=== PATIENT | female | born 1955 ===

== ENCOUNTER 2022-02-24 11:29 | Outpatient (REF) | payer OTHER, SELFPAY | END 2022-02-24 11:30 | disposition home or self-care (01) | LOC: HO.LNP 11:29 | PROVIDERS: Visit Provider Nurse Practitioner Family | DX: J30.9 Allergic rhinitis, unspecified (principal); Z20.822 Contact with and (suspected) exposure to COVID-19 | CPT/HCPCS: U0003; U0005 ==

== ENCOUNTER 2022-04-19 07:54 | Outpatient (REF) | payer OTHER, SELFPAY ==
--- NOTE | ~2022-04-19 | XR_ITS ---
EXAMINATION: XR FOOT, LEFT CLINICAL INFORMATION: Cellulitis COMPARISON: None TECHNIQUE: AP, lateral, and oblique views of the left foot. FINDINGS: Bone alignment is normal. No fracture or dislocation. Normal joint spaces. Large calcaneal spurs. Soft tissue arterial calcification. Question soft tissue swelling over the plantar heel/calcaneus. No soft tissue foreign body or abnormal air collection. XR/XR foot LT 2V IMPRESSION: Calcaneal spurs. Severe atherosclerotic disease. Question soft tissue thickening over the heel/calcaneus.
[2022-04-19 08:05] LABS: MANUAL DIFF FLAG NO
[2022-04-19 08:41] LABS: Basophils Absolute Auto 0.1 X10*3/uL (0.0-0.2); Basophils Percent Auto 0.5 % (0-2); Eosinophils Absolute Auto 0.3 X10*3/uL (0.0-0.4); Eosinophils Percent Auto 2.6 % (0-4); Hematocrit 41.6 % (37.0-47.0); Hemoglobin 13.2 g/dl (12.0-16.0); Imm Gran Abs Auto 0.05 X10*3/uL (0.00-0.03); Imm Gran Pct Auto 0.5 % (0.0-0.4); Lymphocytes Absolute Auto 2.2 X10*3/uL (1.2-4.9); Lymphocytes Percent Auto 19.4 % (20-40); Mean Corpuscular HGB Conc 31.7 g/dl (31.0-35.0); Mean Corpuscular Hemoglobin 27.7 pg (27.0-33.0); Mean Corpuscular Volume 87.4 fL (80.0-98.0); Mean Platelet Volume 10.1 fL (9.4-12.3); Monocytes Absolute Auto 0.9 X10*3/uL (0.1-1.2); Monocytes Percent Auto 8.5 % (2-11); Neutrophils Absolute Auto 7.6 x10*3/uL (2.0-8.3); Neutrophils Percent Auto 68.5 % (45-73); Platelet Count 271 X10*3/uL (160-400); Red Blood Count 4.76 X10*6/uL (4.20-5.50); Red Cell Distribution Width 13.5 % (11.0-16.0); White Blood Count 11.1 X10*3/uL (4.8-10.8)
[2022-04-19 08:48] LABS: Estimated Average Glucose 249 mg/dL; Hemoglobin A1c % 10.3 %
[2022-04-19 09:14] LABS: Appearance Urine Clear; Color Urine Yellow; Glucose Urine UA >=1000 mg/dL (Negative); Leukocyte Esterase Urine Negative (Negative); Nitrite Urine Negative (Negative); UMIC TRIGGER UA YES; Urine Blood Negative (Negative); Urine Ketones Negative (Negative); Urine Protein Negative (Neg-Trace)
[2022-04-19 09:21] LABS: Bacteria Urine None Seen (None Seen); Hyaline Casts Urine 0-2 /LPF (0-2); RBC Urine 0-2 /HPF (0-2); WBC Urine 0-5 /HPF (0-5)
[2022-04-19 09:25] LABS: Alanine Aminotransferase 25 U/L (0-31); Albumin Level 4.2 g/dL (3.5-5.0); Alkaline Phosphatase 143 U/L (39-117); Anion Gap 15 (12-20); Aspartate Amino Transferase 15 U/L (5-31); Bilirubin Total 0.2 mg/dL (0.0-1.0); Blood Urea Nitrogen 50 mg/dL (9-16); Calcium 9.6 mg/dL (8.4-10.2); Carbon Dioxide 23 mmol/L (22-29); Chloride 105 mmol/L (96-108); Cholesterol 139 mg/dL; Estimated Glomerular Filt Rate 38; Glucose Fasting 226 mg/dL (60-99); HDL Cholesterol 34 mg/dL; LDL Cholesterol Calculated 81 mg/dl; Sodium 138 mmol/L (135-145); TSH reflex Free T4 1.38 uIU/mL (0.32-4.0); Total Protein 6.9 g/dL (6.5-8.0); Triglycerides 123 mg/dL
[2022-04-19 09:51] LABS: Creatinine Urine 51.67 mg/dL; Microalbum/Creatinine Ratio Ur 21.2 ug/mg cr
== END 2022-04-19 07:55 | disposition home or self-care (01) ==
LOC: HO.LAB 07:54
PROVIDERS: PCP Family Medicine; Visit Provider Family Medicine
DX: Z00.00 Encounter for general adult medical examination without abnormal findings (principal); I10 Essential (primary) hypertension; R73.01 Impaired fasting glucose; L03.116 Cellulitis of left lower limb
CPT/HCPCS: 36415; 73620; 80053; 80061; 81001; 82043; 83036; 84443; 85025

== ENCOUNTER → 2022-05-05 09:20 | Outpatient (REF) | payer OTHER, SELFPAY ==
--- NOTE | 2022-05-05 09:23 | CA_ITS ---
Transthoracic Echocardiogram Patient (Last, First, Middle): Jimena Watkins E Gender: Female Date of : 1955 Age: 66 Procedure Date: 05/05/2022 Procedure Type: Transthoracic Echocardiogram Location: OP Height: 149.86 cm Weight: 87.09 kg BSA: 1.81 m2 Heart Rate: 68 bpm BP: 142 / 62 mmHg Sample Weaver: SB Referring MD: Ross Gold MD Knife Sharpener: Juan Can MD Symptoms: R01.1 - Cardiac murmur, unspecified Study Quality: Adequate w contrast ECG Rhythm: Sinus Conclusions: - 1. Hyperdynamic LV systolic function with LVEF of greater than 70% with mild asymmetric septal hypertrophy without any clear evidence of dynamic obstruction 2. Limited with elevation of cardiac valve with normal cardiac valvular Doppler 3. No gross pericardial effusion Findings Procedure Information Contrast agent, definity, is being given per protocol without apparent complications. Left Ventricle Normal left ventricular size, thickness, and systolic function. The visually estimated ejection fraction is >70%. Spectral Doppler is indicative of an impaired relaxation filling pattern. There is mild septal asymmetric hypertrophy. Right Ventricle Normal right ventricular cavity size. Atria The left atrium is normal in size. Interatrial shunt cannot be excluded. The right atrium was not well visualized. Aortic Valve The aortic valve was not well visualized. There is no aortic valve stenosis. There is no aortic valve regurgitation. Mitral Valve There is mild anterior mitral leaflet thickening. There is moderate mitral annular calcification. There is no mitral valve regurgitation. There is trace mitral valve stenosis. Pulmonic Valve The pulmonic valve was not well visualized. Tricuspid Valve The tricuspid valve was not well visualized. Tricuspid regurgitation envelope is inadequate for calculation of right ventricular systolic pressure. Great Vessels All visible segments of the aorta are normal in size. The pulmonary artery was not well visualized. Venous The inferior vena cava was not well visualized. Pericardium/Pleural There is no evidence of pericardial effusion. Prior Study Comparison No prior study available for comparison. Measurements 2D Linear Measurements IVSd: 1.37 0.6-0.9/0.6-1.0 cm LVIDd: 4.31 3.9-5.3/4.2-5.9 cm LVIDd Index: 2.38 2.4-3.2/2.2-3.1 cm/m2 LVIDs: 2.74 2.0-3.6 cm LVPWd: 1.05 0.7-1.1 cm LA Diam: 3.80 2.7-3.8/3.0-4.0 cm LAIDs Index: 2.10 1.5-2.3 cm/m2 LV Mass: 233.75 67-162/88-224 g LV Mass Index: 129.14 43-95/49-115 g/m2 LVOT Diam: 2.00 3.0+(-)1.3 cm 2D Systolic Function EF 4C: 74.00 >55% EF 2C: 78.50 >55% EF BiP: 75.50 >55% Mitral Valve MV Pk E: 0.90 MV PK A: 0.93 MV Decel Time: 257.00 E/A: 1.00 E'Lateral: 6.42 E'Medial: 7.18 E/E' Med: 12.60 E/E' Lat: 14.10 PHT: 75.00 MVA PHT: 2.93 Decel Stutsman: 3.52 Aortic Valve AoV Pk Eddie: 1.31 AoV Pk Grad: 7.00 AMRIT: 2.80 LVOT LVOT Pk Eddie: 1.17 LVOT Mn Eddie: 0.82 LVOT VTI: 0.25 LVOT Pk Grad: 5.00 LVOT Mn Grad: 3.00 LVOT Diam: 2.00 LVOT Area: 3.14 Diastolic Function MV Pk E: 0.90 MV Pk A: 0.93 E/A: 1.00 E'Medial: 7.18 E/E' Med: 12.60 E' Laterial: 6.42 E/E' Lat: 14.10 Right Ventricle TAPSE (mm): 21.40 TVS' Eddie: 16.90 Tricuspid Valve RA Press: 3.00 Great Vessels Aorta Sinus of Valsalva: 2.90 2.0-3.5 cm Ao Asc: 3.50 2.1-3.4 cm Pulmonary Veins Pulm Vein S/D 1.20 Pulmonary Valve PV Pk Eddie: 1.38 Peak PV Grad: 8.00 Updated in Other Vendor System with Status of Final Juan Can MD electronically signed on 05/05/2022 4:27:52 PM with status of Final
== END ==
LOC: HO.CARD 09:20
PROVIDERS: PCP Family Medicine; Visit Provider Family Medicine
DX: R01.1 Cardiac murmur, unspecified (principal)
CPT/HCPCS: 93306; Q9957

== ENCOUNTER 2022-08-09 11:01 | Outpatient (REF) | payer OTHER, SELFPAY ==
--- NOTE | ~2022-08-09 | US_ITS ---
EXAMINATION: US ABDOMEN LIMITED CLINICAL INFORMATION: Unspecified abdominal pain. Left-sided abdominal wall pain, worse with cough or sneeze. Rule out hernia. COMPARISON: None available. TECHNIQUE: Real-time imaging of the left flank in the region of concern. FINDINGS: No sonographic correlate to the reported area of pain. No hernia. No lymphadenopathy. US/US abdomen limited IMPRESSION: No sonographic correlate to the reported area of pain. No hernia. If persistent clinical concern a CT abdomen pelvis could be obtained.
== END 2022-08-09 11:02 | disposition home or self-care (01) ==
LOC: HO.US 11:01
PROVIDERS: Visit Provider Family Medicine
DX: R10.9 Unspecified abdominal pain (principal)
CPT/HCPCS: 76705

== ENCOUNTER 2022-08-16 11:03 | Outpatient (REF) | payer OTHER, SELFPAY ==
--- NOTE | ~2022-08-16 | MM_ITS ---
EXAMINATION: MM SCREENING DIGITAL BREAST TOMOSYNTHESIS, BILATERAL CLINICAL INFORMATION: Screening. Asymptomatic. The lifetime risk of breast cancer based on the Tyrer-Cuzick Model is 3.9%. COMPARISON: Mammography: 06/18/2012 and studies dating back to 10/14/2009. TECHNIQUE: Digital breast tomosynthesis is performed in both the craniocaudal and mediolateral oblique views along with computer-aided detection (CAD). Synthesized 2D images are generated from the tomosynthesis. FINDINGS: There are scattered areas of fibroglandular density (ACR BI-RADS breast composition Category b). On deep medial aspect of right craniocaudal view there is a density present which may represent sternalis muscle or mass of other etiology. Repeat attempt at imaging this region is recommended. If there is persistence of density then ultrasound could be performed at that time. Within the central aspect of the left breast, approximately 8 cm from nipple, there is a nodular, circumscribed density present measuring approximately 7 x 5 mm in size and may represent intramammary lymph node. Spot compression view and possible ultrasound recommended. MM/MM tomosynthesis screening BI IMPRESSION: Bilateral breast findings for further evaluation. ASSESSMENT: BI-RADS 0: Incomplete - Need Additional Imaging Evaluation. RECOMMENDATION: 1. Additional views of the bilateral breasts. 2. Targeted ultrasound if warranted after review of the additional views. 3. Radiology department staff will contact the patient for additional imaging. This patient's information was entered into a reminder system with a target due date for their next mammogram.
== END 2022-08-16 11:04 | disposition home or self-care (01) ==
LOC: HO.MAMMO 11:03
PROVIDERS: PCP Family Medicine; Visit Provider Family Medicine
DX: Z12.31 Encounter for screening mammogram for malignant neoplasm of breast (principal)
CPT/HCPCS: 77063; 77067

== ENCOUNTER 2022-08-23 08:22 | Outpatient (REF) | payer OTHER, SELFPAY ==
--- NOTE | ~2022-08-23 | MM_ITS ---
EXAMINATION: MM DIAGNOSTIC DIGITAL BREAST TOMOSYNTHESIS, BILATERAL CLINICAL INFORMATION: Recall from screening for asymmetric density posterior medial right breast on CC view and nodular asymmetry central outer left breast on CC view. COMPARISON: Mammography: 08/16/2022, 06/18/2012 TECHNIQUE: Digital breast tomosynthesis is performed. 2D images are generated from the tomosynthesis. The following views are obtained: Spot right CC, standard right CC, spot left CC. FINDINGS: There are scattered areas of fibroglandular density (ACR BI-RADS breast composition Category b). Breast tissue composition borders on predominantly fatty. Background stromal markings are similar to prior exams. Additional views right breast show no parenchymal asymmetry or developing density or mass or architectural abnormality from remote prior exam 2013. Finding for recall is no longer demonstrated. Additional views left breast demonstrates nodularity central breast similar to the prior exam 2013. No architectural abnormality. Results are discussed with the patient at time of visit. Patient believes she may have had prior outside mammography locally since 2013. Radiology department staff will attempt to retrieve prior outside mammography to allow for comparison in an addendum report. Otherwise, routine bilateral mammography in one year. MM/MM tomosynthesis added view BI IMPRESSION: -No mammographic evidence of malignancy. -No significant changes from prior exam 2013. ASSESSMENT: BI-RADS 2: Benign RECOMMENDATION: Routine annual mammography screening. This patient's information was entered into a reminder system with a target due date for their next mammogram.
== END 2022-08-23 08:23 | disposition home or self-care (01) ==
LOC: HO.MAMMO 08:22
PROVIDERS: PCP Family Medicine; Visit Provider Family Medicine
DX: R92.2 Inconclusive mammogram (principal)
CPT/HCPCS: 77062; 77066

== ENCOUNTER → 2022-10-27 10:14 | Outpatient (BNVA) | payer OTHER, SELFPAY | PROVIDERS: PCP Family Medicine; Visit Provider Internal Medicine Endocrinology, Diabetes & Metabolism | DX: E11.65 Type 2 diabetes mellitus with hyperglycemia (principal); Z79.4 Long term (current) use of insulin | CPT/HCPCS: 82947; 83036; 99202 ==

== ENCOUNTER 2022-11-10 13:04 | Outpatient (AMB) | payer OTHER, SELFPAY ==
--- NOTE | 2022-11-10 13:11 | A.OFFPC_ITS ---
Vital Signs 11/10/22 13:14 Height 4 ft 11 in Weight 196 lb 4 oz BMI 39.6 BP 132/80 Blood Pressure Location Lt brachial Pulse 66 Pulse Oximetry (%) 97 Oxygen Delivery Method Room Air Intake Visit Reasons: f/u diabetes Intake Note: Patient is here to follow up on diabetes today. She states her sugar was 264 this morning. Allergies aspirin [Aspirin] Allergy (Mild, Verified 10/27/22 10:20) RASH morphine [MORPHINE] Allergy (Unknown, Verified 10/27/22 10:20) ABD PAIN, RASH omeprazole [OMEPRAZOLE] Allergy (Unknown, Verified 10/27/22 10:20) SHORTNESS OF BREATH pregabalin [From LYRICA] Allergy (Unknown, Verified 10/27/22 10:20) SHORTNESS OF BREATH celecoxib Adverse Reaction (Mild, Verified 11/10/22 13:18) chest pain, jumping feeling in her heart. Tobacco use date assessed: 11/10/22 Fall risk assessment: 1 Fall in past year Last assessed Fall Risk: 11/10/22 Dental Screening Did you have a dental visit in the last 12 months?: No Did you have a dental problem in the last 6 months where you did not have access to dental care?: No Was dental information given to patient?: No HPI f/u diabetes HPI Details 67 y/o female presents to f/u diabetes. Had increased Tresiba to total daily dose of 95U. Had seen Dr. Maxwell Endocrinology 10/27/22. They had planned to decrease Tresiba to 75 units once a day. She has an appt. with Endocrinology in November. Last A1c 10/27/22 10.2%, which had improved from prior. She reports morning blood sugars in the 200s. [facility] Medical History Arthritis Asthma Diabetes 1.5, managed as type 2 Ganglion cyst Glaucoma Hypertension Intracranial mass Neuropathy Uncontrolled type 2 diabetes mellitus with hyperglycemia, with long-term current use of insulin Surgical History H/O right breast biopsy H/O tubal ligation Hx of tonsillectomy Social History Housing: Apartment Patient Tobacco Use Status: Former Tobacco user Quit Date: More than 30 years e-Cigarette/Vaping Use: Never Used service: No Current occupational status: disabled Current occupational exposures/hazards: No Cognitive needs: No Hearing needs: Yes Vision needs: Yes Review of Systems Const Denies chills, Denies fatigue, Denies fever(s), Denies headache(s) and Denies weakness ENT Denies dizziness and Denies headache(s) Card Denies chest pain, Denies lightheadedness, Denies dyspnea and Denies other (Palpitations) Resp Denies cough, Denies dyspnea, Denies wheezing and Denies other ( shortness of breath) Musc Denies numbness and Denies tingling Neuro Denies dizziness, Denies headache(s), Denies numbness, Denies tingling, Denies paresthesias and Denies weakness Psych Denies anxiety and Denies depression Endo Denies fatigue Aller/Immun Denies wheezing Physical exam (Primary Care) Vital Signs: Last Vital Signs Pulse 66 11/10/22 13:14 BP 132/80 11/10/22 13:14 Pulse Ox 97 11/10/22 13:14 Oxygen Delivery Method Room Air 11/10/22 13:14 BMI result Body Mass Index 39.6 Tobacco/Smoking Status: Tobacco use Status Tobacco use date assessed 11/10/22 11/10/22 13:20 Patient Tobacco Use Status Former Tobacco user 11/10/22 13:13 e-Cigarette/Vaping Use Never Used 11/10/22 13:13 Const General: no acute distress and well developed Nutritional Appearance: well nourished Orientation/consciousness: patient oriented x3 HENMT Head: Yes normocephalic and Yes atraumatic Eyes General: appearance normal, both eyes and all related structures Pupils: Equal, round and reactive pupils present EOM: EOMs intact bilaterally Resp Effort & Inspection: normal respiratory effort Auscultation: clear to auscultation bilaterally Cardio Rate: regular rate Rhythm: regular rhythm Heart sounds: S1 normal heart sound present, S2 normal heart sound present, no gallops, no murmurs and no rubs Neuro General: patient oriented x3 and gait normal Cranial nerves: Yes Equal, round and reactive pupils present Psych Affect: normal affect Assessment and Plan Assessment & Plan (1) Uncontrolled type 2 diabetes mellitus with hyperglycemia, with long-term current use of insulin: Code(s): E11.65 - Type 2 diabetes mellitus with hyperglycemia; Z79.4 - tank terminal gauger (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) use of insulin Plan: Now on decreased dose of Tresiba and now on Semaglutide it and Januvia She is tolerating this regimen but she notes that blood sugars are still quite high and over 200 in the mornings Will increase the Semaglutide She has a referral to ophthalmology and podiatry She has an appointment for diabetic teaching in November She has an appointment with endocrinology in November and January (2) Constipation: Code(s): K59.00 - Constipation, unspecified Plan: Likely secondary to dehydration from uncontrolled diabetes We will continue to work at controlling her diabetes Hydrate well and increase water intake Will give her a short course of MiraLax (3) Polyarthralgia: Code(s): M25.50 - Pain in unspecified joint Orders: Orders Basic Metabolic Panel Today M25.50 - Pain in unspecified joint, Z00.00 - Encounter for general adult medical examination without abnormal findings CRP High Sensitivity Today M25.50 - Pain in unspecified joint Rheumatoid Factor Today M25.50 - Pain in unspecified joint Complete Blood Count Auto Diff Today M25.50 - Pain in unspecified joint, Z00.00 - Encounter for general adult medical examination without abnormal findings Erythrocyte Sedimentation Rate Today M25.50 - Pain in unspecified joint CEDRICK Reflex Titer and Pattern Today M25.50 - Pain in unspecified joint Medications: New polyethylene glycol 3350 (Miralax) 17 grams PO DAILY 14 days 14 ea 0RF gabapentin 300 mg PO BID PRN 60 caps 0RF pain 30 days Changed From semaglutide (Ozempic) 0.5 mg (0.4 mL) subcut QWEEK 28 days 1.6 mL 4RF To semaglutide 1 mg (0.75 mL) subcut QWEEK 28 days 3 mL 4RF Coding Level of Care Code Est Pt Level 3 (63112) Diagnoses Uncontrolled type 2 diabetes mellitus with hyperglycemia, with long-term current use of insulin E11.65; Z79.4 Constipation K59.00 Polyarthralgia M25.50
[2022-11-10 13:14] VITALS: BP 132/80; PULSE 66; O2SAT 97; BMI 39.6
== END 2022-11-10 13:51 | disposition home or self-care (01) ==
PROVIDERS: Visit Provider Family Medicine
DX: E11.65 Type 2 diabetes mellitus with hyperglycemia (principal); Z79.4 Long term (current) use of insulin; K59.00 Constipation, unspecified; M25.50 Pain in unspecified joint
CPT/HCPCS: 99213

== ENCOUNTER 2023-01-26 10:55 | Outpatient (AMB) | payer OTHER, SELFPAY ==
[2023-01-26 10:57] VITALS: BP 142/82; PULSE 78; BMI 39.8
--- NOTE | 2023-01-26 10:57 | MHC.OFFVIS ---
Intake Vital Signs 01/26/23 10:57 Height 4 ft 11 in Weight 197 lb 1.492 oz BMI 39.8 BP 142/82 H Blood Pressure Location Lt brachial Position Sitting Pulse 78 Pulse Source Pulse Oximeter Intake Visit Reasons: 3M follow up DM2-CONFIRMED Intake Note: Patient present today to follow up on Type 2 Diabetes Mellitus. Last Diabetic Eye exam: 3 years Last Podiatry Visit: None Random Glucose: 230 mg/dl HgA1C: 9.3% Termite Renewal Inspector Required: Yes Termite Renewal Inspector Language: Blast Furnace Blower Name: Monie medical staff Information Interpreted: non-clinical & clinical Accompanied by: Self / Same As Patient Allergies aspirin [Aspirin] Allergy (Mild, Verified 01/26/23 11:05) RASH morphine [MORPHINE] Allergy (Unknown, Verified 01/26/23 11:05) ABD PAIN, RASH omeprazole [OMEPRAZOLE] Allergy (Unknown, Verified 01/26/23 11:05) SHORTNESS OF BREATH pregabalin [From LYRICA] Allergy (Unknown, Verified 01/26/23 11:05) SHORTNESS OF BREATH celecoxib Adverse Reaction (Mild, Verified 01/26/23 11:05) chest pain, jumping feeling in her heart. HPI HPI Comments History of Present Illness Details 67 YO F who is seen in consultation for T2DM at the request of PCP. Initially diagnosed with T2DM in 25 yrs ago . Never saw endo before Was initially started on treatment with []. Current regimen Ozempic 0.5 mg Qwkly Tresiba 80 units Jardiance 25 mg QD Checks sugars 1 times per day in AM . Unfortunately, patient did not bring log book or glucometer to visit No Reports low sugars . Most recent A1C 11.3 on 08/03/2022, Family history of T2DM in mother, grandmother . Has eyes checked yearly, last eye exam 3 yrs ago . needs to make appt , denies retinopathy. Denies neuropathy, Not sees podiatry. Denies nephropathy, on ARTHUR/ARB. Has HLD, on statin. Denies CAD. Hx of CVA X2 4 yrs ago Had diabetes education many yrs ago . Had an [facility] according to pt [facility] Medical History (Reviewed 11/10/22 @ 13:19 by Kristine Lugo [facility]) Arthritis Asthma Diabetes 1.5, managed as type 2 Ganglion cyst Glaucoma Hypertension Intracranial mass Neuropathy Uncontrolled type 2 diabetes mellitus with hyperglycemia, with long-term current use of insulin Surgical History H/O right breast biopsy H/O tubal ligation Hx of tonsillectomy Social History Housing: Apartment Patient Tobacco Use Status: Former Tobacco user Quit Date: More than 30 years e-Cigarette/Vaping Use: Never Used service: No Current occupational status: disabled Current occupational exposures/hazards: No Cognitive needs: No Hearing needs: Yes Vision needs: Yes Physical Exam Vital Signs: Last Vital Signs Pulse 78 01/26/23 10:57 BP 142/82 H 01/26/23 10:57 BMI result Body Mass Index 39.8 Absence of Cushingoid features. Absence of acromegalic features. Neck exam reveals nl size thyroid about 15 gms. No thyroid nodules palpable. No carotid bruits present. Lungs CTA. Heart S1 S2, Reg R/R. No M/R/ G. Skin exam reveals absence of vitiligo or acanthosis nigricans. Abdominal exam reveals Soft NT/ND with NA BS. No organomegaly present. Neck Other: . Extrem Other: Visual exam of foot performed. No ulcerations or open lesions. No onchomycosis, no callouses.Pulses 2 + distally Sensation intact to monofilament exam. Vibratory sensation sensed is intact with 128 Hz tuning fork Results AMB Hemoglobin A1c AMB Hemoglobin A1c 9.3 % Last Edit by Jen Rivera on 01/26/23 11:19 Results Reviewed Results Reviewed: 01/26/23 11:07 Glucose, Whole Blood Routine Laboratory Last Values Glucose (Clinic) 230 mg/dL (60-115) H 01/26/23 11:07 Assessment & Plan Assessment & Plan (1) Uncontrolled type 2 diabetes mellitus with hyperglycemia, with long-term current use of insulin: Code(s): E11.65 - Type 2 diabetes mellitus with hyperglycemia; Z79.4 - correction (current) use of insulin Plan: This is a 67-year-old female with a history of type 2 diabetes being treated with Ozempic and basal insulin namely Tresiba with poor glycemic control and known microvascular and macrovascular complications namely neuropathy and CVA. Plan is I will also have the patient check her point cares pre and post meals and to bring the glucometer to follow-up visit. Patient would be a good candidate for a sensor and I prescribed Alirio 2 . Will have patient see personal development educator and box stacker. With the help with meat pickler, explained the relationship of poor glycemic control to development and progression of complications. I also stressed the importance of seeing the coding director and financial representative Orders: Orders AMB Hemoglobin A1c Today E11.65 - Type 2 diabetes mellitus with hyperglycemia, Z79.4 - correction (current) use of insulin Medications: New flash glucose scanning reader (FreeStyle Alirio 2 [place]) As directed 1 ea 0RF flash glucose sensor (FreeStyle Alirio 2 Sensor kit) As directed change every 14 days 2 ea 5RF Coding Level of Care Code Est Pt Level 4 (49794) Diagnoses Uncontrolled type 2 diabetes mellitus with hyperglycemia, with long-term current use of insulin E11.65; Z79.4
== END 2023-01-26 11:28 | disposition home or self-care (01) ==
PROVIDERS: PCP Family Medicine; Visit Provider Internal Medicine Endocrinology, Diabetes & Metabolism
DX: E11.65 Type 2 diabetes mellitus with hyperglycemia (principal); Z79.4 Long term (current) use of insulin
CPT/HCPCS: 99214

== ENCOUNTER → 2023-01-26 10:55 | Outpatient (BNVA) | payer OTHER, SELFPAY | PROVIDERS: PCP Family Medicine; Visit Provider Internal Medicine Endocrinology, Diabetes & Metabolism | DX: E11.65 Type 2 diabetes mellitus with hyperglycemia (principal); Z79.4 Long term (current) use of insulin | CPT/HCPCS: 82947; 83036; 99212 ==

== ENCOUNTER 2023-02-02 14:56 | Outpatient (AMB) | payer OTHER, SELFPAY ==
[2023-02-02 15:01] VITALS: BP 122/64; PULSE 89; RESP 13; TEMP 36.5; O2SAT 99; BMI 39.2
--- NOTE | 2023-02-02 15:01 | MHC.PC.OV ---
Vital Signs 02/02/23 15:01 Height 4 ft 11 in Weight 194 lb 2 oz BMI 39.2 BP 122/64 Blood Pressure Location Lt brachial Position Sitting Respiration 13 Pulse 89 Pulse Source Pulse Oximeter Temp 97.7 F Temp Source Temporal Artery Scan Pulse Oximetry (%) 99 Oxygen Delivery Method Room Air Intake Visit Reasons: [facility]-01/05-01/19-myocardial infarction Intake Note: Patient states that shes been bruising alot more. Patient also states that all her meds were changed and she now has a new pharmacy. Patient would like all medications sent to this new pharmacy if possible from now on.Patient has also been experiencing headaches more frequently as well as nausea and constipation. Senior Payroll Administrator Required: Yes Senior Payroll Administrator Name: Kay (FOOD ORDER EXPEDITER) Accompanied by: FOOD ORDER EXPEDITER Allergies aspirin [Aspirin] Allergy (Mild, Verified 02/02/23 15:30) RASH morphine [MORPHINE] Allergy (Unknown, Verified 02/02/23 15:30) ABD PAIN, RASH omeprazole [OMEPRAZOLE] Allergy (Unknown, Verified 02/02/23 15:30) SHORTNESS OF BREATH pregabalin [From LYRICA] Allergy (Unknown, Verified 02/02/23 15:30) SHORTNESS OF BREATH celecoxib Adverse Reaction (Mild, Verified 02/02/23 15:30) chest pain, jumping feeling in her heart. Tobacco use date assessed: 11/10/22 Fall risk assessment: 1 Fall in past year Last assessed Fall Risk: 02/02/23 Dental Screening Dental Screen Date: 02/02/23 Did you have a dental visit in the last 12 months?: Yes Did you have a dental problem in the last 6 months where you did not have access to dental care?: No Was dental information given to patient?: Patient has dentist HPI HPI Comments History of Present Illness Details 67-year-old female, accompanied by her FOOD ORDER EXPEDITER, presents for a follow-up visit. She presented at [facility] ED on 01/02/2023 with complaint of chest pain. She was admitted and treated for unstable angina on 01/02/2023 and discharged on 01/05/2023 to [facility] where she she spent 2 weeks. She reports constipation and nausea for the past 4 days. She states that she gets the urge to defecate but would not dedicate. She states that she was having regular BM ever 2 days. Miralax has not been effective. She denies vomiting or abdominal pain. She denies CP, arm and back pain. [facility] Medical History Uncontrolled type 2 diabetes mellitus with hyperglycemia, with long-term current use of insulin Ganglion cyst Glaucoma Neuropathy Arthritis Intracranial mass Diabetes 1.5, managed as type 2 Hypertension Asthma Surgical History H/O tubal ligation Hx of tonsillectomy H/O right breast biopsy Social History Housing: Apartment Patient Tobacco Use Status: Former Tobacco user Quit Date: More than 30 years e-Cigarette/Vaping Use: Never Used service: No Current occupational status: disabled Current occupational exposures/hazards: No Cognitive needs: No Hearing needs: Yes Vision needs: Yes Review of Systems Const Details: Const Denies chills, Denies fatigue, Denies fever(s), Denies headache(s) and Denies weakness ENT Denies dizziness and Denies headache(s) Card Denies chest pain, Denies lightheadedness, Denies dyspnea and Denies other (Palpitations) Resp Denies cough, Denies dyspnea, Denies wheezing and Denies other ( shortness of breath) GI Reports as per HPI Denies hematuria and Denies dysuria Musc Denies abnormal gait, Denies myalgias, Denies arthralgias, Denies numbness and Denies tingling Skin/Breast Denies rash, Denies unusual bruising and Denies wounds Neuro Denies abnormal gait, Denies dizziness, Denies headache(s), Denies memory loss, Denies numbness, Denies Sensory deficit (Neuro), Denies tingling and Denies weakness Psych Denies anxiety, Denies depression, Denies memory loss Endo Denies cold intolerance, Denies fatigue, Denies heat intolerance, Denies polydipsia and Denies polyuria Aller/Immun Denies wheezing Physical exam (Primary Care) Vital Signs: Last Vital Signs Temp 97.7 F 02/02/23 15:01 Pulse 89 02/02/23 15:01 Resp 13 02/02/23 15:01 BP 122/64 02/02/23 15:01 Pulse Ox 99 02/02/23 15:01 Oxygen Delivery Method Room Air 02/02/23 15:01 BMI result Body Mass Index 39.2 Tobacco/Smoking Status: Tobacco use Status Tobacco use date assessed 11/10/22 02/02/23 15:18 Patient Tobacco Use Status Former Tobacco user 02/02/23 15:18 e-Cigarette/Vaping Use Never Used 02/02/23 15:18 Const Other: General: no acute distress and well developed Nutritional Appearance: well nourished Orientation/consciousness: patient oriented x3 [facility] Head: Yes normocephalic and Yes atraumatic Eyes General: appearance normal, both eyes and all related structures Pupils: Equal, round and reactive pupils present EOM: EOMs intact bilaterally Resp Effort & Inspection: normal respiratory effort Auscultation: clear to auscultation bilaterally Cardio Rate: regular rate Rhythm: regular rhythm Heart sounds: S1 normal heart sound present, S2 normal heart sound present, no gallops, no murmurs and no rubs GI Palpation (GI): No Abdominal aortic bruit present, Soft to palpation, nontender, No hepatosplenomegaly present and No Rebound tenderness present Auscultation: normal bowel sounds General: Yes no CVA tenderness Back/Spine/Pelvis Back: no CVA tenderness Cervical Spine: cervical ROM normal and No Cervical spine tenderness Thoracic/Lumbar Spine: thoraco-lumbar ROM normal, No pain with thoraco-lumbar ROM, No thoracic spinal tenderness and No lumbar spinal tenderness Extrem General: Yes normal to inspection, No edema and No calf tenderness Skin General: warm and dry. Normal skin color. Normal skin turgor Lesions: no lesions Rashes: no rashes Trauma: no lacerations or abrasions Wounds: no wounds Nails: normal Neuro General: patient oriented x3, gait normal and no focal neuro deficit Cranial nerves: Yes Equal, round and reactive pupils present Cognition (Neuro): normal cognition Gait exam (Neuro): Normal gait present Sensory Exam: No Sensory deficit (Neuro) Psych Appearance: grossly normal Affect: normal affect Attitude: cooperative Thought process: Normal thought process present Assessment and Plan Assessment & Plan (1) Hospital discharge follow-up: Code(s): Z09 - Encounter for follow-up examination after completed treatment for conditions other than malignant neoplasm Plan: Patient was admitted and at [facility] and transferred to rehab for chest pain. She denies chest pain or discomfort at this time. Advised to follow-up with her PCP next week as scheduled. Return with new or worsening symptoms. Verbalized understanding and agreed with treatment plan. (2) Constipation: Code(s): K59.00 - Constipation, unspecified Plan: She reports constipation and nausea for the past 4 days. She states that she gets the urge to defecate but would not dedicate. She states that she was having regular BM ever 2 days. Miralax has not been effective. She denies vomiting or abdominal pain. Healthy diet including fiber, fruits, and vegetative will encouraged Metamucil ordered. Take as prescribed Adequate hydration encouraged Follow-up with worsening or new symptoms Verbalized understanding and agreed with treatment plan. Medications: New psyllium husk (Metamucil) mix into at least 8 oz of water or juice before administering. May increase to 1 tbsp twice daily if current ordered is ineffective 1 tbsp PO DAILY 660 grams 0RF Coding Level of Care Code TCM Mod MDM <= 14 Days Diagnoses Hospital discharge follow-up Z09 Constipation K59.00
== END 2023-02-02 15:54 | disposition home or self-care (01) ==
PROVIDERS: PCP Family Medicine; Visit Provider Nurse Practitioner Family
DX: K59.00 Constipation, unspecified (principal); Z09 Encounter for follow-up examination after completed treatment for conditions other than malignant neoplasm
CPT/HCPCS: 99214

== ENCOUNTER 2023-02-21 14:46 | Outpatient (AMB) | payer OTHER, SELFPAY ==
--- NOTE | 2023-02-21 15:06 | MHC.AMDMED ---
Intake Intake Visit Reasons: DM Textile Colorist Dyer Required: Yes Textile Colorist Dyer Language: Director Of Global Sales Name: Pt's Daughter Hosiery Bagger: Hosiery Bagger offered & declined Accompanied by: Daughter Allergies aspirin [Aspirin] Allergy (Mild, Verified 02/02/23 15:30) RASH morphine [MORPHINE] Allergy (Unknown, Verified 02/02/23 15:30) ABD PAIN, RASH omeprazole [OMEPRAZOLE] Allergy (Unknown, Verified 02/02/23 15:30) SHORTNESS OF BREATH pregabalin [From LYRICA] Allergy (Unknown, Verified 02/02/23 15:30) SHORTNESS OF BREATH celecoxib Adverse Reaction (Mild, Verified 02/02/23 15:30) chest pain, jumping feeling in her heart. HPI Comprehensive Diabetes Asmnt Most Recent Diabetes Results: Microalb/Creat Ratio 21.2 ug/mg cr 04/19/22 Cholesterol 139 mg/dL 04/19/22 HDL Cholesterol 34 mg/dL 04/19/22 Triglycerides 123 mg/dL 04/19/22 Creatinine 1.38 mg/dL (0.5-1.4) 04/19/22 Blood Urea Nitrogen 50 mg/dL (9-16) H 04/19/22 Sodium 138 mmol/L (135-145) 04/19/22 Potassium 5.0 mmol/L (3.3-5.1) 04/19/22 Chloride 105 mmol/L (96-108) 04/19/22 Carbon Dioxide 23 mmol/L (22-29) 04/19/22 Calcium 9.6 mg/dL (8.4-10.2) 04/19/22 AST 15 U/L (5-31) 04/19/22 ALT 25 U/L (0-31) 04/19/22 Total Protein 6.9 g/dL (6.5-8.0) 04/19/22 Albumin 4.2 g/dL (3.5-5.0) 04/19/22 [facility] Medical History Uncontrolled type 2 diabetes mellitus with hyperglycemia, with long-term current use of insulin Ganglion cyst Glaucoma Neuropathy Arthritis Intracranial mass Diabetes 1.5, managed as type 2 Hypertension Asthma Surgical History H/O tubal ligation Hx of tonsillectomy H/O right breast biopsy Social History Housing: Apartment Patient Tobacco Use Status: Former Tobacco user Quit Date: More than 30 years e-Cigarette/Vaping Use: Never Used service: No Current occupational status: disabled Current occupational exposures/hazards: No Cognitive needs: No Hearing needs: Yes Vision needs: Yes Assessment & Plan Assessment & Plan (1) Uncontrolled type 2 diabetes mellitus with hyperglycemia, with long-term current use of insulin: Code(s): E11.65 - Type 2 diabetes mellitus with hyperglycemia; Z79.4 - nursing home (current) use of insulin Plan: Learning objectives: The patient was provided with verbal and written education on the following topics as outlined below. The patient met all learning objectives and was able to verbalize understanding and provide teach back of education topics discussed . The patient was provided with the opportunity to ask questions and all questions were answered. Patient Assessment Assess patient education level/literacy/barriers Patient questions/concerns, patient's last A1c on 01/26/2023 9.3%. Patient is using [employer] Alirio 2 to check glucose levels. Patient did not bring reader to today's visit. Patient reports she was diagnosed with diabetes at age 22. Has not had Diabetes Education a long time. What is Diabetes? Pathophysiology How the body produces and uses insulin Identify type of DM Risk factors Signs of Diabetes Brief overview of Diabetes Management Monitoring blood sugar Following a meal plan Regular exercise Maintaining a healthy weight Taking medication as needed Members of the care team (PCP, RN, MA, RD, CDE, staffing consultant) Blood glucose monitoring When/how often to test Target blood sugar ranges Did not bring meter to today's visit Introduction to Nutrition Importance of healthy diet in managing DM Diet is personalized to individual preference Review patient?s regular diet/food preferences Who prepares meals/does food shopping/ Dining out?/ Barriers? How diet effects glucose Eating 3 balanced meals a day with small, healthy snacks between meals Review food groups Carbohydrates: What is a carbohydrate/Which food/food groups are considered carbohydrates Effect of carbohydrates on blood glucose Portion sizes Reading food labels Basic carb counting (if applicable per nursing assessment) Plate method Meal planning Recommendations: Follow plate method, consistent carbs and read nutritional labels. Smart Goal: Patient will scan sensor at least 4 times daily Educational Materials: The patient was provided with the following written educational materials: Planning Healthy Meals, rule of 15s, target goal handouts given in [place] Patient Response to instructions: Comprehension of Instructions: Fair Readiness to make changes: Contemplation How confident they feel about making changes: Fair Patient Instructions: Incluir actividad diaria regular. ADA recomienda 30 minutos de ejercicio 5 d?as a la semana. P?rdida de peso, hable con el PCP o el cardi?logo antes de comenzar un nuevo plan. Mida el nivel de az?car en la khloe seg?n las indicaciones; Ayuno y comida m?s juany de 2hpp. Observe las tendencias en los resultados. Utilice los resultados y eval?e c?mo los alimentos, la actividad f?hiwot y los medicamentos afectan los resultados de az?car en la khloe. Lleve el gluc?metro o CGM a la pr?xima visita. Conocer los medicamentos para la diabetes, monterroso acci?n, los efectos secundarios, la eficacia, la toxicidad, la dosis prescrita, el momento y la frecuencia de administraci?n apropiados, el efecto de las dosis olvidadas y retrasadas y las instrucciones de almacenamiento, viaje y seguridad. T?cnicas de resoluci?n de problemas para el seguimiento de episodios de hipo/hiperglucemia y tratamientos. Reducir los comportamientos de reducci?n de riesgos, dejar de fumar, ex?menes regulares de ojos, pies y dentales. Coding Level of Care Code Est Pt Level 1 (08278) Diagnoses Uncontrolled type 2 diabetes mellitus with hyperglycemia, with long-term current use of insulin E11.65; Z79.4
== END 2023-02-21 15:40 | disposition home or self-care (01) ==
PROVIDERS: PCP Family Medicine; Visit Provider Registered Nurse Diabetes Educator
DX: E11.65 Type 2 diabetes mellitus with hyperglycemia (principal); Z79.4 Long term (current) use of insulin

== ENCOUNTER → 2023-02-21 14:46 | Outpatient (BNVA) | payer OTHER, SELFPAY | PROVIDERS: PCP Family Medicine; Visit Provider Registered Nurse Diabetes Educator | DX: E11.65 Type 2 diabetes mellitus with hyperglycemia (principal); Z79.4 Long term (current) use of insulin | CPT/HCPCS: 99211 ==

== ENCOUNTER 2023-03-30 14:17 | Outpatient (AMB) | payer OTHER, SELFPAY ==
--- NOTE | 2023-03-30 14:22 | A.OFFPC_ITS ---
Vital Signs 03/30/23 14:31 Height 4 ft 11 in Weight 187 lb 8 oz BMI 37.9 BP 128/68 Blood Pressure Location Rt brachial Position Sitting Respiration 14 Pulse 77 Pulse Source Pulse Oximeter Temp 97.6 F Temp Source Temporal Artery Scan Pulse Oximetry (%) 99 Oxygen Delivery Method Room Air Intake Visit Reasons: f/u diabetes, see comments Intake Note: Patient had a ED visit on 03/27/23 and was told she in her feet and has a cyst under her right breast. Patient needs a paper filled out in order for her to see dentist. Funds Transfer Clerk Required: No Accompanied by: Self / Same As Patient Allergies aspirin [Aspirin] Allergy (Mild, Verified 03/30/23 14:38) RASH morphine [MORPHINE] Allergy (Unknown, Verified 03/30/23 14:38) ABD PAIN, RASH omeprazole [OMEPRAZOLE] Allergy (Unknown, Verified 03/30/23 14:38) SHORTNESS OF BREATH pregabalin [From LYRICA] Allergy (Unknown, Verified 03/30/23 14:38) SHORTNESS OF BREATH celecoxib Adverse Reaction (Mild, Verified 03/30/23 14:38) chest pain, jumping feeling in her heart. Tobacco use date assessed: 11/10/22 Fall risk assessment: 1 Fall in past year Last assessed Fall Risk: 03/30/23 Dental Screening Dental Screen Date: 03/30/23 Did you have a dental visit in the last 12 months?: Yes Did you have a dental problem in the last 6 months where you did not have access to dental care?: No Was dental information given to patient?: Patient has dentist HPI f/u diabetes, see comments HPI Details 67 y/o female presents to f/u diabetes. Recent [facility] visit 03/27/23 for a boil and a cyst. Was diagnosed with a superficial folliculitis R lower chest wall. Last A1c 01/26/23 9.3%. She reports her blood sugars have been in the 60s to 130s. She has an appt. with Dr. Maxwell Endocrinology. She reports she had went to the emergency department 01/02/23 for chest pain. No discharge summary in the system. [facility] Medical History Uncontrolled type 2 diabetes mellitus with hyperglycemia, with long-term current use of insulin Ganglion cyst Glaucoma Neuropathy Arthritis Intracranial mass Diabetes 1.5, managed as type 2 Hypertension Asthma Surgical History Stented coronary artery H/O tubal ligation Hx of tonsillectomy H/O right breast biopsy Social History Housing: Apartment Patient Tobacco Use Status: Former Tobacco user Quit Date: More than 30 years e-Cigarette/Vaping Use: Never Used service: No Current occupational status: disabled Current occupational exposures/hazards: No Cognitive needs: No Hearing needs: No Vision needs: No Questionnaire PHQ-9 Over the last 2 weeks, how often have you been bothered by any of the following problems? 1. Little interest or pleasure in doing things: not at all 2. Feeling down, depressed, or hopeless: not at all 3. Trouble falling or staying asleep, or sleeping too much: not at all 4. Feeling tired or having little energy: several days 5. Poor appetite or overeating: nearly every day 6. Feeling bad about yourself - or that you are a failure or have let yourself or your family down: not at all 7. Trouble concentrating on things, such as reading the newspaper or watching television: several days 8. Moving or speaking so slowly that other people could have noticed. Or the opposite - being so fidgety or restless that you have been moving around a lot more than usual: not at all 9. Thoughts that you would be better off or of hurting yourself in some way: not at all Total score: 5 Depression Screening Interpretation: Positive Depression Screening Done: Yes 75026 - PHQ-9 Billing: Yes Source: Developed by Drs. Jason Glover, Deanna Truong, Sylvester Braga and colleagues, with an educational lisa from [employer]. Thrive Questionnaire Date Thrive assessed: 03/30/23 I am a: Patient What is your living situation today?: I have a steady place to live Within the past 12 months, did the food you bought not last and you didn't have the money to get more?: Never true Within the past 12 months, did you worry whether your food would run out before you got money to buy more?: Never true Do you have trouble paying for medicines?: No Do you have trouble getting transportation to medical appointments?: No Do you have trouble paying your heating and electricity bill?: No Do you have trouble taking care of your child, family member or friend?: No Do you have trouble with day-to-day activities such as bathing, preparing meals, shopping, managing finances, etc.?: No Are you currently unemployed and looking for a job?: No Are you interested in more education?: No Please select the resources that you would like help with: None Currently or been in a relationship where the following occur: no concerns reported AUDIT C Alcohol Use Questionnaire (AUDIT-C) 1. How often do you have a drink containing alcohol?: Never 3. How often do you have six or more drinks on one occasion?: Never Total Score: 0 URIEL-7 AMB Questionnaire URIEL-7 Date URIEL - 7 assessed: 03/30/23 Feeling nervous, anxious, or on edge: 0 = Not at all Not being able to stop or control worryin = Not at all Worrying too much about different things: 0 = Not at all Trouble relaxin = Not at all Being so restless that it is hard to sit still: 0 = Not at all Becoming easily annoyed or irritable: 0 = Not at all Feeling afraid as if something awful might happen: 0 = Not at all Total URIEL-7 score (0-4 normal; 5-9 mild; 10-14 moderate; 15-21 severe): 0 Source: Developed by Drs. Jason Glover, Deanna Truong, Sylvester Braga and colleagues, with an educational lisa from [employer]. URIEL-7 Assessment Billing URIEL-7 Assessment Tool: URIEL-7 Assessment 73199 ACT Questionnaire In the past 4 weeks, how much of the time did your asthma keep you from getting as much done at work, school or at home?: A little of the time During the past 4 weeks, how often have you had shortness of breath?: Not at all During the past 4 weeks, how often did your asthma symptoms wake you up at night or earlier than usual in the morning?: Not at all During the past 4 weeks, how often have you had to use your rescue inhaler or nebulizer medication?: More than 3 times per day How would you rate your asthma control during the past 4 weeks?: Well controlled ACT Interpretation: Positive Score: 19 Physical exam (Primary Care) Vital Signs: Last Vital Signs Temp 97.6 F 03/30/23 14:31 Pulse 77 03/30/23 14:31 Resp 14 03/30/23 14:31 BP 128/68 03/30/23 14:31 Pulse Ox 99 03/30/23 14:31 Oxygen Delivery Method Room Air 03/30/23 14:31 BMI result Body Mass Index 37.9 Tobacco/Smoking Status: Tobacco use Status Tobacco use date assessed 11/10/22 03/30/23 14:25 Patient Tobacco Use Status Former Tobacco user 03/30/23 14:25 e-Cigarette/Vaping Use Never Used 03/30/23 14:25 PHQ-9: PHQ-9 Score PHQ-9: Total score 5 03/30/23 15:07 Depression Screening Interpretation: Positive Thrive Assessment: Date of Thrive Assessment Date Thrive assessed 03/30/23 03/30/23 14:51 Currently or been in a relationship where the following occur: no concerns reported Assessment and Plan Assessment & Plan (1) Diabetes 1.5, managed as type 2: Code(s): E13.9 - Other specified diabetes mellitus without complications Plan: Alirio?shows?a?couple?of?low?blood?sugars?but?otherwise?improving?blood?sugar. No?changes?to?her?medication?regimen?today?but?I?did?advise?that?she?have?snacks ?and?regular?meals. 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 She?notes?minimal?improvement She?will?continue?this?and?I?am?adding?Bactrim?for?MRSA?coverage. (3) Cyst of skin: Code(s): L72.9 - Follicular cyst of the skin and subcutaneous tissue, unspecified Plan: Large?infected?cyst?of?skin?under?her?right?breast/abscess As?above,?she?will?continue?cephalosporin?and?I?am?adding?Bactrim.??She?can?cont inue?warm?compresses I?am?referring?her?to?general?surgery?for?incision ?and?drainage?if?it?is?not?significantly?improved?with (4) NSTEMI (non-ST elevated myocardial infarction): Code(s): I21.4 - Non-ST elevation (NSTEMI) myocardial infarction Plan: Recent?unstable?angina?and?NSTEMI with?stent. She?is?now?on?Brilinta?and?aspirin Stable?? (5) Status post arterial stent: Code(s): Z95.9 - Presence of cardiac and vascular implant and graft, unspecified Plan: Stable Continue?Brilinta?and?aspirin Plan Patient?had?paperwork?from?dentist?to?inquire?as?to?cessation?of?her?anticoagula tion. Recent?stent?and?she?is?now?on?Brilinta?and?aspirin. She?would?need?to?have?this?reviewed?by?a?rn social services. Orders: Referrals General Surgery Referral L72.9 - Follicular cyst of the skin and subcutaneous tissue, unspecified Medications: New sulfamethoxazole-trimethoprim 800-160 mg (Bactrim DS) 1 tab PO Q12H 10 days 20 tabs 0RF Coding Level of Care Code Est Pt Level 5 (90325) Diagnoses Diabetes 1.5, managed as type 2 E13.9 Right foot infection L08.9 Cyst of skin L72.9 NSTEMI (non-ST elevated myocardial infarction) I21.4 Status post arterial stent Z95.9 Additional Codes URIEL-7 Assessment Billing - URIEL-7 Assessment Tool: URIEL-7 Assessment [id number] ([id number])
[2023-03-30 14:31] VITALS: BP 128/68; PULSE 77; RESP 14; TEMP 36.4; O2SAT 99; BMI 37.9
== END 2023-03-30 15:42 | disposition home or self-care (01) ==
PROVIDERS: PCP Family Medicine; Visit Provider Family Medicine
DX: E13.9 Other specified diabetes mellitus without complications (principal); I21.4 Non-ST elevation (NSTEMI) myocardial infarction; L08.9 Local infection of the skin and subcutaneous tissue, unspecified; L72.9 Follicular cyst of the skin and subcutaneous tissue, unspecified; Z95.9 Presence of cardiac and vascular implant and graft, unspecified
CPT/HCPCS: 99215

== ENCOUNTER 2023-04-03 14:06 | Outpatient (AMB) | payer OTHER, SELFPAY ==
--- NOTE | 2023-04-03 14:56 | A.OFFVIS_ITS ---
Intake Vital Signs 04/03/23 15:29 Height 4 ft 11 in Weight 185 lb BMI 37.4 BP 153/65 H Blood Pressure Location Lt brachial Position Sitting Pulse 76 Intake Visit Reasons: infected cyst right breast Intake Note: Patient is seen in office for evaluation and treatment of a cyst under the right breast. Patient c/o: onset one week, admits to redness, minimal bloody' discharge, on antibiotics, itchy, painful, burning, denies any other concerns Branch Administrator Required: No Accompanied by: Other Relationship Allergies aspirin [Aspirin] Allergy (Mild, Verified 04/03/23 15:29) RASH morphine [MORPHINE] Allergy (Unknown, Verified 04/03/23 15:29) ABD PAIN, RASH omeprazole [OMEPRAZOLE] Allergy (Unknown, Verified 04/03/23 15:29) SHORTNESS OF BREATH pregabalin [From LYRICA] Allergy (Unknown, Verified 04/03/23 15:29) SHORTNESS OF BREATH celecoxib Adverse Reaction (Mild, Verified 04/03/23 15:29) chest pain, jumping feeling in her heart. Medication List - Last Reconciled 04/03/23 by Zaid Obrien MD acetaminophen 1,000 mg PO Q6H PRN alcohol swabs (Alcohol Prep Pads) 1 pad topical 3XD 90 days amitriptyline 10 mg PO BEDTIME 90 days atorvastatin 80 mg PO DAILY bisacodyl (Dulcolax (bisacodyl)) 10 mg OK DAILY PRN budesonide-formoterol 160-4.5 mcg/actuation 2 inhalations inhalation BID cefadroxil 500 mg PO BID cetirizine 10 mg PO DAILY PRN diclofenac sodium 1% 2 grams topical QID empagliflozin (Jardiance) 25 mg PO DAILY flash glucose scanning reader (FreeStyle Alirio 2 [place]) As directed flash glucose sensor (FreeStyle Alirio 2 Sensor kit) As directed change every 14 days fluticasone propionate 50 mcg/actuation (Flonase Allergy Relief) 1 spray intranasal Q12H 30 days gabapentin 300 mg PO Q12H PRN hydralazine 25 mg PO TID insulin degludec (Tresiba FlexTouch U-100 insulin) 75U a.m. and 20U p.m. subcutaneously 2 times a day; 30 days pen needle, diabetic (BD Ultra-Fine Mini Pen Needle) 4 TIMES DAILY, As directed, 90 DAYS polyethylene glycol 3350 (Miralax) 17 grams PO DAILY 14 days psyllium husk (Metamucil) 1 tbsp PO DAILY semaglutide 1 mg (0.75 mL) subcut QWEEK 28 days sodium phosphates 19-7 gram/118 mL (Fleet Enema) 118 mL OK DAILY PRN sulfamethoxazole-trimethoprim 800-160 mg (Bactrim DS) 1 tab PO Q12H 10 days tramadol 50 mg PO TID PRN valsartan-hydrochlorothiazide 320-12.5 mg 1 tab PO DAILY HPI infected cyst right breast HPI Details [age] year old female referred for an infected cyst on the right breast. She has had this area of pain and swelling for over a week now on the chest wall under the right breast. She says that this is very tender. She denies any drainage. She denies any trauma or insect bite to the area. [facility] Medical History (Updated 04/03/23 @ 15:51 by Zaid Obrien MD) Abscess of chest wall Uncontrolled type 2 diabetes mellitus with hyperglycemia, with long-term current use of insulin Ganglion cyst Glaucoma Neuropathy Arthritis Intracranial mass Diabetes 1.5, managed as type 2 Hypertension Asthma Surgical History Stented coronary artery H/O tubal ligation Hx of tonsillectomy H/O right breast biopsy Social History Housing: Apartment Patient Tobacco Use Status: Former Tobacco user Quit Date: More than 30 years e-Cigarette/Vaping Use: Never Used service: No Current occupational status: disabled Current occupational exposures/hazards: No Cognitive needs: No Hearing needs: No Vision needs: No Review of Systems Const Denies chills and Denies fever(s) Card Denies chest pain, Denies dyspnea and Reports dyspnea on exertion Resp Denies cough, Denies dyspnea and Reports dyspnea on exertion GI Denies hematochezia and Denies change in bowel habits Denies hematuria Musc Reports abnormal gait, Reports back pain, Reports arthralgias and Reports limited range of motion Neuro Reports abnormal gait, Denies focal weakness and Denies convulsions Psych Denies depression and Denies mood swings Physical Exam Const Other: Morbidly obese, using walker General: comfortable and no acute distress Orientation/consciousness: patient oriented x3 Neck Neck: Yes no lymphadenopathy Chest Other: On the lower chest wall on the right side under the tender loose right breast is note of a fluctuant mass, measuring about 3.5 cm in diameter, with erythematous skin, tenderness Resp Auscultation: clear to auscultation bilaterally Cardio Rhythm: regular rhythm GI Palpation (GI): Soft to palpation, nontender and no guarding Neuro General: patient oriented x3 Office Procedures I&D Drain Details: The area of the abscess underneath the right breast on the chest wall was prepped and draped. Lidocaine 1% was used for local anesthesia. This was a fluctuant mass measuring about 3.5 cm in diameter. I made a cruciate incision using blade 11. This was then carried down through the full-thickness of the skin to enter the abscess cavity. Large amounts of pus was drained. I probed the large cavity with a Q-tip to break down any loculations. I applied a light packing and then dressings. She tolerated procedure well 37924-Pwirvbtf of Skin Abscess, complex All charges added?: Procedure code (CPT) selection complete Assessment & Plan Assessment & Plan (1) Abscess of chest wall: Code(s): L02.213 - Cutaneous abscess of chest wall Plan: I explained to her that we needed to proceed with I&D of this large abscess. I discussed the technique of this procedure and reviewed the risks, benefits, and alternatives. She had given consent She was placed supine. The right breast was lifted off of the chest wall. Of the abscess was prepped and draped. Lidocaine 1% was used for local anesthesia. I made a cruciate incision on the skin overlying the abscess using blade 11 and this was carried down through the full-thickness of the skin until the abscess cavity was entered. There was note of a large abscess cavity and copious amounts of pus was drained. I only debrided the cavity with a Q-tip to make sure that there were no loculations. I applied a light packing and cover the area with dressings. She tolerated procedure well. She was given wound care instructions. I told her to complete her course of oral antibiotics. I can see her in the office if there is worsening or nonhealing. Coding Level of Care Code New Pt Level 3 (90466) Diagnoses Abscess of chest wall L02.213 CPT Codes I&D Drain - Drain 2: [id number]-Ymlhezgm of Skin Abscess, complex ([id number])
[2023-04-03 15:29] VITALS: BP 153/65; PULSE 76; BMI 37.4
== END 2023-04-03 16:02 | disposition home or self-care (01) ==
PROVIDERS: PCP Family Medicine; Visit Provider Surgery
DX: L02.213 Cutaneous abscess of chest wall (principal)
CPT/HCPCS: 10061; 99203

== ENCOUNTER → 2023-04-03 14:06 | Outpatient (BNVA) | payer OTHER, SELFPAY | PROVIDERS: PCP Family Medicine; Visit Provider Surgery | DX: L02.213 Cutaneous abscess of chest wall (principal) | CPT/HCPCS: 10061; 99202 ==

== ENCOUNTER 2023-04-07 13:28 | Outpatient (AMB) | payer OTHER, SELFPAY ==
[2023-04-07 13:38] VITALS: BP 138/82; PULSE 70; O2SAT 98; BMI 37.6
--- NOTE | 2023-04-07 13:38 | MHC.PC.OV ---
Vital Signs 04/07/23 13:38 Height 4 ft 11 in Weight 186 lb BMI 37.6 BP 138/82 Blood Pressure Location Rt brachial Position Sitting Pulse 70 Pulse Source Pulse Oximeter Pulse Oximetry (%) 98 Oxygen Delivery Method Room Air Intake Visit Reasons: f/u R foot infection and cyst Intake Note: Patient is here for right foot infection, and cyst under right breast. Patient needs a refill on Tresiba. Allergies aspirin [Aspirin] Allergy (Mild, Verified 04/07/23 13:40) RASH morphine [MORPHINE] Allergy (Unknown, Verified 04/07/23 13:40) ABD PAIN, RASH omeprazole [OMEPRAZOLE] Allergy (Unknown, Verified 04/07/23 13:40) SHORTNESS OF BREATH pregabalin [From LYRICA] Allergy (Unknown, Verified 04/07/23 13:40) SHORTNESS OF BREATH celecoxib Adverse Reaction (Mild, Verified 04/07/23 13:40) chest pain, jumping feeling in her heart. Tobacco use date assessed: 11/10/22 HPI f/u R foot infection and cyst HPI Details 67 y/o female presents to f/u R foot infection and R breast abscess. Had added Bactrim for MRSA coverage and continued her cephalosporin. Had seen general surgery 04/03/23 for R breast abscess. They had proceeded with I&D of large abscess and tolerated procedure well. Pt reports L foot infection has worsened and is very painful. HPI Comments History of Present Illness Details Documentation assistance for Ross Gold MD, was provided by Job Pierson,? [employer] Operator on 04/07/2023 2:09 PM EST. I, Dr. Gold, have read, observed, and verified documentation.? [facility] Medical History (Updated 04/03/23 @ 15:51 by Zaid Obrien MD) Abscess of chest wall Uncontrolled type 2 diabetes mellitus with hyperglycemia, with long-term current use of insulin Ganglion cyst Glaucoma Neuropathy Arthritis Intracranial mass Diabetes 1.5, managed as type 2 Hypertension Asthma Surgical History Stented coronary artery H/O tubal ligation Hx of tonsillectomy H/O right breast biopsy Social History Housing: Apartment Patient Tobacco Use Status: Former Tobacco user Quit Date: More than 30 years e-Cigarette/Vaping Use: Never Used service: No Current occupational status: disabled Current occupational exposures/hazards: No Cognitive needs: No Hearing needs: No Vision needs: No Questionnaire Thrive Questionnaire Date Thrive assessed: 03/30/23 URIEL-7 AMB Questionnaire URIEL-7 Date URIEL - 7 assessed: 03/30/23 Source: Developed by Drs. Jason Glover, Deanna Truong, Sylvester Braga and colleagues, with an educational lisa from [employer]. Review of Systems Const Denies chills, Denies fatigue, Denies fever(s), Denies headache(s) and Denies weakness ENT Denies dizziness and Denies headache(s) Card Denies dyspnea Resp Denies cough, Denies dyspnea, Denies wheezing and Denies other (shortness of breath) Musc Denies numbness and Denies tingling Neuro Denies dizziness, Denies headache(s), Denies numbness, Denies tingling and Denies weakness Psych Denies anxiety and Denies depression Endo Denies fatigue Aller/Immun Denies wheezing Physical exam (Primary Care) Vital Signs: Last Vital Signs Pulse 70 04/07/23 13:38 BP 138/82 04/07/23 13:38 Pulse Ox 98 04/07/23 13:38 Oxygen Delivery Method Room Air 04/07/23 13:38 BMI result Body Mass Index 37.6 Tobacco/Smoking Status: Tobacco use Status Tobacco use date assessed 11/10/22 04/07/23 13:43 Patient Tobacco Use Status Former Tobacco user 04/07/23 13:43 e-Cigarette/Vaping Use Never Used 04/07/23 13:43 Thrive Assessment: Date of Thrive Assessment Date Thrive assessed 03/30/23 04/07/23 13:43 Const General: well developed; No acute distress Nutritional Appearance: well nourished Orientation/consciousness: patient oriented x3 HENMT Head: Yes normocephalic and Yes atraumatic Eyes General: appearance normal, both eyes and all related structures Pupils: Equal, round and reactive pupils present EOM: EOMs intact bilaterally Resp Effort & Inspection: normal respiratory effort Neuro General: patient oriented x3 and gait normal Cranial nerves: Yes Equal, round and reactive pupils present Psych Affect: normal affect Assessment and Plan Assessment & Plan (1) Abscess of chest wall: Code(s): L02.213 - Cutaneous abscess of chest wall Plan: Resolved?infection?and?healing?well?after?I&?D?by?General?surgery (2) Left foot infection: Code(s): L08.9 - Local infection of the skin and subcutaneous tissue, unspecified Plan: 64-year-old?diabetic?with?left?foot?cellulitis?that?did?not?respond?to?antibiotics. Worsening?cellulitis?and?concern?for?osteomyelitis. Send?patient?to?the?emergency?department.??She?will?likely?need?IV?antibiotics?and?rule?out?osteomyelitis. Patient?agrees[facility]to[facility]ED Medications: Refilled insulin degludec (Tresiba FlexTouch U-100 insulin) 75U a.m. and 20U p.m. subcutaneously 2 times a day; 30 days 33 mL 4RF Coding Level of Care Code Est Pt Level 3 (19232) Diagnoses Abscess of chest wall L02.213 Left foot infection L08.9
== END 2023-04-07 15:13 | disposition home or self-care (01) ==
PROVIDERS: PCP Family Medicine; Visit Provider Family Medicine
DX: L02.213 Cutaneous abscess of chest wall (principal); L08.9 Local infection of the skin and subcutaneous tissue, unspecified
CPT/HCPCS: 99213

== ENCOUNTER 2023-04-19 10:59 | Outpatient (AMB) | payer OTHER, SELFPAY ==
[2023-04-19 11:05] VITALS: BP 126/74; PULSE 88; RESP 14; TEMP 36.4; O2SAT 99; BMI 36.9
--- NOTE | 2023-04-19 11:05 | MHC.PC.OV ---
Vital Signs 04/19/23 11:05 Height 4 ft 11 in Weight 182 lb 8 oz BMI 36.9 BP 126/74 Blood Pressure Location Rt brachial Position Sitting Respiration 14 Pulse 88 Pulse Source Pulse Oximeter Temp 97.5 F Temp Source Temporal Artery Scan Pulse Oximetry (%) 99 Oxygen Delivery Method Room Air Intake Visit Reasons: [facility] 04/11/23 - LLE Cellulitis Intake Note: Patient states that shes been coughing alot and its been effecting her being able to eat. Patient states that shes also been urinating alot including when she coughs. Patient states that she would like wound care supplies sent over for visiting nurse to clean wound. Plastics Repairer Required: No Accompanied by: Self / Same As Patient Allergies aspirin [Aspirin] Allergy (Mild, Verified 04/19/23 11:34) RASH morphine [MORPHINE] Allergy (Unknown, Verified 04/19/23 11:34) ABD PAIN, RASH omeprazole [OMEPRAZOLE] Allergy (Unknown, Verified 04/19/23 11:34) SHORTNESS OF BREATH pregabalin [From LYRICA] Allergy (Unknown, Verified 04/19/23 11:34) SHORTNESS OF BREATH celecoxib Adverse Reaction (Mild, Verified 04/19/23 11:34) chest pain, jumping feeling in her heart. Tobacco use date assessed: 11/10/22 Fall risk assessment: No Falls in past year Last assessed Fall Risk: 04/19/23 Dental Screening Dental Screen Date: 04/19/23 Did you have a dental visit in the last 12 months?: Yes Did you have a dental problem in the last 6 months where you did not have access to dental care?: No Was dental information given to patient?: Patient has dentist HPI [facility] 04/11/23 - LLE Cellulitis HPI Details 67 y/o female presents to f/u [facility] emergency dept. visit with chief complaint of LLE pain. Lower extremity venous duplex showed hemodynamically significant stenosis in proximal portion of superficial femoral artery. Pt had significant bilateral peripheral vascular disease. Pt reports ongoing cough ever since her visit to the hospital. [facility] Medical History Abscess of chest wall Uncontrolled type 2 diabetes mellitus with hyperglycemia, with long-term current use of insulin Ganglion cyst Glaucoma Neuropathy Arthritis Intracranial mass Diabetes 1.5, managed as type 2 Hypertension Asthma Surgical History History of removal of cyst Stented coronary artery H/O tubal ligation Hx of tonsillectomy H/O right breast biopsy Social History Housing: Apartment Patient Tobacco Use Status: Former Tobacco user Quit Date: More than 30 years e-Cigarette/Vaping Use: Never Used service: No Current occupational status: disabled Current occupational exposures/hazards: No Cognitive needs: No Hearing needs: No Vision needs: No Questionnaire Thrive Questionnaire Date Thrive assessed: 03/30/23 URIEL-7 AMB Questionnaire URIEL-7 Date URIEL - 7 assessed: 03/30/23 Source: Developed by Drs. Jason Glover, Deanna Truong, Sylvester Braga and colleagues, with an educational lisa from [employer]. Review of Systems Const Denies chills, Denies fatigue, Denies fever(s), Denies headache(s) and Denies weakness ENT Denies dizziness and Denies headache(s) Card Denies dyspnea Resp Reports cough, Denies dyspnea, Denies wheezing and Denies other (shortness of breath) Musc Denies numbness and Denies tingling Neuro Denies dizziness, Denies headache(s), Denies numbness, Denies tingling and Denies weakness Psych Denies anxiety and Denies depression Endo Denies fatigue Aller/Immun Denies wheezing Physical exam (Primary Care) Vital Signs: Last Vital Signs Temp 97.5 F 04/19/23 11:05 Pulse 88 04/19/23 11:05 Resp 14 04/19/23 11:05 BP 126/74 04/19/23 11:05 Pulse Ox 99 04/19/23 11:05 Oxygen Delivery Method Room Air 04/19/23 11:05 BMI result Body Mass Index 36.9 Tobacco/Smoking Status: Tobacco use Status Tobacco use date assessed 11/10/22 04/19/23 11:10 Patient Tobacco Use Status Former Tobacco user 04/19/23 11:10 e-Cigarette/Vaping Use Never Used 04/19/23 11:10 Thrive Assessment: Date of Thrive Assessment Date Thrive assessed 03/30/23 04/19/23 11:10 Const General: well developed; No acute distress Nutritional Appearance: well nourished Orientation/consciousness: patient oriented x3 HENMT Head: Yes normocephalic and Yes atraumatic Eyes General: appearance normal, both eyes and all related structures Pupils: Equal, round and reactive pupils present EOM: EOMs intact bilaterally Resp Effort & Inspection: normal respiratory effort Auscultation: clear to auscultation bilaterally Cardio Rate: regular rate Rhythm: regular rhythm Heart sounds: S1 normal heart sound present, S2 normal heart sound present, no gallops, no murmurs and no rubs Neuro General: patient oriented x3 and gait normal Cranial nerves: Yes Equal, round and reactive pupils present Psych Affect: normal affect Assessment and Plan Assessment & Plan (1) Pain of left lower extremity: Code(s): M79.605 - Pain in left leg Plan: Left?femoral?artery?stenosis?now?s/p?bypass - awaiting?surgical?note Good?pulses?and?pain?has?resolved Follow-up?with?vascular?as?recommended (2) Peripheral vascular disease: Code(s): I73.9 - Peripheral vascular disease, unspecified Plan: As?above (3) Cough: Code(s): R05.9 - Cough, unspecified Plan: Lungs?clear Nasal?passages?clear Call?or?return?to?office?if?worsening?or?not?improving (4) Obesity (BMI 30-39.9): Code(s): E66.9 - Obesity, unspecified Plan: Increase?exercise Continue?weight?loss Coding Level of Care Code Est Pt Level 4 (56073) Diagnoses Pain of left lower extremity M79.605 Peripheral vascular disease I73.9 Cough R05.9 Obesity (BMI 30-39.9) E66.9
== END 2023-04-19 12:25 | disposition home or self-care (01) ==
PROVIDERS: PCP Family Medicine; Visit Provider Family Medicine
DX: M79.605 Pain in left leg (principal); I73.9 Peripheral vascular disease, unspecified; E66.9 Obesity, unspecified; Z68.36 Body mass index [BMI] 36.0-36.9, adult; R05.9 Cough, unspecified
CPT/HCPCS: 99214

== ENCOUNTER 2023-05-08 13:11 | Outpatient (AMB) | payer OTHER, SELFPAY ==
--- NOTE | 2023-05-08 13:15 | MHC.OFFVIS ---
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[employer] Annual/PCP Ref Therapeutic Activities Services Worker Required: Yes Therapeutic Activities Services Worker Language: Maintenance Shop Laborer Name: Mitzy [id number] Information Interpreted: non-clinical & clinical Toddler Lead Teacher: Toddler Lead Teacher Present (Leidy) Allergies aspirin [Aspirin] Allergy (Mild, Verified 05/08/23 13:20) RASH morphine [MORPHINE] Allergy (Unknown, Verified 05/08/23 13:20) ABD PAIN, RASH omeprazole [OMEPRAZOLE] Allergy (Unknown, Verified 05/08/23 13:20) SHORTNESS OF BREATH pregabalin [From LYRICA] Allergy (Unknown, Verified 05/08/23 13:20) SHORTNESS OF BREATH celecoxib Adverse Reaction (Mild, Verified 05/08/23 13:20) chest pain, jumping feeling in her heart. HPI HPI Comments History of Present Illness Details Presenting for annual exam. No complaints. Last Pap was in 05/06 Last Mammogram was BI-RADS 2 in 09/13 Last Colonoscopy was many years ago No previous DEXA scan [facility] Medical History Abscess of chest wall Uncontrolled type 2 diabetes mellitus with hyperglycemia, with long-term current use of insulin Ganglion cyst Glaucoma Neuropathy Arthritis Intracranial mass Diabetes 1.5, managed as type 2 Hypertension Asthma Surgical History History of removal of cyst Stented coronary artery H/O tubal ligation Hx of tonsillectomy H/O right breast biopsy Social History Housing: Apartment Patient Tobacco Use Status: Former Tobacco user Quit Date: More than 30 years e-Cigarette/Vaping Use: Never Used service: No Current occupational status: disabled Current occupational exposures/hazards: No Cognitive needs: No Hearing needs: No Vision needs: No Female Reproductive History Menstrual Menopause type: natural Total pregnancies: 2 Full term: 2 Number of Living Children: 2 Review of Systems Const All systems reviewed & are unremarkable except as noted in HPI and below Card Reports as per HPI Resp Reports as per HPI GI Reports as per HPI and Reports no additional complaints Reports as per HPI Physical Exam Vital Signs: Last Vital Signs BP 124/82 05/08/23 13:16 BMI result Body Mass Index 36.8 Const General: cooperative, healthy appearing and comfortable Chest Chest palpation & inspection: normal inspection of the chest and normal palpation of entire chest wall Breast/axilla inspection: normal inspection of the breasts and normal inspection of the axillae Breast/axilla palpation: normal palpation of the breasts, normal palpation of the axillae and no axillary lymphadenopathy Resp Effort & Inspection: normal respiratory effort Auscultation: clear to auscultation bilaterally Percussion: percussion normal Cardio Palpation: normal PMI Rate: regular rate Rhythm: regular rhythm Heart sounds: no murmurs and no rubs Peripheral pulses: Peripheral pulses 2+ throughout GI Inspection: Yes normal to inspection Palpation (GI): Soft to palpation, nontender, no guarding, not rigid and No hepatosplenomegaly present Percussion: Yes normal to percussion Auscultation: normal bowel sounds Rectal Exam - Female: deferred General: Yes bladder normal to palpation External Female Exam: No lesion Speculum Exam - Vagina: normal appearance of the vagina, normal palpation, normal vaginal discharge and not erythematous Speculum Exam - Cervix: normal appearance of the cervix and normal palpation Bimanual exam- vagina & uterus: normal bimanual exam, normal palpation, uterine size normal, bladder normal to palpation, consistency normal and normal palpation Bimanual Exam- Adnexa, other: normal adnexae, no masses and no tenderness Assessment & Plan Assessment & Plan (1) Well woman exam: Code(s): Z01.419 - Encounter for gynecological examination (general) (routine) without abnormal findings Plan: Co testing done although the patient is above the age of 65 but no history of adequate screening last 10 years Counseled the patient about the recommended dietary allowance of 1200 mg of Calcium & 800 IU of vitamin D. Instructions given the patient to schedule next screening Mammogram in 09/14. Offered the patient referral to GI for screening colonoscopy, the patient would like to think about and get back to us. Will order DEXA scan . The patient was instructed to perform monthly self-breast exams and to schedule a 2 week DEXA scan follow-up appointment and an annual exam in a year; All questions answered and the patient verbalized understanding. Orders: Orders XR DEXA axial skeleton Today Z78.0 - Asymptomatic menopausal state Referrals Gastroenterology Referral Z12.11 - Encounter for screening for malignant neoplasm of colon Coding Level of Care Code New Pt Prev Care >65yr (00436) Diagnoses Well woman exam Z01.419
[2023-05-08 13:16] VITALS: BP 124/82; BMI 36.8
== END 2023-05-08 13:46 | disposition home or self-care (01) ==
LOC: HO.HWS 13:11
PROVIDERS: PCP Family Medicine; Visit Provider Obstetrics & Gynecology
DX: Z01.419 Encounter for gynecological examination (general) (routine) without abnormal findings (principal)
CPT/HCPCS: 99387

== ENCOUNTER 2023-05-08 13:11 | Outpatient (REF) | payer OTHER, SELFPAY ==
[2023-05-12 04:59] LABS: HPV mRNA E6/E7 rflx Not Detected (Not Detected)
== END 2023-05-08 13:12 | disposition home or self-care (01) ==
LOC: HO.LNP 13:11
PROVIDERS: PCP Family Medicine; Visit Provider Obstetrics & Gynecology
DX: Z01.419 Encounter for gynecological examination (general) (routine) without abnormal findings (principal)
CPT/HCPCS: 87624; 88142

== ENCOUNTER 2023-06-01 12:54 | Outpatient (REF) | payer OTHER, SELFPAY ==
[2023-06-01 14:18] LABS: Creatinine Urine 73.62 mg/dL
[2023-06-01 14:21] LABS: Anion Gap 13 (12-20); Blood Urea Nitrogen 29 mg/dL (9-16); Calcium 9.6 mg/dL (8.4-10.2); Carbon Dioxide 25 mmol/L (22-29); Chloride 108 mmol/L (96-108); Cholesterol 107 mg/dL (<200); Estimated Glomerular Filt Rate 57; Glucose Random 97 mg/dL (60-115); HDL Cholesterol 31 mg/dL (>40); LDL Cholesterol Calculated 53 mg/dL (<100); Sodium 142 mmol/L (135-145); Triglycerides 119 mg/dL (<150)
== END 2023-06-01 12:55 | disposition home or self-care (01) ==
LOC: HO.LAB 12:54
PROVIDERS: PCP Family Medicine; Visit Provider Internal Medicine Endocrinology, Diabetes & Metabolism
DX: E11.65 Type 2 diabetes mellitus with hyperglycemia (principal); Z79.4 Long term (current) use of insulin
CPT/HCPCS: 36415; 80048; 80061; 82043; 82570

== ENCOUNTER 2023-06-28 08:10 | Outpatient (AMB) | payer OTHER, SELFPAY ==
[2023-06-28 08:32] VITALS: BP 122/60; PULSE 79; TEMP 36.3; O2SAT 98; BMI 36.4
--- NOTE | 2023-06-28 08:32 | MHC.OFFWIV ---
Intake Vital Signs 06/28/23 08:32 Height 4 ft 11 in Weight 180 lb 2 oz BMI 36.4 BP 122/60 Blood Pressure Location Rt brachial Position Sitting Pulse 79 Pulse Source Pulse Oximeter Temp 97.4 F Temp Source Temporal Artery Scan Pulse Oximetry (%) 98 Oxygen Delivery Method Room Air Intake Visit Reasons: breast issue Intake Note: Patient states that her left breast is red and has blood coming out of it. Patient states that it did hurt but stopped.Patient states that it also itches. Patient Tobacco Use Status: Former Tobacco user Quit Date: More than 30 years Accompanied by: Family/Other Allergies aspirin [Aspirin] Allergy (Mild, Verified 06/28/23 08:39) RASH morphine [MORPHINE] Allergy (Unknown, Verified 06/28/23 08:39) ABD PAIN, RASH omeprazole [OMEPRAZOLE] Allergy (Unknown, Verified 06/28/23 08:39) SHORTNESS OF BREATH pregabalin [From LYRICA] Allergy (Unknown, Verified 06/28/23 08:39) SHORTNESS OF BREATH celecoxib Adverse Reaction (Mild, Verified 06/28/23 08:39) chest pain, jumping feeling in her heart. Do you need a note to return to daycare/school/sports/work: No HPI breast issue HPI Details 67 y/o female presents with complaints of L breast issues - L breast red and states blood is coming out of it. Pt reports pain but pain had stopped. Hx of abnormal mammogram with nodules in L breast. Also has hx of infection at R breast. Pt also has complaints of knee pain. [facility] Medical History Abscess of chest wall Uncontrolled type 2 diabetes mellitus with hyperglycemia, with long-term current use of insulin Ganglion cyst Glaucoma Neuropathy Arthritis Intracranial mass Diabetes 1.5, managed as type 2 Hypertension Asthma Surgical History History of removal of cyst Stented coronary artery H/O tubal ligation Hx of tonsillectomy H/O right breast biopsy Social History Housing: Apartment Patient Tobacco Use Status: Former Tobacco user Quit Date: More than 30 years e-Cigarette/Vaping Use: Never Used service: No Current occupational status: disabled Current occupational exposures/hazards: No Cognitive needs: No Hearing needs: No Vision needs: No Review of Systems Const Denies chills, Denies fatigue, Denies fever(s), Denies headache(s) and Denies weakness ENT Denies dizziness and Denies headache(s) Card Denies dyspnea Resp Denies cough, Denies dyspnea, Denies wheezing and Denies other (shortness of breath) Musc Denies numbness and Denies tingling Neuro Denies dizziness, Denies headache(s), Denies numbness, Denies tingling and Denies weakness Psych Denies anxiety and Denies depression Endo Denies fatigue Aller/Immun Denies wheezing Physical Exam Vital Signs: Last Vital Signs Temp 97.4 F 06/28/23 08:32 Pulse 79 06/28/23 08:32 BP 122/60 06/28/23 08:32 Pulse Ox 98 06/28/23 08:32 Oxygen Delivery Method Room Air 06/28/23 08:32 BMI result Body Mass Index 36.4 Const General: well developed; No acute distress Nutritional Appearance: well nourished Orientation/consciousness: patient oriented x3 HEENT Head: Yes normocephalic and Yes atraumatic Eyes General: appearance normal, both eyes and all related structures Pupils: Equal, round and reactive pupils present EOM: EOMs intact bilaterally Chest Other: Significant L breast pain at 9 oclock and about 3 cm from nipple areola complex. Mild erythema and itchiness of skin. Resp Effort & Inspection: normal respiratory effort Neuro General: patient oriented x3 and gait normal Cranial nerves: Yes Equal, round and reactive pupils present Psych Affect: normal affect Assessment & Plan Assessment & Plan (1) Breast pain, left: Code(s): N64.4 - Mastodynia Plan: Significant?left?breast?pain?at?09:00?o'clock?and?about?3?cm?from?nipple?areola?complex. I?am?not?feeling?any?discrete?mass?though?she?does?have?mild?erythema?and?itchiness?of?skin. History?of?abnormal?mammogram?with?nodules?in?left?breast. There?is?concern?for?neoplasm. History?of?breast?infection?at?right?breast?and?patient?is?a?diabetic?so?concern?for?infection?as?well. Will?check?diagnostic?mammogram?of?bilateral?breasts?and?left?breast?ultrasound?as?well. Will?start?her?on?Bactrim?and?refer?her?to??Micah?who?has?seen?her?before?regarding?her?right?breast?abscess. Will?also?give?her?meloxicam for?pain?and?she?can?use?Tylenol?intermittently?as?well. Warm?compresses Will?follow-up?in?2?weeks?but?I?advised?her?that?if?this?is?worsening?and?she?has?not?been?able?to?see?the?surgeon,?she?should?come?back?sooner.??Patient?understands. (2) Abnormal mammogram: Code(s): R92.8 - Other abnormal and inconclusive findings on diagnostic imaging of breast Plan: As?above (3) Knee pain: Code(s): M25.569 - Pain in unspecified knee Plan: Right?sciatica?and?right?knee?pain.??Possibly?referred?pain?from?low?back. As?above,?giving?her?meloxicam?and?she?can?use?Tylenol?as?well We?can?follow-up?in?2?weeks Orders: Orders MM diagnostic mammo BI Today N64.4 - Mastodynia, R92.8 - Other abnormal and inconclusive findings on diagnostic imaging of breast US breast LT complete Today N64.4 - Mastodynia, R92.8 - Other abnormal and inconclusive findings on diagnostic imaging of breast Referrals General Surgery Referral N64.4 - Mastodynia, R92.8 - Other abnormal and inconclusive findings on diagnostic imaging of breast Medications: New sulfamethoxazole-trimethoprim 800-160 mg (Bactrim DS) 1 tab PO Q12H 10 days 20 tabs 0RF meloxicam 15 mg PO DAILY 30 days 30 tabs 2RF Coding Level of Care Code Est Pt Level 3 (82542) Diagnoses Breast pain, left N64.4 Abnormal mammogram R92.8 Knee pain M25.569
== END 2023-06-28 09:07 | disposition home or self-care (01) ==
PROVIDERS: PCP Family Medicine; Visit Provider Family Medicine
DX: N64.4 Mastodynia (principal); R92.8 Other abnormal and inconclusive findings on diagnostic imaging of breast; M25.569 Pain in unspecified knee
CPT/HCPCS: 99213

== ENCOUNTER 2023-07-14 10:08 | Outpatient (AMB) | payer OTHER, SELFPAY ==
[2023-07-14 10:31] VITALS: BP 130/80; PULSE 72; O2SAT 99; BMI 36.2
--- NOTE | 2023-07-14 10:31 | A.OFFPC_ITS ---
Vital Signs 07/14/23 10:31 Height 4 ft 11 in Weight 179 lb 2 oz BMI 36.2 BP 130/80 Blood Pressure Location Rt brachial Position Sitting Pulse 72 Pulse Source Pulse Oximeter Pulse Oximetry (%) 99 Oxygen Delivery Method Room Air Intake Visit Reasons: f/u L breast pain Intake Note: Patient is here to follow up on left breast pain, and pain in right knee, and excema on her hands. Allergies aspirin [Aspirin] Allergy (Mild, Verified 07/14/23 10:38) RASH morphine [MORPHINE] Allergy (Unknown, Verified 07/14/23 10:38) ABD PAIN, RASH omeprazole [OMEPRAZOLE] Allergy (Unknown, Verified 07/14/23 10:38) SHORTNESS OF BREATH pregabalin [From LYRICA] Allergy (Unknown, Verified 07/14/23 10:38) SHORTNESS OF BREATH celecoxib Adverse Reaction (Mild, Verified 07/14/23 10:38) chest pain, jumping feeling in her heart. Tobacco use date assessed: 07/14/23 Fall risk assessment: 1 Fall in past year Last assessed Fall Risk: 07/14/23 Dental Screening Dental Screen Date: 07/14/23 Did you have a dental visit in the last 12 months?: Yes Did you have a dental problem in the last 6 months where you did not have access to dental care?: No Was dental information given to patient?: Patient has dentist HPI f/u L breast pain HPI Details 67 y/o female presents today to f/u L br east pain. Had given her meloxicam for pain. Checking diagnostic mammogram of b/L breasts and L breast ultrasound. Had also started her on Bactrim and referred her to Dr. Obrien who had seen her before regarding R breast abscess. Pt notes L breast pain improved. She does report ongoing knee pain. HPI Comments History of Present Illness Details Documentation assistance for Ross Gold MD, was provided by Job Pierson, Final Block Press Operator on 07/14/2023 11:39 AM MIKE. Mikhail, Dr. Gold, have read, observed, and verified documentation. [facility] Medical History Abscess of chest wall Uncontrolled type 2 diabetes mellitus with hyperglycemia, with long-term current use of insulin Ganglion cyst Glaucoma Neuropathy Arthritis Intracranial mass Diabetes 1.5, managed as type 2 Hypertension Asthma Surgical History History of removal of cyst Stented coronary artery H/O tubal ligation Hx of tonsillectomy H/O right breast biopsy Social History Housing: Apartment Patient Tobacco Use Status: Former Tobacco user Quit Date: More than 30 years e-Cigarette/Vaping Use: Never Used service: No Current occupational status: disabled Current occupational exposures/hazards: No Cognitive needs: No Hearing needs: No Vision needs: No Questionnaire Thrive Questionnaire Date Thrive assessed: 03/30/23 URIEL-7 AMB Questionnaire URIEL-7 Date URIEL - 7 assessed: 03/30/23 Source: Developed by Drs. Jason Glover, Deanna Truong, Sylvester Braga and colleagues, with an educational lisa from [employer]. Review of Systems Const Denies chills, Denies fatigue, Denies fever(s), Denies headache(s) and Denies weakness ENT Denies dizziness and Denies headache(s) Card Denies dyspnea Resp Denies cough, Denies dyspnea, Denies wheezing and Denies other (shortness of breath) Musc Details: Knee pain Denies numbness and Denies tingling Neuro Denies dizziness, Denies headache(s), Denies numbness, Denies tingling and Denies weakness Psych Denies anxiety and Denies depression Endo Denies fatigue Aller/Immun Denies wheezing Physical exam (Primary Care) Vital Signs: Last Vital Signs Pulse 72 07/14/23 10:31 BP 130/80 07/14/23 10:31 Pulse Ox 99 07/14/23 10:31 Oxygen Delivery Method Room Air 07/14/23 10:31 BMI result Body Mass Index 36.2 Tobacco/Smoking Status: Tobacco use Status Tobacco use date assessed 07/14/23 07/14/23 10:46 Patient Tobacco Use Status Former Tobacco user 07/14/23 10:35 e-Cigarette/Vaping Use Never Used 07/14/23 10:35 Thrive Assessment: Date of Thrive Assessment Date Thrive assessed 03/30/23 07/14/23 10:35 Const General: well developed; No acute distress Nutritional Appearance: well nourished Orientation/consciousness: patient oriented x3 [facility] Head: Yes normocephalic and Yes atraumatic Eyes General: appearance normal, both eyes and all related structures Pupils: Equal, round and reactive pupils present EOM: EOMs intact bilaterally Resp Effort & Inspection: normal respiratory effort Neuro General: patient oriented x3 and gait normal Cranial nerves: Yes Equal, round and reactive pupils present Psych Affect: normal affect Assessment and Plan Assessment & Plan (1) Breast pain, left: Code(s): N64.4 - Mastodynia Plan: Pain?and?itching?has?resolved?with?treatment?with?Bactrim However,?patient?still?notes?skin?changes She?has?a?diagnostic?mammogram?scheduled?and?she?will?still?attend?this Has?an?appointment?with?surgery?as?well (2) Knee pain: Code(s): M25.569 - Pain in unspecified knee Plan: Ongoing?knee?pain Has?had?tramadol?in?the?past?and?can?not?take?NSAIDs?due?to?anti- platelet?and?anticoagulant?medications Will?g sagrario?her?tramadol?and?she?can?use?Tylenol?as?well.??Also?encouraged?her?to?use?to pical Referred?to?Ortho (3) Eczema: Code(s): L30.9 - Dermatitis, unspecified Plan: Will?give?her?a?script?for?triamcinolone?which?he?can?try?b.i.d. Use?moisturizing?cream?throughout?her?day Avoid?chemicals?or?exposure?to?triggers (4) Diabetes 1.5, managed as type 2: Code(s): E13.9 - Other specified diabetes mellitus without complications Plan: Patient?has?been?getting?low?blood?sugars?in?the?50s?frequently?at?night Will?have?her?decrease?her?Tresiba?from?80?units?to?74?units.??She?will?call?me ?if?blood?sugars?are?going?lower?than?70 She?has?an?appointment?with?endocrinology. Orders: Referrals Orthopedics Referral M25.569 - Pain in unspecified knee Medications: New triamcinolone acetonide 0.5% 1 appl topical BID 15 grams 2RF 14 days Changed From insulin degludec (Tresiba FlexTouch U-100 insulin) 80 units (0.8 mL) subcut DAILY 24 mL 4RF 30 days To insulin degludec (Tresiba FlexTouch U-100 insulin) 74 units (0.74 mL) subcut DAILY 30 days 24 mL 4RF From tramadol 50 mg PO TID PRN To tramadol MassPat Verified 50 mg PO BID 10 days PRN 20 tabs 0RF pain Coding Level of Care Code Est Pt Level 4 (89860) Diagnoses Breast pain, left N64.4 Knee pain M25.569 Eczema L30.9 Diabetes 1.5, managed as type 2 E13.9
== END 2023-07-14 11:43 | disposition home or self-care (01) ==
PROVIDERS: PCP Family Medicine; Visit Provider Family Medicine
DX: N64.4 Mastodynia (principal); M25.569 Pain in unspecified knee; L30.9 Dermatitis, unspecified; E13.9 Other specified diabetes mellitus without complications
CPT/HCPCS: 99214

== ENCOUNTER 2023-07-20 13:59 | Outpatient (REF) | payer OTHER, SELFPAY ==
--- NOTE | ~2023-07-20 | MM_ITS ---
EXAMINATION: MM DIAGNOSTIC DIGITAL BREAST TOMOSYNTHESIS, BILATERAL US BREAST LIMITED, LEFT CLINICAL INFORMATION: Left sided pain at 9:00 axis, with associated bloody nipple discharge 2-3 weeks prior. Symptoms now resolved after 10 days of antibiotics. Residual nipple itching remains. COMPARISON: Mammography: 08/23/2022, 08/16/2022, 08/08/2015, 06/25/2015 08/06/2014. History of left breast ultrasound biopsy (intraductal papilloma with focal atypia, status post lumpectomy). TECHNIQUE: Digital breast tomosynthesis is performed in both the craniocaudal and mediolateral oblique views along with computer-aided detection (CAD). Synthesized 2D images are generated from the tomosynthesis. Added full-field right cc view was provided, as well as a full-field left 3-D mediolateral view. FINDINGS: There are scattered areas of fibroglandular density (ACR BI-RADS breast composition Category b). There are bilateral vascular and benign type calcifications. There are prominent venous structures in the right greater than left breasts, unknown etiology. Stable nodular focus in the central left breast best appreciated on the CC projection. This is most likely an intramammary lymph node. No suspicious masses, suspicious grouped calcifications, or regions of architectural distortion identified. No skin thickening or nipple abnormality identified in either breast. ULTRASOUND: CLINICAL INFORMATION: As above. COMPARISON: Left breast ultrasound 08/09/2014. TECHNIQUE: Targeted sonographic evaluation was performed using a high frequency linear transducer. Attention was given to the retroareolar region left breast. Selected archived documentation. FINDINGS: LEFT BREAST: -There is no thickening of the areola. There is no edema within the skin. There is mild retroareolar duct ectasia without filling defect, mass, or debris. There are no cystic findings or masses. There are no abnormal regions of shadowing. There are no suspicious sonographic findings. MM/MM tomosynthesis diagnostic BI IMPRESSION: -There are no mammographic or ultrasonographic findings suspicious for malignancy. -There is no retroareolar or periareolar abnormality on either mammography or ultrasound. Recommend clinical follow-up of the patient's left nipple symptomatology. If left nipple itching or discoloration symptoms do not resolve, a punch biopsy could be considered. -There are benign findings as discussed above in both breasts which are unchanged from prior studies. -Otherwise, recommend returning to routine screening mammography. OVERALL ASSESSMENT: Mammography: BI-RADS 2 - Benign Findings Ultrasound: BI-RADS 2 - Benign Findings RECOMMENDATION: 1. Patient should be managed based on the clinical impression. 2. Otherwise, routine annual screening mammography. This patient's information was entered into a reminder system with a target due date for their next mammogram.
== END 2023-07-20 14:00 | disposition home or self-care (01) ==
LOC: HO.MAMMO 13:59
PROVIDERS: Absent Provider Surgery; PCP Family Medicine; Visit Provider Family Medicine
DX: N64.4 Mastodynia (principal); R92.8 Other abnormal and inconclusive findings on diagnostic imaging of breast
CPT/HCPCS: 76642; 77062; 77066

== ENCOUNTER → 2023-07-20 14:02 | Outpatient (BNV) | payer OTHER, SELFPAY | PROVIDERS: Absent Provider Surgery; PCP Family Medicine; Visit Provider Radiology Diagnostic Radiology | DX: R92.1 Mammographic calcification found on diagnostic imaging of breast (principal); N64.59 Other signs and symptoms in breast | CPT/HCPCS: 76642; 77066; G0279 ==

== ENCOUNTER 2023-08-23 10:09 | Outpatient (REF) | payer OTHER, SELFPAY ==
--- NOTE | ~2023-08-23 | MM_ITS ---
EXAMINATION: BONE DENSITOMETRY CLINICAL INDICATION: Asymptomatic menopausal state. COMPARISON: Baseline BD dated 06/17/2010. TECHNIQUE: Using a [employer] DXA System (software version: 13.1) manufactured by [employer], dual-energy x-ray absorptiometry was performed of the lumbar spine and left hip. The images are of good technical quality. Summary results are attached. FINDINGS: LEFT FEMUR, NECK: Current: BMD 0.744 g/cm2, Z-score -0.9, T-score -2.1, osteopenia. Baseline: BMD 0.898 g/cm2. LEFT FEMUR, TOTAL: Current: BMD 0.916 g/cm2, Z-score 0.2, T-score -0.7, normal, 17.8% decrease from baseline (<5% change is not significant). Baseline: BMD 1.115 g/cm2. AP SPINE L1-L4: Current: BMD 1.462 g/cm2, Z-score 3.3, T-score 2.3, normal, 18.0% increase from baseline (<5% change is not significant). Baseline: BMD 1.239 g/cm2. IDENTIFIED RISK FACTORS: Menopause, glucocorticoids, anticonvulsant, history of fracture (adult), secondary osteoporosis (partial gastrectomy). HISTORY OF FRACTURE: Shoulder. MEDICATIONS: None listed. MM/XR DEXA axial skeleton IMPRESSION: 1. DIAGNOSIS: Osteopenia based on the lowest T-score value of -2.1 in the femoral neck applying World Health Organization criteria. 2. 10-YEAR FRACTURE RISK PREDICTION, FRAX: Major osteoporotic fracture (clinical spine, forearm, hip or shoulder) 16.1%. Hip fracture 3.3%. 3. Treatment Recommendations: NOF guidelines recommend consideration for treatment in postmenopausal women and men age 50 and older presenting with the following: -A hip or vertebral (clinical or morphometric) fracture. -T-score less than or equal to -2.5 at the femoral neck or spine after appropriate evaluation to exclude secondary causes. -Low bone mass at the hip or spine and a 10-year fracture probability by FRAX of greater than or equal to 3% for hip fracture or greater than or equal to 20% for major osteoporotic fracture based on the [place] adapted WHO algorithm. 4. Other Recommendations: All treatment decisions require clinical judgment and consideration of individual patient factors, including patient preferences, comorbidities, previous drug use, risk factors not captured in the FRAX model (e.g. frailty, falls, vitamin D deficiency, increased bone turnover, interval significant decline in bone density) and possible under or overestimation of fracture risk by FRAX. Additional medical evaluation for secondary cause of low bone mineral density may be appropriate. FUTURE SCAN RECOMMENDATION: People with diagnosed cases of osteoporosis or at high risk for fracture should have regular bone mineral density tests. For patients eligible for Medicare, routine testing is allowed once every 2 years. The testing frequency can be increased to one year for patients who have rapidly progressing disease, those who are receiving or discontinuing medical therapy to restore bone mass, or have additional risk factors.
== END 2023-08-23 10:10 | disposition home or self-care (01) ==
LOC: HO.MAMMO 10:09
PROVIDERS: PCP Family Medicine; Visit Provider Obstetrics & Gynecology
DX: Z13.820 Encounter for screening for osteoporosis (principal); Z78.0 Asymptomatic menopausal state
CPT/HCPCS: 77080

== ENCOUNTER 2023-08-29 14:42 | Outpatient (AMB) | payer OTHER, SELFPAY ==
--- NOTE | 2023-08-29 14:49 | A.OFFPC_ITS ---
Vital Signs 08/29/23 14:50 Height 4 ft 11 in Weight 180 lb 2 oz BMI 36.4 BP 128/68 Blood Pressure Location Lt brachial Position Sitting Pulse 74 Pulse Source Pulse Oximeter Pulse Oximetry (%) 98 Oxygen Delivery Method Room Air Intake Visit Reasons: f/u diabetes and chronic conditions Intake Note: Patient is here to follow up on her diabetes today and chronic conditions. Bran carmen complains of bump in back of left leg today, she sted the nurse made appointment for ultrasound. Patient states she had her bone density test done, would like to over results. Allergies aspirin [Aspirin] Allergy (Mild, Verified 08/29/23 14:51) RASH morphine [MORPHINE] Allergy (Unknown, Verified 08/29/23 14:51) ABD PAIN, RASH omeprazole [OMEPRAZOLE] Allergy (Unknown, Verified 08/29/23 14:51) SHORTNESS OF BREATH pregabalin [From LYRICA] Allergy (Unknown, Verified 08/29/23 14:51) SHORTNESS OF BREATH celecoxib Adverse Reaction (Mild, Verified 08/29/23 14:51) chest pain, jumping feeling in her heart. Tobacco use date assessed: 08/29/23 Fall risk assessment: 1 Fall in past year Last assessed Fall Risk: 08/29/23 Dental Screening Dental Screen Date: 07/14/23 HPI f/u diabetes and chronic conditions HPI Details 67 y/o female presents to f/u diabetes, chronic conditions. A1c?today?is?8.7%.? ?At?last?visit,?she?said?that?her?blood?sugars?were?going?down?below?70?and?her? Tresiba?was?decreased?from?80?down?to?74?units?daily Pt notes her blood sugars had been going down below 70s in the morning. She is on Tresiba, Ozempic. She is unsure if she is taking Jardiance. She notes blood sugars have been high after breakfast/lunch. Bone density test?shows?osteopenia Pt has complaints of a bump behind her knee. She denies any pain associated with that bump. She also reports bumps in bilateral lower extremities. Bilateral knee pain and tramadol Pt notes pain is unchanged - they report orthopedics have not contacted her yet. Pt reports ongoing breast pain. [facility] Medical History Abscess of chest wall Uncontrolled type 2 diabetes mellitus with hyperglycemia, with long-term current use of insulin Ganglion cyst Glaucoma Neuropathy Arthritis Intracranial mass Diabetes 1.5, managed as type 2 Hypertension Asthma Surgical History History of removal of cyst Stented coronary artery H/O tubal ligation Hx of tonsillectomy H/O right breast biopsy Social History Housing: Apartment Patient Tobacco Use Status: Former Tobacco user Quit Date: More than 30 years e-Cigarette/Vaping Use: Never Used service: No Current occupational status: disabled Current occupational exposures/hazards: No Cognitive needs: No Hearing needs: No Vision needs: No Questionnaire Thrive Questionnaire Date Thrive assessed: 03/30/23 URIEL-7 AMB Questionnaire URIEL-7 Date URIEL - 7 assessed: 03/30/23 Source: Developed by Drs. Jason Glover, Deanna Truong, Sylvester Braga and colleagues, with an educational lisa from [employer]. Review of Systems Const Denies chills, Denies fatigue, Denies fever(s), Denies headache(s) and Denies weakness ENT Denies dizziness and Denies headache(s) Card Denies dyspnea Resp Denies cough, Denies dyspnea, Denies wheezing and Denies other (shortness of breath) Musc Denies numbness and Denies tingling Neuro Denies dizziness, Denies headache(s), Denies numbness, Denies tingling and Denies weakness Psych Denies anxiety and Denies depression Endo Denies fatigue Aller/Immun Denies wheezing Physical exam (Primary Care) Vital Signs: Last Vital Signs Pulse 74 08/29/23 14:50 BP 128/68 08/29/23 14:50 Pulse Ox 98 08/29/23 14:50 Oxygen Delivery Method Room Air 08/29/23 14:50 BMI result Body Mass Index 36.4 Tobacco/Smoking Status: Tobacco use Status Tobacco use date assessed 08/29/23 08/29/23 14:57 Patient Tobacco Use Status Former Tobacco user 08/29/23 14:57 e-Cigarette/Vaping Use Never Used 08/29/23 14:57 Thrive Assessment: Date of Thrive Assessment Date Thrive assessed 03/30/23 08/29/23 14:57 Const General: well developed; No acute distress Nutritional Appearance: obese Orientation/consciousness: patient oriented x3 [facility] Head: Yes normocephalic and Yes atraumatic Eyes General: appearance normal, both eyes and all related structures Pupils: Equal, round and reactive pupils present EOM: EOMs intact bilaterally Resp Effort & Inspection: normal respiratory effort Auscultation: clear to auscultation bilaterally Cardio Rate: regular rate Rhythm: regular rhythm Heart sounds: S1 normal heart sound present, S2 normal heart sound present, no gallops, no murmurs and no rubs Neuro General: patient oriented x3 and gait normal Cranial nerves: Yes Equal, round and reactive pupils present Psych Affect: normal affect Results AMB Hemoglobin A1c AMB Hemoglobin A1c 8.7 % Last Edit by Kristine Lugo CMA on 08/29/23 15:48 Assessment and Plan Assessment & Plan (1) Uncontrolled type 2 diabetes mellitus with hyperglycemia, with long-term current use of insulin: Code(s): E11.65 - Type 2 diabetes mellitus with hyperglycemia; Z79.4 - terminal carman (current) use of insulin Plan: A1c?increased?to?8.7%.??Goal?is?less?than?7.0% Will?add?glipizide?ER?5?mg?daily Continue?other?medications. (2) Knee pain: Code(s): M25.569 - Pain in unspecified knee Plan: Bilateral?knee?pain.??Had?given?her?tramadol?for?this?because?she?can?not?to lerate?NSAIDs. Knee?pain?seems?okay?at?present Has?posterior?calf?pain?however-see?below (3) Osteopenia: Code(s): M85.80 - Other specified disorders of bone density and structure, unspecified site Plan: Should?have?good?sources?of?calcium?and?vitamin-D Will?send?scripts (4) Breast pain: Code(s): N64.4 - Mastodynia Plan: Left?breast?pain.??Tenderness?and?itchiness?at?superior?a spect?of?left?areola?with?discoloration Recent?mammogram?negative Probable?yeast?infection?and?will?give?her?a?script?for?clotrimazole?cream Patient?has?had?numerous?bouts?of?breast?pain?and?tendernes s?however.??Referred?back?to?surgery (5) Sleep apnea: Code(s): G47.30 - Sleep apnea, unspecified Plan: Refer?to?Sleep?Medicine (6) Swelling of calf: Code(s): M79.89 - Other specified soft tissue disorders Plan: Swelling?of?left?calf?after?contusion.??Hematoma?versus?cord?at?posterior?left?c mcc?and?popliteal?space. Also?has?varicosities?of?right?leg?and?some?swelling?there?as?well. Check?venous?duplex?ultrasound Orders: Orders Vitamin D 25-OH Total Today E55.9 - Vitamin D deficiency, unspecified AMB Hemoglobin A1c Today Z13.9 - Encounter for screening, unspecified US venous duplex LE BI Today M79.89 - Other specified soft tissue disorders Comprehensive Met. Panel Today E11.65 - Type 2 diabetes mellitus with hyperglycemia, Z79.4 - terminal carman (current) use of insulin Referrals General Surgery Referral N64.4 - Mastodynia Sleep Medicine Referral G47.30 - Sleep apnea, unspecified Medications: New clotrimazole 1% 1 appl topical BID 2 weeks 30 grams 0RF glipizide ER Take 10 min before breakfast 5 mg PO QAM 30 days 30 tabs 3RF calcium carbonate-vitamin D3 600 mg-10 mcg (400 unit) (Calcium 600 with Vitamin D3) 1 tab PO BID 90 days 180 tabs 2RF Coding Level of Care Code Est Pt Level 5 (32931) Diagnoses Uncontrolled type 2 diabetes mellitus with hyperglycemia, with long-term current use of insulin E11.65; Z79.4 Knee pain M25.569 Osteopenia M85.80 Breast pain N64.4 Sleep apnea G47.30 Swelling of calf M79.89
[2023-08-29 14:50] VITALS: BP 128/68; PULSE 74; O2SAT 98; BMI 36.4
== END 2023-08-29 15:59 | disposition home or self-care (01) ==
PROVIDERS: PCP Family Medicine; Visit Provider Family Medicine
DX: E11.65 Type 2 diabetes mellitus with hyperglycemia (principal); Z79.4 Long term (current) use of insulin; M25.561 Pain in right knee; M85.80 Other specified disorders of bone density and structure, unspecified site; N64.4 Mastodynia; G47.30 Sleep apnea, unspecified; M79.89 Other specified soft tissue disorders; M25.562 Pain in left knee
CPT/HCPCS: 83036; 99214

== ENCOUNTER 2023-09-05 14:15 | Outpatient (AMB) | payer OTHER, SELFPAY ==
--- NOTE | 2023-09-05 14:15 | MHC.OFFVIS ---
Intake Visit Reasons: DEXA follow up Contractor General Building Required: Yes Contractor General Building Language: Atmospheric Chemist Name: Melisa Meneses [facility] Information Interpreted: non-clinical & clinical Allergies aspirin [Aspirin] Allergy (Mild, Verified 09/05/23 14:16) RASH morphine [MORPHINE] Allergy (Unknown, Verified 09/05/23 14:16) ABD PAIN, RASH omeprazole [OMEPRAZOLE] Allergy (Unknown, Verified 09/05/23 14:16) SHORTNESS OF BREATH pregabalin [From LYRICA] Allergy (Unknown, Verified 09/05/23 14:16) SHORTNESS OF BREATH celecoxib Adverse Reaction (Mild, Verified 09/05/23 14:16) chest pain, jumping feeling in her heart. Post menopausal: Yes HPI Comments Details: The patient schedule telehealth visits for follow up regarding DEXA scan results. T score @ spine and femoral Neck respectively were=2.3 /-2.1 and 10 year FRAX risk = 16.1/3.3% for severe osteoporosis and fracture. [facility] Medical History Abscess of chest wall Uncontrolled type 2 diabetes mellitus with hyperglycemia, with long-term current use of insulin Ganglion cyst Glaucoma Neuropathy Arthritis Intracranial mass Diabetes 1.5, managed as type 2 Hypertension Asthma Surgical History History of removal of cyst Stented coronary artery H/O tubal ligation Hx of tonsillectomy H/O right breast biopsy Social History Housing: Apartment Patient Tobacco Use Status: Former Tobacco user Quit Date: More than 30 years e-Cigarette/Vaping Use: Never Used service: No Current occupational status: disabled Current occupational exposures/hazards: No Cognitive needs: No Hearing needs: No Vision needs: No Review of Systems Const All systems reviewed & are unremarkable except as noted in HPI and below Reports as per HPI and Reports no additional complaints GI Reports no additional complaints Reports no additional complaints Telehealth Telehealth Telehealth Platform: Telephone Location of provider rendering services: practice address Location of patient: address on file Patient Identification confirmed using: Name, : Yes Telehealth method: voice only Patient verbally consented to treatment: Yes Patient verbally consented to billing insurance company: Yes Patient informed of any privacy concerns related to visit: Yes Assessment & Plan Assessment & Plan (1) Fracture Risk Assessment Score (FRAX) indicating greater than 3% risk for hip fracture: Code(s): Z91.89 - Other specified personal risk factors, not elsewhere classified Category: Medical Plan: Discussed with the patient the DEXA results and FRAX risk. Discussed with the patient all the options for therapeutic treatment including mechanism of actions, risks and benefits of Bisphosphonates (benefits=osteoporosis prevention; Risks=GERD, osteonecrosis of jaw), Raloxifene, (benefits=osteoporosis prevention and breast ca risk reduction; Risks=DVT), Forteo. The patient decided to go ahead with Fosamax so instructions given to the pt on how to take the med: NPO x 30 minutes, large amount of water , stay upright x 30 minutes, inform her dentist of alendronate intake in case invasive dental work. Also Caltrate+D 600 mg x2/day was recommended to the patient. I spent a total of 20 minutes reviewing the chart, talking to the patient via the phone and documenting in the medical record. Medications: New alendronate 70 mg PO QWEEK 14 tabs 3RF Coding Level of Care Code Tele Est Pt Level 1 (55354) Diagnoses Fracture Risk Assessment Score (FRAX) indicating greater than 3% risk for hip fracture Z91.89
== END 2023-09-05 15:01 | disposition home or self-care (01) ==
LOC: HO.HWS 14:15
PROVIDERS: PCP Family Medicine; Visit Provider Obstetrics & Gynecology
DX: Z91.89 Other specified personal risk factors, not elsewhere classified (principal)
CPT/HCPCS: 99211

== ENCOUNTER → 2023-09-05 14:15 | Outpatient (BNVA) | payer OTHER, SELFPAY | PROVIDERS: PCP Family Medicine; Visit Provider Obstetrics & Gynecology ==

== ENCOUNTER 2023-10-05 11:10 | Outpatient (AMB) | payer OTHER, SELFPAY ==
[2023-10-05 11:30] VITALS: BP 120/72; PULSE 66; BMI 36.4
--- NOTE | 2023-10-05 11:30 | MHC.OFFVIS ---
Vital Signs 10/05/23 11:30 Height 4 ft 11 in Weight 180 lb 5.41 oz BMI 36.4 BP 120/72 Blood Pressure Location Lt brachial Position Sitting Pulse 66 Pulse Source Pulse Oximeter Intake Visit Reasons: T2dm/CONFIRMED Intake Note: Patient presents today to follow up on D2MT. Last Diabetic Eye exam: 06/2023 Last Podiatry Visit:06/2023 Random Glucose: 154 mg/dl HgA1c: 8.7% 08/29/23 Sap Business Intelligence Consultant Required: Yes [employer]ap Business Intelligence Consultant Language: Psychological Operations Name: Ashley Information Interpreted: non-clinical & clinical Accompanied by: Self / Same As Patient Allergies aspirin [Aspirin] Allergy (Mild, Verified 10/05/23 11:35) RASH morphine [MORPHINE] Allergy (Unknown, Verified 10/05/23 11:35) ABD PAIN, RASH omeprazole [OMEPRAZOLE] Allergy (Unknown, Verified 10/05/23 11:35) SHORTNESS OF BREATH pregabalin [From LYRICA] Allergy (Unknown, Verified 10/05/23 11:35) SHORTNESS OF BREATH celecoxib Adverse Reaction (Mild, Verified 10/05/23 11:35) chest pain, jumping feeling in her heart. Medication List - Last Reconciled 10/05/23 by Jason Maxwell MD acetaminophen 1,000 mg PO Q6H PRN alcohol swabs (Alcohol Prep Pads) 1 pad topical 3XD 90 days alendronate 70 mg PO QWEEK amitriptyline 10 mg PO BEDTIME 90 days atorvastatin 80 mg PO DAILY bisacodyl (Dulcolax (bisacodyl)) 10 mg IA DAILY PRN budesonide-formoterol 160-4.5 mcg/actuation 2 inhalations inhalation BID calcium carbonate-vitamin D3 600 mg-10 mcg (400 unit) (Calcium 600 with Vitamin D3) 1 tab PO BID 90 days cefadroxil 500 mg PO BID cetirizine 10 mg PO DAILY PRN clopidogrel 75 mg PO DAILY 90 days clotrimazole 1% 1 appl topical BID 2 weeks diclofenac sodium 1% 2 grams topical QID empagliflozin (Jardiance) 25 mg PO DAILY flash glucose scanning reader ([employer] Alirio 2 [place]) As directed flash glucose sensor ([employer]Style Alirio 2 Sensor kit) As directed change every 14 days fluticasone propionate 50 mcg/actuation (Flonase Allergy Relief) 1 spray intranasal Q12H 30 days gabapentin 300 mg PO Q12H PRN glipizide ER 5 mg PO QAM 30 days hydralazine 25 mg PO TID insulin degludec (Tresiba FlexTouch U-100 insulin) 74 units (0.74 mL) subcut DAILY 30 days meloxicam 15 mg PO DAILY 30 days pen needle, diabetic (BD Ultra-Fine Mini Pen Needle) 4 TIMES DAILY, As directed, 90 DAYS polyethylene glycol 3350 (Miralax) 17 grams PO DAILY 14 days psyllium husk (Metamucil) 1 tbsp PO DAILY rivaroxaban (Xarelto) mg PO semaglutide 1 mg (0.75 mL) subcut QWEEK 28 days sodium phosphates 19-7 gram/118 mL (Fleet Enema) 118 mL IA DAILY PRN sulfamethoxazole-trimethoprim 800-160 mg (Bactrim DS) 1 tab PO Q12H 10 days tramadol 50 mg PO BID PRN 10 days Tresiba FlexTouch U-100 (insulin degludec) 75 U a.m. and 20 U p.m. subcutaneously 2 times a day; 30 days NS triamcinolone acetonide 0.5% 1 appl topical BID 14 days valsartan-hydrochlorothiazide 320-12.5 mg 1 tab PO DAILY HPI Comments Details: 67 YO F who is seen in consultation for T2DM at the request of PCP. Initially diagnosed with T2DM in 25 yrs ago . Was initially started on treatment with []. Current regimen Ozempic 1.0 mg Qwkly Tresiba 74 units Jardiance 25 mg QD Glipizide 5 mg QD Nurse administers meds - not sure of meds Checks sugars 1 times per day in AM . Unfortunately, not able to download the patient's glucometer No Reports low sugars . Most recent A1C Family history of T2DM in mother, grandmother . Has eyes checked yearly, last eye exam few mos ago , denies retinopathy. Denies neuropathy, Not sees podiatry. Denies nephropathy, on ARTHUR/ARB. Has HLD, on statin. Denies CAD. Hx of CVA X2 4 yrs ago Had diabetes education many yrs ago . Had an NM according to pt [facility] Medical History Abscess of chest wall Uncontrolled type 2 diabetes mellitus with hyperglycemia, with long-term current use of insulin Ganglion cyst Glaucoma Neuropathy Arthritis Intracranial mass Diabetes 1.5, managed as type 2 Hypertension Asthma Surgical History History of removal of cyst Stented coronary artery H/O tubal ligation Hx of tonsillectomy H/O right breast biopsy Social History Housing: Apartment Patient Tobacco Use Status: Former Tobacco user e-Cigarette/Vaping Use: Never Used service: No Current occupational status: disabled Current occupational exposures/hazards: No Cognitive needs: No Hearing needs: No Vision needs: No Physical Exam Vital Signs: Last Vital Signs Pulse 66 10/05/23 11:30 BP 120/72 10/05/23 11:30 BMI result Body Mass Index 36.4 Absence of Cushingoid features. Absence of acromegalic features. Neck exam reveals nl size thyroid about 15 gms. No thyroid nodules palpable. No carotid bruits present. Lungs CTA. Heart S1 S2, Reg R/R. No M/R/ G. Skin exam reveals absence of vitiligo or acanthosis nigricans. Abdominal exam reveals Soft NT/ND with NA BS. No organomegaly present. Neck Other: . Extrem Other: Visual exam of foot performed. L foot bandaged. Followed by wound clinic No onchomycosis, no callouses.Pulses 2 + distally Sensation intact to monofilament exam. 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 Plan is I will also have the patient reinitiate the Alirio 2 .Because there was no data, could not make any adjustments to her regimen today Will have patient see special educator . With the help with administrator social welfare, explained the relationship of poor glycemic control to development and progression of complications. I also told patient to follow-up with the [facility] regarding her left lower extremity wound Coding Level of Care Code Est Pt Level 4 (35636) Diagnoses Uncontrolled type 2 diabetes mellitus with hyperglycemia, with long-term current use of insulin E11.65; Z79.4
[2023-10-05 11:42] LABS: Glucose, Whole Blood 154 mg/dL (60-115)
== END 2023-10-05 12:06 | disposition home or self-care (01) ==
PROVIDERS: PCP Family Medicine; Visit Provider Internal Medicine Endocrinology, Diabetes & Metabolism
DX: E11.65 Type 2 diabetes mellitus with hyperglycemia (principal); Z79.4 Long term (current) use of insulin
CPT/HCPCS: 99214

== ENCOUNTER → 2023-10-05 11:10 | Outpatient (BNVA) | payer OTHER, SELFPAY | PROVIDERS: PCP Family Medicine; Visit Provider Internal Medicine Endocrinology, Diabetes & Metabolism | DX: E11.65 Type 2 diabetes mellitus with hyperglycemia (principal); Z79.4 Long term (current) use of insulin | CPT/HCPCS: 82947; 99212 ==

== ENCOUNTER 2023-10-12 10:36 | Outpatient (AMB) | payer OTHER, SELFPAY ==
--- NOTE | 2023-10-12 10:40 | A.OFFPC_ITS ---
Vital Signs 10/12/23 10:41 Height 4 ft 11 in Weight 180 lb BMI 36.4 BP 122/64 Blood Pressure Location Rt brachial Position Sitting Respiration 14 Pulse 73 Pulse Source Pulse Oximeter Temp 97.7 F Temp Source Temporal Artery Scan Pulse Oximetry (%) 99 Oxygen Delivery Method Room Air Intake Visit Reasons: f/u diabetes Intake Note: Patient states that shes been experiencing pain all over and would like you to check her toe. Pain has bee efecting sleep she states. 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 R knee pain She?has?currently?using?an?Ronan?bandage Had?gabapentin?in?the?past L 3rd toe wound & Cellulitis Patient?had?dried?skin?there?and?she?pulled?it?off.??Now?has?denuded?wound Surrounding?cellulitis Has?appointment?with?wound?care. [facility] Medical History (Updated 10/12/23 @ 11:35 by Ross Gold MD) Heart attack Abscess of chest wall Uncontrolled type 2 diabetes mellitus with hyperglycemia, with long-term current use of insulin Ganglion cyst Glaucoma Neuropathy Arthritis Intracranial mass Diabetes 1.5, managed as type 2 Hypertension Asthma Surgical History History of removal of cyst Stented coronary artery H/O tubal ligation Hx of tonsillectomy H/O right breast biopsy Social History (Reviewed 10/12/23 @ 10:51 by Pattie Yin [facility] Housing: Apartment Patient Tobacco Use Status: Former Tobacco user e-Cigarette/Vaping Use: Never Used service: No Current occupational status: disabled Current occupational exposures/hazards: No Cognitive needs: No Hearing needs: No Vision needs: No Questionnaire Thrive Questionnaire Date Thrive assessed: 03/30/23 URIEL-7 AMB Questionnaire URIEL-7 Date URIEL - 7 assessed: 03/30/23 Source: Developed by Drs. Jason Glover, Deanna Truong, Sylvester Braga and colleagues, with an educational lisa from [employer]. Review of Systems Const Details: CONSTITUTIONAL no fever. no fatigue. no chills. CARDIOVASCULAR no chest pain. no palpitations. RESPIRATORY no cough. no shortness of breath. no trouble breathing. no wheezing. MusculoSkel: R knee pain PSYCHIATRIC no anxiety. no depression. NEUROLOGIC no incoordination. no headache. no weakness. no dizziness. no gait abnormality. Physical exam (Primary Care) Vital Signs: Last Vital Signs Temp 97.7 F 10/12/23 10:41 Pulse 73 10/12/23 10:41 Resp 14 10/12/23 10:41 BP 122/64 10/12/23 10:41 Pulse Ox 99 10/12/23 10:41 Oxygen Delivery Method Room Air 10/12/23 10:41 BMI result Body Mass Index 36.4 Tobacco/Smoking Status: Tobacco use Status Tobacco use date assessed 08/29/23 10/12/23 10:44 Patient Tobacco Use Status Former Tobacco user 10/12/23 10:44 e-Cigarette/Vaping Use Never Used 10/12/23 10:44 Thrive Assessment: Date of Thrive Assessment Date Thrive assessed 03/30/23 10/12/23 10:44 Const Other: General Appearance: no apparent distress, pleasant. Heart: RRR, no murmurs, clicks or rubs, no gallops. Lungs: clear to auscultation. Extremities: no edema. Neurologic Exam: alert and oriented x3, gait normal, Psych: Normal affect Extrem: R knee swelling & crepitus. Wound?at?plantar?surface?of?left?3rd?toe?with?surrounding?cellulitis?and?tendern ess Assessment and Plan Assessment & Plan (1) Wound of foot: Code(s): S91.309A - Unspecified open wound, unspecified foot, initial encounter Plan: Wound?on?plantar?surface?of?right?3rd?toe?with?surrounding?cellulitis Sent?a?script?for?doxycycline?and?referred?to?wound?care (2) Right knee pain: Code(s): M25.561 - Pain in right knee Plan: Pain,?swelling?and?crepitus?at?right?knee Referred?to?Ortho (3) Uncontrolled type 2 diabetes mellitus with hyperglycemia, with long-term current use of insulin: Code(s): E11.65 - Type 2 diabetes mellitus with hyperglycemia; Z79.4 - half-way (current) use of insulin Plan: Improving?control.??Follow-up?with?Endocrine?as?recommended Orders: Referrals Orthopedics Referral M25.561 - Pain in right knee Wound Care Referral S91.309A - Unspecified open wound, unspecified foot, initial encounter Medications: New diclofenac sodium 1% (Voltaren Arthritis Pain) apply to single knee, ankle, foot; for foot includes sole/toes/top of foot 4 grams topical QID 30 days 200 grams 2RF doxycycline hyclate 100 mg PO BID 30 days 60 tabs 2RF Changed From gabapentin 300 mg PO Q12H PRN pain To gabapentin 300 mg PO Q12H 30 days PRN 30 caps 1RF pain Coding Level of Care Code Est Pt Level 4 (57193) Diagnoses Wound of foot S91.309A Right knee pain M25.561 Uncontrolled type 2 diabetes mellitus with hyperglycemia, with long-term current use of insulin E11.65; Z79.4
[2023-10-12 10:41] VITALS: BP 122/64; PULSE 73; RESP 14; TEMP 36.5; O2SAT 99; BMI 36.4
== END 2023-10-12 11:45 | disposition home or self-care (01) ==
PROVIDERS: PCP Family Medicine; Visit Provider Family Medicine
DX: S91.301A Unspecified open wound, right foot, initial encounter (principal); M25.561 Pain in right knee; E11.65 Type 2 diabetes mellitus with hyperglycemia; Z79.4 Long term (current) use of insulin
CPT/HCPCS: 99214

== ENCOUNTER 2023-11-10 13:20 | Outpatient (AMB) | payer OTHER, SELFPAY ==
--- NOTE | 2023-11-10 13:30 | A.OFFVIS_ITS ---
Vital Signs 11/10/23 13:32 Height 4 ft 11 in Weight 182 lb 15.739 oz BMI 37.0 BP 134/86 Blood Pressure Location Rt brachial Pulse 76 Pulse Source Pulse Oximeter Intake Visit Reasons: Type 2 DM/CONFIRMED Intake Note: New Patient presents today to establish treatment for Type 2 Diabetes Mellitus: Last diabetic eye exam was on: DUE Last Podiatry Exam was on: DUE Most recent HbA1c: 8.7%, 08/29/2023 Random Glucose- 102mg/dL, Today Television Presenter Required: Yes Television Presenter Language: Persian Accompanied by: Self / Same As Patient Allergies aspirin [Aspirin] Allergy (Mild, Verified 11/10/23 13:30) RASH morphine [MORPHINE] Allergy (Unknown, Verified 11/10/23 13:30) ABD PAIN, RASH omeprazole [OMEPRAZOLE] Allergy (Unknown, Verified 11/10/23 13:30) SHORTNESS OF BREATH pregabalin [From LYRICA] Allergy (Unknown, Verified 11/10/23 13:30) SHORTNESS OF BREATH celecoxib Adverse Reaction (Mild, Verified 11/10/23 13:30) chest pain, jumping feeling in her heart. Medication List - Last Reconciled 11/10/23 by Ana Laura Carlson PA-C acetaminophen 1,000 mg PO Q6H PRN alcohol swabs (Alcohol Prep Pads) 1 pad topical 3XD 90 days alendronate 70 mg PO QWEEK amitriptyline 10 mg PO BEDTIME 90 days atorvastatin 80 mg PO DAILY bisacodyl (Dulcolax (bisacodyl)) 10 mg MO DAILY PRN budesonide-formoterol 160-4.5 mcg/actuation 2 inhalations inhalation BID calcium carbonate-vitamin D3 600 mg-10 mcg (400 unit) (Calcium 600 with Vitamin D3) 1 tab PO BID 90 days cetirizine 10 mg PO DAILY PRN clopidogrel 75 mg PO DAILY 90 days clotrimazole 1% 1 appl topical BID 2 weeks diclofenac sodium 1% 2 grams topical QID diclofenac sodium 1% (Voltaren Arthritis Pain) 4 grams topical QID 30 days doxycycline hyclate 100 mg PO BID 30 days empagliflozin (Jardiance) 25 mg PO DAILY flash glucose scanning reader (FreeStyle Alirio 2 De Leon) As directed flash glucose sensor (FreeStyle Alirio 2 Sensor kit) As directed change every 14 days fluticasone propionate 50 mcg/actuation (Flonase Allergy Relief) 1 spray intranasal Q12H 30 days gabapentin 300 mg PO Q12H PRN 30 days glipizide ER 5 mg PO QAM 30 days hydralazine 25 mg PO TID insulin degludec (Tresiba FlexTouch U-100 insulin) 74 units (0.74 mL) subcut AME LY 30 days meloxicam 15 mg PO DAILY 30 days pen needle, diabetic (BD Ultra-Fine Mini Pen Needle) 4 TIMES DAILY, As directed, 90 DAYS polyethylene glycol 3350 (Miralax) 17 grams PO DAILY 14 days psyllium husk (Metamucil) 1 tbsp PO DAILY rivaroxaban (Xarelto) mg PO semaglutide 1 mg (0.75 mL) subcut QWEEK 28 days sodium phosphates 19-7 gram/118 mL (Fleet Enema) 118 mL MO DAILY PRN tramadol 50 mg PO BID PRN 10 days triamcinolone acetonide 0.5% 1 appl topical BID 14 days valsartan-hydrochlorothiazide 320-12.5 mg 1 tab PO DAILY HPI HPI Type 2 DM/CONFIRMED: Details: Patient is a 68-year-old female with a significant past medical history of obesity, peripheral vascular disease, NSTEMI, uncontrolled type 2 diabetes, insulin dependent, history of a CVA, chronic foot ulcer, hypertension and hyperlipidemia presenting today for a follow-up regarding her diabetes. She last saw Dr. Maxwell in September. Endo: DM-her last A1c was 8.7. She is currently on Ozempic 1 mg weekly, Tresiba 74 units daily, glipizide 5 mg daily, Jardiance 25 mg daily. She is not on any mealtime insulin. She has her freestyle 2 but it was not able to be downloaded today. 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 She does not check her glucose that frequently. She treats her hypoglycemic events with orange juice and candy. She states that they made this appointment because she was developing some hypoglycemia. -currently dealing with a left foot ulcer and following with Wound Clinic. CV: Blood pressure today in the office as 134/86. [facility] Medical History Heart attack Abscess of chest wall Uncontrolled type 2 diabetes mellitus with hyperglycemia, with long-term current use of insulin Ganglion cyst Glaucoma Neuropathy Arthritis Intracranial mass Diabetes 1.5, managed as type 2 Hypertension Asthma Surgical History History of removal of cyst Stented coronary artery H/O tubal ligation Hx of tonsillectomy H/O right breast biopsy Social History Housing: Apartment Patient Tobacco Use Status: Former Tobacco user e-Cigarette/Vaping Use: Never Used service: No Current occupational status: disabled Current occupational exposures/hazards: No Cognitive needs: No Hearing needs: No Vision needs: No Physical Exam Vital Signs: Last Vital Signs Pulse 76 11/10/23 13:32 BP 134/86 11/10/23 13:32 Const Orientation/consciousness: patient oriented x3 Neck Neck: Yes no lymphadenopathy Thyroid: Thyroid normal Carotids: no bruits Resp Auscultation: clear to auscultation bilaterally Cardio Other: Murmur noted Rate: regular rate Rhythm: regular rhythm Heart sounds: S1 normal heart sound present and S2 normal heart sound present Neuro General: patient oriented x3, gait normal and no focal motor deficits Extrem Other: Compression stockings on Results Reviewed Results Reviewed: Laboratory Tests 06/01/23 06/01/23 08/29/23 13:01 13:05 15:47 Sodium 142 Potassium 4.0 Chloride 108 Carbon Dioxide 25 Anion Gap 13 BUN 29 H Creatinine 0.97 Estimated GFR 57 Glucose (Clinic) Random Glucose 97 Hgb A1c (Clinic) 8.7 H Triglycerides 119 Cholesterol 107 LDL Cholesterol, Calc 53 HDL Cholesterol 31 L Urine Creatinine 73.62 Urine Microalbumin 70.0 Microalb/Creat Ratio 95.0 H 10/05/23 11:37 Sodium Potassium Chloride Carbon Dioxide Anion Gap BUN Creatinine Estimated GFR Glucose (Clinic) 154 H Random Glucose Hgb A1c (Clinic) Triglycerides Cholesterol LDL Cholesterol, Calc HDL Cholesterol Urine Creatinine Urine Microalbumin Microalb/Creat Ratio Assessment & Plan Assessment & Plan (1) Uncontrolled type 2 diabetes mellitus with hyperglycemia, with long-term current use of insulin: Code(s): E11.65 - Type 2 diabetes mellitus with hyperglycemia; Z79.4 - terminal block assembler (current) use of insulin Category: Medical Plan: We will discontinue the glipizide. Discussed starting mealtime insulin but she refuses. I will change her reader and sensor to the freestyle 3. She will bring this in to her next appointment and she will call us when she gets this to make sure that this is set up correctly. I will reduce her Tresiba to 72 units. I have increased Ozempic. Glucose tabs order to use if needed. Signs symptoms of hyper and hypoglycemia that would require emergent medical treatment were discussed. (2) Foot ulcer, left: Code(s): L97.529 - Non-pressure chronic ulcer of other part of left foot with unspecified severity Category: Medical Plan: Following with wound care. Medications: New glucose (Dex4 Glucose) until symptoms of low blood sugar are controlled 16 grams (4 x 4 gram) PO Q15M PRN 100 tabs 0RF hypoglycemia semaglutide (Ozempic) 2 mg (0.75 mL) subcut QWEEK 3 mL 6RF blood-glucose sensor (FreeStyle Alirio 3 Sensor device) Apply every 14 days As directed 2 ea 11RF E11.9 - Type 2 diabetes mellitus without complications, Z79.4 - [facility] (current) use of insulin blood-glucose meter,continuous (FreeStyle Alirio 3 De [place]) use daily As directed to check blood glucose 1 ea 0RF Changed From insulin degludec (Tresiba FlexTouch U-100 insulin) 74 units (0.74 mL) subcut DAILY 30 days 24 mL 4RF To insulin degludec (Tresiba FlexTouch U-100 insulin) 72 units (0.72 mL) subcut DAILY 30 days 21.6 mL 4RF Discontinued glipizide ER Take 10 min before breakfast Discontinued Reason: Doctor's Order 5 mg PO QAM 30 days 30 tabs 3RF semaglutide Discontinued Reason: Doctor's Order 1 mg (0.75 mL) subcut QWEEK 28 days 3 mL 4RF Coding Level of Care Code Est Pt Level 4 (07872) Diagnoses Uncontrolled type 2 diabetes mellitus with hyperglycemia, with long-term current use of insulin E11.65; Z79.4 Foot ulcer, left L97.387
[2023-11-10 13:32] VITALS: BP 134/86; PULSE 76; BMI 37.0
[2023-11-10 13:48] LABS: Glucose, Whole Blood 102 mg/dL (60-115)
== END 2023-11-10 14:13 | disposition home or self-care (01) ==
PROVIDERS: PCP Family Medicine; Visit Provider Physician Assistant
DX: E11.65 Type 2 diabetes mellitus with hyperglycemia (principal); Z79.4 Long term (current) use of insulin; L97.529 Non-pressure chronic ulcer of other part of left foot with unspecified severity
CPT/HCPCS: 99214

== ENCOUNTER → 2023-11-10 13:20 | Outpatient (BNVA) | payer OTHER, SELFPAY | PROVIDERS: PCP Family Medicine; Visit Provider Physician Assistant | DX: E11.65 Type 2 diabetes mellitus with hyperglycemia (principal); L97.529 Non-pressure chronic ulcer of other part of left foot with unspecified severity; Z79.4 Long term (current) use of insulin | CPT/HCPCS: 82947; 99212 ==

== ENCOUNTER 2023-11-16 08:30 | Outpatient (REF) | payer OTHER, SELFPAY ==
--- NOTE | ~2023-11-16 | XR_ITS ---
EXAMINATION: XR KNEE, RIGHT CLINICAL INFORMATION: Unilateral primary osteoarthritis of the right knee. COMPARISON: None available. TECHNIQUE: Four views of the right knee. FINDINGS: There is moderate joint space narrowing in the lateral compartment of the right knee with mild subchondral sclerosis as well as valgus angulation at the right knee. Medial and patellofemoral compartments appear normal. Small joint effusion. No fractures. Atherosclerotic calcifications are present throughout the popliteal and runoff arteries. Mild soft tissue swelling. Minimal osteoarthritis noted medial compartment of the left knee. Atherosclerotic calcifications and soft tissue swelling are also noted on the left lower extremity XR/XR knee RT 3V IMPRESSION: 1. Moderate osteoarthritis in the lateral compartment of the right knee with associated valgus angulation. 2. Small right knee joint effusion.
== END 2023-11-16 08:31 | disposition home or self-care (01) ==
LOC: HO.HOSX 08:30
PROVIDERS: Visit Provider Physician Assistant
DX: M17.11 Unilateral primary osteoarthritis, right knee (principal)
CPT/HCPCS: 73562; 99202

== ENCOUNTER 2023-11-16 11:09 | Outpatient (AMB) | payer OTHER, SELFPAY ==
--- NOTE | 2023-11-16 11:19 | A.OFFVIS_ITS ---
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 Patient reports knee pain has been present for months. States constant pain making it difficult to sleep at night. Pain is located at the anterior aspect of knee that radiates up to her hip and down to her toes. Finds very little relief with topical cream or salonpas patch. She was given a knee brace from her PCP however this causes her discomfort, stating hard to apply brace and is big and bulky. No previous tx. Patient uses a walker to ambulate. Behavioral Medical Director Services: Behavioral Medical Director Offered & Declined Allergies aspirin [Aspirin] Allergy (Mild, Verified 11/16/23 11:31) RASH morphine [MORPHINE] Allergy (Unknown, Verified 11/16/23 11:31) ABD PAIN, RASH omeprazole [OMEPRAZOLE] Allergy (Unknown, Verified 11/16/23 11:31) SHORTNESS OF BREATH pregabalin [From LYRICA] Allergy (Unknown, Verified 11/16/23 11:31) SHORTNESS OF BREATH celecoxib Adverse Reaction (Mild, Verified 11/16/23 11:31) chest pain, jumping feeling in her heart. 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 She reports that she has been experiencing knee pain for months. She claims that her ongoing pain keeps her from falling asleep at night. She has pain at the anterior aspect of her knee that radiates up to her hip and down to her toes. She mentioned mild relief with topical ointment and salonpas patch. Her PCP gave her a knee brace, but she finds it uncomfortable as the brace is large and hard to apply. She denies any previous treatment. She ambulates with the walker. She reports that she had a fall in last March. She claims that she has been in excruciating pain when walking. She reports that she has difficulty sleeping on her right side. She states that Tylenol gave her mild relief. She has a history of diabetes. [facility] Medical History Heart attack Abscess of chest wall Uncontrolled type 2 diabetes mellitus with hyperglycemia, with long-term current use of insulin Ganglion cyst Glaucoma Neuropathy Arthritis Intracranial mass Diabetes 1.5, managed as type 2 Hypertension Asthma Surgical History History of removal of cyst Stented coronary artery H/O tubal ligation Hx of tonsillectomy H/O right breast biopsy Social History Housing: Apartment Patient Tobacco Use Status: Former Tobacco user e-Cigarette/Vaping Use: Never Used service: No Current occupational status: disabled Current occupational exposures/hazards: No Cognitive needs: No Hearing needs: No Vision needs: No Review of Systems Const All systems reviewed & are unremarkable except as noted in HPI and below Physical Exam Vital Signs: BMI result Body Mass Index 38.2 Const General: cooperative, healthy appearing, comfortable and no acute distress Orientation/consciousness: patient oriented x3 Neck Neck: Yes normal visual inspection and Yes no JVD Chest Chest palpation & inspection: normal inspection of the chest Resp Effort & Inspection: normal respiratory effort Auscultation: clear to auscultation bilaterally, crackles (no), rales (no), rhonchi (no) and wheezes (no) Cardio Jugular venous distension: no JVD Rate: regular rate Rhythm: regular rhythm Heart sounds: S1 normal heart sound present, S2 normal heart sound present, Murmur heart sound present (no) and Rub heart sound present (no) Neuro General: patient oriented x3 Extrem Other: Right knee: Skin intact, no erythema or joint effusion. Tenderness along the medial or lateral or medial and lateral joint line. Full ROM with crepitus. Negative Abe?s. No ligamentous laxity. NVI. General: Yes normal to inspection, Yes no pedal edema and Yes no calf tenderness Psych Appearance: grossly normal Mental Status: mental status grossly normal Speech and movement: Normal speech and movement present Results Reviewed Results Reviewed: Xrays were obtained in the office today and personally reviewed by me of the the right knee show severe oa of the lateral compartment with valgus deformity Assessment & Plan Assessment & Plan (1) Osteoarthritis of right knee: Code(s): M17.11 - Unilateral primary osteoarthritis, right knee Category: Medical Plan We discussed options which include PT, NSAIDs and injections. The patient will defer on the injection today and proceed with PT and NSAIDs. If symptoms persist, she will contact me for an injection, otherwise, PRN. Orders: Orders XR knee RT 3V Today M17.11 - Unilateral primary osteoarthritis, right knee PT Evaluation and Treatment Today M17.11 - Unilateral primary osteoarthritis, right knee Patient Instructions: Scribed for Jan Acevedo PA-C, by Migue Cross medical scientific officer, on 11/16/2023 at 11:15 AM EST. I, Jan Acevedo PA-C, have personally reviewed and agree with the information entered by the scribe. Coding Level of Care Code New Pt Level 3 (56928) Diagnoses Osteoarthritis of right knee M17.11
[2023-11-16 11:20] VITALS: BMI 38.2
== END 2023-11-16 13:45 | disposition home or self-care (01) ==
PROVIDERS: PCP Family Medicine; Visit Provider Physician Assistant
DX: M17.11 Unilateral primary osteoarthritis, right knee (principal)
CPT/HCPCS: 99203

== ENCOUNTER 2023-12-18 10:26 | Outpatient (AMB) | payer OTHER, SELFPAY ==
--- NOTE | 2023-12-18 09:16 | MHC.OFFVIS ---
Vital Signs 12/18/23 10:47 Height 4 ft 11 in Weight 180 lb BMI 36.4 BP 138/88 Blood Pressure Location Rt brachial Position Sitting Pulse 75 Pulse Source Pulse Oximeter Intake Visit Reasons: T2DM/CONFIRMED Intake Note: Patient presents today for D2MT follow up visit. Last Diabetic Eye exam: 06/2023 Last Podiatry Visit:06/2023 Random Glucose: 256mg/dl HgA1c: 8.4% Economic Historian Required: No Economic Historian Services: Economic Historian Offered & Declined Accompanied by: Self / Same As Patient Allergies aspirin [Aspirin] Allergy (Mild, Verified 11/16/23 11:31) RASH morphine [MORPHINE] Allergy (Unknown, Verified 11/16/23 11:31) ABD PAIN, RASH omeprazole [OMEPRAZOLE] Allergy (Unknown, Verified 11/16/23 11:31) SHORTNESS OF BREATH pregabalin [From LYRICA] Allergy (Unknown, Verified 11/16/23 11:31) SHORTNESS OF BREATH celecoxib Adverse Reaction (Mild, Verified 11/16/23 11:31) chest pain, jumping feeling in her heart. Medication List - Last Reconciled 12/18/23 by Ana Laura Carlson PA-C acetaminophen 1,000 mg PO Q6H PRN alcohol swabs (Alcohol Prep Pads) 1 pad topical 3XD 90 days alendronate 70 mg PO QWEEK amitriptyline 10 mg PO BEDTIME 90 days atorvastatin 80 mg PO DAILY bisacodyl (Dulcolax (bisacodyl)) 10 mg [place] DAILY PRN blood-glucose meter,continuous (FreeStyle Alirio 3 [place]) use daily As directed to check blood glucose blood-glucose sensor (FreeStyle Alirio 3 Sensor device) Apply every 14 days As directed budesonide-formoterol 160-4.5 mcg/actuation 2 inhalations inhalation BID calcium carbonate-vitamin D3 600 mg-10 mcg (400 unit) (Calcium 600 with Vitamin D3) 1 tab PO BID 90 days cetirizine 10 mg PO DAILY PRN clopidogrel 75 mg PO DAILY 90 days clotrimazole 1% 1 appl topical BID 2 weeks diclofenac sodium 1% 2 grams topical QID diclofenac sodium 1% (Voltaren Arthritis Pain) 4 grams topical QID 30 days doxycycline hyclate 100 mg PO BID 30 days empagliflozin (Jardiance) 25 mg PO DAILY fluticasone propionate 50 mcg/actuation (Flonase Allergy Relief) 1 spray intranasal Q12H 30 days gabapentin 300 mg PO Q12H PRN 30 days glucose (Dex4 Glucose) 16 grams (4 x 4 gram) PO Q15M PRN hydralazine 25 mg PO TID insulin degludec (Tresiba FlexTouch U-100 insulin) 72 units (0.72 mL) subcut DAILY 30 days lidocaine 4% 1 appl topical TID PRN 28 days meloxicam 15 mg PO DAILY 30 days pen needle, diabetic (BD Ultra-Fine Mini Pen Needle) 4 TIMES DAILY, As directed, 90 DAYS polyethylene glycol 3350 (Miralax) 17 grams PO DAILY 14 days psyllium husk (Metamucil) 1 tbsp PO DAILY rivaroxaban (Xarelto) mg PO semaglutide (Ozempic) 2 mg (0.75 mL) subcut QWEEK sodium phosphates 19-7 gram/118 mL (Fleet Enema) 118 mL [place] DAILY PRN tramadol 50 mg PO BID PRN 10 days triamcinolone acetonide 0.5% 1 appl topical BID 14 days valsartan-hydrochlorothiazide 320-12.5 mg 1 tab PO DAILY HPI HPI T2DM/CONFIRMED: Details: Patient is a 68-year-old female with a significant past medical history of obesity, peripheral vascular disease, NSTEMI, uncontrolled type 2 diabetes, insulin dependent, history of a CVA, chronic foot ulcer, hypertension and hyperlipidemia presenting today for a follow-up regarding her diabetes. Endo: DM-her last A1c was 8.7. Today her A1c was 8.4 She is currently on Ozempic 2 mg weekly, Tresiba 74 units daily, Jardiance 25 mg daily. She is not on any mealtime insulin. -she has lost 10 lb with the increased dosage of Ozempic. -She wants a new horse racing manager. Her left foot has been bothering her. She states that she has burning neuropathy pain in her feet but left is worse than right. She is on gabapentin 300 mg twice a day. Her previous wound has resolved. She does have P 80 and states that she has followed with a vascular surgeon at [place]. cgm-she forgot never picked up the Alirio 3.. She states that she has been better about using this and her blood sugars are still elevated but mostly with breakfast and supper time. She does not really eat lunch. Denies any hypoglycemic events. She treats her hypoglycemic events with orange juice and candy. CV: Blood pressure today in the office as 1389/86. She is on hydralazine 25 mg 3 times a day, valsartan/hydrochlorothiazide 320/12.5 mg daily. She is atorvastatin 80 mg. [facility] Medical History Heart attack Abscess of chest wall Uncontrolled type 2 diabetes mellitus with hyperglycemia, with long-term current use of insulin Ganglion cyst Glaucoma Neuropathy Arthritis Intracranial mass Diabetes 1.5, managed as type 2 Hypertension Asthma Surgical History History of removal of cyst Stented coronary artery H/O tubal ligation Hx of tonsillectomy H/O right breast biopsy Social History Housing: Apartment Patient Tobacco Use Status: Former Tobacco user e-Cigarette/Vaping Use: Never Used service: No Current occupational status: disabled Current occupational exposures/hazards: No Cognitive needs: No Hearing needs: No Vision needs: No Physical Exam Vital Signs: Last Vital Signs Pulse 75 12/18/23 10:47 BP 138/88 12/18/23 10:47 BMI result Body Mass Index 36.4 Const Orientation/consciousness: patient oriented x3 Neck Neck: Yes no lymphadenopathy Thyroid: Thyroid normal Carotids: no bruits Resp Auscultation: clear to auscultation bilaterally Cardio Other: Murmur noted Rate: regular rate Rhythm: regular rhythm Heart sounds: S1 normal heart sound present and S2 normal heart sound present Neuro General: patient oriented x3, gait normal and no focal motor deficits Extrem Other: Diminished pulses bilaterally. Capillary refill present bilaterally but slow. Skin is intact. Full range of motion. No vibratory sensation. Diminished monofilament sensation. 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 Will start Humalog 4 units with breakfast and supper. Reviewed signs and symptoms of hypoglycemia that would require emergent medical treatment. Has glucose tabs at home but has not needed them. Increase gabapentin for neuropathy symptoms. Referral to Podiatry. Advised to follow-up in 1 month. Sooner if needed. Patient understands and agrees with the plan. (2) Hypertension: Code(s): I10 - Essential (primary) hypertension Category: Medical Plan: Continue current regimen (3) Neuropathy: Code(s): G62.9 - Polyneuropathy, unspecified Category: Medical Plan: As above. 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 Changed From gabapentin 300 mg PO Q12H 30 days PRN 30 caps 1RF pain To gabapentin 300 mg PO Q8H 30 days PRN 90 caps 1RF pain Refilled blood-glucose meter,continuous (FreeStyle Alirio 3 [place]) use daily As directed to check blood glucose 1 ea 0RF blood-glucose sensor (FreeStyle Alirio 3 Sensor device) Apply every 14 days As directed 2 ea 11RF E11.9 - Type 2 diabetes mellitus without complications, 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
[2023-12-18 10:47] VITALS: BP 138/88; PULSE 75; BMI 36.4
[2023-12-18 10:53] LABS: Glucose, Whole Blood 256 mg/dL (60-115)
== END 2023-12-18 11:53 | disposition home or self-care (01) ==
PROVIDERS: PCP Family Medicine; Visit Provider Physician Assistant
DX: E11.65 Type 2 diabetes mellitus with hyperglycemia (principal); Z79.4 Long term (current) use of insulin; I10 Essential (primary) hypertension; G62.9 Polyneuropathy, unspecified
CPT/HCPCS: 99214

== ENCOUNTER → 2023-12-18 10:26 | Outpatient (BNVA) | payer OTHER, SELFPAY | PROVIDERS: PCP Family Medicine; Visit Provider Physician Assistant | DX: E11.65 Type 2 diabetes mellitus with hyperglycemia (principal); Z79.4 Long term (current) use of insulin; I10 Essential (primary) hypertension; G62.9 Polyneuropathy, unspecified | CPT/HCPCS: 82947; 83036; 99212 ==

== ENCOUNTER 2023-12-28 10:11 | Outpatient (AMB) | payer OTHER, SELFPAY ==
--- NOTE | 2023-12-28 10:47 | MHC.PC.OV ---
Vital Signs 12/28/23 10:50 Height 4 ft 11 in Weight 183 lb 8 oz BMI 37.1 BP 169/70 H Blood Pressure Location Rt brachial Position Sitting Respiration 16 Pulse 88 Pulse Source Pulse Oximeter Temp 98.1 F Temp Source Temporal Artery Scan Pulse Oximetry (%) 98 Oxygen Delivery Method Room Air Intake Visit Reasons: 2 MONTH FU Diabetes Intake Note: follow up DM Allergies aspirin [Aspirin] Allergy (Mild, Verified 12/28/23 10:48) RASH morphine [MORPHINE] Allergy (Unknown, Verified 12/28/23 10:48) ABD PAIN, RASH omeprazole [OMEPRAZOLE] Allergy (Unknown, Verified 12/28/23 10:48) SHORTNESS OF BREATH pregabalin [From LYRICA] Allergy (Unknown, Verified 12/28/23 10:48) SHORTNESS OF BREATH celecoxib Adverse Reaction (Mild, Verified 12/28/23 10:48) chest pain, jumping feeling in her heart. Tobacco use date assessed: 08/29/23 Dental Screening Dental Screen Date: 07/14/23 HPI 2 MONTH FU Diabetes HPI Details 68 y/o female presents to f/u diabetes. Had last seen Endocrinology 12/18/23. A1c that day was 8.4%. Had started her on Humalog 4 units with breakfast/supper and increased gabapentin for neuropathy symptoms. She notes she has not received those changes yet due to difficulties with pharmacies. She follows up with them again in 2 weeks. Pt notes L foot continues to bother her. She has an appt. with podatriy. HPI Comments History of Present Illness Details Documentation assistance for Ross Gold MD, was provided by Job Pierson, Wood Finisher Apprentice on 12/28/2023 at 11:17 AM MIKE. I, Dr. Gold, have read, observed, and verified documentation. [facility] Medical History Heart attack Abscess of chest wall Uncontrolled type 2 diabetes mellitus with hyperglycemia, with long-term current use of insulin Ganglion cyst Glaucoma Neuropathy Arthritis Intracranial mass Diabetes 1.5, managed as type 2 Hypertension Asthma Surgical History History of removal of cyst Stented coronary artery H/O tubal ligation Hx of tonsillectomy H/O right breast biopsy Social History Housing: Apartment Patient Tobacco Use Status: Former Tobacco user e-Cigarette/Vaping Use: Never Used service: No Current occupational status: disabled Current occupational exposures/hazards: No Cognitive needs: No Hearing needs: No Vision needs: No Questionnaire Thrive Questionnaire Date Thrive assessed: 03/30/23 URIEL-7 AMB Questionnaire URIEL-7 Date URIEL - 7 assessed: 03/30/23 Source: Developed by Drs. Jason Glover, Deanna Truong, Sylvester Braga and colleagues, with an educational lisa from [employer]. Review of Systems Const Denies chills, Denies fatigue, Denies fever(s), Denies headache(s) and Denies weakness ENT Denies dizziness and Denies headache(s) Card Denies dyspnea Resp Denies cough, Denies dyspnea, Denies wheezing and Denies other (shortness of breath) Musc Denies numbness and Denies tingling Neuro Denies dizziness, Denies headache(s), Denies numbness, Denies tingling and Denies weakness Psych Denies anxiety and Denies depression Endo Denies fatigue Aller/Immun Denies wheezing Physical exam (Primary Care) Vital Signs: Last Vital Signs Temp 98.1 F 12/28/23 10:50 Pulse 88 12/28/23 10:50 Resp 16 12/28/23 10:50 BP 169/70 H 12/28/23 10:50 Pulse Ox 98 12/28/23 10:50 Oxygen Delivery Method Room Air 12/28/23 10:50 BMI result Body Mass Index 37.1 Tobacco/Smoking Status: Tobacco use Status Tobacco use date assessed 08/29/23 12/28/23 10:47 Patient Tobacco Use Status Former Tobacco user 12/28/23 10:47 e-Cigarette/Vaping Use Never Used 12/28/23 10:47 Thrive Assessment: Date of Thrive Assessment Date Thrive assessed 03/30/23 12/28/23 10:47 Const General: well developed; No acute distress Nutritional Appearance: well nourished Orientation/consciousness: patient oriented x3 HENMT Head: Yes normocephalic and Yes atraumatic Eyes General: appearance normal, both eyes and all related structures Pupils: Equal, round and reactive pupils present EOM: EOMs intact bilaterally Resp Effort & Inspection: normal respiratory effort Neuro General: patient oriented x3 and gait normal Cranial nerves: Yes Equal, round and reactive pupils present Extrem Other: Bilateral feet are warmth, not discolored. Normal movement. 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 Patient?says?she?did?not?receive?these?as?they?went?to?the?wrong?pharmacy. Recent?medications?to?the?pharmacy?she?prefers although?it?appears?they?were?sent?there?already. Start?medications?as?adjusted?by?Endocrine She?has?a?follow-up?appointment?with?endocrine?in?a?couple?of?weeks Increase?hydration (2) Decreased pulses in feet: Code(s): R09.89 - Other specified symptoms and signs involving the circulatory and respiratory systems Plan: Mildly?decreased?DP?pulse?in?right?foot?and?moderately?decreased?pulse?in?left?foot. Still?has?perfusion?in?bilateral?feet?and?toes Check?ultrasound?ABIs. Orders: Orders US MARK complete Today R09.89 - Other specified symptoms and signs involving the circulatory and respiratory systems Medications: Refilled gabapentin 300 mg PO Q8H 30 days PRN 90 caps 1RF pain insulin lispro (Humalog KwikPen (U-100) Insulin) 4 units (0.04 mL) subcut BID 15 mL 3RF E11.65 - Type 2 diabetes mellitus with hyperglycemia, Z79.4 - [facility] (current) use of insulin semaglutide (Ozempic) 2 mg (0.75 mL) subcut QWEEK 3 mL 6RF Coding Level of Care Code Est Pt Level 3 (36402) Diagnoses Uncontrolled type 2 diabetes mellitus with hyperglycemia, with long-term current use of insulin E11.65; Z79.4 Decreased pulses in feet R09.89
[2023-12-28 10:50] VITALS: BP 169/70; PULSE 88; RESP 16; TEMP 36.7; O2SAT 98; BMI 37.1
== END 2023-12-28 11:25 | disposition home or self-care (01) ==
PROVIDERS: PCP Family Medicine; Visit Provider Family Medicine
DX: E11.65 Type 2 diabetes mellitus with hyperglycemia (principal); Z79.4 Long term (current) use of insulin; R09.89 Other specified symptoms and signs involving the circulatory and respiratory systems
CPT/HCPCS: 99213

== ENCOUNTER 2024-01-15 13:22 | Outpatient (AMB) | payer OTHER, SELFPAY ==
[2024-01-15 13:24] VITALS: BP 122/82; PULSE 80; BMI 37.2
--- NOTE | 2024-01-15 13:24 | MHC.OFFVIS ---
Vital Signs 01/15/24 13:24 Height 4 ft 11 in Weight 184 lb 4.903 oz BMI 37.2 BP 122/82 Blood Pressure Location Lt brachial Position Sitting Pulse 80 Pulse Source Pulse Oximeter Intake Visit Reasons: T2DM/CONFIRMED Intake Note: Patient presents today for D2MT follow up visit. Last Diabetic Eye exam: 2022 Last Podiatry Visit: Doesn't have one Random Glucose: 162 mg/dl HgA1c: 8.4% 12/18/23 Building Pressure Washer Required: Yes Building Pressure Washer Language: Auto Design Detailer Services: Building Pressure Washer Present Building Pressure Washer Name: Yoselyn Information Interpreted: non-clinical & clinical Accompanied by: CORRUGATED SHEET MATERIAL SHEETER Allergies aspirin [Aspirin] Allergy (Mild, Verified 01/15/24 13:31) RASH morphine [MORPHINE] Allergy (Unknown, Verified 01/15/24 13:31) ABD PAIN, RASH omeprazole [OMEPRAZOLE] Allergy (Unknown, Verified 01/15/24 13:31) SHORTNESS OF BREATH pregabalin [From LYRICA] Allergy (Unknown, Verified 01/15/24 13:31) SHORTNESS OF BREATH celecoxib Adverse Reaction (Mild, Verified 01/15/24 13:31) chest pain, jumping feeling in her heart. Medication List - Last Reconciled 01/15/24 by Ana Laura Carlson PA-C acetaminophen 1,000 mg PO Q6H PRN alcohol swabs (Alcohol Prep Pads) 1 pad topical 3XD 90 days alendronate 70 mg PO QWEEK amitriptyline 10 mg PO BEDTIME 90 days atorvastatin 80 mg PO DAILY bisacodyl (Dulcolax (bisacodyl)) 10 mg [place] DAILY PRN blood-glucose meter,continuous (FreeStyle Alirio 3 [place]) use daily As directed to check blood glucose blood-glucose sensor (FreeStyle Alirio 3 Sensor device) Apply every 14 days As directed budesonide-formoterol 160-4.5 mcg/actuation 2 inhalations inhalation BID calcium carbonate-vitamin D3 600 mg-10 mcg (400 unit) (Calcium 600 with Vitamin D3) 1 tab PO BID 90 days cetirizine 10 mg PO DAILY PRN clopidogrel 75 mg PO DAILY 90 days clotrimazole 1% 1 appl topical BID 2 weeks diclofenac sodium 1% 2 grams topical QID diclofenac sodium 1% (Voltaren Arthritis Pain) 4 grams topical QID 30 days doxycycline hyclate 100 mg PO BID 30 days empagliflozin (Jardiance) 25 mg PO DAILY fluticasone propionate 50 mcg/actuation (Flonase Allergy Relief) 1 spray intranasal Q12H 30 days gabapentin 300 mg PO Q8H PRN 30 days glucose (Dex4 Glucose) 16 grams (4 x 4 gram) PO Q15M PRN Humalog KwikPen Insulin (insulin lispro) 4 units (0.04 mL) subcut BID NS hydralazine 25 mg PO TID lidocaine 4% 1 appl topical TID PRN 28 days meloxicam 15 mg PO DAILY 30 days pen needle, diabetic (BD Ultra-Fine Mini Pen Needle) 4 TIMES DAILY, As directed, 90 DAYS polyethylene glycol 3350 (Miralax) 17 grams PO DAILY 14 days psyllium husk (Metamucil) 1 tbsp PO DAILY rivaroxaban (Xarelto) mg PO semaglutide (Ozempic) 2 mg (0.75 mL) subcut QWEEK sodium phosphates 19-7 gram/118 mL (Fleet Enema) 118 mL [place] DAILY PRN tramadol 50 mg PO BID PRN 10 days Tresiba FlexTouch U-100 (insulin degludec) 74 units (0.74 mL) subcut DAILY 30 days NS triamcinolone acetonide 0.5% 1 appl topical BID 14 days valsartan-hydrochlorothiazide 320-12.5 mg 1 tab PO DAILY HPI HPI T2DM/CONFIRMED: Details: Patient is a 68-year-old female with a significant past medical history of obesity, peripheral vascular disease, NSTEMI, uncontrolled type 2 diabetes, insulin dependent, history of a CVA, chronic foot ulcer, hypertension and hyperlipidemia presenting today for a follow-up regarding her diabetes. Building Pressure Washer: Pamela Although pt speaks and understands Georgian. She does the visit with little assistance from Pamela. Her CORRUGATED SHEET MATERIAL SHEETER who speaks and understands Georgian is also present. Endo: DM-her last A1c was 8.4 She is currently on Ozempic 2 mg weekly, Tresiba 74 units daily, Jardiance 25 mg daily. She was started on humalog 4 units TID at our last visit. -she has lost 10 lb with the increased dosage of Ozempic. States her blood sugars are significantly better with libre3. She forgot her reader at home. She states that her blood sugars have been as low as 75 but not higher than 180. She states that her visiting nurse told her her numbers are fantastic. Denies any hypoglycemic events. States that if she did have them she knows how to treat them with juice and sugar. -She has ongoing bilateral foot pain with the left worse than the right. She is on gabapentin twice a day. At our last visit I did increase the dosage to 3 times a day but she has only been taking it twice a day. She has ultrasound scheduled for . She does have diminished pulses in the office today but the pain is stable and she states that she does not want to go to the ER or visit with a vascular surgeon and she is going to wait until after her ultrasound. She states that she is tired and does not care if that means her feet have to be amputated at some point. She says that she is just frustrated with her pain. She treats her hypoglycemic events with orange juice and candy. CV: Blood pressure today in the office as 122/82. She is on hydralazine 25 mg 3 times a day, valsartan/hydrochlorothiazide 320/12.5 mg daily. She is atorvastatin 80 mg. [facility] Medical History Heart attack Abscess of chest wall Uncontrolled type 2 diabetes mellitus with hyperglycemia, with long-term current use of insulin Ganglion cyst Glaucoma Neuropathy Arthritis Intracranial mass Diabetes 1.5, managed as type 2 Hypertension Asthma Surgical History History of removal of cyst Stented coronary artery H/O tubal ligation Hx of tonsillectomy H/O right breast biopsy Social History Housing: Apartment Patient Tobacco Use Status: Former Tobacco user e-Cigarette/Vaping Use: Never Used service: No Current occupational status: disabled Current occupational exposures/hazards: No Cognitive needs: No Hearing needs: No Vision needs: No Physical Exam Const Orientation/consciousness: patient oriented x3 Neck Neck: Yes no lymphadenopathy Thyroid: Thyroid normal Resp Auscultation: clear to auscultation bilaterally Cardio Other: Slow capillary refill. Rate: regular rate Rhythm: regular rhythm Heart sounds: S1 normal heart sound present and S2 normal heart sound present Peripheral pulses: dorsalis pedis present (Weak) Neuro General: patient oriented x3, gait normal and no focal motor deficits Extrem Other: Monofilament sensation intact on the right but absent on the left. Vibratory sensation absent bilaterally. Skin intact. General: Yes normal to inspection Results Reviewed Results Reviewed: Laboratory Tests 06/01/23 08/29/23 12/18/23 13:05 15:47 10:53 Sodium 142 Potassium 4.0 Chloride 108 Creatinine 0.97 Estimated GFR 57 Hgb A1c (Clinic) 8.7 H 8.4 H Triglycerides 119 Cholesterol 107 LDL Cholesterol, Calc 53 HDL Cholesterol 31 L Assessment & Plan Assessment & Plan (1) Uncontrolled type 2 diabetes mellitus with hyperglycemia, with long-term current use of insulin: Code(s): E11.65 - Type 2 diabetes mellitus with hyperglycemia; Z79.4 - intermediate frame tender (current) use of insulin Category: Medical Plan: Reports better control of blood sugars. Continue current regimen. Labs ordered for a three-month follow up. Reviewed signs and symptoms of hyper and hypoglycemia that would require emergent medical treatment. (2) Neuropathy: Code(s): G62.9 - Polyneuropathy, unspecified Category: Medical Plan: Increase gabapentin to 2 capsules b.i.d.. She does not think she could remember taking a 3rd 1 during the day. Advised to go to the ER if the pain worsens or if she has any discoloration from her baseline. She is scheduled for ultrasounds this week. Advised to follow up with PCP for pain. (3) Hypertension: Code(s): I10 - Essential (primary) hypertension Category: Medical Plan: WNL. Continue current regimen. Orders: Orders Comprehensive [place]. Panel Fast Today E13.9 - Other specified diabetes mellitus without complications Hemoglobin A1c 3 Months E11.65 - Type 2 diabetes mellitus with hyperglycemia, Z79.4 - intermediate (current) use of insulin Microalbumin, Random (w Creat) 3 Months E11.65 - Type 2 diabetes mellitus with hyperglycemia, Z79.4 - intermediate frame tender (current) use of insulin Hemoglobin A1c Today E13.9 - Other specified diabetes mellitus without complications Microalbumin, Random (w Creat) Today E13.9 - Other specified diabetes mellitus without complications Comprehensive [place]. Panel Fast 3 Months E11.65 - Type 2 diabetes mellitus with hyperglycemia, Z79.4 - intermediate frame tender (current) use of insulin Medications: Changed From gabapentin 300 mg PO Q8H 30 days PRN 90 caps 1RF pain To gabapentin 600 mg (2 x 300 mg) PO Q12H 30 days 120 caps 5RF Refilled Tresiba FlexTouch U-100 (insulin degludec) 74 units (0.74 mL) subcut DAILY 30 days 24 mL 4RF NS Coding Level of Care Code Est Pt Level 4 (12170) Complex EM visit Add On G2211 Diagnoses Uncontrolled type 2 diabetes mellitus with hyperglycemia, with long-term current use of insulin E11.65; Z79.4 Neuropathy G62.9 Hypertension I10
[2024-01-15 13:37] LABS: Glucose, Whole Blood 162 mg/dL (60-115)
== END 2024-01-15 14:05 | disposition home or self-care (01) ==
PROVIDERS: PCP Family Medicine; Visit Provider Physician Assistant
DX: E11.65 Type 2 diabetes mellitus with hyperglycemia (principal); Z79.4 Long term (current) use of insulin; G62.9 Polyneuropathy, unspecified; I10 Essential (primary) hypertension

== ENCOUNTER → 2024-01-15 13:22 | Outpatient (BNVA) | payer OTHER, SELFPAY | PROVIDERS: PCP Family Medicine; Visit Provider Physician Assistant | DX: E11.65 Type 2 diabetes mellitus with hyperglycemia (principal); I10 Essential (primary) hypertension; G62.9 Polyneuropathy, unspecified; Z79.4 Long term (current) use of insulin | CPT/HCPCS: 82947; 99212 ==

== ENCOUNTER 2024-01-18 12:35 | Outpatient (REF) | payer OTHER, SELFPAY ==
--- NOTE | ~2024-01-18 | US_ITS ---
EXAMINATION: Noninvasive assessment of the arteries of both lower extremities to include a single level PVR exam and ANKLE BRACHIAL INDICES (ABIs). CLINICAL INFORMATION: Signs and symptoms involving the circulatory system COMPARISON: None available. TECHNIQUE: The ankle/brachial indices of the distal posterior tibial and the dorsalis pedis arteries were attempted of the lower extremity arterial system bilaterally; along with pressures and pulse volume recordings at the ankle level. The study was performed at rest. FINDINGS: 1. ANKLE-BRACHIAL INDICES: RIGHT: Noncompressible LEFT: Noncompressible 2. ANKLE PVR WAVEFORMS: RIGHT: Abnormal LEFT: Abnormal US/US MARK complete IMPRESSION: Nondiagnostic MARK secondary to noncompressibility. Electronically signed by: Natan Nieves DO 01/24/2024 09:23 AM EDT
== END 2024-01-18 12:36 | disposition home or self-care (01) ==
LOC: HO.US 12:35
PROVIDERS: PCP Family Medicine; Visit Provider Family Medicine
DX: R09.89 Other specified symptoms and signs involving the circulatory and respiratory systems (principal)
CPT/HCPCS: 93923

== ENCOUNTER 2024-01-29 11:02 | Outpatient (AMB) | payer OTHER, SELFPAY ==
--- NOTE | 2024-01-29 11:09 | MHC.OFFVIS ---
Vital Signs 01/29/24 11:10 Height 4 ft 11 in Weight 187 lb BMI 37.8 Intake Visit Reasons: INP- ORALIA Intake Note: Patient presents for ORALIA. Asp Web Developer Required: Yes Asp Web Developer Name: fredi burger Information Interpreted: non-clinical & clinical Allergies aspirin [Aspirin] Allergy (Mild, Verified 01/29/24 11:15) RASH morphine [MORPHINE] Allergy (Unknown, Verified 01/29/24 11:15) ABD PAIN, RASH omeprazole [OMEPRAZOLE] Allergy (Unknown, Verified 01/29/24 11:15) SHORTNESS OF BREATH pregabalin [From LYRICA] Allergy (Unknown, Verified 01/29/24 11:15) SHORTNESS OF BREATH celecoxib Adverse Reaction (Mild, Verified 01/29/24 11:15) chest pain, jumping feeling in her heart. Medication List - Last Reconciled 01/29/24 by JUANITO Velez acetaminophen 1,000 mg PO Q6H PRN alcohol swabs (Alcohol Prep Pads) 1 pad topical 3XD 90 days alendronate 70 mg PO QWEEK amitriptyline 10 mg PO BEDTIME 90 days atorvastatin 80 mg PO DAILY bisacodyl (Dulcolax (bisacodyl)) 10 mg HI DAILY PRN blood-glucose meter,continuous (FreeStyle Alirio 3 [place]) use daily As directed to check blood glucose blood-glucose sensor (FreeStyle Alirio 3 Sensor device) Apply every 14 days As directed budesonide-formoterol 160-4.5 mcg/actuation 2 inhalations inhalation BID calcium carbonate-vitamin D3 600 mg-10 mcg (400 unit) (Calcium 600 with Vitamin D3) 1 tab PO BID 90 days cetirizine 10 mg PO DAILY PRN clopidogrel 75 mg PO DAILY 90 days clotrimazole 1% 1 appl topical BID 2 weeks diclofenac sodium 1% 2 grams topical QID diclofenac sodium 1% (Voltaren Arthritis Pain) 4 grams topical QID 30 days doxycycline hyclate 100 mg PO BID 30 days empagliflozin (Jardiance) 25 mg PO DAILY fluticasone propionate 50 mcg/actuation (Flonase Allergy Relief) 1 spray intranasal Q12H 30 days gabapentin 600 mg (2 x 300 mg) PO Q12H 30 days glucose (Dex4 Glucose) 16 grams (4 x 4 gram) PO Q15M PRN Humalog KwikPen Insulin (insulin lispro) 4 units (0.04 mL) subcut BID NS hydralazine 25 mg PO TID lidocaine 4% 1 appl topical TID PRN 28 days meloxicam 15 mg PO DAILY 30 days pen needle, diabetic (BD Ultra-Fine Mini Pen Needle) 4 TIMES DAILY, As directed, 90 DAYS polyethylene glycol 3350 (Miralax) 17 grams PO DAILY 14 days psyllium husk (Metamucil) 1 tbsp PO DAILY rivaroxaban (Xarelto) mg PO semaglutide (Ozempic) 2 mg (0.75 mL) subcut QWEEK sodium phosphates 19-7 gram/118 mL (Fleet Enema) 118 mL HI DAILY PRN tramadol 50 mg PO BID PRN 10 days Tresiba FlexTouch U-100 (insulin degludec) 74 units (0.74 mL) subcut DAILY 30 days NS triamcinolone acetonide 0.5% 1 appl topical BID 14 days valsartan-hydrochlorothiazide 320-12.5 mg 1 tab PO DAILY HPI Comments Details: 68-yr-old female presents for new in-person patient visit for sleep consultation. Patient reports she was diagnosed w/ sleep apnea many years ago. She did use a CPAP many years, but she no longer has her CPAP machine as she has moved several times in the last few years after her . She is not sure how severe her sleep apnea was. Now, she is able to fall asleep, but has difficulty maintaining sleep. Sleep questionnaire: Have you ever been diagnosed with a sleep disorder? yes Have you ever had a sleep study in the past? yes- yrs ago at [facility] Have you ever been treated for a sleep disorder? yes- CPAP Do you take medications for a sleep disorder? no, she does not want to take medication for sleep. Do you have difficulty initiating sleep? yes Do you have difficulty maintaining sleep? yes Wakes up 3 per night. Do you wake up tired? yes Do you have daytime tiredness or fatigue? yes Do you easily fall asleep when inactive? yes Do you snore? yes Do you wake up gasping at night? yes Do you have episodes of apneas? unsure Do you have episodes of nocturnal chest pain or dyspnea? sometimes right chest discomfort in the day or night, SOB, wheezing- uses her asthma pump which helps Do you have bruxism? denies Do you have headaches upon awakening? most every day- pt reports h/o brain MRI w/ a little mass . headache is a pressure in bifrontal, eyes and top of head, intensity is not too strong , denies migraine s/s- denies associated photo/phonophobia, N/V. Do you wake up with dry mouth or throat? Denies Do you have GERD? Yes Do you have nocturia? Yes Do you have nocturnal leg cramps? At times Do you have symptoms of restless legs? Yes, and has BLE leg pain, from hips down through her toes. Has L > R swelling, heaviness, and toe redness. Do you act out your dreams? Denies Do you have sleep paralysis? Denies Do you have drop attacks? Unsure Do you ever have hypnogenic hallucinations? Denies Hypersomnolence questionnaire: Have you ever had episodes of sudden weakness? denies Have you ever had episodes of sudden weakness associated with strong emotions? denies Sleep hygiene questionnaire: What is your usual sleep routine? Usual bedtime is at 11pm; Usual wake-up time is at 2-3-4-5am. Do you take naps? denies Is your sleep environment cool, dark, and quiet? on the weekends, people outside of her apartment smoke marijuana which interferes w/ her sleep. Do you exercise? none now. Do you take caffeine or other stimulants? takes de-caf chocolate or hot chocolate. or javed-donna. Do you use electronics in bed? may watch TV, What is your work schedule? retired [employer] Medical History Heart attack Abscess of chest wall Uncontrolled type 2 diabetes mellitus with hyperglycemia, with long-term current use of insulin Ganglion cyst Glaucoma Neuropathy Arthritis Intracranial mass Diabetes 1.5, managed as type 2 Hypertension Asthma Surgical History History of removal of cyst Stented coronary artery H/O tubal ligation Hx of tonsillectomy H/O right breast biopsy Social History Housing: Apartment Patient Tobacco Use Status: Former Tobacco user e-Cigarette/Vaping Use: Never Used service: No Current occupational status: disabled Current occupational exposures/hazards: No Cognitive needs: No Hearing needs: No Vision needs: No Physical Exam Vital Signs: BMI result Body Mass Index 37.8 Const General: no acute distress Orientation/consciousness: patient oriented x3 HEENT Other: Mallampati stage 4 Resp Effort & Inspection: normal respiratory effort and able to speak in complete sentences Auscultation: clear to auscultation bilaterally Cardio Rate: regular rate Rhythm: regular rhythm Neuro General: patient oriented x3 Psych Mental Status: mental status grossly normal Speech and movement: Clear speech present Attitude: cooperative Results Reviewed Results Reviewed: [facility] Result Report Patient: Jimena Watkins Date of Service: 09/13/17 ? ? Patient Gender: Female Ordering Provider: Sasha Guillen : 1955 ? ? ? Final MRI OF BRAIN AND FURTHER SEQUENCES W/WO CON Exam Date: 09/13/2017 12:06 PM Ordering Diagnosis: Abnormal CT scan, head ? MRI BRAIN WITH AND WITHOUT IV CONTRAST ? INDICATION: Sinus disease versus sella turcica abnormality on recent head CT scan. ? COMPARISON: Nonenhanced head CT scan dated 09/01/2017. MRI brain from 08/19/2016. ? TECHNIQUE: Multiplanar, multisequence MRI of the brain was performed before and after administration of 10 mL gadavist IV without immediate complication. Dedicated pre and post thin slice sequences through the sella turcica were also submitted for review. Several sequences are significantly limited by patient motion. ? FINDINGS: ? There is stable diffuse parenchymal volume loss with proportional prominence of the ventricular system and sulci. A few scattered periventricular and subcortical white matter foci are visible throughout both cerebral hemispheres. Best visualized on the axial T2-weighted sequence, an area of T2 hyperintense signal is visible along the medial aspect of the left middle cerebellar peduncle measuring approximately 0.6 x 1.1 cm (axial series 401, image 7/24 and coronal series 901, image 21/34) with associated patchy enhancement (axial series 1001, image 7/24 and sagittal series 1301, image 5/15). Evaluation of the coronal postcontrast sequence in this region is limited by significant pulsation artifact. Pratt-white differentiation is preserved with no focal restricted diffusion to suggest acute ischemia. There is no measurable midline shift, large parenchymal hemorrhage, or extra-axial fluid collection. Mild cerebellar tonsillar ectopia. The basal cisterns are otherwise patent. ? There is an abnormal appearance of the sella turcica with lobularity of the posterior sphenoid sinus. Heterogeneous T2 hyperintense, T1 hypointense, enhancing lesion in the region of the expected pituitary gland measures 1.3 x 1.6 x 1.5 cm (AP x TR x CC), abutting the medial margins of the cavernous segments of the internal carotid arteries bilaterally without definite cavernous sinus extension. There is slight left deviation of the infundibular stalk with no visible mass effect upon the optic chiasm. The wall of the posterior sphenoid sinus appears intact. ? Incidental note is made of hyperostosis frontalis interna. Asymmetric T2 hyperintense signal in the region of the left middle turbinate (axial series 401, image 9/24), possibly related to mucosal thickening. No air fluid levels throughout the paranasal sinuses. The mastoid air cells are clear. ? IMPRESSION IMPRESSION: 1. Limited study due to patient motion. 2. Abnormal appearance of the sella turcica with T2 hyperintense, T1 hypointense, enhancing lesion abutting the cavernous segments of the internal carotid arteries and posterior wall of the sphenoid sinus most compatible with a pituitary macroadenoma. No cavernous sinus extension or mass effect upon the optic chiasm. Neurosurgical consultation and follow-up imaging recommended. 3. Diffuse parenchymal volume loss with scattered foci of FLAIR/T2 hyperintense signal throughout the white matter of both cerebral hemispheres, likely gliosis due to nonacute ischemic small vessel disease. Focal FLAIR/T2 hyperintense signal along the medial aspect of the left middle cerebellar peduncle is new compared to the prior exam, with corresponding faint, patchy enhancement. Differential considerations include neoplastic, demyelinating, or potential vascular etiologies. Short term follow-up postcontrast brain MRI in 1-3 months is advised to assess for stability. 4. Additional findings, as detailed above. ? Reading Radiologist: October 2018, follow-up brain MRI w/wo- grossly similar results. follow-up recommended. Assessment & Plan Assessment & Plan (1) Sleep difficulties: Code(s): G47.9 - Sleep disorder, unspecified Category: Medical (2) History of sleep apnea: Code(s): Z86.69 - Personal history of other diseases of the nervous system and sense organs Category: Medical (3) Snoring: Code(s): R06.83 - Snoring Category: Medical (4) Hypersomnia: Code(s): G47.10 - Hypersomnia, unspecified Category: Medical Plan Pt is advised to undergo in-lab sleep study to assess status for sleep apnea and to assess for PLMS. Will f/u with pt after study to discuss results and appropriate treatment options. Received and reviewed previous brain MRI reports from 2018, 2019, results c/w pituitary macroadenoma, diffuse volume loss, and FLAIR/T2 hyperintense signal within bilateral cerebral hemispheres. Pt advised to repeat Brain MRI w/wo to assess status of above- will ask endocrinology's input when results available- pt f/b [facility] endo. Will follow-up upon review of above and patient to follow-up in clinic in 4-6 months or sooner prn. Coding Level of Care Code New Pt Level 4 (62790) Diagnoses Sleep difficulties G47.9 History of sleep apnea Z86.69 Snoring R06.83 Hypersomnia G47.10 [place] Sleepiness Scale Questions Sitting and reading: high chance of dozing Watching TV: moderate chance of dozing Sitting inactive in a theater, movie etc.: would never doze As a passenger in a car for an hour without break: slight chance of dozing Lying down in the afternoon when circumstances permit: moderate chance of dozing Sitting and talking to someone: would never doze Sitting quietly after lunch without alcohol: moderate chance of dozing In a car, while stopped for a few minutes in the traffic: would never doze ESS < 10: normal, ESS > 12: pathologic: 10
[2024-01-29 11:10] VITALS: BMI 37.8
== END 2024-01-29 11:55 | disposition home or self-care (01) ==
PROVIDERS: PCP Family Medicine; Visit Provider Nurse Practitioner Family
DX: G47.9 Sleep disorder, unspecified (principal); Z86.69 Personal history of other diseases of the nervous system and sense organs; R06.83 Snoring; G47.10 Hypersomnia, unspecified
CPT/HCPCS: 99204

== ENCOUNTER → 2024-01-29 11:02 | Outpatient (BNVA) | payer OTHER, SELFPAY | PROVIDERS: PCP Family Medicine; Visit Provider Nurse Practitioner Family | DX: G47.9 Sleep disorder, unspecified (principal); G47.10 Hypersomnia, unspecified; R06.83 Snoring; M85.2 Hyperostosis of skull; Z86.69 Personal history of other diseases of the nervous system and sense organs | CPT/HCPCS: 99202 ==

== ENCOUNTER 2024-02-20 11:13 | Outpatient (AMB) | payer OTHER, SELFPAY ==
--- NOTE | 2024-02-20 11:19 | A.OFFVIS_ITS ---
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 Intermittent swelling. Business Reporter Required: Yes Business Reporter Name: Satnam [id number] Accompanied by: Other Relationship Allergies aspirin [Aspirin] Allergy (Mild, Verified 01/29/24 11:15) RASH morphine [MORPHINE] Allergy (Unknown, Verified 01/29/24 11:15) ABD PAIN, RASH omeprazole [OMEPRAZOLE] Allergy (Unknown, Verified 01/29/24 11:15) SHORTNESS OF BREATH pregabalin [From LYRICA] Allergy (Unknown, Verified 01/29/24 11:15) SHORTNESS OF BREATH celecoxib Adverse Reaction (Mild, Verified 01/29/24 11:15) chest pain, jumping feeling in her heart. 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 Rodolfo is a pleasant 68 year old Norwegian-speaking only female presenting today with years left more than right swelling and pain of her lower extremities. She is a former smoker and does have diabetes, not well controlled. Complaints include pain over varicosities, swelling of lower extremities, cramping, fatigue, discoloration, and heaviness of the lower extremities. It has been affecting their daily activities including walking and standing. It is noted more so in left more than right leg. Patient denies any previous venous surgery or injections. Patient denies any history of DVT/ PE. Patient denies any history of phlebitis. Trial of compression includes - elevation at night; she does not tolerate compression stockings at all. They now present for vascular evaluation regarding their varicose veins. [facility] Medical History Heart attack Abscess of chest wall Uncontrolled type 2 diabetes mellitus with hyperglycemia, with long-term current use of insulin Ganglion cyst Glaucoma Neuropathy Arthritis Intracranial mass Diabetes 1.5, managed as type 2 Hypertension Asthma Surgical History History of removal of cyst Stented coronary artery H/O tubal ligation Hx of tonsillectomy H/O right breast biopsy Social History Housing: Apartment Patient Tobacco Use Status: Former Tobacco user e-Cigarette/Vaping Use: Never Used service: No Current occupational status: disabled Current occupational exposures/hazards: No Cognitive needs: No Hearing needs: No Vision needs: No Review of Systems Const Reports as per HPI and Denies weakness ENT Reports Normal hearing present and Denies dizziness Card Reports as per HPI, Denies chest pain, Denies chest pain at rest, Denies chest pain with activity, Denies dyspnea and Denies dyspnea on exertion Resp Reports as per HPI, Denies cough, Denies dyspnea and Denies dyspnea on exertion GI Reports as per HPI, Denies abdominal pain, Denies nausea and Denies vomiting Musc Denies numbness Skin/Breast Reports as per HPI, Denies erythema and Denies wounds Neuro Reports Normal hearing present, Denies dizziness, Denies numbness, Denies Se nsory deficit (Neuro) and Denies weakness Psych Reports no additional complaints Endo Reports no additional complaints Physical Exam Const General: healthy appearing and no acute distress Orientation/consciousness: patient oriented x3 HEENT Head: Yes normal to inspection Ears: hearing grossly normal bilaterally Mouth: Normal oral and palatal mucosa present Resp Effort & Inspection: normal respiratory effort and able to speak in complete sentences Auscultation: clear to auscultation bilaterally Cardio Jugular venous distension: no JVD Rate: regular rate Rhythm: regular rhythm Heart sounds: S1 normal heart sound present and S2 normal heart sound present Bruits: no abdominal aortic bruits, no carotid bruits, no femoral bruits and no renal bruits Peripheral pulses: Peripheral pulses 2+ throughout GI Inspection: Yes normal to inspection Palpation (GI): No Abdominal aortic bruit present Skin General skin exam: no rashes or lesions noted Wounds: no wounds Hair: normal Neuro General: patient oriented x3 Cranial nerves: Yes Normal hearing present Cognition (Neuro): normal cognition Gait exam (Neuro): Normal gait present Motor exam (neuro): 5/5 motor strength present throughout Sensory Exam: No Sensory deficit (Neuro) Extrem Other: Bilateral lower extremities: Discoloration and swelling noted. Scattered spider veins noted throughout palpable DP pulses. CEAP: C- 4 E - primary A - superficial P - reflux General: Yes normal to inspection, Yes full ROM, Yes capillary refill normal and Yes normal gait Assessment & Plan Assessment & Plan (1) Varicose veins of both lower extremities with inflammation: Code(s): I83.11 - Varicose veins of right lower extremity with inflammation; I83.12 - Varicose veins of left lower extremity with inflammation Category: Medical Plan: Cely is presenting today for ongoing varicose vein concerns including pain, discoloration, and swelling over bilateral lower extremities. In short, the patient has evidence of venous insufficiency. I have discussed the pathophysiology with the patient. In addition I have provided informational material regarding venous disease to the patient. We have discussed conservative measures including compression, elevation, and exercise. I have also provided a handout regarding appropriate use of compression stockings and where to purchase good compression stockings as well (unfortunately we do not have the info in Norwegian; the freelance interpreter/translator was able to explain it). I have taken the liberty of ordering venous insufficiency testing with the patient. They will follow up with me after testing. The patient had an opportunity to ask questions regarding the treatment plan. All questions were answered. No major barriers to understanding were identified. The patient expressed understanding and agreement with the above treatment plan. The patient is aware they should contact our office by phone for worsening of the current condition or the appearance of new symptoms. Thank you for allowing me to participate in the vascular care of this patient. If you have any questions or concerns regarding the treatment for the above condition please do not hesitate to contact me. The office telephone contact is [phone]. This note is constructed using voice recognition software. While every effort has been made to ensure accuracy, data processing systems project planner errors may have been included. Thank you for allowing me to participate in the care of your patient. Yours sincerely, DALTON Maldonado Orders: Orders US venous duplex LE BI 1 Week I83.11 - Varicose veins of right lower extremity with inflammation, I83.12 - Varicose veins of left lower extremity with inflammation Coding Level of Care Code New Pt New Pt Level 4 (36700) Patient Type New Diagnoses Varicose veins of both lower extremities with inflammation I83.11; I83.12
== END 2024-02-20 11:45 | disposition home or self-care (01) ==
LOC: HO.HVS 11:13
PROVIDERS: PCP Family Medicine; Visit Provider Physician Assistant Surgical
DX: I83.11 Varicose veins of right lower extremity with inflammation (principal); I83.12 Varicose veins of left lower extremity with inflammation
CPT/HCPCS: 99204

== ENCOUNTER → 2024-02-20 11:13 | Outpatient (BNVA) | payer OTHER, SELFPAY | PROVIDERS: PCP Family Medicine; Visit Provider Physician Assistant Surgical | DX: I83.11 Varicose veins of right lower extremity with inflammation (principal); I83.12 Varicose veins of left lower extremity with inflammation; I83.813 Varicose veins of bilateral lower extremities with pain; I73.9 Peripheral vascular disease, unspecified; Z87.891 Personal history of nicotine dependence | CPT/HCPCS: 99202 ==

== ENCOUNTER 2024-02-29 10:16 | Outpatient (AMB) | payer OTHER, SELFPAY ==
--- NOTE | 2024-02-29 11:32 | A.OFFPC_ITS ---
Vital Signs 02/29/24 11:33 Height 4 ft 11 in Weight 185 lb 8 oz BMI 37.5 BP 150/60 H Blood Pressure Location Lt brachial Position Sitting Respiration 14 Pulse 84 Pulse Source Pulse Oximeter Temp 98.2 F Temp Source Oral Pulse Oximetry (%) 95 Oxygen Delivery Method Room Air Intake Visit Reasons: f/u diabetes, chronic conditions Intake Note: follow up DM Allergies aspirin [Aspirin] Allergy (Mild, Verified 02/29/24 11:32) RASH morphine [MORPHINE] Allergy (Unknown, Verified 02/29/24 11:32) ABD PAIN, RASH omeprazole [OMEPRAZOLE] Allergy (Unknown, Verified 02/29/24 11:32) SHORTNESS OF BREATH pregabalin [From LYRICA] Allergy (Unknown, Verified 02/29/24 11:32) SHORTNESS OF BREATH celecoxib Adverse Reaction (Mild, Verified 02/29/24 11:32) chest pain, jumping feeling in her heart. Tobacco use date assessed: 08/29/23 Dental Screening Dental Screen Date: 07/14/23 HPI f/u diabetes, chronic conditions HPI Details 68 y/o female presents to f/u diabetes, chronic conditions. Recent ED visit with concerns of syncopal events/hypertensive urgency 02/13- 02/16. Imaging negative for stroke. They had restarted his carvedilol. Blood pressure today 150/60, 84p. She is unsure what exactly she is taking for her BP meds. Reports an ongoing headache. [facility] Medical History Heart attack Abscess of chest wall Uncontrolled type 2 diabetes mellitus with hyperglycemia, with long-term current use of insulin Ganglion cyst Glaucoma Neuropathy Arthritis Intracranial mass Diabetes 1.5, managed as type 2 Hypertension Asthma Surgical History History of removal of cyst Stented coronary artery H/O tubal ligation Hx of tonsillectomy H/O right breast biopsy Social History Housing: Apartment Patient Tobacco Use Status: Former Tobacco user e-Cigarette/Vaping Use: Never Used service: No Current occupational status: disabled Current occupational exposures/hazards: No Cognitive needs: No Hearing needs: No Vision needs: No Questionnaire PHQ-9 Over the last 2 weeks, how often have you been bothered by any of the following problems? 1. Little interest or pleasure in doing things: not at all 2. Feeling down, depressed, or hopeless: not at all 3. Trouble falling or staying asleep, or sleeping too much: more than half the days 4. Feeling tired or having little energy: several days 5. Poor appetite or overeating: not at all 6. Feeling bad about yourself - or that you are a failure or have let yourself or your family down: not at all 7. Trouble concentrating on things, such as reading the newspaper or watching television: not at all 8. Moving or speaking so slowly that other people could have noticed. Or the opposite - being so fidgety or restless that you have been moving around a lot more than usual: not at all 9. Thoughts that you would be better off or of hurting yourself in some way: not at all Total score: 3 Source: Developed by Drs. Jason Glover, Deanna Truong, Sylvester Braga and colleagues, with an educational lisa from [employer]. Thrive Questionnaire Date Thrive assessed: 02/29/24 I am a: Patient What is your living situation today?: I have a steady place to live Within the past 12 months, did the food you bought not last and you didn't have the money to get more?: I choose not to answer this question Within the past 12 months, did you worry whether your food would run out before you got money to buy more?: I choose not to answer this question Do you have trouble paying for medicines?: No Do you have trouble getting transportation to medical appointments?: No Do you have trouble paying your heating and electricity bill?: No Do you have trouble taking care of your child, family member or friend?: I choose not to answer this question Do you have trouble with day-to-day activities such as bathing, preparing meals, shopping, managing finances, etc.?: No Are you currently unemployed and looking for a job?: I choose not to answer this question Are you interested in more education?: I choose not to answer this question Please select the resources that you would like help with: None THRIVE Score: 0 URIEL-7 AMB Questionnaire URIEL-7 Date URIEL - 7 assessed: 03/30/23 Source: Developed by Drs. Jason Glover, Deanna Truong, Sylvester Braga and colleagues, with an educational lisa from [employer]. Review of Systems Const Denies fatigue and Reports headache(s) ENT Reports headache(s) Card Denies dyspnea Resp Denies cough, Denies dyspnea, Denies wheezing and Denies other (shortness of breath) Musc Denies numbness and Denies tingling Neuro Reports headache(s), Denies numbness and Denies tingling Psych Denies anxiety and Denies depression Endo Denies fatigue Aller/Immun Denies wheezing Physical exam (Primary Care) Vital Signs: Last Vital Signs Temp 98.2 F 02/29/24 11:33 Pulse 84 02/29/24 11:33 Resp 14 02/29/24 11:33 BP 150/60 H 02/29/24 11:33 Pulse Ox 95 02/29/24 11:33 Oxygen Delivery Method Room Air 02/29/24 11:33 BMI result Body Mass Index 37.5 Tobacco/Smoking Status: Tobacco use Status Tobacco use date assessed 08/29/23 02/29/24 11:35 Patient Tobacco Use Status Former Tobacco user 02/29/24 11:35 e-Cigarette/Vaping Use Never Used 02/29/24 11:35 PHQ-9: PHQ-9 Score PHQ-9: Total score 3 02/29/24 12:15 Thrive Assessment: Date of Thrive Assessment Date Thrive assessed 02/29/24 02/29/24 11:35 Const General: well developed; No acute distress Nutritional Appearance: well nourished Orientation/consciousness: patient oriented x3 HENMT Head: Yes normocephalic and Yes atraumatic Eyes General: appearance normal, both eyes and all related structures Pupils: Equal, round and reactive pupils present EOM: EOMs intact bilaterally Resp Effort & Inspection: normal respiratory effort Neuro General: patient oriented x3 and gait normal Cranial nerves: Yes Equal, round and reactive pupils present Psych Affect: normal affect Coding Level of Care Code Est Pt Level 4 (60641) Diagnoses Hypertension I10 Diabetes E11.9 History of CVA (cerebrovascular accident) Z86.73 Headache R51.9 Eczema L30.9 Assessment & Plan Assessment & Plan (1) Hypertension: Code(s): I10 - Essential (primary) hypertension Category: Medical Plan: Blood?pressure?was?very?high?in?the?emergency?department?and?Hospital. For?blood?pressure,?she?was?discharged?on: carvedilol?3.125?mg?tablets;?1?tablet?by?mouth?twice?a?day Valsartan?80?mg?tablet;?1?tablet?by?mouth?daily Patient?is?uncertain?what?medications?she?currently?has?at?home?or?is?taking. She?did?not?bring?her?medications?or?medication?list?today. Blood?pressure?is?still?elevated?today Also?discussed?salt/sodium?as?she?does?not?add?salt?but?has?not?been?reading?lab els?to?avoid?salt?in?her?foods.??Daughter?says?she?eats?a?lot?of?cheese?and?perh aps?other?salty?foods. Advised?her?to?avoid?these Will?follow-up?by?telemedicine?in?a?couple?of?days?to?discuss?her?medications Will?also?check?labs?too (2) Diabetes: Code(s): E11.9 - Type 2 diabetes mellitus without complications Category: Medical Plan: Blood?sugars?in?the?hospital?were?around?180?on?presentation Will?continue?to?monitor Continue?current?medication?regimen (3) History of CVA (cerebrovascular accident): Code(s): Z86.73 - Personal history of transient ischemic attack (TIA), and cerebral in farction without residual deficits Category: Medical Plan: CT?head was?negative?for?new/acute?issues Stable Controlled?blood?pressure (4) Headache: Code(s): R51.9 - Headache, unspecified Category: Medical Plan: Right- sided?headache?which?appears?to?be?related?to?tension?in?trapezius?and?paraspino us?cervical?musculature Recent?CT?of?head?was?negative Start?physical?therapy (5) Eczema: Code(s): L30.9 - Dermatitis, unspecified Category: Medical Plan: Use?moisturizers Will?send?a?script?for?steroid?cream?for?eczema Orders: Orders PT Evaluation and Treatment Today M25.519 - Pain in unspecified shoulder, M54.2 - Cervicalgia, R51.9 - Headache, unspecified Comprehensive Met. Panel Today I10 - Essential (primary) hypertension Medications: New triamcinolone acetonide 0.1% 1 appl topical BID 14 days 30 grams 2RF
[2024-02-29 11:33] VITALS: BP 150/60; PULSE 84; RESP 14; TEMP 36.8; O2SAT 95; BMI 37.5
== END 2024-02-29 12:26 | disposition home or self-care (01) ==
LOC: HO.HMCFM 10:17
PROVIDERS: PCP Family Medicine; Visit Provider Family Medicine
DX: I10 Essential (primary) hypertension (principal); E11.620 Type 2 diabetes mellitus with diabetic dermatitis; Z86.73 Personal history of transient ischemic attack (TIA), and cerebral infarction without residual deficits; R51.9 Headache, unspecified; L30.9 Dermatitis, unspecified

== ENCOUNTER → 2024-02-29 10:16 | Outpatient (BNVA) | payer OTHER, SELFPAY | PROVIDERS: PCP Family Medicine; Visit Provider Family Medicine | DX: I10 Essential (primary) hypertension (principal); E11.9 Type 2 diabetes mellitus without complications; R51.9 Headache, unspecified; L30.9 Dermatitis, unspecified; Z86.73 Personal history of transient ischemic attack (TIA), and cerebral infarction without residual deficits | CPT/HCPCS: 99212 ==

== ENCOUNTER 2024-03-07 09:54 | Outpatient (REF) | payer OTHER, SELFPAY | END 2024-03-07 09:55 | disposition home or self-care (01) | LOC: HO.US 09:54 | PROVIDERS: PCP Family Medicine; Visit Provider Physician Assistant Surgical | DX: I83.11 Varicose veins of right lower extremity with inflammation (principal); I83.12 Varicose veins of left lower extremity with inflammation | CPT/HCPCS: 93970 ==

== ENCOUNTER → 2024-03-08 10:12 | Outpatient (BNVA) | payer OTHER, SELFPAY | PROVIDERS: PCP Family Medicine; Visit Provider Family Medicine ==

== ENCOUNTER → 2024-03-08 10:12 | Outpatient (AMB) | payer OTHER, SELFPAY ==
--- NOTE | 2024-03-08 10:01 | MHC.PC.OV ---
Intake Visit Reasons: f/u hypertension via telemedicine Allergies aspirin [Aspirin] Allergy (Mild, Verified 02/29/24 11:32) RASH morphine [MORPHINE] Allergy (Unknown, Verified 02/29/24 11:32) ABD PAIN, RASH omeprazole [OMEPRAZOLE] Allergy (Unknown, Verified 02/29/24 11:32) SHORTNESS OF BREATH pregabalin [From LYRICA] Allergy (Unknown, Verified 02/29/24 11:32) SHORTNESS OF BREATH celecoxib Adverse Reaction (Mild, Verified 02/29/24 11:32) chest pain, jumping feeling in her heart. Tobacco use date assessed: 08/29/23 Dental Screening Dental Screen Date: 07/14/23 HPI f/u hypertension via telemedicine HPI Details Telemedicine?encounter?to?discuss?hypertension?and?antihypertensive?medications. Recent?hospital?visit?for?syncope?and?hypertensive?crisis. She?was?discharged?on: carvedilol?3.125?mg?tablets;?1?tablet?by?mouth?twice?a?day Valsartan?80?mg?tablet;?1?tablet?by?mouth?daily However,?patient?did?not?know?what?medications?she?was?taking and did not bring her medications w/ her. BP was improved but still elevated - No med changes were made as it was unclear what she was actually taking at he f/u visit w/ me. HPI Comments History of Present Illness Details Documentation assistance for Ross Gold MD, was provided by Job Pierson, Trial Court Judge on 03/08/2024 at 10:23 AM MIKE. I, Dr. Gold, have read, observed, and verified documentation. [facility] Medical History Heart attack Abscess of chest wall Uncontrolled type 2 diabetes mellitus with hyperglycemia, with long-term current use of insulin Ganglion cyst Glaucoma Neuropathy Arthritis Intracranial mass Diabetes 1.5, managed as type 2 Hypertension Asthma Surgical History History of removal of cyst Stented coronary artery H/O tubal ligation Hx of tonsillectomy H/O right breast biopsy Social History Housing: Apartment Patient Tobacco Use Status: Former Tobacco user e-Cigarette/Vaping Use: Never Used service: No Current occupational status: disabled Current occupational exposures/hazards: No Cognitive needs: No Hearing needs: No Vision needs: No Questionnaire Thrive Questionnaire Date Thrive assessed: 02/29/24 URIEL-7 AMB Questionnaire URIEL-7 Date URIEL - 7 assessed: 03/30/23 Source: Developed by Drs. Jason Glover, Deanna Truong, Sylvester Braga and colleagues, with an educational lisa from [employer]. Review of Systems Const Denies chills, Denies fatigue, Denies fever(s), Denies headache(s) and Denies weakness ENT Denies dizziness and Denies headache(s) Card Denies dyspnea Resp Denies cough, Denies dyspnea, Denies wheezing and Denies other (shortness of breath) Musc Denies numbness and Denies tingling Neuro Denies dizziness, Denies headache(s), Denies numbness, Denies tingling and Denies weakness Psych Denies anxiety and Denies depression Endo Denies fatigue Aller/Immun Denies wheezing Physical exam (Primary Care) Tobacco/Smoking Status: Tobacco use Status Tobacco use date assessed 08/29/23 03/08/24 10:10 Patient Tobacco Use Status Former Tobacco user 03/08/24 10:10 e-Cigarette/Vaping Use Never Used 03/08/24 10:10 Thrive Assessment: Date of Thrive Assessment Date Thrive assessed 02/29/24 03/08/24 10:10 Telehealth Telehealth Telehealth Platform: Telephone Location of provider rendering services: practice address Location of patient: address on file Patient Identification confirmed using: Name, : Yes Telehealth method: voice only Patient verbally consented to treatment: Yes Patient verbally consented to billing insurance company: Yes Patient informed of any privacy concerns related to visit: Yes Minutes spent on Phone/Video with Pt.: 8 Coding Level of Care Code Tele Est Pt Level 2 (47270) Diagnoses Hypertension I10 Assessment & Plan Assessment & Plan (1) Hypertension: Code(s): I10 - Essential (primary) hypertension Category: Medical Plan: Patient?notes?blood?pressures?at?home?are?running?around?136/70 Controlled. She?is?currently?taking?carvedilol?3.125?mg?twice?a?day?and?valsartan?80?mg?daily,?for?her?blood?pressure. She?will?continue?current?medication Medications: New valsartan 80 mg PO DAILY 90 days 90 tabs 2RF carvedilol must administer with a meal/food 3.125 mg PO BID 90 days 180 tabs 2RF Discontinued valsartan-hydrochlorothiazide 320-12.5 mg Discontinued Reason: Patient no longer taking 1 tab PO DAILY 30 tabs 0RF
== END ==
LOC: HO.HMCFM 10:12
PROVIDERS: PCP Family Medicine; Visit Provider Family Medicine
DX: I10 Essential (primary) hypertension (principal)

== ENCOUNTER 2024-03-18 11:23 | Outpatient (REF) | payer OTHER, SELFPAY ==
[2024-03-18] MEDS: gadobutroL 7.5 ML VIAL IVPUSH (13:22)
== END 2024-03-18 11:24 | disposition home or self-care (01) ==
LOC: HO.MRI 11:23
PROVIDERS: PCP Family Medicine; Visit Provider Nurse Practitioner Family
DX: R90.82 White matter disease, unspecified (principal); D35.2 Benign neoplasm of pituitary gland
CPT/HCPCS: 70553; A9585

== ENCOUNTER → 2024-04-10 19:30 | Outpatient (REF) | payer OTHER, SELFPAY ==
--- OUTSIDE RECORDS SUMMARY | 2024-04-10 20:41 | XMS_ITS ---
Author Name [facility] Organization Unknown Assessment and Plan ID Update Date Source Alert Text MEDICAID-[id number] 03/15/2022 MEDICAID Based o n Medicaid claims, member is likely in cancer treatment [place] [employer] - [id number] 04/29/2021 [employer] - [id number] COVID Vaccination: This patient has received the MOD, COVID-19, mRNA, LNP-S, PF, 0.5mL vaccination on 04/29/2021 with lot number [id number] at Edi Jaime [facility].
== END ==
LOC: HO.SL 19:30
PROVIDERS: PCP Family Medicine; Visit Provider Nurse Practitioner Family
DX: G47.10 Hypersomnia, unspecified (principal); R06.83 Snoring; Z86.69 Personal history of other diseases of the nervous system and sense organs; G47.9 Sleep disorder, unspecified
CPT/HCPCS: 95810

== ENCOUNTER → 2024-04-10 20:35 | Outpatient (BNV) | payer OTHER, SELFPAY | PROVIDERS: PCP Family Medicine; Visit Provider Psychiatry & Neurology Neurology | DX: G47.10 Hypersomnia, unspecified (principal); R06.83 Snoring | CPT/HCPCS: 95810 ==

== ENCOUNTER 2024-05-06 11:09 | Outpatient (AMB) | payer OTHER, SELFPAY ==
[2024-05-06 11:15] VITALS: BMI 37.4
--- NOTE | 2024-05-06 11:15 | A.OFFVIS_ITS ---
Vital Signs 05/06/24 11:15 Height 4 ft 11 in Weight 185 lb BMI 37.4 Intake Visit Reasons: OV- Osteoarthritis of RT knee f/u Intake Note: Bella 68 year old female who presents today for a follow up of right knee pain. Patient reports she has not started P.T due to no one reaching out to her. States her pain is still there and is now having pain in her left knee. 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 Medication List - Last Reconciled 05/06/24 by Jan Acevedo PA-C acetaminophen 1,000 mg PO Q6H PRN alcohol swabs (Alcohol Prep Pads) 1 pad topical 3XD 90 days alendronate 70 mg PO QWEEK amitriptyline 10 mg PO BEDTIME 90 days atorvastatin 80 mg PO DAILY bisacodyl (Dulcolax (bisacodyl)) 10 mg AK DAILY PRN blood-glucose meter,continuous (FreeStyle Alirio 3 Dunbar) use daily As directed to check blood glucose blood-glucose sensor (FreeStyle Alirio 3 Sensor device) Apply every 14 days As directed budesonide-formoterol 160-4.5 mcg/actuation 2 inhalations inhalation BID calcium carbonate-vitamin D3 600 mg-10 mcg (400 unit) (Calcium 600 with Vitamin D3) 1 tab PO BID 90 days carvedilol 3.125 mg PO BID 90 days cetirizine 10 mg PO DAILY PRN chair, wheel (Wheel chair) w/c with elevated leg rests as directed clopidogrel 75 mg PO DAILY 90 days clotrimazole 1% 1 appl topical BID 2 weeks compression socks, large for edema of lower extremity as directed diclofenac sodium 1% 2 grams topical QID diclofenac sodium 1% (Voltaren Arthritis Pain) 4 grams topical QID 30 days empagliflozin (Jardiance) 25 mg PO DAILY flash glucose sensor (FreeStyle Alirio 2 Sensor kit) use daily As directed to monitor glucose gabapentin 600 mg (2 x 300 mg) PO Q12H 30 days Humalog KwikPen Insulin (insulin lispro) 4 units (0.04 mL) subcut BID NS miscellaneous medical supply reclining lift chair as directed pen needle, diabetic (BD Ultra-Fine Mini Pen Needle) 4 TIMES DAILY, As directed, 90 DAYS polyethylene glycol 3350 (Miralax) 17 grams PO DAILY 14 days rivaroxaban (Xarelto) mg PO semaglutide (Ozempic) 2 mg (0.75 mL) subcut QWEEK sodium phosphates 19-7 gram/118 mL (Fleet Enema) 118 mL AK DAILY PRN Tresiba FlexTouch U-100 (insulin degludec) 74 units (0.74 mL) subcut DAILY 30 days NS triamcinolone acetonide 0.5% 1 appl topical BID 14 days triamcinolone acetonide 0.1% 1 appl topical BID 14 days valsartan 80 mg PO DAILY 90 days HPI HPI OV- Osteoarthritis of RT knee f/u: Details: [age] year old female returns to the office today for right knee pain. She states physical therapy did not reach out to her to book an appointment. She states that she continues to have some discomfort in the knee which radiates up into her thigh. [facility] Medical History Heart attack Abscess of chest wall Uncontrolled type 2 diabetes mellitus with hyperglycemia, with long-term current use of insulin Ganglion cyst Glaucoma Neuropathy Arthritis Intracranial mass Diabetes 1.5, managed as type 2 Hypertension Asthma Surgical History History of removal of cyst Stented coronary artery H/O tubal ligation Hx of tonsillectomy H/O right breast biopsy Social History Housing: Apartment Patient Tobacco Use Status: Former Tobacco user e-Cigarette/Vaping Use: Never Used service: No Current occupational status: disabled Current occupational exposures/hazards: No Cognitive needs: No Hearing needs: No Vision needs: No Review of Systems Const All systems reviewed & are unremarkable except as noted in HPI and below Physical Exam Vital Signs: BMI result Body Mass Index 37.4 Const General: cooperative, healthy appearing, comfortable and no acute distress Orientation/consciousness: patient oriented x3 Neck Neck: Yes normal visual inspection and Yes no JVD Chest Chest palpation & inspection: normal inspection of the chest Resp Effort & Inspection: normal respiratory effort Auscultation: clear to auscultation bilaterally, crackles (no), rales (no), rhonchi (no) and wheezes (no) Cardio Jugular venous distension: no JVD Rate: regular rate Rhythm: regular rhythm Heart sounds: S1 normal heart sound present, S2 normal heart sound present, Murmur heart sound present (no) and Rub heart sound present (no) Neuro General: patient oriented x3 Extrem Other: Right knee: Skin intact, no erythema or joint effusion. Tenderness along the medial or lateral or medial and lateral joint line. Full ROM with crepitus. Negative Abe?s. No ligamentous laxity. NVI. General: Yes normal to inspection, Yes no pedal edema and Yes no calf tenderness Psych Appearance: grossly normal Mental Status: mental status grossly normal Speech and movement: Normal speech and movement present Assessment & Plan Assessment & Plan (1) Osteoarthritis of right knee: Code(s): M17.11 - Unilateral primary osteoarthritis, right knee Category: Medical Plan We discussed options today which include continuing to proceed with physical therapy which she is interested in. She is not interested in cortisone injections at this time. I gave her the phone number for physical therapy. She is also complaining of sciatica and I put in a referral for Dr. Acevedo. She will see us back if symptoms persist or worsen in the right knee otherwise follow-up as needed. Coding Level of Care Code Est Pt Level 3 (03643) Complex EM visit Add On G2211 Diagnoses Osteoarthritis of right knee M17.11
== END 2024-05-06 11:46 | disposition home or self-care (01) ==
PROVIDERS: PCP Family Medicine; Visit Provider Physician Assistant
DX: M17.11 Unilateral primary osteoarthritis, right knee (principal)
CPT/HCPCS: 99213; G2211

== ENCOUNTER → 2024-05-06 11:09 | Outpatient (BNVA) | payer OTHER, SELFPAY | PROVIDERS: PCP Family Medicine; Visit Provider Physician Assistant | DX: M17.11 Unilateral primary osteoarthritis, right knee (principal) | CPT/HCPCS: 99212 ==

== ENCOUNTER → 2024-05-23 11:24 | Outpatient (BNVA) | payer OTHER, SELFPAY | PROVIDERS: PCP Family Medicine; Visit Provider Family Medicine | DX: E11.65 Type 2 diabetes mellitus with hyperglycemia (principal); I10 Essential (primary) hypertension; R29.898 Other symptoms and signs involving the musculoskeletal system; R53.1 Weakness; G62.9 Polyneuropathy, unspecified; Z86.73 Personal history of transient ischemic attack (TIA), and cerebral infarction without residual deficits; Z91.81 History of falling | CPT/HCPCS: 83036; 99212 ==

== ENCOUNTER 2024-05-24 12:46 | Outpatient (RCR) | payer OTHER, SELFPAY ==
[2024-05-24 13:01] VITALS: BP 140/70; PULSE 55; O2SAT 100
== END 2024-06-25 09:50 | disposition home or self-care (01) ==
LOC: HO.PTWFD 12:46
PROVIDERS: PCP Family Medicine; Visit Provider Physician Assistant
DX: M17.11 Unilateral primary osteoarthritis, right knee (principal); R51.9 Headache, unspecified; M54.2 Cervicalgia; M25.519 Pain in unspecified shoulder
CPT/HCPCS: 97163

== ENCOUNTER 2024-06-14 13:11 | Outpatient (REF) | payer OTHER, SELFPAY ==
--- NOTE | ~2024-06-14 | CT_ITS ---
CLINICAL HISTORY: R90.89 - Other abnormal findings on diagnostic imaging of central nervou... CT head without contrast Comparison: MR/SR - MR HEAD/BRAIN WO/W CON - 03/18/24 11:34 EST Findings: No acute territorial infarct, midline shift, hydrocephalus, or acute hemorrhage. No significant atrophy-like change or white matter disease. Reference sagittal images 165 through 180, there is soft tissue eroding through the posterior inferior aspect of the sella, seen best on the sagittal MR comparison image /16. The orbits are unremarkable. No skull fracture. IMPRESSION: Nonspecific soft tissue eroding along the posterior inferior aspect of the sella and into the sphenoid sinus. This may reflect a chronic infectious process or neoplasm. This document has been electronically signed by: Rudy Pabon MD on 06/17/2024 11:44:53
--- OUTSIDE RECORDS SUMMARY | 2024-06-14 13:38 | XMS_ITS | Continuity of Care Document ---
Author Organization [facility], [place] [facility] Address [address] [place] [phone] Care Team Providers Care Safety Companion Name Role Phone HIM CCA OTHER ELIZABETH CONTRERAS Primary Care Provider Assessment Encounter Date Assessment Date Assessment LastModified by Organization Details LastModified Time 06/03/2024 06/03/2024 As noted, we maria de jesus e called to see this patient regarding concerns of URI symptoms. Evaluation in the field was performed by my seamless tube mill operator colleague, as noted above, I provided real-time direction and supervision for this visit. The evaluation revealed patient is positive for COVID. Symptoms have been going on for 3 days. She has no shortness of breath. Lungs are clear and is saturating at 100% on room air. Patient is on multiple prescription medications that are contraindicated for paxlovid. Patient was advised to use tylenol/ibuprofen and to stay hydrated. Patient ran out of her albuterol inhaler. Will prescribe albuterol and flonase for runny nose. Will plan to check on patient in 48 hours to make sure she is doing well. Impression: COVID Plan: re-eval in 48 hours Primary care, consider CXR, labs Disposition: We discussed the diagnostic uncertainty of home visits and the risk associated with this. In this case, the patient and I felt this to be an acceptable and reasonable amount of risk given the benefit of avoiding an ED visit. We discussed the need to seek care urgently/emergentl y in the setting of any new or worsening serious symptoms, particularly fever, shortness of breath, chest pain. [email or web address] Not available 06/03/2024 17:45:41 Plan of Treatment Reminders Order Date Submit Date Provider Last Modified By Organization Details Last Modified Time Details Appointments None recorded. Lab rapid flu (A+B) 2024 025 [email or web address] [facility], [address] [place] [address], [phone], 5 17:39:13 rapid SARS CoV 2 Ag, QL IA, respiratory specimen 2024 025 [email or web address] [facility], [address] [place], [phone], 5 17:39:13 Referral None recorded. Procedures None recorded. Surgeries None recorded. Imaging None recorded. Medication Orders albuterol sulfate HFA 90 mcg/actuati on aerosol inhaler 2024 [facility] [place], [place], [address] [place], [id number], 5 09:43:56 Flonase Allergy Relief 50 mcg/actuati on nasal spray,suspe nsion 2024 025 [facility] - [place], [place], [address] [place], [address], 5 09:43:53 Patient TargetsNo targets recorded. Patient InstructionsNo instructions recorded. Reason for Referral None Reported. Results Created Date Observation Date Name Description Value Unit Range Abnormal Flag Note LastModifiedBy Organization Detail LastModifiedTime Result Notes None recorded. Medical Equipment None Reported. Allergies No known drug allergies Medications Name Sig Start Date Stop Date Status Note LastModified by Organization Details LastModified Time sm fiber pow active Not Available Not Available Not Available sm fiber orn 48 doses 19oz TAKE 1 tbsp orally daily; mix into at least 8 oz of water or juice before administeri ng. May increase to 1 tbsp twice daily if current ordered is ineffective active Not Available Not Available Not Available celecoxib 200 mg capsule TAKE 1 CAPSULE BY MOUTH ONCE DAILY WITH FOOD active Not Available Not Available No t Available atorvastatin 80 mg tablet TAKE 1 TABLET BY MOUTH DAILY active Not Available Not Available Not Available doxycycline hyclate 100 mg capsule TAKE 1 CAPSULE BY MOUTH TWICE DAILY FOR 10 DAYS active Not Available Not Available No t Available polyethylene glycol 3350 17 gram oral powder packet POUR 17 GRAMS INTO 8OZ OF WATER OR BEVERAGE AND TAKE BY MOUTH DAILY active Not Available Not Available Not Available diltiazem ER (XR/XT) 240 mg capsule,exte nded release 24 hr, controlled TAKE 1 CAPSULE BY MOUTH DAILY active Not Available Not Available Not Available cetirizine 10 mg tablet TAKE 1 TABLET BY MOUTH EVERY DAY NEEDED FOR ALLERGY active Not Available Not Available No t Available benzonatate 200 mg capsule TAKE 1 CAPSULE BY MOUTH TWICE DAILY NEEDED FOR COUGH active Not Available Not Available No t Available diltiazem CD 240 mg capsule,exte nded release 24 hr TAKE 1 CAPSULE BY MOUTH DAILY active Not Available Not Available Not Available prednisone 20 mg tablet TAKE 2 TABLETS BY MOUTH ONCE DAILY FOR 5 DAYS WITH food active Not Available Not Available No t Available valsartan 80 mg tablet TAKE 1 TABLET BY MOUTH DAILY active Not Available Not Available Not Available hydralazine 25 mg tablet TAKE 1 TABLET BY MOUTH THREE TIMES DAILY active Not Available Not Available Not Available triamcinolon e acetonide 0.5 % topical ointment apply 1 application topically TWICE DAILY FOR 14 DAYS active Not Available Not Available Not Available clopidogrel 75 mg tablet TAKE 1 TABLET BY MOUTH ONCE DAILY active Not Available Not Available No t Available sulfamethoxa zole 800 mg-trimethop rim 160 mg tablet TAKE 1 TABLET BY MOUTH every 12 hours FOR 10 DAYS WITH plenty OF WATER active Not Available Not Available No t Available tramadol 50 mg tablet TAKE 1 TABLET BY MOUTH TWICE DAILY NEEDED FOR PAIN FOR 10 DAYS active Not Available Not Available No t Available acetaminophe n 500 mg tablet TAKE 2 TABLETS BY MOUTH EVERY 8 HOURS FOR 10 DAYS active Not Available Not Available No t Available carvedilol 3.125 mg tablet TAKE 1 TABLET BY MOUTH TWICE DAILY active Not Available Not Available No t Available cefadroxil 500 mg capsule TAKE 1 CAPSULE BY MOUTH every 12 hours FOR 10 DAYS active Not Available Not Available Not Available amoxicillin 875 mg tablet TAKE 1 TABLET BY MOUTH TWICE DAILY FOR 10 DAYS active Not Available Not Available No t Available amitriptylin e 10 mg tablet TAKE 1 TABLET BY MOUTH ONCE DAILY AT BEDTIME active Not Available Not Available No t Available cephalexin 500 mg capsule TAKE 1 CAPSULE BY MOUTH EVERY 8 HOURS active Not Available Not Available No t Available oseltamivir 75 mg capsule TAKE 1 CAPSULE BY MOUTH TWICE DAILY FOR 5 DAYS active Not Available Not Available No t Available gabapentin 300 mg capsule TAKE 1 CAPSULE BY MOUTH THREE TIMES A DAY active Not Available Not Available Not Available ammonium lactate 12 % topical cream Apply to intact skin on left foot (avoid toes and wounds) three times per week. Rub in well. active Not Available Not Available No t Available levofloxacin 750 mg tablet TAKE 1 TABLET BY MOUTH every 24 hours FOR 10 DAYS active Not Available Not Available Not Available albuterol sulfate HFA 90 mcg/actuatio n aerosol inhaler Inhale 2 puffs every 4 hours by inhalation route. 2024 active Not Available Not Available Not Avai lable amoxicillin 875 mg-potassium clavulanate 125 mg tablet TAKE 1 TABLET BY MOUTH every 12 hours FOR 10 DAYS active Not Available Not Available Not Available valsartan 40 mg tablet active Not Available Not Available No t Available BD Ultra-Fine Mini Pen Needle 31 gauge x 07/07 USE DIRECTED 4 TIMES DAILY active Not Available Not Available Not Available valsartan 320 mg-hydrochlo rothiazide 12.5 mg tablet TAKE 1 TABLET BY MOUTH EVERY DAY active Not Available Not Available No t Available Athlete's Foot (clotrimazol e) 1 % topical cream Apply to intact skin on left foot (avoid toes and wounds) three times per week. Rub in well active Not Available Not Available Not Available budesonide-f ormoterol HFA 160 mcg-4.5 mcg/actuatio n aerosol inhaler INHALE 2 PUFFS BY MOUTH TWICE DAILY. RINSE MOUTH AFTER USE active Not Available Not Available No t Available Brilinta 90 mg tablet TAKE 1 TABLET BY MOUTH TWICE DAILY active Not Available Not Available No t Available Easy Touch Alcohol Prep Pads USE 1 pad topically 3 times daily for 90 days active Not Available Not Available Not Available Jardiance 25 mg tablet TAKE 1 TABLET BY MOUTH ONCE DAILY active Not Available Not Available No t Available Flonase Allergy Relief 50 mcg/actuatio n nasal spray,suspen camelia [place] 1 spray every day by intranasal route. 2024 active Not Available Not Available Not Avai lable Tresiba FlexTouch U-100 insulin 100 unit/mL (3 mL) subcutaneous pen inject UNDER THE SKIN 75 UNITS IN THE MORNING AND 20 UNITS IN THE pm active Not Available Not Available No t Available Robitussin Cough-Chest Congestion DM 5 mg-100 mg/5 mL oral liquid Take 5 mL every 4-6 hours by oral route for 10 days, for Cough. 2023 active Not Available Not Available Not Avai lable Ozempic 0.25 mg or 0.5 mg (2 mg/1.5 mL) subcutaneous pen injector INJECT 0.5 MG SUBCUTANEOU SLY ONCE A WEEK active Not Available Not Available No t Available Steglatro 15 mg tablet TAKE 1 TABLET BY MOUTH EVERY DAY active Not Available Not Available No t Available Xarelto 2.5 mg tablet TAKE 1 TABLET BY MOUTH TWICE DAILY active Not Available Not Available No t Available FreeStyle Alirio 2 Sensor kit As directed apply 1 sensor and change every 14 days active Not Available Not Available No t Available FreeStyle Alirio 2 Melrose USE DIRECTED active Not Available Not Available No t Available Ozempic 1 mg/dose (4 mg/3 mL) subcutaneous pen injector inject 1 mg (0.75 mL) subcutaneou sly every week for 28 days active Not Available Not Available No t Available Ozempic 0.25 mg or 0.5 mg (2 mg/3 mL) subcutaneous pen injector INJECT 0.5 MG (0.4 ML) SUBCUTANEOU SLY EVERY WEEK active Not Available Not Available No t Available Vitals Date Recorded Body temperature Oxygen saturation Oxygen saturation in Arterial blood by Pulse oximetry Body height Heart rate Body weight Respiratory rate Systolic blood pressure Diastolic blood pressure Provider Name and Address Organization Details Last Updated DateTime 5 99.2 [degF] 100 % 100 % 149.86 cm 84 /min 18899.7 04 g 16 /min 142 mm[Hg] 80 mm[Hg] Not Available [facility] - production 5 17:33:21 Social History None recorded. Functional Status None recorded. Mental Status None recorded. Family History Nothing Reported. Medical History No medical history recorded. Gynecological HistoryNo gynecological history recorded. Obstetrics History GPAL:G 0 P 0 0 0 0 Past Encounters Encounter ID Performer Location Encounter Start Date Encounter Closed Date Diagnosis/Indication Diagnosis SNOMED-CT Code Diagnosis ICD10 Code Diagnosis Note [id number] Francisco David MD [facility] [address] [place] [phone] 06/03/2024 17:33:17 06/03/2024 21:44:20 COVID-19 365201806 U07.1 Health Concerns Section Related Observation LastModified by Organization Detai ls LastModified Time None Recorded Concern Status LastModified by Organization Details LastModified Time None Recorded Payers Encounter Date Sequence Insurance Name Policy Number Policy Rowe Covered Member ID Rowe Member ID Guarantor Name 06/03/2024 1 [facility] - DOS ON OR AFTER 2022 - DUAL ELIGIBLE - RESIDENTIAL OPTIONS AND ONE CARE (MEDICARE REPLACEMENT/ADV ANTAGE - HMO) Jimena Watkins [id number] Jimena Watkins Notes Date Note Type Note Provider Name and Address Organization Details Recorded Time 06/03/2024 text/html HPI: Pt states she has been up all night coughing, increased mucous and congestion, unsure if she has fever, increased fatigue, generalized malaise .................... .................... .................... .................... .................... .................... .................... . [facility] Nurse Triage Notes (Liudmila Mancilla - RN): Chief Complaints: Common cold symptoms, Cough, Fatigue PMH: COPD/Asthma, Hypertension, Coronary Artery Disease PMH Reviewed at 06/03/2024 - 11:16 Allergies Reviewed at 06/03/2024 - 11:16 Comments: HPI reviewed [facility] [employer] [facility] Organization Information for Nadeem Mancia Chidi Legal Name: [facility] Address: [address] [place] [address], [place] [address], Diamond Selector: Ashwin Gastelum MD CLIA No.: [id number] [facility] [employer] [facility] POC Test Results from Nadeem Mancia Rapid COVID antigen (17:31:17) COVID: + Rapid influenza antigen (17:31:18) Flu: - .................... .................... .................... .................... .................... .................... .................... . [facility] [employer] [facility] Note From Nadeem Mancia: This 68-year-old female with a history including but not limited to HTN, HLD, asthma, DM type II requested a visit today to address three days of dry cough, rhinorrhea and chills. Patient denies any chest pain, shortness of breath, dyspnea on exertion, headaches, nausea, vomiting, diarrhea. Patient is using cetirizine, that albuterol MDI and OTC Tussin with moderate relief. Patient states she's eating and drinking well. Patient is unable to recall what she is allergic to, possibly Lyrica? Patient did not have any previous medical documents stating allergies. Patient presents awake and alert, in no acute distress and speaking full sentences. Her vital signs are reasonably stable and she is afebrile. Nonfocal neurological exam. Normal oropharynx exam. Lungs are clear throughout auscultation. Abdomen is soft, nontender, nondistended. No lower extremity edema. Rapid COVID positive and flu negative. I was able to find a primary care note that stated the medalist several months ago, patient could not confirm her medication list as everything is locked up and is administered by [facility] daily. Based on her medication list and the severity of her symptoms, the patient and I decided that she would not be a great candidate for Paxlovid. I provided education on her MDI use, fluticasone and appropriate Tylenol dosing. I recommend she stay well hydrated, follow-up with her PCP this week and monitor symptoms closely. I instructed her to present to the emergency department for any new or worsening severe symptoms such as chest pain, severe shortness of breath or dyspnea on exertion, uncontrollable nausea/vomiting, high fever unrelieved by Tylenol, altered mental status. The patient was given the opportunity to ask questions and is agreeable to this plan. .................... .................... .................... .................... .................... .................... .................... . [facility] Consulted: Francisco David .................... .................... .................... .................... .................... .................... .................... . Disposition: Fulfilled Francisco David MD [address] [facility],[address] [facility], [place], [phone], [facility] 06/03/2024 18:08:20 OBGyn Episode No OBEpisode recorded.
--- OUTSIDE RECORDS SUMMARY | 2024-06-14 13:38 | XMS_ITS ---
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 Generated for Keke phillips/Addie/eTransmitting on:?06/14/2024 01:38 PM EST
--- OUTSIDE RECORDS SUMMARY | 2024-06-14 13:38 | XMS_ITS | Data Portability ---
Author Organization [place] [place] - [employer] Address [address] [place] [address] Care Team Providers Care Vacuum Spindle Sander Name Role Phone HIM CCA OTHER BEN ELIZABETH Primary Care Provider [phone] Assessment Encounter Date Assessment Date Assessment LastModified by Organization Details LastModified Time 04/04/2023 04/04/2023 I provided real -time medical direction via phone for this encounter, and was available for additional phone based assistance as needed. I have reviewed and agree with the Assessment and Plan as documented by the Credit Operations Processor. Patient given the opportunity to ask questions. as per above, patient was seen by us and started on Keflex for possible cellulitis and then 1 of going to [facility] last week and was put on Bactrim for expansion of cellulitis. Now calls after being on Bactrim 8 days with increasing pain and swelling. Per waist cutter on the scene continues to have swelling and pain. Uses a wheelchair and is nonambulatory at baseline. Differential diagnosis is broad but after 8 days of Bactrim which should cover MRSA would anticipate she would be improving. Question whether not she has an underlying fracture versus thromboses. Or whether she would need IV antibiotics. Referred back to the emergency department for further diagnostic testing. Not available 04/04/2023 16:43:54 08/08/2023 08/08/2023 I provided real -time medical direction via phone for this encounter and was available for additional phone-based assistance as needed. I have reviewed and agree with the Assessment and Plan as documented by the Credit Operations Processor. Patient given the opportunity to ask questions. Our service contacted for an assessment of: upper respiratory tract symptoms including cough As per above, patient recently discharged from the hospital with flu and an asthma exacerbation. She is taking medications as prescribed however she was not sent home on any medications for cough which is what she calls a service for today. She otherwise feels like she is on the right track and recovering. Per waist cutter on the scene, Nonproductive cough is present and vital signs are stable. Good O2 sats on room air. Impression: Cough related to influenza Plan: [place] called in to pharmacy of her choice. This has worked well for her in the past. We discussed the diagnostic uncertainty of home visits and the risk associated with this. In this case, the patient and I felt this to be an acceptable and reasonable amount of risk given the benefit of avoiding an ED visit. We discussed the need to seek care urgently/emergentl y in the setting of any new or worsening serious symptoms Not available 08/08/2023 17:57:36 06/03/2024 06/03/2024 As noted, we maria de jesus hodge called to see this patient regarding concerns of URI symptoms. Evaluation in the field was performed by my waist cutter colleague, as noted above, I provided real-time [...] chest pain. [email or web address] Not available 06/03/2024 17:45:41 06/05/2024 06/05/2024 I provided real -time medical direction via phone for this encounter and was available for additional phone-based assistance as needed. I have reviewed and agree with the Assessment and Plan as documented by the Credit Operations Processor. Patient given the opportunity to ask questions. Our service contacted for an assessment of: Follow-up As per above, patient recently diagnosed with COVID unable to take Paxlovid. We were asked to re-evaluate patient's symptoms. Upon today's visit patient is improving and is using pjkm-tid-txoptlr medications. Vital signs are stable and patient is afebrile Impression: COVID-19 Plan: On a positive trajectory. Continue with [id number]-lhp-ijytidu medicines and supportive care. Allergies: Reviewed PCP f/u: We discussed the diagnostic uncertainty of home visits and the risk associated with this. In this case, the patient and I felt this to be an acceptable and reasonable amount of risk given the benefit of avoiding an ED visit. We discussed the need to seek care urgently/emergentl y in the setting of any new or worsening serious symptoms, particularly fever chills lightheadedness altered mental status Not available 06/05/2024 11:31:59 Plan of Treatment Reminders Order Date Submit Date Provider Last Modified By Organization Details Last Modified Time Details Appointments None recorded. Lab rapid flu (A+B) 2024 025 [facility], [address] [place] [address], [id number], 17:39:13 rapid SARS CoV 2 Ag, QL IA, respiratory specimen 2024 025 [facility], [address] [place] [address], [phone], 17:39:13 Referral None recorded. Procedures None recorded. Surgeries None recorded. Imaging None recorded. Medication Orders albuterol sulfate HFA 90 mcg/actuati on aerosol inhaler 2024 025 [facility] [place], [address] [place], [address], 5 09:43:56 Flonase Allergy Relief 50 mcg/actuati on nasal spray,suspe nsion 2024 025 [facility] - [place], [place], [address] [place], [address], 5 09:43:53 Robitussin Cough-Chest Congestion DM 5 mg-100 mg/5 mL oral liquid 2023 024 [facility] [place], [place], [address] [facility], [place], [address], 4 11:01:21 Patient TargetsNo targets recorded. Patient InstructionsNo instructions [...] Ultra-Fine Mini Pen Needle 31 gauge x 3/16 USE DIRECTED 4 TIMES DAILY active Not [...] Relief 50 mcg/actuatio n nasal spray,suspen camelia [place] 1 spray every day by intranasal route. [...] Available No t Available FreeStyle Alirio 2 Dewey USE DIRECTED active Not Available Not Available [...] Available No t Available Vitals Date Recorded Respiratory rate Oxygen saturation Oxygen saturation in Arterial blood by Pulse oximetry Heart rate Body height Body weight Body temperature Systolic blood pressure Diastolic blood pressure Provider Name and Address Organization Details Last Updated DateTime 3 14 /min 98 % 98 % 80 /min 152.4 cm 37866.4 g 98.4 [degF] 136 mm[Hg] 84 mm[Hg] Not Available [employer] 3 16:41:08 Date Recorded Oxygen saturation Oxygen saturation in Arterial blood by Pulse oximetry Respiratory rate Body temperature Heart rate Body weight Systolic blood pressure Diastolic blood pressure Provider Name and Address Organization Details Last Updated DateTime 4 98 % 98 % 18 /min 98.5 [degF] 80 /min 41567.7 84 g 144 mm[Hg] 72 mm[Hg] Not Available [employer] [employer] 4 17:55:01 Date Recorded Body temperature Body weight Heart rate Oxygen saturation Oxygen saturation in Arterial blood by Pulse oximetry Respiratory rate Systolic blood pressure Diastolic blood pressure Provider Name and Address Organization Details Last Updated DateTime 4 98.2 [degF] 37723.5 6 g 86 /min 98 % 98 % 16 /min 166 mm[Hg] 72 mm[Hg] Not Available [employer] 4 16:51:52 Date Recorded Body temperature Oxygen saturation Oxygen saturation in Arterial blood by Pulse oximetry Body height Heart rate Body weight Respiratory rate Systolic blood pressure Diastolic blood pressure Provider Name and Address Organization Details Last Updated DateTime 5 99.2 [degF] 100 % 100 % 149.86 cm 84 /min 38330.7 04 g 16 /min 142 mm[Hg] 80 mm[Hg] Not Available [employer] 5 17:33:21 Date Recorded Body temperature Respiratory rate Body weight Body height Heart rate Oxygen saturation Oxygen saturation in Arterial blood by Pulse oximetry Systolic blood pressure Diastolic blood pressure Provider Name and Address Organization Details Last Updated DateTime 5 97.4 [degF] 14 /min 37213.8 g 152.4 cm 78 /min 97 % 97 % 110 mm[Hg] 88 mm[Hg] Not Available [facility] [employer] 09:51:04 Social History None recorded. Functional Status None recorded. Mental Status None recorded. Family History Nothing Reported. Medical History No medical history recorded. Gynecological HistoryNo gynecological history recorded. Obstetrics History GPAL:G 0 P 0 0 0 0 Past Encounters Encounter ID Performer Location Encounter Start Date Encounter Closed Date Diagnosis/Indication Diagnosis SNOMED-CT Code Diagnosis ICD10 Code Diagnosis Note [id number] Elaine Draper MD Main - [address] [phone] 09/23/2022 16:16:58 09/27/2022 14:43:34 Cellulitis of left foot [id number] L03.116 [id number] Akila Samuel MD [address] [id number] 04/04/2023 16:41:06 04/05/2023 13:23:43 Cellulitis of lower leg [id number] L03.119 [id number] Akila Samuel MD [facility] - [address] [address] 08/08/2023 17:54:55 08/08/2023 22:15:05 Cough [id number] R05.9 [id number] Tobin Floyd MD [address] [address] 12/20/2023 16:51:49 12/20/2023 22:32:10 Cramp in lower limb [id number] R25.2 As noted, we were called to see this patient regarding concerns of pain. Evaluation in the field was performed by my waist cutter colleague, as noted above, I provided real-time direction and supervisio n for this visit. The evaluation revealed a history of cramping to the legs, with none at present and a normal sensorineu ral examinatio n. Impression :Lower extremity cramping Plan:PCP follow-up Dispositio n: We discussed the diagnostic uncertaint y of home visits and the risk associated with this. In this case, the patient and I felt this to be an acceptable and reasonable amount of risk given the benefit of avoiding an ED visit. We discussed the need to seek care urgently/e mergently in the setting of any new or worsening serious symptoms, particular ly numbness, weakness, or severe pain. [id number] Francisco David MD Main - [facility] [address] [place] [id number] 06/03/2024 17:33:17 06/03/2024 21:44:20 COVID-19 [id number] U07.1 [id number] Akila Samuel MD Main - [facility] [address] [place] [id number] 06/05/2024 09:35:28 06/05/2024 11:52:44 COVID-19 [id number] U07.1 Health Concerns Section Related Observation LastModified by Organization Detai ls LastModified Time None Recorded Concern Status LastModified by Organization Details LastModified Time None Recorded Advance Directives Directive None Recorded Payers Encounter Date Sequence Insurance Name Policy Number Policy Rowe Covered Member ID Rowe Member ID Guarantor Name 04/04/2023 1 [facility] [employer] - DOS ON OR AFTER 2022 - DUAL ELIGIBLE - HALF-WAY OPTIONS AND ONE CARE (MEDICARE REPLACEMENT/ADV ANTAGE - HMO) Jimena Watkins [id number] Jimena Watkins 08/08/2023 1 [facility] [employer] - DOS ON OR AFTER 2022 - DUAL ELIGIBLE - HALF-WAY OPTIONS AND ONE CARE (MEDICARE REPLACEMENT/ADV ANTAGE - HMO) Jimena Watkins [id number] Jimena Watkins 12/20/2023 1 [facility] [employer] - DOS ON OR AFTER 2022 - DUAL ELIGIBLE - HALF-WAY OPTIONS AND ONE CARE (MEDICARE REPLACEMENT/ADV ANTAGE - HMO) Jimena Watkins [id number] Jimena Watkins 06/03/2024 1 [facility] [employer] - DOS ON OR AFTER 2022 - DUAL ELIGIBLE - HALF-WAY OPTIONS AND ONE CARE (MEDICARE REPLACEMENT/ADV ANTAGE - HMO) Jimena Watkins [id number] Jimena Watkins 06/05/2024 1 [facility] [employer] - DOS ON OR AFTER 2022 - DUAL ELIGIBLE - HALF-WAY OPTIONS AND ONE CARE (MEDICARE REPLACEMENT/ADV ANTAGE - HMO) Jimena Watkins [id number] Jmiena Watkins Notes Date Note Type Note Provider Name and Address Organization Details Recorded Time 04/04/2023 text/html HPI: Members community [facility] [employer]AFF[employer]ECUTIVE calling in a referral, member identified via /name. Member seen at [facility] last Billy, diagnosed with left cellulitis and started on Bactrim. Member states no improvement, and feels more painful. Per STAFFING EXECUTIVE foot is still red, warm, swollen and very tender, looks like it could be pitting but unsure as it is too painful for member to assess, no fever/chills, temp 97.2. Off note, member had a cyst drained under her right breast and was started in Cefadroxil. Member agreeable to an [facility] visit. .................... .................... .................... .................... .................... .................... .................... . CRC Nursing Assessment: Comments: CRC RN did not require any additional information to process this visit. Akila Samuel MD [address] [place] [address],[facility], [place], [phone], [employer] 04/04/2023 16:44:11 08/08/2023 text/html HPI: Jimena was treated at [facility] 08/02-08/03 for the flu A and asthma. She completed 4 days of prednisone. Taking prescribed Oseltamivir. She endorses persistent cough and chest tightness when coughing. Difficulty sleeping d/t symptoms. .................... .................... .................... .................... .................... .................... .................... . CRC Nurse Triage Notes (Gagan Carmona): Comments: HPI reviewed by this RN, no further information needed to process visit -Juan Carmona RN .................... .................... .................... .................... .................... .................... .................... . Credit Operations Processor Note From Juvenal Silva: 67 yo F c/o cough which will not dissipate. She reports she is unable to sleep due to the cough. Pt does sleep with her elevated with three pillows. Pt was admitted to [facility] on 08/03 and stayed several night for treatment of Influenza and Asthma complications. Pt does not have a MDI neb, or other medication for asthma per pt. Pt was Rx prednisone and Oseltamivir, which she has taken as Rx. Lungs are wheeze. Pt denies cp but reports some SOB at times. Currently no BLE edema, but pt reports they were really swollen before. Pt denies taking any diuretics. Pt did have a doctor's appointment this morning, who confirmed no edema in BLE. Unsure why cough concerns were not brought to the MDs attention. Slight language barrier. Pt does denies SOB, CP, N/V/D, simply reports cough and inability to sleep due to the cough, adding at night the cough is worse. She reports feeling like something needs to come up, but the cough is non-productive. 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 MD consult. Will Rx Robitussin. Discussed red flags with pt and when to seek/call 911/EMS/ER. Pt understood and had no questions. .................... .................... .................... .................... .................... .................... .................... . Disposition: Venkat Akila Samuel MD [address] [facility],[address], [place], [address], [facility] - [employer] 08/08/2023 17:57:46 12/20/2023 text/html HPI: Marcella, palliative nurse calling in to place a referral, member identified via name and . PMHx COPD, DM, HTN, HLD. ALLERGIES- lyrica, metformin and another one that member cannot recall. Per Marcella member is having bilateral knee to toe pain, left is 8/-9/10 and right is mild. Marcella notes legs to be margo/cool, +pp, trace edema, and very painful. Marcella noted that member went to doctors on Monday, however, received the wrong discharge paperwork (was for another person). Member became anxious with right sided chest pain, as her VNA came yesterday for a med rec. Member calm and chest pain is resolving, no sob. Marcella is unsure members meds as VNA comes BID to administer, she notes ultram and gabapentin on list, but not sure it is up to date. Member does not want to go to the ED, [facility] .................... .................... .................... .................... .................... .................... .................... . CRC Nurse Triage Notes (Aixa Delgadillo): Chief Complaints: Pain PMH: COPD/Asthma, Diabetes, Hypertension, Heart Disease Other Allergies: lyrica, metformin, and 1 other Comments: CRC RN did not require any additional information to process this visit. .................... .................... .................... .................... .................... .................... .................... . Credit Operations Processor Note From Emmanuel Brandt: Pt co cramping in feet off and on for 1 week. Pt sts no other complaints and pt sts she didn? t call for us her VN did. Pt allowed evaluation. Pt denies cp sob NVD headache dizziness or fever. Baseline vitals assessed. ..pt sts coloration is normal for her. [facility] contacted and advised to pt to follow up with pcp. Pt education on signs indicating the ER. .................... .................... .................... .................... .................... .................... .................... . Disposition: Fulfilled Tobin Floyd MD [address] [facility],[address], [place], [address], [employer] 12/20/2023 17:53:19 06/03/2024 text/html HPI: Pt states she has [...] at 06/03/2024 - 11:16 Comments: HPI reviewed Credit Operations Processor Organization Information for Nadeem Mancia ELSIEmmylivia Legal Name: [facility] Address: [address] [place] [address], [employer] Room Attendant: Ashwin Gastelum MD IA No.: [id number] Credit Operations Processor POC Test Results from Nadeem Mancia Rapid COVID antigen (17:31:17) COVID: + Rapid influenza antigen (17:31:18) Flu: - .................... .................... .................... .................... .................... .................... .................... . Credit Operations Processor Note From Nadeem Mancia: This 68-year-old female [...] .................... .................... .................... .................... .................... .................... . [facility] Consulted: Francisco David .................... .................... .................... .................... .................... .................... .................... . Disposition: Fulfilled Francisco David MD [address] [place] [address],[address], [place], [phone] [employer] 06/03/2024 18:08:20 06/05/2024 text/html CRC Nurse Triage Notes (Aixa Delgadillo - RN): Chief Complaints: Breathing problems, Common cold symptoms, Cough, Asthma PMH: COPD/Asthma, Hypertension, Coronary Artery Disease PMH Reviewed at 06/05/2024 - 08:39 Allergies Reviewed at 06/05/2024 - 08:39 Comments: 06/03- [facility] Remarks Patient is positive for COVID. Unable to give paxlovid due to drug interactions. Please call patient on 06/05/24 to see how she is feel. We can recheck on patient if symptoms are not improving. 06/05- out reach to patient, she reports she feels, awful , stuffy/runny ose, body aches, fatigue, cough, chills, [place]. She is unsure of fever, as she has no thermometer, she denies chest pain, no nausea, vomiting or diarrhea. She would like to be re-evaluated. She continues with inhaler and OTC cough syrup. She reports having 1 allergy but cannot recall the medication. .................... .................... .................... .................... .................... .................... .................... . Credit Operations Processor Note From Ja Bean: Patient alert and oriented seated in wheelchair in apartment. Patient complains of nasal congestion and frequent nonproductive cough. Patient reports she [facility] Patient reports she has been eating and drinking, using Robitussin and slept well throughout the night last night. Patient denies difficulty breathing chest pain, nausea, vomiting, diarrhea, weakness, dizziness, urinary, or BM changes, fevers or chills. Patient reports she? s been taking Tylenol 1300 mg two times per day for headache with relief. (Tylenol 650 mg x2). Patient reports decreased appetite, but has been eating soup without difficulty. Patient, pink, warm, dry, secondary exam unremarkable, positive full sentences, negative increased work of breathing. Lung sounds clear, abdomen, soft nontender no edema noted. Supportive care, including cough medicine, and use of Tylenol and hydration discussed. Timeline, what to expect and next steps discussed. Red flags and patient education discussed. Patient demonstrates understanding of care and plan. .................... .................... .................... .................... .................... .................... .................... . [facility] Consulted: Akila Samuel .................... .................... .................... .................... .................... .................... .................... . Disposition: Fulfilled Akila Samuel MD [address] [facility],[address], [place], [phone], [facility] 06/05/2024 11:32:10 OBGyn Episode No OBEpisode recorded.
--- OUTSIDE RECORDS SUMMARY | 2024-06-14 13:38 | XMS_ITS | Continuity of Care Document ---
Author Organization [facility] [place] [facility] [employer] Address [address] [place] [address] Care Team Providers Care Bowling Alley Mechanic Name Role Phone HIM CCA OTHER BEN ELIZABETH Primary Care Provider [phone] Assessment Encounter Date Assessment Date Assessment LastModified by Organization Details LastModified Time 06/05/2024 06/05/2024 I provided real -time medical direction via phone for this encounter and was available for additional phone-based assistance as needed. I have reviewed and agree with the Assessment and Plan as documented by the Data Lead. Patient given the opportunity to ask questions. Our service contacted for an assessment of: Follow-up As per above, patient recently diagnosed with COVID unable to take Paxlovid. We were asked to re-evaluate patient's symptoms. Upon today's visit patient is improving and is using [id number] medications. Vital signs are stable and patient is afebrile Impression: COVID-19 Plan: On a positive trajectory. Continue with [id number]-[id number] medicines and supportive care. Allergies: Reviewed PCP [...] Details Last Modified Time Details Appointments None record ed. Lab None record ed. Referral None record ed. Procedures None record ed. Surgeries None record ed. Imaging None record ed. Medication Orders None record ed. Patient TargetsNo targets recorded. Patient InstructionsNo instructions recorded. Reason for Referral None Reported. Medical Equipment None Reported. Allergies No known [...] Relief 50 mcg/actuatio n nasal spray,suspen camelia [place] 1 spray every day by intranasal route. [...] Available No t Available [employer] Alirio 2 [place] USE DIRECTED active Not Available Not Available [...] t Available Vitals Date Recorded Body temperature Respiratory rate Body weight Body height Heart rate Oxygen saturation Oxygen saturation in Arterial blood by Pulse oximetry Systolic blood pressure Diastolic blood pressure Provider Name and Address Organization Details Last Updated DateTime 5 97.4 [degF] 14 /min 10723.8 g 152.4 cm 78 /min 97 % 97 % 110 mm[Hg] 88 mm[Hg] Not Available [facility] - production 5 09:51:04 Social History None recorded. Functional Status None recorded. Mental Status None recorded. Family History Nothing Reported. Medical History No medical history recorded. Gynecological HistoryNo gynecological history recorded. Obstetrics History GPAL:G 0 P 0 0 0 0 Past Encounters Encounter ID Performer Location Encounter Start Date Encounter Closed Date Diagnosis/Indication Diagnosis SNOMED-CT Code Diagnosis ICD10 Code Diagnosis Note [id number] Francisco David MD Main - [address] [address] 06/03/2024 17:33:17 06/03/2024 21:44:20 COVID-19 [id number] U07.1 [id number] Akila Samuel MD Main - [address] [address] 06/05/2024 09:35:28 06/05/2024 11:52:44 COVID-19 [id number] U07.1 Health Concerns Section Related Observation LastModified by Organization Detai ls LastModified Time None Recorded Concern Status LastModified by Organization Details LastModified Time None Recorded Payers Encounter Date Sequence Insurance Name Policy Number Policy Rowe Covered Member ID Rowe Member ID Guarantor Name 06/05/2024 1 [facility] - DOS ON OR AFTER 2022 - DUAL ELIGIBLE - DETENTION OPTIONS AND ONE CARE (MEDICARE REPLACEMENT/ADV ANTAGE - HMO) Jimena Watkins [id number] Jimena Watkins Notes Date Note Type Note Provider Name and Address Organization Details Recorded Time 06/05/2024 text/html CRC Nurse Triage Notes (Aixa Delgadillo - RN): Chief Complaints: Breathing problems, Common cold symptoms, Cough, Asthma PMH: COPD/Asthma, Hypertension, Coronary Artery Disease PMH Reviewed at 06/05/2024 - 08:39 Allergies Reviewed at 06/05/2024 - 08:39 Comments: 06[place]03- [facility] [place] Patient is positive for COVID. Unable [...] 1 allergy but cannot recall the medication. ................... ................... ................... ................... ................... ................... ................... ........ Data Lead Note From Ja Bean: Patient alert and oriented seated in wheelchair in apartment. Patient complains of nasal congestion and frequent nonproductive cough. Patient reports she was diagnosed with Covid three days ago by [facility]. Patient reports she has been eating and [...] Patient demonstrates understanding of care and plan. ................... ................... ................... ................... ................... ................... ................... ........ [facility] [place] Consulted: Akila Samuel ................... ................... ................... ................... ................... ................... ................... ........ Disposition: Fulfilled Akila Samuel MD [address] [facility],[address] [facility], [place], [address], [facility] 06/05/2024 11:32:10 OBGyn Episode No OBEpisode recorded.
--- OUTSIDE RECORDS SUMMARY | 2024-06-14 13:38 | XMS_ITS | Patient Health Record ---
Author Organization [facility] Address [address] [place] [address] Care Team Providers Care Spanish Interpreter/Translator Name Role Phone Ross Gold MD Primary Care Provider Beka Mcgowan Unavailable [phone] Allergies Allergen (clinical drug ingredient) Drug/Non Drug Allergy documented on EMR Reaction Allergy Type Onset Date Status aspirin Aspirin rash Drug Allergy Active morphine Morphine abdominal pain, rash Drug Allergy Active omeprazole Omeprazole SOB Drug Allergy Activ e pregabalin Pregabalin SOB Drug Allergy Activ e Reason For Referral No Information Medications Medication SIG (Take, Route, Frequency, Duration) Notes Start Date End Date Status Empagliflozin 25 MG 1 tablet Orally Once a day for 30 day(s) jardiance Unknown Fluticasone Propionate 50 MCG/ACT 1 spray in each nostril Nasally Once a day for 30 day(s) Unknown Clopidogrel Bisulfate 75 MG 1 tablet Orally Once a day for 30 day(s) Unknown dilTIAZem HCl 240MG Unknow n Benzonatate 200 MG 1 capsule Orally Three times a day for 30 day(s) Unknown Semaglutide(0.25 or 0.5MG/DOS) ozempic Unknown Budesonide-Formoterol Fumarate 160-4.5 MCG/ACT 2 puffs Inhalation Twice a day Unknown Valsartan-hydroCHLOROth iazide 320-12.5 MG 1 tablet Orally Once a day for 30 day(s) Unknown Amitriptyline HCl 10 MG 1 tablet at bedt shaw Orally Once a day for 30 day(s) Unknown hydrALAZINE HCl 25 MG 1 tablet with food Orally Three times a day for 30 day(s) Unknown Atorvastatin Calcium 80 MG 1 tablet Orally Once a day for 30 day(s) Unknown Insulin Degludec trulicity 75U Unknown Cetirizine HCl 10 MG 1 tablet Orally Onc e a day for 30 day(s) Unknown Celecoxib 200 MG 1 capsule with food Orally Once a day for 30 day(s) Unknown Cephalexin 500 MG 1 capsule Orally Four times a day for 5 day(s) Unknown Social History Tobacco Use: Social History Observation Description Date Details (start date - stop date) Former Smoker NA - NA Tobacco Use/Smoking Question Answer Notes Are you a: former smoker Additional Findings: Tobacco Non-User Current no n-smoker Alcohol Screen Question Answer Notes Did you have a drink containing alcohol in the p ast year? No Points 0 Interpretation Negative Tobacco use other than smoking: Question Answer Notes Are you an other tobacco user? No Plan Of Treatment No Information Insurance Providers Payer Name Payer Address Payer Phone Subscriber Number Group Number Insured Name Patient Relationship to Insured Coverage Start Date Coverage End Date [facility] SCO Claims [address] [place] [id number] [phone] [id number] Jimena Watkins Self - patient is the insured Medical (General) History Medical History History ICD Code Arthritis asthma diabetic ganglion cyst Glaucoma Hypertension Neuropathy intracranial mass Back,Hip,and Knee pain Diabetic High blood pressure Sciatica Stroke thyroid Joint Pain Pain Ankle Surgical History Surgery Date(Month/Year) breast biopsy tubal ligation tonsillectomy
--- OUTSIDE RECORDS SUMMARY | 2024-06-14 13:38 | XMS_ITS ---
Author Organization [facility] Address [address] [place] [address] Care Team Providers Care Electric Utility Lineworker Name Role Phone Asif MEREDITH, Ross Primary Care Provider Beka Mcgowan Unavailable [phone] Allergies Allergen (clinical drug ingredient) Drug/Non Drug Allergy documented on EMR Reaction Allergy Type Onset Date Status aspirin Aspirin rash Drug Allergy Active morphine Morphine abdominal pain, rash Drug Allergy Active omeprazole Omeprazole SOB Drug Allergy Activ e pregabalin Pregabalin SOB Drug Allergy Activ e Medications Medication SIG (Take, Route, Frequency, Duration) Notes Start Date End Date Status Empagliflozin 25 MG 1 tablet Orally Once a day for 30 day(s) jardiance Unknown Clopidogrel Bisulfate 75 MG 1 tablet Orally Once a day for 30 day(s) Unknown dilTIAZem HCl 240MG Unknow n Cephalexin 500 MG 1 capsule Orally Four times a day for 5 day(s) Unknown Cetirizine HCl 10 MG 1 tablet Orally Onc e a day for 30 day(s) Unknown Benzonatate 200 MG 1 capsule Orally Three times a day for 30 day(s) Unknown Budesonide-Formoterol Fumarate 160-4.5 MCG/ACT 2 puffs Inhalation Twice a day Unknown Amitriptyline HCl 10 MG 1 tablet at bedt shaw Orally Once a day for 30 day(s) Unknown Atorvastatin Calcium 80 MG 1 tablet Orally Once a day for 30 day(s) Unknown Celecoxib 200 MG 1 capsule with food Orally Once a day for 30 day(s) Unknown Fluticasone Propionate 50 MCG/ACT 1 spray in each nostril Nasally Once a day for 30 day(s) Unknown Semaglutide(0.25 or 0.5MG/DOS) ozempic Unknown Valsartan-hydroCHLOROth iazide 320-12.5 MG 1 tablet Orally Once a day for 30 day(s) Unknown hydrALAZINE HCl 25 MG 1 tablet with food Orally Three times a day for 30 day(s) Unknown Insulin Degludec trulicity 75U Unknown Social History Tobacco Use: Social History [...] Are you an other tobacco user? No Vital Signs Height 4ft 11in in 01/12/2023 Encounters Encounter Location Date [facility] [address] [place] [address] 01/12/2023 Beka Cardoso Plan Of Treatment No Information Progress Notes * Jimena WATKINSDOB:1955 (68 yo F)Acc No.[id number]:01/12/2023 Progress Notes Patient:?Jimena WATKINS Provider:?Beka Cardoso DPM :1955???Age:67 Y???Sex:Female D ate:01/12/2023 Address:[address] [place], [place] [id number] Pcp:Ross Gold MD Subjective: * Chief Complaints: * ??? * ROS:?General/Constitutional:?Nausea?denies.?Vomiting?denies.?Hunger Thirst?denies.?Loss appetite?denies.?Chills?denies.?Fatigue?denies.?Fever?denies.?Night Sweats?denies.?Unexplained weight loss?denies.?Unexplained weight gain?denies.?HEENTM:?Dentures?denies.?Dizziness?denies.?Glasses/contacts?admits.?Retinopathy?de nies.?Blurred/double vision?denies.?TMJ?denies.?Discharge/drainage?denies.?Implants?denies.?Sore throat?denies.?Dental implants?denies.?Hard of hearing ?denies.?Difficulty chewing/swallowing/speaking?denies.?Nose bleeds?denies.?Sore mouth?denies.?Respiratory:?On Oxygen?denies.?Pneumonia/pleurisy?denies.?Bronchitis?denies.?Emphysema?admits.?C oughing?denies.?Cough blood?denies.?Shortness of breath?denies.?Wheezing?denies.?Cardiovascular:?Pacemaker?denies.?MVP?denies.?WPW?denies.?CHF?denies.?Heart attack?denies.?Septal defect?denies.?Rapid beat?denies.?Chest pain ?denies.?Atrial Fib.?denies.?Murmur/Palpitations?denies.?Gastrointestinal:?Hemorrhoids?denies.?Stomach/Abdominal pain?denies.?Dark blood stool?denies.?Irritable bowel ?denies.?Constipation?admits.?Diarrhea?denies.?Hematology:?Swelling?denies.?Clots?denies.?Varicose Veins?admits.?Bruising?denies.?Bleeding problem?denies.?Genitourinary:?Blood urine?denies.?Frequent/Painfu/urination/bladder control?admits.?Kidney stones?denies.?Infection (UTI)?denies.?Nephropathy?admits.?sex trans dis (STD)?denies.?Prostate?denies.?Musculoskeletal:?Hammertoes?denies.?Bunions?denies.?Back Pain?admits.?Muscle Cramps/ Resting?admits.?Muscle cramps / walking?admits.?Generalized aches and pains?denies.?Weakness?denies.?Integ.:?Griffin?denies.?Scars?denies.?Corns/calluses?denies.?Ingrown nails?denies.?Painful nails?denies.?Open Sores?denies.?Rashes?denies.?Neurologic:?Difficulty sleeping?denies.?Brain disorder?denies.?Numbness?admits.?Balance trouble?denies.?Confusion?denies.?Fainting/blackouts?denies.?Tingling?denies.?Tr emors?admits.? * Medical History:?Arthritis, Asthma, Diabetic, Ganglion cyst, Glaucoma, Hypertension, Neuropathy, Intracranial mass, Back,Hip,and Knee pain, Diabetic, High blood pressure, Sciatica, Stroke, Thyroid, Joint Pain, Pain Ankle. * Surgical History:?breast bio psy , tubal ligation , tonsillectomy . * Family History:?Mother: dece ased, diagnosed with Diabetic - NIDDM.?Father: .?Maternal Grand Mother: diagnosed with Diabetic - NIDDM.? * Social History:?Tobacco Use:?Tobacco Use/Smoking?Are you a:?former smoker ?Additional Findings: Tobacco Non-User?Current non-smoker ?Tobacco use other than smoking?Are you an other tobacco user??No ???Drugs/Alcohol:?Drugs?Have you used drugs other than those for medical reasons in the past 12 months??No ?Alcohol Screen?Did you have a drink containing alcohol in the past year??No ?Points?0 ?Interpretation?Negative ???Miscellaneous:?Caffeine: no. ?Children: no. ?Marital status: . ?Occupation: Disabled. * Medications:?Unknown Amitrip tyline HCl 10 MG Tablet 1 tablet at bedtime Orally Once a day , Unknown Atorvastatin Calcium 80 MG Tablet 1 tablet Orally Once a day , Unknown Benzonatate 200 MG Capsule 1 capsule Orally Three times a day , Unknown Budesonide-Formoterol Fumarate 160-4.5 MCG/ACT Aerosol 2 puffs Inhalation Twice a day , Unknown Celecoxib 200 MG Capsule 1 capsule with food Orally Once a day , Unknown Cephalexin 500 MG Capsule 1 capsule Orally Four times a day , Unknown Cetirizine HCl 10 MG Tablet 1 tablet Orally Once a day , Unknown Clopidogrel Bisulfate 75 MG Tablet 1 tablet Orally Once a day , Unknown dilTIAZem HCl , Notes to Pharmacist: 240MG, Unknown Empagliflozin 25 MG Tablet 1 tablet Orally Once a day , Notes to Pharmacist: jardiance, Unknown Fluticasone Propionate 50 MCG/ACT Suspension 1 spray in each nostril Nasally Once a day , Unknown hydrALAZINE HCl 25 MG Tablet 1 tablet with food Orally Three times a day , Unknown Insulin Degludec , Notes to Pharmacist: trulicity 75U, Unknown Semaglutide(0.25 or 0.5MG/DOS) , Notes to Pharmacist: ozempic, Unknown Valsartan-hydroCHLOROthiazide 320-12.5 MG Tablet 1 tablet Orally Once a day * Allergies:?Aspirin: rash, Mo rphine: abdominal pain, rash, Omeprazole: SOB, Pregabalin: SOB. Objective: * Vitals:?Ht:4ft 11in, Shoe si ze: 6.5. Assessment: Plan: * Treatment: * Images: * The named appointment provid er may or may not be the originator of this progress note, and it is not deemed complete until electronically signed by the appointment provider. Sign off status: Pending * Provider:?Beka Cardoso DPM Date:?2022 Generated for Keke phillips/Addie/Anu on:?06/14/2024 01:37 PM EST
== END 2024-06-14 13:12 | disposition home or self-care (01) ==
LOC: HO.CT 13:11
PROVIDERS: PCP Family Medicine; Visit Provider Nurse Practitioner Family
DX: R90.89 Other abnormal findings on diagnostic imaging of central nervous system (principal)
CPT/HCPCS: 70450

== ENCOUNTER → 2024-06-14 13:13 | Outpatient (BNV) | payer OTHER, SELFPAY | PROVIDERS: PCP Family Medicine; Visit Provider Radiology Vascular & Interventional Radiology | DX: R90.89 Other abnormal findings on diagnostic imaging of central nervous system (principal) | CPT/HCPCS: 70450 ==

== ENCOUNTER 2024-06-28 10:33 | Outpatient (AMB) | payer OTHER, SELFPAY ==
[2024-06-28 10:35] VITALS: BP 127/76; PULSE 95; O2SAT 96; BMI 37.0
--- NOTE | 2024-06-28 10:35 | A.OFFVIS_ITS ---
Vital Signs 06/28/24 10:35 Height 4 ft 11 in Weight 182 lb 15.739 oz BMI 37.0 BP 127/76 Blood Pressure Location Rt brachial Position Sitting Pulse 95 Pulse Source Pulse Oximeter Pulse Oximetry (%) 96 Oxygen Delivery Method Room Air Intake Visit Reasons: T2DM Intake Note: Patient present today for Type 2 Diabetes Mellitus Last Diabetic eye exam: 05/2024 Last Podiatry Visit: Has a coming up appt soon Most Recent HgA1C: 8.4% 05/23/24 Random Glucose: 91 mg/dL, Today Cmo Required: Yes Cmo Language: Reactor Kettle Operator Services: Cmo Offered & Declined Accompanied by: Other Relationship Allergies aspirin [Aspirin] Allergy (Mild, Verified 06/28/24 10:38) RASH morphine [MORPHINE] Allergy (Unknown, Verified 06/28/24 10:38) ABD PAIN, RASH omeprazole [OMEPRAZOLE] Allergy (Unknown, Verified 06/28/24 10:38) SHORTNESS OF BREATH pregabalin [From LYRICA] Allergy (Unknown, Verified 06/28/24 10:38) SHORTNESS OF BREATH celecoxib Adverse Reaction (Mild, Verified 06/28/24 10:38) chest pain, jumping feeling in her heart. HPI HPI T2DM: Details: Patient is a 68-year-old female with a significant past medical history of obesity, peripheral vascular disease, NSTEMI, uncontrolled type 2 diabetes, insulin dependent, history of a CVA, chronic foot ulcer, hypertension and hyperlipidemia presenting today for a follow-up regarding her diabetes. Cmo: Pamela Although pt speaks and understands [employer]. She does the visit with little assistance from Pamela. Her SHUTTLE CAR OPERATOR who speaks and understands [employer] is also present. Endo: DM-her last A1c was 8.4 She is currently on Ozempic 2 mg weekly, Tresiba 76 units daily, Jardiance 25 mg daily. She was started on humalog 4 units BID with meals. She states that her blood sugars have been great for the last 1-2 months. She states that she does not have any elevated blood sugars but also did not bring in her reader or her glucometer today. She denies any low blood sugars. -she has lost 10 lb with the increased dosage of Ozempic -She states that she has a nurse who comes to her house daily and monitors her blood sugars and blood pressures. She treats her hypoglycemic events with orange juice and candy. Neuro: She has been feeling dizzy, more forgetful and off balance the last month or so from her baseline. She denies any vision changes. She did recently have a head CT but is unaware of the findings. States that she has missed a couple phone calls. CT showed: IMPRESSION: Nonspecific soft tissue eroding along the posterior inferior aspect of the sella and into the sphenoid sinus. This may reflect a chronic infectious process or neoplasm. This document has been electronically signed by: Rudy Pabon MD on 06/17/2024 11:44:53 -we did discuss that she was referred to neurosurgery but she states that she does not recall this. She states years ago she was told she had a little something in her brain but nothing that anyone into to do anything about. Vasc: was supposed to follow with vascular surgery for her leg/feet but had to miss it because she does not like the cold weather. CV: Blood pressure today in the office as 126/76. She is on valsartan 80 mg, carvedilol 3.125 mg twice a day. She is atorvastatin 80 mg. [facility] Medical History Heart attack Abscess of chest wall Uncontrolled type 2 diabetes mellitus with hyperglycemia, with long-term current use of insulin Ganglion cyst Glaucoma Neuropathy Arthritis Intracranial mass Diabetes 1.5, managed as type 2 Hypertension Asthma Surgical History History of removal of cyst Stented coronary artery H/O tubal ligation Hx of tonsillectomy H/O right breast biopsy Social History Housing: Apartment Patient Tobacco Use Status: Former Tobacco user e-Cigarette/Vaping Use: Never Used service: No Current occupational status: disabled Current occupational exposures/hazards: No Cognitive needs: No Hearing needs: No Vision needs: No Physical Exam Vital Signs: Last Vital Signs Pulse 95 06/28/24 10:35 BP 127/76 06/28/24 10:35 Pulse Ox 96 06/28/24 10:35 Oxygen Delivery Method Room Air 06/28/24 10:35 BMI result Body Mass Index 37.0 Const Orientation/consciousness: patient oriented x3 HEENT Ears: hearing grossly normal bilaterally Neck Thyroid: Thyroid normal Lymphatic: no lymphadenopathy noted Resp Auscultation: clear to auscultation bilaterally Cardio Rate: regular rate Rhythm: regular rhythm Heart sounds: S1 normal heart sound present and S2 normal heart sound present Skin General skin exam: no rashes or lesions noted Neuro General: patient oriented x3, gait normal and no focal motor deficits Results Reviewed Results Reviewed: Laboratory Tests 06/01/23 12/18/23 01/15/24 13:05 10:53 13:33 Sodium 142 Potassium 4.0 Chloride 108 Carbon Dioxide 25 Anion Gap 13 BUN 29 H Creatinine 0.97 Estimated GFR 57 Glucose (Clinic) 162 H Random Glucose 97 Hgb A1c (Clinic) 8.4 H Triglycerides 119 Cholesterol 107 LDL Cholesterol, Calc 53 HDL Cholesterol 31 L 05/23/24 17:13 Sodium Potassium Chloride Carbon Dioxide Anion Gap BUN Creatinine Estimated GFR Glucose (Clinic) Random Glucose Hgb A1c (Clinic) 8.4 H Triglycerides Cholesterol LDL Cholesterol, Calc HDL Cholesterol MR/MR head/brain wo/w con IMPRESSION: 1. The sphenoid sinus extends posteriorly into the sphenoid base. A 1.2 cm nodular structure within the posterior aspect of the sphenoid sinus directly abuts the undersurface of the sella turcica. This may represent a mucous retention cyst; however, it remains difficult to fully separate this structure from the pituitary parenchyma by MRI. If clinical concern for pituitary adenoma remains high, CT a better evaluate for presence of an osseous plane this structure from the pituitary gland. 2. No acute intracranial abnormalities. No additional abnormal intracranial enhancement. 3. Chronic lacunar infarct of the right central norberto. Mild underlying microangiopathy. Assessment & Plan Assessment & Plan (1) Uncontrolled type 2 diabetes mellitus with hyperglycemia, with long-term current use of insulin: Code(s): E11.65 - Type 2 diabetes mellitus with hyperglycemia; Z79.4 - USP (current ) use of insulin Category: Medical Plan: Continue current regimen as she reports normal blood sugars. Advised to bring her reader in. Recheck labs and follow up in 3 months. Sooner if needed. (2) Hypertension: Code(s): I10 - Essential (primary) hypertension Category: Medical Plan: WNL today. Continue current regimen. (3) Abnormal head CT: Code(s): R93.0 - Abnormal findings on diagnostic imaging of skull and head, not elsewhere classified Category: Medical Plan: Phone number today provided to [facility] Neurosurgery. Advised patient to contact Neurology to further discuss these tests. Reviewed plan and we will have her follow up with Dr. Maxwell to workup pituitary etiology. Medications: Refilled triamcinolone acetonide 0.1% 1 appl topical BID 14 days 30 grams 2RF Coding Level of Care Code Est Pt Level 4 (03152) Complex EM visit Add On G2211 Diagnoses Uncontrolled type 2 diabetes mellitus with hyperglycemia, with long-term current use of insulin E11.65; Z79.4 Hypertension I10 Abnormal head CT R93.0
[2024-06-28 10:47] LABS: Glucose, Whole Blood 91 mg/dL (60-115)
--- OUTSIDE RECORDS SUMMARY | 2024-06-28 11:53 | XMS_ITS | Patient Health Record ---
Author Organization [facility] Address [address] [place] [address] Care Team Providers Care Technical Support Intern Name Role Phone Ross Gold MD Primary Care Provider Beka Mcgowan Unavailable [phone] Allergies Allergen (clinical drug ingredient) Drug/Non Drug [...] Insured Coverage Start Date Coverage End Date [facility] SCO Claims [address] [place] [id number] [phone] [id number] Jimena Watkins Self - patient is the insured Medical (General) History Medical History History ICD Code Arthritis asthma diabetic ganglion cyst Glaucoma Hypertension Neuropathy intracranial mass Back,Hip,and Knee pain Diabetic High blood pressure Sciatica Stroke thyroid Joint Pain Pain Ankle Surgical History Surgery Date(Month/Year) breast biopsy tubal ligation tonsillectomy
--- OUTSIDE RECORDS SUMMARY | 2024-06-28 11:54 | XMS_ITS | Data Portability ---
Author Organization [employer], [address] in - [employer] Address [address] [place] [address] Care Team Providers Care Digital Account Coordinator Name Role Phone HIM CCA OTHER BEN ELIZABETH Primary Care Provider [phone] Assessment Encounter Date Assessment Date Assessment LastModified by Organization Details LastModified Time 04/04/2023 04/04/2023 I provided real -time medical direction via phone for this encounter, and was available for additional phone based assistance as needed. I have reviewed and agree with the Assessment and Plan as documented by the Day Spa Manager. Patient given the opportunity to ask questions. as per above, patient was seen by us and started on Keflex for possible cellulitis and then 1 of going to [facility] last week and was put on Bactrim for expansion of cellulitis. Now calls after being on Bactrim 8 days with increasing pain and swelling. Per service superintendent on the scene continues to have swelling [...] Assessment and Plan as documented by the Day Spa Manager. Patient given the opportunity to ask questions. [...] on the right track and recovering. Per service superintendent on the scene, Nonproductive cough is present [...] in the field was performed by my service superintendent colleague, as noted above, I provided real-time [...] Assessment and Plan as documented by the Day Spa Manager. Patient given the opportunity to ask questions. Our service contacted for an assessment of: Follow-up As per above, patient recently diagnosed with COVID unable to take Paxlovid. We were asked to re-evaluate patient's symptoms. Upon today's visit patient is improving and is using ciey-bpp-ecpyhfa medications. Vital signs are stable and patient is afebrile Impression: COVID-19 Plan: On a positive trajectory. Continue with pqeo-lpu-odkemut medicines and supportive care. Allergies: Reviewed PCP [...] recorded. Lab rapid flu (A+B) 2024 025 [facility], [address] [place] [address], [phone], 17:39:13 rapid SARS CoV 2 Ag, QL [place], respiratory specimen 2024 025 [facility], [address] [place] [address], [phone], 17:39:13 Referral None recorded. Procedures None recorded. Surgeries None recorded. Imaging None recorded. Medication Orders albuterol sulfate HFA 90 mcg/actuati on aerosol inhaler 2024 025 [facility] [place], [address] [place], [address], 5 09:43:56 Flonase Allergy Relief 50 mcg/actuati on nasal spray,suspe nsion 2024 025 [facility] [place], [address] [place], [address], 5 09:43:53 Robitussin Cough-Chest Congestion DM 5 mg-100 mg/5 mL oral liquid 2023 024 [facility] [place], [address] [facility], [place], [address], 4 11:01:21 Patient TargetsNo targets recorded. Patient [...] Not Available Not Available No t Available doxycycline hyclate 100 mg capsule TAKE [...] Not Available Not Available No t Available alendronate 70 mg tablet TAKE 1 TABLET BY MOUTH ONCE A WEEK WITH 6-8OZ OF WATER AT LEAST 30 MIN BEFORE FIRST FOOD OR ANY MED DO NOT LIE DOWN FOR 30 MIN active Not Available Not Available No t Available glipizide ER 5 mg tablet, extended release 24 hr TAKE 1 TABLET BY MOUTH EVERY MORNING. TAKE 10 minutes BEFORE breakfast active Not Available Not Available No t [...] Not Available Not Available No t Available triamcinolon e acetonide 0.1 % topical cream apply 1 application topically 2 times a day for 14 days active Not Available Not Available Not Available carvedilol 3.125 mg tablet TAKE 1 [...] Not Available Not Available No t Available lidocaine 5 % topical patch apply 1 PATCH topically TO SKIN ONCE DAILY FOR 12 hours ON AND REMOVE FOR 12 hours off active Not Available Not Available No t Available gabapentin 300 mg capsule TAKE 2 CAPSULES (600mg) BY MOUTH every 12 hours active Not Available Not Available No t Available ammonium lactate 12 % topical cream [...] mcg/actuatio n aerosol inhaler Inhale 2 puffs by mouth every 4 hours active Not Available Not Available No t Available fluticasone propionate 50 mcg/actuatio n nasal spray,suspen camelia instill 1 SPRAY IN EACH nostril DAILY active Not Available Not Available No t Available doxycycline hyclate 100 mg tablet TAKE 1 TABLET BY MOUTH TWICE DAILY active Not Available Not Available No t Available amoxicillin 875 mg-potassium clavulanate 125 mg tablet TAKE 1 TABLET BY MOUTH every 12 hours FOR 10 DAYS active Not Available Not Available Not Available valsartan 40 mg tablet active Not Available Not Available No t Available BD Ultra-Fine Mini Pen Needle 31 gauge x 3/16 USE 1 needle 4 TIMES DAILY directed active Not Available Not Available Not Available valsartan 320 mg-hydrochlo rothiazide 12.5 mg tablet TAKE 1 TABLET BY MOUTH EVERY DAY active Not Available Not Available No t Available Athlete's Foot (clotrimazol e) 1 % topical cream apply 1 application topically TWICE DAILY FOR 2 WEEKS active Not Available Not Available Not Available budesonide-f ormoterol HFA 160 mcg-4.5 mcg/actuatio n aerosol inhaler INHALE 2 PUFFS BY MOUTH TWICE DAILY. RINSE MOUTH AFTER USE active Not Available Not Available No t Available Calcium 600 with Vitamin D3 600 mg-10 mcg (400 unit) chewable tablet chew 1 tablet BY MOUTH TWICE DAILY active Not Available Not Available No t Available Humalog KwikPen (U-100) Insulin 100 unit/mL subcutaneous inject 4 units under the skin 2 times a day; with breakfast and supper active Not Available Not Available N ot Available diclofenac 1 % topical gel apply 4 grams topically 4 TIMES daily TO single knee, ankle, foot; FOR foot includes sole/toes/t op OF foot] active Not Available Not Available Not Available Brilinta 90 mg tablet TAKE 1 TABLET BY MOUTH TWICE DAILY active Not Available Not Available No t Available Easy Touch Alcohol Prep Pads USE 1 pad topically 3 times daily for 90 days active Not Available Not Available Not Available Jardiance 25 mg tablet TAKE 1 TABLET BY MOUTH ONCE DAILY active Not Available Not Available No t Available Tresiba FlexTouch U-100 insulin 100 unit/mL (3 mL) subcutaneous pen inject 74 units under the skin once daily active Not Available Not Available N ot Available TRUEplus Glucose 3.75 gram chewable tablet CHEW 4 TABS BY MOTH every 15 minutes Needed FOR hypoglycemi a; UNTIL symptoms OF low blood sugar are controlled] active Not Available Not Available Not Available Robitussin Cough-Chest Congestion DM 5 mg-100 [...] t Available FreeStyle Alirio 2 Sensor kit use daily As directed to monitor glucose CHANGE sensor every 14 DAYS active Not Available Not Available No t Available FreeStyle Alirio 2 [place] USE DIRECTED active Not Available Not Available No t Available Ozempic 1 mg/dose (4 mg/3 mL) subcutaneous pen injector inject 1 mg (0.75 mL) subcutaneou sly every week for 28 days active Not Available Not Available No t Available Ozempic 2 mg/dose (8 mg/3 mL) subcutaneous pen injector inject 2 mg (0.75 mL) subcutaneou sly every week active Not Available Not Available No t [...] % 98 % 80 /min 152.4 cm 55921.4 g 98.4 [degF] 136 mm[Hg] 84 mm[Hg] Not Available [facility] 3 16:41:08 Date Recorded Oxygen saturation Oxygen saturation in Arterial blood by Pulse oximetry Respiratory rate Body temperature Heart rate Body weight Systolic blood pressure Diastolic blood pressure Provider Name and Address Organization Details Last Updated DateTime 4 98 % 98 % 18 /min 98.5 [degF] 80 /min 43837.7 84 g 144 mm[Hg] 72 mm[Hg] Not Available [facility] 4 17:55:01 Date Recorded Body temperature Body weight Heart rate Oxygen saturation Oxygen saturation in Arterial blood by Pulse oximetry Respiratory rate Systolic blood pressure Diastolic blood pressure Provider Name and Address Organization Details Last Updated DateTime 4 98.2 [degF] 21232.5 6 g 86 /min 98 % 98 % 16 /min 166 mm[Hg] 72 mm[Hg] Not Available [facility] 4 16:51:52 Date Recorded Body temperature Oxygen saturation Oxygen saturation in Arterial blood by Pulse oximetry Body height Heart rate Body weight Respiratory rate Systolic blood pressure Diastolic blood pressure Provider Name and Address Organization Details Last Updated DateTime 5 99.2 [degF] 100 % 100 % 149.86 cm 84 /min 00586.7 04 g 16 /min 142 mm[Hg] 80 mm[Hg] Not Available [facility] 5 17:33:21 Date Recorded Body temperature Respiratory rate Body weight Body height Heart rate Oxygen saturation Oxygen saturation in Arterial blood by Pulse oximetry Systolic blood pressure Diastolic blood pressure Provider Name and Address Organization Details Last Updated DateTime 5 97.4 [degF] 14 /min 76660.8 g 152.4 cm 78 /min 97 % 97 % 110 mm[Hg] 88 mm[Hg] Not Available [facility] 5 09:51:04 Social History None recorded. Functional Status None recorded. Mental Status None recorded. Family History Nothing Reported. Medical History No medical history recorded. Gynecological HistoryNo gynecological history recorded. Obstetrics History GPAL:G 0 P 0 0 0 0 Past Encounters Encounter ID Performer Location Encounter Start Date Encounter Closed Date Diagnosis/Indication Diagnosis SNOMED-CT Code Diagnosis ICD10 Code Diagnosis Note [id number] Elaine rDaper MD [facility] [address] [place] [phone] 09/23/2022 16:16:58 09/27/2022 14:43:34 Cellulitis of left foot 8591123296 [id number] L03.116 [id number] Akila Samuel [facility] [address] [place] [id number] 04/04/2023 16:41:06 04/05/2023 13:23:43 Cellulitis of lower leg 638734188 L03.119 [id number] Akila Samuel MD [facility] - [address] [phone] 08/08/2023 17:54:55 08/08/2023 22:15:05 Cough 27931809 R05.9 [id number] Tobin Floyd [facility] [address] [place] [phone] 12/20/2023 16:51:49 12/20/2023 22:32:10 Cramp in lower limb 962811816 R25.2 As noted, we were called to see this patient regarding concerns of pain. Evaluation in the field was performed by my service superintendent colleague, as noted above, I provided real-time [...] particular ly numbness, weakness, or severe pain. [id number] Francisco David MD [facility] - [facility] [address] [place] [phone] 06/03/2024 17:33:17 06/03/2024 21:44:20 COVID-19 [id number] U07.1 [id number] Akila Samuel MD [facility] - [address] [id number] 06/05/2024 09:35:28 06/05/2024 11:52:44 COVID-19 [id number] U07.1 Health Concerns Section Related Observation LastModified by Organization Detai ls LastModified Time None Recorded Concern Status LastModified by Organization Details LastModified Time None Recorded Advance Directives Directive None Recorded Payers Encounter Date Sequence Insurance Name Policy Number Policy Rowe Covered Member ID Rowe Member ID Guarantor Name 04/04/2023 1 [facility] - DOS ON OR AFTER 2022 - DUAL ELIGIBLE - PENITENTIARY OPTIONS AND ONE CARE (MEDICARE REPLACEMENT/ADV ANTAGE - HMO) Jimena Watkins [id number] Jimena Watkins 08/08/2023 1 [facility] - DOS ON OR AFTER 2022 - DUAL ELIGIBLE - PENITENTIARY OPTIONS AND ONE CARE (MEDICARE REPLACEMENT/ADV ANTAGE - HMO) Jimena Watkins [id number] Jimena Watkins 12/20/2023 1 [facility] - DOS ON OR AFTER 2022 - DUAL ELIGIBLE - PENITENTIARY OPTIONS AND ONE CARE (MEDICARE REPLACEMENT/ADV ANTAGE - HMO) Jimnea Watkins [id number] Jimena Watkins 06/03/2024 1 [facility] - DOS ON OR AFTER 2022 - DUAL ELIGIBLE - PENITENTIARY OPTIONS AND ONE CARE (MEDICARE REPLACEMENT/ADV ANTAGE - HMO) Jimena Watkins [id number] Jimena Watkins 06/05/2024 1 [facility] - DOS ON OR AFTER 2022 - DUAL ELIGIBLE - PENITENTIARY OPTIONS AND ONE CARE (MEDICARE REPLACEMENT/ADV ANTAGE - HMO) Jimena Watkins [id number] Jimena Watkins Notes Date Note Type Note Provider Name and Address Organization Details Recorded Time 04/04/2023 text/html HPI: Members community CCA SOLAR INSTALLATION TECHNICIAN calling in a referral, member identified via /name. Member seen at [facility] last Monday, diagnosed with left cellulitis and started on Bactrim. Member states no improvement, and feels more painful. Per SOLAR INSTALLATION TECHNICIAN foot is still red, warm, swollen and very tender, looks like it could be pitting but unsure as it is too painful for member to assess, no fever/chills, temp 97.2. Off note, member had a cyst drained under her right breast and was started in Cefadroxil. Member agreeable to an [facility] visit. .................... .................... .................... .................... .................... .................... .................... . CRC Nursing Assessment: Comments: CRC RN did not require any additional information to process this visit. Akila Samuel MD [address] [place] [address],[address], [place], [address], [email or web address] 04/04/2023 16:44:11 08/08/2023 text/html HPI: Jimena was treated at [facility] 08/02-08/03 for the flu A [...] .................... .................... .................... .................... .................... .................... . Day Spa Manager Note From Shira Juvenal: 67 yo F c/o cough which will not dissipate. She reports she is unable to sleep due to the cough. Pt does sleep with her elevated with three pillows. Pt was admitted to [facility] on 08/03 and stayed several night for [...] to complications of Diabetes [facility] [place] [facility]. consult. Will Rx Robitussin. Discussed red flags with pt and when to seek/call 911/EMS/ER. Pt understood and had no questions. .................... .................... .................... .................... .................... .................... .................... . Disposition: Fulfilled Akila Samuel MD [address] [facility],[address], [place], [address], [email or web address] 08/08/2023 17:57:46 12/20/2023 text/html HPI: Marcella, palliative [...] to the ED, but [facility]. .................... .................... .................... .................... .................... .................... .................... . CRC Nurse Triage Notes (Aixa Delgadillo): Chief Complaints: Pain PMH: COPD/Asthma, Diabetes, Hypertension, Heart Disease Other Allergies: lyrica, metformin, and 1 other Comments: CRC RN did not require any additional information to process this visit. .................... .................... .................... .................... .................... .................... .................... . Day Spa Manager Note From Emmanuel Brandt: Pt co cramping in feet off and on for 1 week. Pt sts no other complaints and pt sts she didn? t call for us her VN did. Pt allowed evaluation. Pt denies cp sob NVD headache dizziness or fever. Baseline vitals assessed. ..pt sts coloration is normal for her. [facility] contacted and advised to pt to follow up with pcp. Pt education on signs indicating the ER. .................... .................... .................... .................... .................... .................... .................... . Disposition: Fulfilled Tobin Floyd MD [address] [facility],[address], [place], [address], [employer] 12/20/2023 17:53:19 06/03/2024 text/html HPI: Pt states she has been up all night coughing, increased mucous and congestion, unsure if she has fever, increased fatigue, generalized malaise .................... .................... .................... .................... .................... .................... .................... . CRC Nurse Triage Notes (Liudmila Mancilla - RN): Chief Complaints: Common cold symptoms, Cough, Fatigue PMH: COPD/Asthma, Hypertension, Coronary Artery Disease PMH Reviewed at 06/03/2024:16 Allergies Reviewed at 06/03/2024:16 Comments: HPI reviewed Day Spa Manager Organization Information for Nadeem Mancia Legal Name: [facility] Address: [address] [place] [address], [place] [address], Paraprofessional Education Assistant: Ashwin Gastelum MD [place] No.: [id number] Day Spa Manager POC Test Results from Nadeem Mancia Rapid COVID antigen (17:31:17) COVID: + Rapid influenza antigen (17:31:18) Flu: - .................... .................... .................... .................... .................... .................... .................... . Day Spa Manager Note From JasondaniellaNadeem: This 68-year-old female with a history including [...] .................... .................... .................... .................... .................... .................... . [facility] Consulted: Francisco David .................... .................... .................... .................... .................... .................... .................... . Disposition: Venkat Francisco David MD [address] [facility],[address], [place], [address], [email or web address] 06/03/2024 18:08:20 06/05/2024 text/html CRC Nurse Triage Notes (Aixa Delgadillo - RN): Chief Complaints: Breathing problems, Common cold symptoms, Cough, Asthma PMH: COPD/Asthma, Hypertension, Coronary Artery Disease PMH Reviewed at 06/05/2024:39 Allergies Reviewed at 06/05/2024:39 Comments: 06/03- [facility] Remarks Patient is positive for COVID. Unable [...] .................... .................... .................... .................... .................... .................... . Day Spa Manager Note From Ja Bean: Patient alert and oriented seated in wheelchair in apartment. Patient complains of nasal congestion and frequent nonproductive cough. Patient reports she was diagnosed with [facility]. Patient reports she has been eating and [...] .................... .................... .................... .................... .................... .................... . [facility] Consulted: Akila Samuel .................... .................... .................... .................... .................... .................... .................... . Disposition: Venkat Samuel MD [address] [facility],[address], [place], [address], [employer] [employer] 06/05/2024 11:32:10 OBGyn Episode No OBEpisode recorded.
--- OUTSIDE RECORDS SUMMARY | 2024-06-28 11:54 | XMS_ITS | Continuity of Care Document ---
Author Organization [employer] [facility] [place] [facility] Address [address] [place] [address] Care Team Providers Care College Hire Name Role Phone HIM CCA OTHER ELIZABETH CONTRERAS Primary Care Provider Assessment Encounter Date Assessment Date Assessment LastModified by Organization Details LastModified Time 06/03/2024 06/03/2024 As noted, we maria de jesus e called to see this patient regarding concerns of URI symptoms. Evaluation in the field was performed by my defense analyst colleague, as noted above, I provided real-time [...] Lab rapid flu (A+B) 2024 025 [email or web address], [address] [place] [address], [address], 5 17:39:13 rapid SARS CoV 2 Ag, QL IA, respiratory specimen 2024 025 [email or web address], [address] [place], [address], 5 17:39:13 Referral None recorded. Procedures None recorded. Surgeries None recorded. Imaging None recorded. Medication Orders albuterol sulfate HFA 90 mcg/actuati on aerosol inhaler 2024 [facility] - [place], [place], [address] [place], [address], 5 09:43:56 Flonase Allergy Relief 50 mcg/actuati on nasal spray,suspe nsion 2024 025 [facility] - [place], [address] [place], [address], 5 09:43:53 Patient TargetsNo targets recorded. Patient [...] Available No t Available FreeStyle Alirio 2 [place] USE DIRECTED active Not Available Not Available [...] % 100 % 149.86 cm 84 /min 42092.7 04 g 16 /min 142 mm[Hg] 80 mm[Hg] Not Available [facility] 5 17:33:21 Social History None recorded. Functional Status None recorded. Mental Status None recorded. Family History Nothing Reported. Medical History No medical history recorded. Gynecological HistoryNo gynecological history recorded. Obstetrics History GPAL:G 0 P 0 0 0 0 Past Encounters Encounter ID Performer Location Encounter Start Date Encounter Closed Date Diagnosis/Indication Diagnosis SNOMED-CT Code Diagnosis ICD10 Code Diagnosis Note [id number] Francisco David MD [facility] [address] [place] [phone] 06/03/2024 17:33:17 06/03/2024 21:44:20 COVID-19 973995227 U07.1 Health Concerns Section Related Observation LastModified by Organization Detai ls LastModified Time None Recorded Concern Status LastModified by Organization Details LastModified Time None Recorded Payers Encounter Date Sequence Insurance Name Policy Number Policy Rowe Covered Member ID Rowe Member ID Guarantor Name 06/03/2024 1 [facility] - DOS ON OR AFTER 2022 - DUAL ELIGIBLE - HALF-WAY OPTIONS AND ONE CARE (MEDICARE REPLACEMENT/ADV ANTAGE - HMO) Jimena Watkins [id number] Jimena Watkins Notes Date Note Type Note [...] Allergies Reviewed at 06/03/2024:16 Comments: HPI reviewed Buncher Machine Organization Information for Nadeem Mancia ELSI Legal Name: [facility] Address: [address] [place] [address], [place] [address], Coil Machine Operator: Ashwin Gastelum MD [place] No.: [id number] [employer] POC Test Results from Jasondaniella Nadeem [place] [facility]SI Rapid COVID antigen (17:31:17) COVID: + Rapid influenza antigen (17:31:18) Flu: - .................... .................... .................... .................... .................... .................... .................... . Buncher Machine Note From Nadeem Mancia: This 68-year-old female [...] .................... .................... .................... .................... .................... .................... . [facility] Consulted: Francisco David .................... .................... .................... .................... .................... .................... .................... . Disposition: Fulfilled Francisco David MD [address] [facility],[address], [place], [address], [employer] 06/03/2024 18:08:20 OBGyn Episode No OBEpisode recorded.
--- OUTSIDE RECORDS SUMMARY | 2024-06-28 11:54 | XMS_ITS | Continuity of Care Document ---
Author Organization [employer] Address [address] [place] [address] Care Team Providers Care Mental Health Aide Name Role Phone HIM CCA OTHER BEN ELIZABETH Primary Care Provider [phone] Assessment Encounter Date Assessment Date Assessment LastModified by Organization Details LastModified Time 06/05/2024 06/05/2024 I provided real -time medical direction via phone for this encounter and was available for additional phone-based assistance as needed. I have reviewed and agree with the Assessment and Plan as documented by the Professor Of Geology. Patient given the opportunity to ask questions. Our service contacted for an assessment of: Follow-up As per above, patient recently diagnosed with COVID unable to take Paxlovid. We were asked to re-evaluate patient's symptoms. Upon today's visit patient is improving and is using ztla-etf-tsdybph medications. Vital signs are stable and patient is afebrile Impression: COVID-19 Plan: On a positive trajectory. Continue with lpai-ezm-qxnkpih medicines and supportive care. Allergies: Reviewed PCP [...] Pen Needle 31 gauge x 07/07 USE 1 needle 4 TIMES DAILY directed [...] Available No t Available FreeStyle Alirio 2 [place] USE DIRECTED active Not Available Not Available [...] Updated DateTime 5 97.4 [degF] 14 /min 06514.8 g 152.4 cm 78 /min 97 % [...] SNOMED-CT Code Diagnosis ICD10 Code Diagnosis Note [id number] Francisco David MD Main - [address] [address] 06/03/2024 17:33:17 06/03/2024 21:44:20 COVID-19 526808946 U07.1 [id number] Akila Samuel MD Main - [address] [address] 06/05/2024 09:35:28 06/05/2024 11:52:44 COVID-19 517209943 U07.1 Health Concerns Section Related Observation LastModified by Organization Detai ls LastModified Time None Recorded Concern Status LastModified by Organization Details LastModified Time None Recorded Payers Encounter Date Sequence Insurance Name Policy Number Policy Rowe Covered Member ID Rowe Member ID Guarantor Name 06/05/2024 1 [facility] - DOS ON OR AFTER 2022 - DUAL ELIGIBLE - RETIREMENT OPTIONS AND ONE CARE (MEDICARE REPLACEMENT/ADV ANTAGE - HMO) Jimena Watkins [id number] Jimena Watkins Notes Date Note Type Note Provider Name and Address Organization Details Recorded Time 06/05/2024 text/html CRC Nurse Triage Notes (Aixa Delgadillo - RN): Chief Complaints: Breathing problems, Common cold symptoms, Cough, Asthma PMH: COPD/Asthma, Hypertension, Coronary Artery Disease PMH Reviewed at 06/05/2024:39 Allergies Reviewed at 06/05/2024:39 Comments[place] [facility] [place] Patient is positive for COVID. Unable [...] ................... ................... ................... ................... ................... ................... ........ Professor Of Geology Note From Ja Bean: Patient alert and oriented seated in wheelchair in apartment. Patient complains of nasal congestion and frequent nonproductive cough. Patient reports she was diagnosed with Covid three days ago by [employer]. Patient reports she has been eating and [...] ................... ................... ................... ................... ................... ................... ........ [facility] [place] Consulted: Akila Samuel ................... ................... ................... ................... ................... ................... ................... ........ Disposition: Fulfilled Akila Samuel MD [address] [place] [address],[address] [facility], [place], [address], RAUDEL - [employer] Group[employer]STOR 06/05/2024 11:32:10 OBGyn Episode No OBEpisode recorded.
--- OUTSIDE RECORDS SUMMARY | 2024-06-28 11:54 | XMS_ITS ---
Author Organization [facility] Address [address] [place] [address] Care Team Providers Care Driver Guard Name Role Phone Ross Gold MD Primary Care Provider Beka Mcgowan Unavailable [phone] REASON FOR VISIT NS to 01/12/23 ACCOUNTANT CLERK appt Encounters Encounter Location Date [facility] [address] [place] [address] [address] [place] [address] 01/12/2023 Beka Cardoso Plan Of Treatment No Information Progress Notes * Jimena WATKINSDOB:1955 (67 yo F)Acc No.[id number]:01/12/2023 Patient:?Jimena Watkins :1955???Age:67 Y???Sex:Female Address:[address] [facility] [address] , [place] [address] * true * Date:? Generated for Keke phillips/Addie/eTransmitting on:?06/28/2024 11:53 AM EST
--- OUTSIDE RECORDS SUMMARY | 2024-06-28 11:54 | XMS_ITS ---
Author Organization [facility] Address [address] [place] [address] Care Team Providers Care Brazer Crawler Torch Name Role Phone Asif MEREDITH, Ross Primary Care Provider Beka Mcgowan Unavailable [phone] Allergies Allergen (clinical drug ingredient) Drug/Non Drug [...] 01/12/2023 Encounters Encounter Location Date Provider Diagnosis [facility] [address] [place] [phone] 01/12/2023 Beka Cardoso Plan Of Treatment No Information Progress Notes * Jimena WATKINSDOB:1955 (68 yo F)Acc No.[id number]:01/12/2023 Progress Notes Patient:?Jimena WATKINS Provider:?Beka Cardoso DPM :1955???Age:67 Y???Sex:Female D ate:01/12/2023 Address:[address] [place], [place] [id number] Pcp:Ross Gold MD Subjective: * Chief Complaints: [...] Cardoso DPM Date:?2022 Generated for Keke phillips/Addie/Anu on:?06/28/2024 11:53 AM EST
== END 2024-06-28 11:04 | disposition home or self-care (01) ==
PROVIDERS: PCP Family Medicine; Visit Provider Physician Assistant
DX: E11.65 Type 2 diabetes mellitus with hyperglycemia (principal); Z79.4 Long term (current) use of insulin; I10 Essential (primary) hypertension; R93.0 Abnormal findings on diagnostic imaging of skull and head, not elsewhere classified

== ENCOUNTER → 2024-06-28 10:33 | Outpatient (BNVA) | payer OTHER, SELFPAY | PROVIDERS: PCP Family Medicine; Visit Provider Physician Assistant | DX: E11.65 Type 2 diabetes mellitus with hyperglycemia (principal); I10 Essential (primary) hypertension; R93.0 Abnormal findings on diagnostic imaging of skull and head, not elsewhere classified; Z79.4 Long term (current) use of insulin | CPT/HCPCS: 82947; 99212 ==

== ENCOUNTER 2024-07-04 09:54 | Outpatient (AMB) | payer OTHER, SELFPAY ==
[2024-07-04 10:41] VITALS: BMI 36.8
--- NOTE | 2024-07-04 10:41 | A.OFFVIS_ITS ---
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 States her pain started many years ago and has not improved. States pain is on bilateral side however its mainly on her right side. Radiates down her legs. She has numbness and tingling due to neuropathy. Pain is worse with prolong standing. Patient has tried topical cream, light exercise and salonpass patches in the past with no improvement. Patient referred by Guanakito Acevedo. Medical Laboratory Technical Officer Name: Hailey ALEMAN/SAI Allergies aspirin [Aspirin] Allergy (Mild, Verified 07/04/24 10:50) RASH morphine [MORPHINE] Allergy (Unknown, Verified 07/04/24 10:50) ABD PAIN, RASH omeprazole [OMEPRAZOLE] Allergy (Unknown, Verified 07/04/24 10:50) SHORTNESS OF BREATH pregabalin [From LYRICA] Allergy (Unknown, Verified 07/04/24 10:50) SHORTNESS OF BREATH celecoxib Adverse Reaction (Mild, Verified 07/04/24 10:50) chest pain, jumping feeling in her heart. HPI Comments Details: Patient was seen by orthopedics Nafisa HOFFMAN for knee pain. Thought to be coming more from sciatica. Referred to physiatry. Right knee x-ray did show moderate degenerative changes. Points to right lower back as source of pain, around the buttocks. Separate feet numbness from DM neuropathy. Not interested in injections. She was referred to PT, went once but had COVID, 2 weeks ago, needs to call to reschedule. Noted left footdrop. Patient seemed to not be aware of it but admits that she tends to fall a lot or drag the left foot. History of diabetes and neuropathy, on Xarelto, history of PVD. [facility] Medical History Heart attack Abscess of chest wall Uncontrolled type 2 diabetes mellitus with hyperglycemia, with long-term current use of insulin Ganglion cyst Glaucoma Neuropathy Arthritis Intracranial mass Diabetes 1.5, managed as type 2 Hypertension Asthma Surgical History History of removal of cyst Stented coronary artery H/O tubal ligation Hx of tonsillectomy H/O right breast biopsy Social History Housing: Apartment Patient Tobacco Use Status: Former Tobacco user e-Cigarette/Vaping Use: Never Used service: No Current occupational status: disabled Current occupational exposures/hazards: No Cognitive needs: No Hearing needs: No Vision needs: No Review of Systems Const All systems reviewed & are unremarkable except as noted in HPI and below Physical Exam Vital Signs: BMI result Body Mass Index 36.8 Constitutional: Patient appears to be in no acute distress, well nourished and well developed. Patient was appropriately conversant and oriented. Good historian. MSK: [No] specific abnormalities found on inspection of the spine and all extremities. Tender right SI joint. Tender both greater trochanters. Neurological: Left ankle dorsiflexion less than full range, 3-/5. Right dorsiflexion 5/5. Bilateral knee extension 5/5. Edgar?s [negative bilaterally]. Babinski was [down going bilaterally]. Clonus was [negative]. Uses walker. Results Reviewed Results Reviewed: I reviewed records from the following: Orthopedics Assessment & Plan Assessment & Plan (1) Low back pain: Code(s): M54.50 - Low back pain, unspecified Category: Medical Qualifiers: Chronicity: chronic Back pain laterality: left Sciatica presence: with sciatica Sciatica laterality: sciatica of left side Qualified Code(s): M54.42 - Lumbago with sciatica, left side; G89.29 - Other chronic pain (2) Hip pain: Code(s): M25.559 - Pain in unspecified hip Category: Medical Qualifiers: Laterality: bilateral Qualified Code(s): M25.551 - Pain in right hip; M25.552 - Pain in left hip (3) Left foot drop: Code(s): M21.372 - Foot drop, left foot Category: Medical Plan lower back pain, hip pain, and noted left footdrop. Left footdrop could be from a few different things including diabetic neuropathy, lumbar radiculopathy or even PVD. Patient is interested in trying physical therapy for the lower back pain. Referral placed. She does not want to trial injections. X-rays for lumbar spine and bilateral hips today. Assessment and plan discussed with patient, and patient was agreeable. All questions were answered thoroughly. Follow up 3 months or after PT. Gila Ellis MD, PIERO Board Certified, [place] Board of Physical Medicine and Rehabilitation (ABPMR) Board Certified, [place] Board of Electrodiagnostic Medicine (ABEM) Orders: Orders XR lumbar spine 2-3V Today M54.9 - Dorsalgia, unspecified PT Evaluation and Treatment Today M25.559 - Pain in unspecified hip, M54.50 - Low back pain, unspecified XR hip LT min 2V Today M16.12 - Unilateral primary osteoarthritis, left hip XR hip RT min 2V Today M25.551 - Pain in right hip XR elbow RT min 3V Today M25.559 - Pain in unspecified hip, M54.50 - Low back pain, unspecified Coding Level of Care Code New Pt Level 4 (58175) Diagnoses Chronic left-sided low back pain with left-sided sciatica M54.42; G89.29 Chronicity: chronic Back pain laterality: left Sciatica presence: with sciatica Sciatica laterality: sciatica of left side Bilateral hip pain M25.551; M25.552 Laterality: bilateral Left foot drop M21.372
--- OUTSIDE RECORDS SUMMARY | 2024-07-04 12:08 | XMS_ITS | Patient Health Record ---
Author Organization [facility] Address [address] [place] [address] Care Team Providers Care Tool Profiling Machine Set Up Operator Name Role Phone Ross Gold MD Primary Care Provider Beka Mcgowan Unavailable [phone] Allergies Allergen (clinical drug ingredient) Drug/Non Drug [...] HCl 10 MG 1 tablet at bedt hsaw Orally Once a day for 30 day(s) [...] Insured Coverage Start Date Coverage End Date [facility] [employer] Claims [address] [place] [phone] [id number] Jimena Watkins Self - patient is the insured Medical (General) History Medical History History ICD Code Arthritis asthma diabetic ganglion cyst Glaucoma Hypertension Neuropathy intracranial mass Back,Hip,and Knee pain Diabetic High blood pressure Sciatica Stroke thyroid Joint Pain Pain Ankle Surgical History Surgery Date(Month/Year) breast biopsy tubal ligation tonsillectomy
--- OUTSIDE RECORDS SUMMARY | 2024-07-04 12:08 | XMS_ITS ---
Author Organization [facility] Address [address] [place] [address] Care Team Providers Care Primer Expeditor And Drier Name Role Phone Asif MEREDITH, Ross Primary Care Provider Beka Mcgowan Unavailable [phone] Allergies Allergen (clinical drug ingredient) Drug/Non Drug [...] 01/12/2023 Encounters Encounter Location Date [facility] [address] [place] [phone] 01/12/2023 Beka Cardoso Plan Of Treatment No Information Progress Notes * Jimena WATKINSDOB:1955 (68 yo F)Acc No.[id number]:01/12/2023 Progress Notes Patient:?Jimena WATKINS Provider:?Beka Cardoso DPM :1955???Age:67 Y???Sex:Female D ate:01/12/2023 Address:[address] [place], [place] [phone] Pcp:Ross Gold MD Subjective: * Chief Complaints: [...] Cardoso DPM Date:?2022 Generated for Keke phillips/Addie/Anu on:?07/04/2024 12:08 PM EDT
--- OUTSIDE RECORDS SUMMARY | 2024-07-04 12:09 | XMS_ITS | Continuity of Care Document ---
Author Organization [employer] Address [address] [place] [address] Care Team Providers Care Shook Splicer Name Role Phone HIM CCA OTHER BEN ELIZABETH Primary Care Provider [phone] Assessment Encounter Date Assessment Date Assessment LastModified by Organization Details LastModified Time 06/05/2024 06/05/2024 I provided real -time medical direction via phone for this encounter and was available for additional phone-based assistance as needed. I have reviewed and agree with the Assessment and Plan as documented by the Batt Machine Operator. Patient given the opportunity to ask questions. Our service contacted for an assessment of: Follow-up As per above, patient recently diagnosed with COVID unable to take Paxlovid. We were asked to re-evaluate patient's symptoms. Upon today's visit patient is improving and is using ptli-bxr-enrkbea medications. Vital signs are stable and patient is afebrile Impression: COVID-19 Plan: On a positive trajectory. Continue with gibu-xnq-lwcpodz medicines and supportive care. Allergies: Reviewed PCP [...] Available No t Available FreeStyle Alirio 2 [place] USE DIRECTED active Not Available Not Available [...] Updated DateTime 5 97.4 [degF] 14 /min 30564.8 g 152.4 cm 78 /min 97 % [...] SNOMED-CT Code Diagnosis ICD10 Code Diagnosis Note [id number] Francisco David MD Main - [address] [address] 06/03/2024 17:33:17 06/03/2024 21:44:20 COVID-19 [id number] U07.1 [id number] Akila Samuel MD Main - [address] [address] 06/05/2024 09:35:28 06/05/2024 11:52:44 COVID-19 117383072 U07.1 Health Concerns Section Related Observation LastModified by Organization Detai ls LastModified Time None Recorded Concern Status LastModified by Organization Details LastModified Time None Recorded Payers Encounter Date Sequence Insurance Name Policy Number Policy Rowe Covered Member ID Rowe Member ID Guarantor Name 06/05/2024 1 [facility] - DOS ON OR AFTER 2022 - DUAL ELIGIBLE - [facility] OPTIONS AND ONE CARE (MEDICARE REPLACEMENT/ADV ANTAGE - HMO) Jimena Watkins [id number] Jimena Watkins Notes Date Note Type Note Provider Name and Address Organization Details Recorded Time 06/05/2024 text/html CRC Nurse Triage Notes (Aixa Delgadillo - RN): Chief Complaints: Breathing problems, Common cold symptoms, Cough, Asthma PMH: COPD/Asthma, Hypertension, Coronary Artery Disease PMH Reviewed at 06/05/2024:39 Allergies Reviewed at 06/05/2024:39 Comments: 06/03- [facility] [place] Remarks Patient is positive for COVID. Unable [...] ................... ................... ................... ................... ................... ................... ........ Batt Machine Operator Note From Ja Bean: Patient alert and [...] ................... ................... ................... ................... ................... ................... ........ [facility] Consulted: Akila Samuel ................... ................... ................... ................... ................... ................... ................... ........ Disposition: Fulfilled Akila Samuel MD [address] [place] [address],[address] [facility], [place], [address], RAUDEL - FIGMDPASTOR 06/05/2024 11:32:10 OBGyn Episode No OBEpisode recorded.
--- OUTSIDE RECORDS SUMMARY | 2024-07-04 12:09 | XMS_ITS | Data Portability ---
Author Organization [facility] [place] [facility] [place] Address [address] [place] [address] Care Team Providers Care Combination Worker Name Role Phone HIM CCA OTHER BEN ELIZABETH Primary Care Provider Assessment Encounter Date Assessment Date Assessment LastModified by Organization Details LastModified Time 04/04/2023 04/04/2023 I provided real -time medical direction via phone for this encounter, and was available for additional phone based assistance as needed. I have reviewed and agree with the Assessment and Plan as documented by the Corporate Development Officer. Patient given the opportunity to ask questions. as per above, patient was seen by us and started on Keflex for possible cellulitis and then 1 of going to [facility] last week and was put on Bactrim for expansion of cellulitis. Now calls after being on Bactrim 8 days with increasing pain and swelling. Per law office receptionist on the scene continues to have swelling [...] Assessment and Plan as documented by the Corporate Development Officer. Patient given the opportunity to ask questions. [...] on the right track and recovering. Per law office receptionist on the scene, Nonproductive cough is present [...] in the field was performed by my law office receptionist colleague, as noted above, I provided real-time [...] Assessment and Plan as documented by the Corporate Development Officer. Patient given the opportunity to ask questions. Our service contacted for an assessment of: Follow-up As per above, patient recently diagnosed with COVID unable to take Paxlovid. We were asked to re-evaluate patient's symptoms. Upon today's visit patient is improving and is using mafe-ohq-jgzpsve medications. Vital signs are stable and patient is afebrile Impression: COVID-19 Plan: On a positive trajectory. Continue with dtdf-cqo-xwwxbvx medicines and supportive care. Allergies: Reviewed PCP [...] recorded. Lab rapid flu (A+B) 2024 025 [facility], [address] [place] [address], [phone], 17:39:13 rapid SARS CoV 2 Ag, QL IA, respiratory specimen 2024 025 [facility], [address] [place] [address], [id number], 17:39:13 Referral None recorded. Procedures None recorded. Surgeries None recorded. Imaging None recorded. Medication Orders albuterol sulfate HFA 90 mcg/actuati on aerosol inhaler 2024 025 [facility] [place], [place], [address] [place], [address], 5 09:43:56 Flonase Allergy Relief 50 mcg/actuati on nasal spray,suspe nsion 2024 025 [facility] - [place], [address] [place], [address], 5 09:43:53 Robitussin Cough-Chest Congestion DM 5 mg-100 mg/5 mL oral liquid 2023 024 [facility] [place], [address] [facility], [place], [address], 4 11:01:21 Patient TargetsNo targets recorded. Patient [...] Available No t Available [employer] Alirio 2 Weott USE DIRECTED active Not Available Not Available [...] % 98 % 80 /min 152.4 cm 44955.4 g 98.4 [degF] 136 mm[Hg] 84 mm[Hg] Not Available [facility] 3 16:41:08 Date Recorded Oxygen saturation Oxygen saturation in Arterial blood by Pulse oximetry Respiratory rate Body temperature Heart rate Body weight Systolic blood pressure Diastolic blood pressure Provider Name and Address Organization Details Last Updated DateTime 4 98 % 98 % 18 /min 98.5 [degF] 80 /min 15421.7 84 g 144 mm[Hg] 72 mm[Hg] Not Available [facility] 4 17:55:01 Date Recorded Body temperature Body weight Heart rate Oxygen saturation Oxygen saturation in Arterial blood by Pulse oximetry Respiratory rate Systolic blood pressure Diastolic blood pressure Provider Name and Address Organization Details Last Updated DateTime 4 98.2 [degF] 18086.5 6 g 86 /min 98 % 98 % 16 /min 166 mm[Hg] 72 mm[Hg] Not Available [facility] 4 16:51:52 Date Recorded Body temperature Oxygen saturation Oxygen saturation in Arterial blood by Pulse oximetry Body height Heart rate Body weight Respiratory rate Systolic blood pressure Diastolic blood pressure Provider Name and Address Organization Details Last Updated DateTime 5 99.2 [degF] 100 % 100 % 149.86 cm 84 /min 96361.7 04 g 16 /min 142 mm[Hg] 80 mm[Hg] Not Available [facility] 5 17:33:21 Date Recorded Body temperature Respiratory rate Body weight Body height Heart rate Oxygen saturation Oxygen saturation in Arterial blood by Pulse oximetry Systolic blood pressure Diastolic blood pressure Provider Name and Address Organization Details Last Updated DateTime 5 97.4 [degF] 14 /min 07066.8 g 152.4 cm 78 /min 97 % 97 % 110 mm[Hg] 88 mm[Hg] Not Available [facility] 5 09:51:04 Social History None recorded. Functional Status None recorded. Mental Status None recorded. Family History Nothing Reported. Medical History No medical history recorded. Gynecological HistoryNo gynecological history recorded. Obstetrics History GPAL:G 0 P 0 0 0 0 Past Encounters Encounter ID Performer Location Encounter Start Date Encounter Closed Date Diagnosis/Indication Diagnosis SNOMED-CT Code Diagnosis ICD10 Code Diagnosis Note [id number] Elaine Draper MD [facility] - [facility] [address] [place] [id number] 09/23/2022 16:16:58 09/27/2022 14:43:34 Cellulitis of left foot [id number] 8937349 L03.116 [id number] Akila Samuel MD [facility] [address] [place] [id number] 04/04/2023 16:41:06 04/05/2023 13:23:43 Cellulitis of lower leg 583320418 L03.119 [id number] Akila Samuel MD [facility] - [address] [phone] 08/08/2023 17:54:55 08/08/2023 22:15:05 Cough 58281035 R05.9 [id number] Tobin Floyd MD [facility] [address] [place] [phone] 12/20/2023 16:51:49 12/20/2023 22:32:10 Cramp in lower limb 339832936 R25.2 As noted, we were called to see this patient regarding concerns of pain. Evaluation in the field was performed by my law office receptionist colleague, as noted above, I provided real-time [...] particular ly numbness, weakness, or severe pain. [id number] Francisco David MD [facility] - [facility] [address] [place] [id number] 06/03/2024 17:33:17 06/03/2024 21:44:20 COVID-19 [id number] U07.1 [id number] Akial Samuel MD [facility] - [address] [phone] 06/05/2024 09:35:28 06/05/2024 11:52:44 COVID-19 099301317 U07.1 Health Concerns Section Related Observation LastModified by Organization Detai ls LastModified Time None Recorded Concern Status LastModified by Organization Details LastModified Time None Recorded Advance Directives Directive None Recorded Payers Encounter Date Sequence Insurance Name Policy Number Policy Rowe Covered Member ID Rowe Member ID Guarantor Name 04/04/2023 1 [facility] - DOS ON OR AFTER 2022 - DUAL ELIGIBLE - SHELTER OPTIONS AND ONE CARE (MEDICARE REPLACEMENT/ADV ANTAGE - HMO) Jimena Watkins [id number] Jimena Watkins 08/08/2023 1 [facility] - DOS ON OR AFTER 2022 - DUAL ELIGIBLE - SHELTER OPTIONS AND ONE CARE (MEDICARE REPLACEMENT/ADV ANTAGE - HMO) Jimena Watkins [id number] Jimena Watkins 12/20/2023 1 [facility] - DOS ON OR AFTER 2022 - DUAL ELIGIBLE - SHELTER OPTIONS AND ONE CARE (MEDICARE REPLACEMENT/ADV ANTAGE - HMO) Jimena Watkins [id number] Jimena Watkins 06/03/2024 1 [facility] - DOS ON OR AFTER 2022 - DUAL ELIGIBLE - SHELTER OPTIONS AND ONE CARE (MEDICARE REPLACEMENT/ADV ANTAGE - HMO) Jimena Watkins [id number] Jimena Watkins 06/05/2024 1 [facility] - DOS ON OR AFTER 2022 - DUAL ELIGIBLE - SHELTER OPTIONS AND ONE CARE (MEDICARE REPLACEMENT/ADV ANTAGE - HMO) Jimena Watkins [id number] Jimena Watkins Notes Date Note Type Note Provider Name and Address Organization Details Recorded Time 04/04/2023 text/html HPI: Members community CCA DONOR RELATIONS OFFICER calling in a referral, member identified via /name. Member seen at [facility] last Monday, diagnosed with left cellulitis and started on Bactrim. Member states no improvement, and feels more painful. Per DONOR RELATIONS OFFICER foot is still red, warm, swollen and [...] to process this visit. Akila Samuel MD [address] [place] [address],[address], [place], [address], [employer] 04/04/2023 16:44:11 08/08/2023 text/html HPI: Jimena was treated at [facility] 08/02-08/03 for the flu A and asthma. [...] .................... .................... .................... .................... .................... .................... . Corporate Development Officer Note From Shira Juvenal: 67 yo F c/o cough which will not dissipate. She reports she is unable to sleep due to the cough. Pt does sleep with her elevated with three pillows. Pt was admitted to [facility] on 08/03 and stayed several night [...] to complications of Diabetes [facility] in [place] on [facility] consult. Will Rx Robitussin. Discussed red flags with pt and when to seek/call 911/EMS/ER. Pt understood and had no questions. .................... .................... .................... .................... .................... .................... .................... . Disposition: Fulfilled Akila Samuel MD [address] [facility],[address], [place], [address], [employer] 08/08/2023 17:57:46 12/20/2023 text/html HPI: Marcella, palliative [...] to the ED, but [facility]. .................... .................... .................... .................... .................... .................... .................... . CRC Nurse Triage Notes (Aixa Delgadillo): Chief Complaints: Pain PMH: COPD/Asthma, Diabetes, Hypertension, Heart Disease Other Allergies: lyrica, metformin, and 1 other Comments: CRC RN did not require any additional information to process this visit. .................... .................... .................... .................... .................... .................... .................... . Corporate Development Officer Note From Emmanuel Brandt: Pt co cramping in feet off and on for 1 week. Pt sts no other complaints and pt sts she didn? t call for us her VN did. Pt allowed evaluation. Pt denies cp sob NVD headache dizziness or fever. Baseline vitals assessed. ..pt sts coloration is normal for her. [facility] [place] and advised to pt to follow up with pcp. Pt education on signs indicating the ER. .................... .................... .................... .................... .................... .................... .................... . Disposition: Fulfilled Tobin Floyd MD [address] [facility],[address], [place], [address], [facility] 12/20/2023 17:53:19 06/03/2024 text/html HPI: Pt states [...] Allergies Reviewed at 06/03/2024:16 Comments: HPI reviewed Corporate Development Officer Organization Information for Nadeem Mancia Legal Name: [facility] Address: [address] [place] [address], [place] [address], Odd Bundle Worker: Ashwin Gastelum MD [place] No.: [id number] Corporate Development Officer POC Test Results from Nadeem Mancia Rapid COVID antigen (17:31:17) COVID: + Rapid influenza antigen (17:31:18) Flu: - .................... .................... .................... .................... .................... .................... .................... . Corporate Development Officer Note From JasondaniellaNadeem: This 68-year-old female with [...] .................... .................... .................... .................... .................... .................... . [facility] Consulted: Francisco David .................... .................... .................... .................... .................... .................... .................... . Disposition: Venkat Francisco David MD [address] [facility],[address], [place], [address], [employer] 06/03/2024 18:08:20 06/05/2024 text/html CRC Nurse Triage Notes (Aixa Delgadillo - RN): Chief Complaints: Breathing problems, Common cold symptoms, Cough, Asthma PMH: COPD/Asthma, Hypertension, Coronary Artery Disease PMH Reviewed at 06/05/2024:39 Allergies Reviewed at 06/05/2024:39 Comments: 06/03- [facility] Remarks Patient is positive for COVID. Unable [...] .................... .................... .................... .................... .................... .................... . Corporate Development Officer Note From Ja Bean: Patient alert and oriented seated in wheelchair in apartment. Patient complains of nasal congestion and frequent nonproductive cough. Patient reports she was diagnosed with Covid three days ago by [facility]. Patient reports she has been eating and [...] .................... .................... .................... .................... .................... .................... . [facility] Consulted: Akila Samuel .................... .................... .................... .................... .................... .................... .................... . Disposition: Venkat Samuel MD [address] [facility],[address], [place], [address], [employer] 06/05/2024 11:32:10 OBGyn Episode No OBEpisode recorded.
--- OUTSIDE RECORDS SUMMARY | 2024-07-04 12:09 | XMS_ITS ---
Author Organization [facility] Address [address] [place] [address] Care Team Providers Care Secretary To The Vice President Name Role Phone Ross Gold MD Primary Care Provider Beka Mcgowan Unavailable [phone] REASON FOR VISIT NS to 01/12/23 GYPSUM CALCINER appt Encounters En[facility] Date [facility] [address] [place] [address] [address] [place] [address] 01/12/2023 Beka Cardoso Plan Of Treatment No Information Progress Notes * Jimena WATKINSDOB:1955 (67 yo F)Acc No.[id number]:01/12/2023 Patient:?Jimena Watkins :1955???Age:67 Y???Sex:Female Address:[address] , [place] [address] * true * Date:? Generated for Tamyi alan/Addie/eTransmitting on:?07/04/2024 12:08 PM EDT
== END 2024-07-04 11:32 | disposition home or self-care (01) ==
LOC: HO.HOS 09:54
PROVIDERS: PCP Family Medicine; Visit Provider Physical Medicine & Rehabilitation
DX: M54.42 Lumbago with sciatica, left side (principal); M25.551 Pain in right hip; M25.552 Pain in left hip; M21.372 Foot drop, left foot
CPT/HCPCS: 99204

== ENCOUNTER 2024-07-04 09:54 | Outpatient (REF) | payer OTHER, SELFPAY ==
--- NOTE | ~2024-07-04 | XR_ITS ---
CLINICAL HISTORY: M25.551 - Pain in right hip Two views of the left hip Comparison: None Findings: No acute fracture or dislocation. Gtfh-tt-aiaijljp degenerative change of the left femoral-acetabular joint. The soft tissues are unremarkable. IMPRESSION: No acute findings. Atyn-af-atcwuwvb degenerative changes. This document has been electronically signed by: Rudy Pabon MD on 07/05/2024 12:24:53
--- NOTE | ~2024-07-04 | XR_ITS ---
CLINICAL HISTORY: M54.50 - Low back pain, unspecified 3 view right elbow Comparison: None Findings: No acute fractures or dislocations. Mild diffuse degenerative changes. No joint effusion. No radiopaque foreign body. IMPRESSION: 1. No acute findings. 2. Mild degenerative changes. This document has been electronically signed by: Rudy Pabon MD on 07/05/2024 12:15:02
--- NOTE | ~2024-07-04 | XR_ITS ---
CLINICAL HISTORY: M54.9 - Dorsalgia, unspecified 3 views lumbar spine Comparison: CR - LUMBAR SPINE 2TO 3 [id number] - 07/10/15 04:44 EDT Findings: No fracture or acute malalignment. Multilevel disc space narrowing within the lower thoracic spine and lower lumbar spine. Diffuse vascular calcification. IMPRESSION: No acute findings. Sgwc-ha-zgwmhvhr degenerative changes. This document has been electronically signed by: Rudy Pabon MD on 07/05/2024 12:22:04
--- NOTE | ~2024-07-04 | XR_ITS ---
CLINICAL HISTORY: M16.12 - Unilateral primary osteoarthritis, left hip Two views of the left hip Comparison: None Findings: The bones are intact. Moderate degenerative change of the femoral-acetabular joint The soft tissues are unremarkable. IMPRESSION: Moderate degenerative change of the left femoral-acetabular joint. No acute process. This document has been electronically signed by: Rudy Pabon MD on 07/05/2024 12:14:29
== END 2024-07-04 09:55 | disposition home or self-care (01) ==
LOC: HO.HOSX 09:54
PROVIDERS: PCP Family Medicine; Visit Provider Physical Medicine & Rehabilitation
DX: M54.42 Lumbago with sciatica, left side (principal); G89.29 Other chronic pain; M25.551 Pain in right hip; M25.552 Pain in left hip; M16.12 Unilateral primary osteoarthritis, left hip; M21.372 Foot drop, left foot
CPT/HCPCS: 72100; 73080; 73502; 99202

== ENCOUNTER → 2024-07-04 11:11 | Outpatient (BNV) | payer OTHER, SELFPAY | PROVIDERS: PCP Family Medicine; Visit Provider Radiology Vascular & Interventional Radiology | DX: M16.0 Bilateral primary osteoarthritis of hip (principal); M51.369 Other intervertebral disc degeneration, lumbar region without mention of lumbar back pain or lower extremity pain; M54.50 Low back pain, unspecified | CPT/HCPCS: 72100; 73080; 73502 ==

== ENCOUNTER 2024-07-10 10:42 | Outpatient (AMB) | payer OTHER, SELFPAY ==
[2024-07-10 10:54] VITALS: BP 124/80; BMI 36.8
--- NOTE | 2024-07-10 10:54 | MHC.OFFVIS ---
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 annual exam/DO NOT RS Life Science Taxonomist Required: Yes Life Science Taxonomist Language: Flotation Tank Operator Services: Life Science Taxonomist Present (in person) Life Science Taxonomist Name: Melisa VIDAL Information Interpreted: non-clinical & clinical Construction Services Technician: Construction Services Technician Present (Melisa VIDAL) Accompanied by: Self / Same As Patient Allergies aspirin [Aspirin] Allergy (Mild, Verified 07/10/24 11:16) RASH morphine [MORPHINE] Allergy (Unknown, Verified 07/10/24 11:16) ABD PAIN, RASH omeprazole [OMEPRAZOLE] Allergy (Unknown, Verified 07/10/24 11:16) SHORTNESS OF BREATH pregabalin [From LYRICA] Allergy (Unknown, Verified 07/10/24 11:16) SHORTNESS OF BREATH celecoxib Adverse Reaction (Mild, Verified 07/10/24 11:16) chest pain, jumping feeling in her heart. Post menopausal: Yes HPI Comments Details: Presenting for annual exam. 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, managed as type 2 Hypertension Asthma Surgical History (Reviewed 07/04/24 @ 10:50 by Hailey Rocha [facility]) History of removal of cyst Stented coronary artery H/O tubal ligation Hx of tonsillectomy H/O right breast biopsy Social History Housing: Apartment Patient Tobacco Use Status: Former Tobacco user e-Cigarette/Vaping Use: Never Used service: No Current occupational status: disabled Current occupational exposures/hazards: No Cognitive needs: No Hearing needs: No Vision needs: No Female Reproductive History Menstrual control method: permanent sterilization Date of last pap smear: 05/09/23 Date of Mammogram: 07/20/23 Review of Systems Const All systems reviewed & are unremarkable except as noted in HPI and below Card Reports as per HPI Resp Reports as per HPI GI Reports as per HPI and Reports no additional complaints Reports as per HPI Physical Exam Vital Signs: BMI result Body Mass Index 36.8 Const General: cooperative, healthy appearing and comfortable Chest Chest palpation & inspection: normal inspection of the chest and normal palpation of entire chest wall Breast/axilla inspection: normal inspection of the breasts and normal inspection of the axillae Breast/axilla palpation: normal palpation of the breasts, normal palpation of the axillae and no axillary lymphadenopathy Resp Effort & Inspection: normal respiratory effort Auscultation: clear to auscultation bilaterally Percussion: percussion normal Cardio Palpation: normal PMI Rate: regular rate Rhythm: regular rhythm Heart sounds: no murmurs and no rubs Peripheral pulses: Peripheral pulses 2+ throughout GI Inspection: Yes normal to inspection Palpation (GI): Soft to palpation, nontender, no guarding, not rigid and No hepatosplenomegaly present Percussion: Yes normal to percussion Auscultation: normal bowel sounds Rectal Exam - Female: deferred General: Yes bladder normal to palpation External Female Exam: No lesion Speculum Exam - Vagina: normal appearance of the vagina, normal palpation, normal vaginal discharge and not erythematous Speculum Exam - Cervix: normal appearance of the cervix and normal palpation Bimanual exam- vagina & uterus: normal bimanual exam, normal palpation, uterine size normal, bladder normal to palpation, consistency normal and normal palpation Bimanual Exam- Adnexa, other: normal adnexae, no masses and no tenderness Assessment & Plan Assessment & Plan (1) Well woman exam: Code(s): Z01.419 - Encounter for gynecological examination (general) (routine) without abnormal findings Category: Medical Plan: Co testing not indicated this year. Counseled the patient about the recommended dietary allowance of 1200 mg of Calcium & 800 IU of vitamin D. Mammogram ordered. Referred her for screening colonoscopy done. The patient was instructed to perform monthly self-breast exams and to schedule an annual exam in a year; All questions answered and the patient verbalized understanding. (2) Pelvic pain: Code(s): R10.2 - Pelvic and perineal pain Category: Medical Plan: Urine dip done in the office was negative. Pelvic ultrasound ordered. Discussed with the patient the differential diagnosis of pelvic pain including but not limited to adnexal, uterine masses, pelvic infections (PID), GI the (Irritable bowel syndrome, diverticulitis, others), musculoskeletal, myofascial pain abdominal wall , adhesions, endometriosis, psychological and others causes. Will check results and treat accordingly. All questions answered, the patient verbalized understanding. Instructed the patient to schedule an ultrasound and a follow-up appointment in 2 weeks. All questions answered, the patient verbalized understanding and agreed with the plan. Orders: Orders MM tomosynthesis screening BI Today Z12.31 - Encounter for screening mammogram for malignant neoplasm of breast US pelvic and transvaginal Today R10.2 - Pelvic and perineal pain Referrals Gastroenterology Referral Z12.11 - Encounter for screening for malignant neoplasm of colon Coding Level of Care Code Est Pt Level 3 (84900) Est Pt Prev Care >65y(70253) Diagnoses Well woman exam Z01.419 Pelvic pain R10.2
== END 2024-07-10 11:26 | disposition home or self-care (01) ==
LOC: HO.HWS 10:42
PROVIDERS: PCP Family Medicine; Visit Provider Obstetrics & Gynecology
DX: Z01.419 Encounter for gynecological examination (general) (routine) without abnormal findings (principal); R10.2 Pelvic and perineal pain
CPT/HCPCS: 99213; 99397; 99459

== ENCOUNTER → 2024-07-10 10:42 | Outpatient (BNVA) | payer OTHER, SELFPAY | PROVIDERS: PCP Family Medicine; Visit Provider Obstetrics & Gynecology | DX: Z01.419 Encounter for gynecological examination (general) (routine) without abnormal findings (principal); E11.9 Type 2 diabetes mellitus without complications; D35.2 Benign neoplasm of pituitary gland; R10.2 Pelvic and perineal pain | CPT/HCPCS: 99212; 99397; 99459 ==

== ENCOUNTER 2024-07-10 12:37 | Outpatient (AMB) | payer OTHER, SELFPAY ==
--- NOTE | 2024-07-10 13:12 | A.OFFVIS_ITS ---
Vital Signs 07/10/24 13:18 Height 4 ft 11 in Weight 179 lb 14.355 oz BMI 36.3 BP 132/58 L Blood Pressure Location Lt brachial Position Sitting Pulse 81 Pulse Source Pulse Oximeter Pulse Oximetry (%) 98 Oxygen Delivery Method Room Air Intake Visit Reasons: Benign neoplasm of pituitary gland Intake Note: Patient present today for Benign Neoplasm of Pituitary Gland. Dealer Development Manager Required: Yes Dealer Development Manager Language: Scheduling Agent Services: Dealer Development Manager Offered & Declined Accompanied by: ART EDITOR- Amiga Allergies aspirin [Aspirin] Allergy (Mild, Verified 07/10/24 13:19) RASH morphine [MORPHINE] Allergy (Unknown, Verified 07/10/24 13:19) ABD PAIN, RASH omeprazole [OMEPRAZOLE] Allergy (Unknown, Verified 07/10/24 13:19) SHORTNESS OF BREATH pregabalin [From LYRICA] Allergy (Unknown, Verified 07/10/24 13:19) SHORTNESS OF BREATH celecoxib Adverse Reaction (Mild, Verified 07/10/24 13:19) chest pain, jumping feeling in her heart. Medication List - Last Reconciled 07/10/24 by Jason Maxwell MD acetaminophen 1,000 mg PO Q6H PRN alcohol swabs (Alcohol Prep Pads) 1 pad topical 3XD 90 days alendronate 70 mg PO QWEEK amitriptyline 10 mg PO BEDTIME 90 days atorvastatin 80 mg PO DAILY bisacodyl (Dulcolax (bisacodyl)) 10 mg VT DAILY PRN blood-glucose meter,continuous (FreeStyle Alirio 3 [place]) use daily As directed to check blood glucose blood-glucose sensor (FreeStyle Alirio 3 Sensor device) Apply every 14 days As di rected budesonide-formoterol 160-4.5 mcg/actuation 2 inhalations inhalation BID calcium carbonate-vitamin D3 600 mg-10 mcg (400 unit) (Calcium 600 with Vitamin D3) 1 tab PO BID 90 days carvedilol 3.125 mg PO BID 90 days cetirizine 10 mg PO DAILY PRN chair, wheel (Wheel chair) w/c with elevated leg rests as directed clopidogrel 75 mg PO DAILY 90 days clotrimazole 1% 1 appl topical BID 2 weeks compression socks, large for edema of lower extremity as directed diclofenac sodium 1% 2 grams topical QID diclofenac sodium 1% (Voltaren Arthritis Pain) 4 grams topical QID 30 days empagliflozin (Jardiance) 25 mg PO DAILY flash glucose sensor (FreeStyle Alirio 2 Sensor kit) use daily As directed to monitor glucose gabapentin 600 mg (2 x 300 mg) PO Q12H 30 days Humalog KwikPen Insulin (insulin lispro) 4 units (0.04 mL) subcut BID NS miscellaneous medical supply reclining lift chair as directed pen needle, diabetic (BD Ultra-Fine Mini Pen Needle) 4 TIMES DAILY, As directed, 90 DAYS polyethylene glycol 3350 (Miralax) 17 grams PO DAILY 14 days rivaroxaban (Xarelto) mg PO semaglutide (Ozempic) 2 mg (0.75 mL) subcut QWEEK sodium phosphates 19-7 gram/118 mL (Fleet Enema) 118 mL [place] DAILY PRN Tresiba FlexTouch U-100 (insulin degludec) 70 units (0.7 mL) subcut DAILY 30 days NS triamcinolone acetonide 0.5% 1 appl topical BID 14 days triamcinolone acetonide 0.1% 1 appl topical BID 14 days valsartan 80 mg PO DAILY 90 days HPI Comments Details: This is a 68-year-old female followed by endocrinology for management of diabetes. Patient recently had a head CT done which showed abnormal pituitary finding. However looking back in her record she had an abnormal MRI done in 2019 which showed pituitary abnormalities prompted a referral to neurosurgery. There are no previous records present regarding the evaluation This sella turcica is moderately expanded with partial flattening of the pituitary gland. The sphenoid sinus extends posteriorly into the sphenoid base. There is a nodular structure within the posterior aspect of the sphenoid sinus is directly abuts the undersurface of the sella turcica, measuring approximately 1.2 x 0.8 x 0.5 cm. Normal morphology and signal intensity of the pituitary gland within the sella turcica on precontrast imaging. Normal posterior pituitary bright spot. No hyperenhancing or hypoenhancing lesions demonstrated within the sella turcica on post contrast imaging. The aforementioned structure within the sphenoid sinus is hypoenhancing relative to the pituitary parenchyma. The pituitary infundibulum is normal in morphology and minimally deviated to the left. The suprasellar cistern remains patent. No abnormal mass effect on the optic chiasm. Normal positioning of the cerebellar tonsils. Normal arterial and venous vascular flow voids are present. No abnormal contrast enhancement. Normal, homogeneous marrow signal. Mild mucosal thickening of the paranasal sinuses. No signal abnormalities within the mastoids. Bilateral lens extractions. MR/MR head/brain wo/w con IMPRESSION: 1. The sphenoid sinus extends posteriorly into the sphenoid base. A 1.2 cm nodular structure within the posterior aspect of the sphenoid sinus directly abuts the undersurface of the sella turcica. This may represent a mucous retention cyst; however, it remains difficult to fully separate this structure from the pituitary parenchyma by MRI. If clinical concern for pituitary adenoma remains high, CT a better evaluate for presence of an osseous plane this structure from the pituitary gland. Denies any symptoms of Nor[place] syndrome, acromegaly or breast discharge or symptoms of adrenal insufficiency [facility] Medical History (Reviewed 07/10/24 @ 11:17 by Melisa Meneses [facility]) Heart attack Abscess of chest wall Uncontrolled type 2 diabetes mellitus with hyperglycemia, with long-term current use of insulin Ganglion cyst Glaucoma Neuropathy Arthritis Intracranial mass Diabetes 1.5, managed as type 2 Hypertension Asthma Surgical History History of removal of cyst Stented coronary artery H/O tubal ligation Hx of tonsillectomy H/O right breast biopsy Social History Housing: Apartment Patient Tobacco Use Status: Former Tobacco user e-Cigarette/Vaping Use: Never Used service: No Current occupational status: disabled Current occupational exposures/hazards: No Cognitive needs: No Hearing needs: No Vision needs: No Physical Exam Vital Signs: Last Vital Signs Pulse 81 07/10/24 13:18 BP 132/58 L 07/10/24 13:18 Pulse Ox 98 07/10/24 13:18 Oxygen Delivery Method Room Air 07/10/24 13:18 BMI result Body Mass Index 36.3 Const Other: There was no visual field loss by gross confrontation. 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 This appears to be chronic in nature but we will evaluate pituitary function. Based on the MRI, the lesion appears to be stable in size and does not appear to interfere with the optic chiasm Plan is to check her fasting prolactin, IGF-1, 24 hour urine for cortisol and creatinine, TSH, free T4. Will also check a random a.m. cortisol level to rule out adrenal insufficiency. The patient is also set to see neurosurgery in 10/2024. Pending the above, patient returned for follow-up visit after visit to Neurosurgery Orders: Orders Prolactin Today D35.2 - Benign neoplasm of pituitary gland IGF-1 (Somatomedin C) Today D35.2 - Benign neoplasm of pituitary gland Creatinine, 24 Hr Group Today D35.2 - Benign neoplasm of pituitary gland Cortisol, Free 24Hr Urine Today D35.2 - Benign neoplasm of pituitary gland Thyroid Stimulating Hormone Today D35.2 - Benign neoplasm of pituitary gland Free T4 (Free Thyroxine) Today D35.2 - Benign neoplasm of pituitary gland Cortisol Random Today D35.2 - Benign neoplasm of pituitary gland Coding Level of Care Code Est Pt Level 3 (73145) Diagnoses Pituitary macroadenoma D35.2
[2024-07-10 13:18] VITALS: BP 132/58; PULSE 81; O2SAT 98; BMI 36.3
--- OUTSIDE RECORDS SUMMARY | 2024-07-10 15:01 | XMS_ITS ---
[facility] Address [address] [place] [address] Care Team Providers Care Insurance Professional Name Role Phone Asif MEREDITH, Ross Primary Care Provider Beka Mcgowan Unavailable [phone] Allergies Allergen (clinical drug ingredient) Drug/Non Drug [...] 01/12/2023 Encounters Encounter Location Date [facility] [address] [place] [address] 01/12/2023 Beka Cardoso Plan Of Treatment No Information Progress Notes * Jimena WATKINSDOB:1955 (68 yo F)Acc No.[id number]:01/12/2023 Progress Notes Patient:?Jimena WATKINS Provider:?Beka Cardoso DPM :1955???Age:67 Y???Sex:Female D ate:01/12/2023 Address:[address] [place], [place] [id number] Pcp:Ross Gold MD Subjective: * Chief Complaints: [...] Cardoso DPM Date:?2022 Generated for Keke phillips/Addie/Anu on:?07/10/2024 03:00 PM EDT
--- OUTSIDE RECORDS SUMMARY | 2024-07-10 15:01 | XMS_ITS ---
Author Organization [facility] Address [address] [place] [address] Care Team Providers Care Ampoule Examiner Name Role Phone Ross Gold MD Primary Care Provider Beka Mcgowan Unavailable [phone] REASON FOR VISIT NS to 01/12/23 DEPUTY BRAND INSPECTOR appt Encounters Encounter Location Date [facility] [address] [place] [address] [address] [place] [address] 01/12/2023 Beka Cardoso Plan Of Treatment No Information Progress Notes * Jimena WATKINSDOB:1955 (67 yo F)Acc No.[id number]:01/12/2023 Patient:?Jimena Watkins :1955???Age:67 Y???Sex:Female Address:[address] [facility] , [place] [address] * true * Date:? Generated for Tamyi alan/Addie/eTransmitting on:?07/10/2024 03:00 PM EDT
--- OUTSIDE RECORDS SUMMARY | 2024-07-10 15:01 | XMS_ITS | Data Portability ---
Author Organization [facility] Address [address] [place] [address] Care Team Providers Care Fish Tender Name Role Phone HIM CCA OTHER BEN ELIZABETH Primary Care Provider [phone] Assessment Encounter Date Assessment Date Assessment LastModified by Organization Details LastModified Time 04/04/2023 04/04/2023 I provided real -time medical direction via phone for this encounter, and was available for additional phone based assistance as needed. I have reviewed and agree with the Assessment and Plan as documented by the Insulation Cupola Operator. Patient given the opportunity to ask questions. as per above, patient was seen by us and started on Keflex for possible cellulitis and then 1 of going to [facility] last week and was put on Bactrim for expansion of cellulitis. Now calls after being on Bactrim 8 days with increasing pain and swelling. Per pepper picker on the scene continues to have swelling [...] Assessment and Plan as documented by the Insulation Cupola Operator. Patient given the opportunity to ask [...] on the right track and recovering. Per pepper picker on the scene, Nonproductive cough is present [...] in the field was performed by my pepper picker colleague, as noted above, I provided real-time [...] Assessment and Plan as documented by the Insulation Cupola Operator. Patient given the opportunity to ask questions. Our service contacted for an assessment of: Follow-up As per above, patient recently diagnosed with COVID unable to take Paxlovid. We were asked to re-evaluate patient's symptoms. Upon today's visit patient is improving and is using ssxg-szc-pklrujj medications. Vital signs are stable and patient is afebrile Impression: COVID-19 Plan: On a positive trajectory. Continue with [id number]-vvlwbhl medicines and supportive care. Allergies: Reviewed PCP [...] recorded. Lab rapid flu (A+B) 2024 025 [facility], [address] [place] [address], [phone], 17:39:13 rapid SARS CoV 2 Ag, QL IA, respiratory specimen 2024 025 [facility], [address] [place] [address], [phone], 17:39:13 Referral None recorded. Procedures None recorded. Surgeries None recorded. Imaging None recorded. Medication Orders albuterol sulfate HFA 90 mcg/actuati on aerosol inhaler 2024 025 [facility] [place], [place], [address] [place], [address], 5 09:43:56 Flonase Allergy Relief 50 mcg/actuati on nasal spray,suspe nsion 2024 025 [facility] - [place], [place], [address] [place], [address], 5 09:43:53 Robitussin Cough-Chest Congestion DM 5 mg-100 mg/5 mL oral liquid 2023 024 [facility] [place], [place], [address] [facility], [place], [address], 4 11:01:21 Patient TargetsNo targets recorded. Patient [...] Available No t Available FreeStyle Alirio 2 [place] USE DIRECTED active Not Available Not Available [...] % 98 % 80 /min 152.4 cm 25148.4 g 98.4 [degF] 136 mm[Hg] 84 mm[Hg] Not Available [facility] - production 3 16:41:08 Date Recorded Oxygen saturation Oxygen saturation in Arterial blood by Pulse oximetry Respiratory rate Body temperature Heart rate Body weight Systolic blood pressure Diastolic blood pressure Provider Name and Address Organization Details Last Updated DateTime 4 98 % 98 % 18 /min 98.5 [degF] 80 /min 60253.7 84 g 144 mm[Hg] 72 mm[Hg] Not Available [facility] 4 17:55:01 Date Recorded Body temperature Body weight Heart rate Oxygen saturation Oxygen saturation in Arterial blood by Pulse oximetry Respiratory rate Systolic blood pressure Diastolic blood pressure Provider Name and Address Organization Details Last Updated DateTime 4 98.2 [degF] 71488.5 6 g 86 /min 98 % 98 % 16 /min 166 mm[Hg] 72 mm[Hg] Not Available [facility] 4 16:51:52 Date Recorded Body temperature Oxygen saturation Oxygen saturation in Arterial blood by Pulse oximetry Body height Heart rate Body weight Respiratory rate Systolic blood pressure Diastolic blood pressure Provider Name and Address Organization Details Last Updated DateTime 5 99.2 [degF] 100 % 100 % 149.86 cm 84 /min 65733.7 04 g 16 /min 142 mm[Hg] 80 mm[Hg] Not Available [facility] 5 17:33:21 Date Recorded Body temperature Respiratory rate Body weight Body height Heart rate Oxygen saturation Oxygen saturation in Arterial blood by Pulse oximetry Systolic blood pressure Diastolic blood pressure Provider Name and Address Organization Details Last Updated DateTime 5 97.4 [degF] 14 /min 76426.8 g 152.4 cm 78 /min 97 % 97 % 110 mm[Hg] 88 mm[Hg] Not Available [facility] 5 09:51:04 Social History None recorded. Functional Status None recorded. Mental Status None recorded. Family History Nothing Reported. Medical History No medical history recorded. Gynecological HistoryNo gynecological history recorded. Obstetrics History GPAL:G 0 P 0 0 0 0 Past Encounters Encounter ID Performer Location Encounter Start Date Encounter Closed Date Diagnosis/Indication Diagnosis SNOMED-CT Code Diagnosis ICD10 Code Diagnosis Note [id number] Elaine Draper MD [facility] [address] [place] [phone] 09/23/2022 16:16:58 09/27/2022 14:43:34 Cellulitis of left foot [id number] 1800400 L03.116 [id number] [facility] [address] [place] [phone] 04/04/2023 16:41:06 04/05/2023 13:23:43 Cellulitis of lower leg 055619477 L03.119 [id number] Akila [facility] MD [facility] [address] [phone] 08/08/2023 17:54:55 08/08/2023 22:15:05 Cough [id number] R05.9 [id number] Tobin Floyd [facility] [address] [place] [phone] 12/20/2023 16:51:49 12/20/2023 22:32:10 Cramp in lower limb 305435146 R25.2 As noted, we were called to see this patient regarding concerns of pain. Evaluation in the field was performed by my pepper picker colleague, as noted above, I provided real-time [...] particular ly numbness, weakness, or severe pain. [id number] Francisco David MD [facility] [address] [place] [phone] 06/03/2024 17:33:17 06/03/2024 21:44:20 COVID-19 566250626 U07.1 [id number] Akila Samuel MD [facility] [address] [phone] 06/05/2024 09:35:28 06/05/2024 11:52:44 COVID-19 530493923 U07.1 Health Concerns Section Related Observation LastModified by Organization Detai ls LastModified Time None Recorded Concern Status LastModified by Organization Details LastModified Time None Recorded Advance Directives Directive None Recorded Payers Encounter Date Sequence Insurance Name Policy Number Policy Rowe Covered Member ID Rowe Member ID Guarantor Name 04/04/2023 1 [employer] - DOS ON OR AFTER 2022 - DUAL ELIGIBLE - DETENTION OPTIONS AND ONE CARE (MEDICARE REPLACEMENT/ADV ANTAGE - HMO) Jimena Watkins [id number] Jimena Watkins 08/08/2023 1 [employer] - DOS ON OR AFTER 2022 - DUAL ELIGIBLE - DETENTION OPTIONS AND ONE CARE (MEDICARE REPLACEMENT/ADV ANTAGE - HMO) Jimena Watkins [id number] Jimena Watkins 12/20/2023 1 [employer] - DOS ON OR AFTER 2022 - DUAL ELIGIBLE - DETENTION OPTIONS AND ONE CARE (MEDICARE REPLACEMENT/ADV ANTAGE - HMO) Jimena Watkins [id number] Jimena Watkins 06/03/2024 1 [employer] - DOS ON OR AFTER 2022 - DUAL ELIGIBLE - DETENTION OPTIONS AND ONE CARE (MEDICARE REPLACEMENT/ADV ANTAGE - HMO) Jimena Watkins [id number] Jimena Watkins 06/05/2024 1 [employer] - DOS ON OR AFTER 2022 - DUAL ELIGIBLE - DETENTION OPTIONS AND ONE CARE (MEDICARE REPLACEMENT/ADV ANTAGE - HMO) Jimena Watkins [id number] Jimena Watkins Notes Date Note Type Note Provider Name and Address Organization Details Recorded Time 04/04/2023 text/html HPI: Members community CCA REPORTING COORDINATOR calling in a referral, member identified via /name. Member seen at [facility] last Monday, diagnosed with left cellulitis and started on Bactrim. Member states no improvement, and feels more painful. Per REPORTING COORDINATOR foot is still red, warm, swollen and [...] to process this visit. Akila Samuel MD [address] [place] [address],[address], [place], [address], [employer] 04/04/2023 16:44:11 08/08/2023 text/html HPI: Jimena was treated at [facility] 08/02-08/03 for the flu A and asthma. [...] .................... .................... .................... .................... .................... .................... . Insulation Cupola Operator Note From Shira Juvenal: 67 yo F [...] to complications of Diabetes [facility] [place] [facility]. consult. Will Rx Robitussin. Discussed red flags with pt and when to seek/call 911/EMS/ER. Pt understood and had no questions. .................... .................... .................... .................... .................... .................... .................... . Disposition: Fulfilled Akila Samuel MD [address] [facility],[address], [place], [address], [employer] 08/08/2023 17:57:46 12/20/2023 text/html HPI: Marcella, palliative [...] to the ED, but [facility]. .................... .................... .................... .................... .................... .................... .................... . [facility] Nurse Triage Notes (Aixa Delgadillo): Chief Complaints: Pain PMH: COPD/Asthma, Diabetes, Hypertension, Heart Disease Other Allergies: lyrica, metformin, and 1 other Comments: CRC RN did not require any additional information to process this visit. .................... .................... .................... .................... .................... .................... .................... . Insulation Cupola Operator Note From Emmanuel Brandt: Pt co cramping in feet off and on for 1 week. Pt sts no other complaints and pt sts she didn? t call for us her VN did. Pt allowed evaluation. Pt denies cp sob NVD headache dizziness or fever. Baseline vitals assessed. ..pt sts coloration is normal for her. [facility] contacted and advised to pt to follow up with pcp. Pt education on signs indicating the ER. .................... .................... .................... .................... .................... .................... .................... . Disposition: Fulfilled Tobin Floyd MD [address] [facility],[address], [place], [address], [facility] 12/20/2023 17:53:19 06/03/2024 text/html HPI: Pt states [...] Allergies Reviewed at 06/03/2024:16 Comments: HPI reviewed Insulation Cupola Operator Organization Information for Nadeem Mancia Legal Name: [facility] Address: [address] [place] [address], [place] [address], Department Assistant: Ashwin Gastelum MD [place] No.: [id number] Insulation Cupola Operator POC Test Results from Nadeem Mancia Rapid COVID antigen (17:31:17) COVID: + Rapid influenza antigen (17:31:18) Flu: - .................... .................... .................... .................... .................... .................... .................... . Insulation Cupola Operator Note From JasondaniellaNadeem: This 68-year-old female with [...] .................... .................... .................... .................... .................... .................... . [facility] Consulted: Francisco David .................... .................... .................... .................... .................... .................... .................... . Disposition: Venkat Francisco David MD [address] [facility],[address], [place], [address], [employer] 06/03/2024 18:08:20 06/05/2024 text/html CRC Nurse Triage Notes (Aixa Delgadillo - RN): Chief Complaints: Breathing problems, Common cold symptoms, Cough, Asthma PMH: COPD/Asthma, Hypertension, Coronary Artery Disease PMH Reviewed at 06/05/2024:39 Allergies Reviewed at 06/05/2024:39 Comments: 06/03- [facility] Remarks Patient is positive for COVID. Unable [...] .................... .................... .................... .................... .................... .................... . Insulation Cupola Operator Note From Ja Bean: Patient alert and oriented seated in wheelchair in apartment. Patient complains of nasal congestion and frequent nonproductive cough. Patient reports she was diagnosed with Covid three days ago by [facility]. Patient reports she has been eating [...] .................... .................... .................... .................... .................... .................... . [facility] Consulted: Akila Samuel .................... .................... .................... .................... .................... .................... .................... . Disposition: Venkat Samuel MD [address] [facility],[address], [place], [address], [employer] 06/05/2024 11:32:10 OBGyn Episode No OBEpisode recorded.
--- OUTSIDE RECORDS SUMMARY | 2024-07-10 15:01 | XMS_ITS | Patient Health Record ---
[facility] Address [address] [place] [address] Care Team Providers Care Material Control Clerk Name Role Phone Ross Gold MD Primary Care Provider Beka Mcgowan Unavailable [phone] Allergies Allergen (clinical drug ingredient) Drug/Non Drug [...] Insured Coverage Start Date Coverage End Date [facility] [employer] Claims [address] [place] [phone] [id number] Jimena Watkins Self - patient is the insured Medical (General) History Medical History History ICD Code Arthritis asthma diabetic ganglion cyst Glaucoma Hypertension Neuropathy intracranial mass Back,Hip,and Knee pain Diabetic High blood pressure Sciatica Stroke thyroid Joint Pain Pain Ankle Surgical History Surgery Date(Month/Year) breast biopsy tubal ligation tonsillectomy
== END 2024-07-10 14:03 | disposition home or self-care (01) ==
LOC: HO.ENCR 12:38
PROVIDERS: PCP Family Medicine; Visit Provider Internal Medicine Endocrinology, Diabetes & Metabolism
DX: D35.2 Benign neoplasm of pituitary gland (principal)
CPT/HCPCS: 99213

== ENCOUNTER 2024-08-08 09:30 | Outpatient (AMB) | payer OTHER, SELFPAY ==
[2024-08-08 10:04] VITALS: BP 120/72; PULSE 81; O2SAT 97; BMI 36.4
--- NOTE | 2024-08-08 10:04 | A.OFFVIS_ITS ---
Vital Signs 08/08/24 10:04 Height 4 ft 11 in Weight 180 lb BMI 36.4 BP 120/72 Blood Pressure Location Lt brachial Position Sitting Pulse 81 Pulse Source Pulse Oximeter Pulse Oximetry (%) 97 Oxygen Delivery Method Room Air Intake Visit Reasons: 6mo F/U Intake Note: Patient presents 6 month follow up for ORALIA. PSG in chart done on 04/10/24. Relaster Required: Yes Relaster Services: Relaster Offered & Declined Accompanied by: Daughter Allergies aspirin [Aspirin] Allergy (Mild, Verified 08/08/24 10:06) RASH morphine [MORPHINE] Allergy (Unknown, Verified 08/08/24 10:06) ABD PAIN, RASH omeprazole [OMEPRAZOLE] Allergy (Unknown, Verified 08/08/24 10:06) SHORTNESS OF BREATH pregabalin [From LYRICA] Allergy (Unknown, Verified 08/08/24 10:06) SHORTNESS OF BREATH celecoxib Adverse Reaction (Mild, Verified 08/08/24 10:06) chest pain, jumping feeling in her heart. Medication List - Last Reconciled 08/08/24 by JUANITO Velez acetaminophen 1,000 mg PO Q6H PRN alcohol swabs (Alcohol Prep Pads) 1 pad topical 3XD 90 days alendronate 70 mg PO QWEEK amitriptyline 10 mg PO BEDTIME 90 days atorvastatin 80 mg PO DAILY bisacodyl (Dulcolax (bisacodyl)) 10 mg MO DAILY PRN blood-glucose sensor (FreeStyle Alirio 3 Sensor device) Apply every 14 days As directed blood-glucose,mouthpiece maker,cont (FreeStyle Alirio 3 [place]) use daily As directed to check blood glucose budesonide-formoterol 160-4.5 mcg/actuation 2 inhalations inhalation BID calcium carbonate-vitamin D3 600 mg-10 mcg (400 unit) (Calcium 600 with Vitamin D3) 1 tab PO BID 90 days carvedilol 3.125 mg PO BID 90 days cetirizine 10 mg PO DAILY PRN chair, wheel (Wheel chair) w/c with elevated leg rests as directed clopidogrel 75 mg PO DAILY 90 days clotrimazole 1% 1 appl topical BID 2 weeks compression socks, large for edema of lower extremity as directed diclofenac sodium 1% 2 grams topical QID diclofenac sodium 1% (Voltaren Arthritis Pain) 4 grams topical QID 30 days empagliflozin (Jardiance) 25 mg PO DAILY flash glucose sensor (FreeStyle Alirio 2 Sensor kit) use daily As directed to monitor glucose gabapentin 600 mg (2 x 300 mg) PO Q12H 30 days Humalog KwikPen Insulin (insulin lispro) 4 units (0.04 mL) subcut BID NS miscellaneous medical supply reclining lift chair as directed pen needle, diabetic (BD Ultra-Fine Mini Pen Needle) 4 TIMES DAILY, As directed, 90 DAYS polyethylene glycol 3350 (Miralax) 17 grams PO DAILY 14 days rivaroxaban (Xarelto) 2.5 mg PO BID 90 days semaglutide (Ozempic) 2 mg (0.75 mL) subcut QWEEK sodium phosphates 19-7 gram/118 mL (Fleet Enema) 118 mL MO DAILY PRN Tresiba FlexTouch U-100 (insulin degludec) 70 units (0.7 mL) subcut DAILY 30 days NS triamcinolone acetonide 0.5% 1 appl topical BID 14 days triamcinolone acetonide 0.1% 1 appl topical BID 14 days valsartan 80 mg PO DAILY 90 days HPI Comments Details: 68-year-old female presents for follow-up sleep study and brain MRI report. Interval 04/10/2024 in-lab PSG did not show any evidence of sleep apnea, AHI was less than 2 and average SpO2 was 94%, O2 dalila was 88% with SpO2 under 87% for 0.1 minutes. Light to moderate snoring was noted. Periodic limb movement sleep 21 per hour with PLMS arousal index 0.3 per hour. Interval 03/18/2024, MR/MR head/brain wo/w con 1. The sphenoid sinus extends posteriorly into the sphenoid base. A 1.2 cm nodular structure within the posterior aspect of the sphenoid sinus directly abuts the undersurface of the sella turcica. This may represent a mucous retention cyst; however, it remains difficult to fully separate this structure from the pituitary parenchyma by MRI. If clinical concern for pituitary adenoma remains high, CT a better evaluate for presence of an osseous plane this structure from the pituitary gland. 2. No acute intracranial abnormalities. No additional abnormal intracranial enhancement. 3. Chronic lacunar infarct of the right central norberto. Mild underlying microangiopathy. Follow-up 06/17/2024, head CT without contrast: Nonspecific soft tissue eroding along the posterior inferior aspect of the sella and into the sphenoid sinus. This may reflect a chronic infectious process or neoplasm. Since, patient has been referred to [facility] Neurosurgery, who she has seen previously. She has also had follow-up with endocrinology, we advised her to have follow-up lab work in to see Neurosurgery as scheduled. She has not yet had this lab work completed. Endocrinology notes that she has neurosurgery appointment in October, however patient is unaware of this appointment. And states she has an appointment with vascular at [facility] in September and October. Patient states that she is prone to a mild right upper parietal or frontal headache, not associated with photophobia, phonophobia, nausea or vomiting. She uses Tylenol for her joint pain, but not specifically for the headache. It often self subsides. She denies any significant restlessness while sleeping. She is concerned that she is more forgetful. She can not tell me how long she has been feeling forgetful for. She lives alone. She manages her own finances and medications reportedly without difficulties. She does not drive, and relies on family/friends for transportation. She does like to do word-finding puzzles. She has a upcoming vacation in October, going to see her son who lives in [place]. 01/29/2024, Initial HPI: 68-yr-old female presents for new in-person patient visit for sleep consultation. Patient reports she was diagnosed w/ sleep apnea many years ago. She did use a CPAP many years, but she no longer has her CPAP machine as she has moved several times in the last few years after her . She is not sure how severe her sleep apnea was. Now, she is able to fall asleep, but has difficulty maintaining sleep. Sleep questionnaire: Have you ever been diagnosed with a sleep disorder? yes Have you ever had a sleep study in the past? yes- yrs ago at [facility] Have you ever been treated for a sleep disorder? yes- CPAP Do you take medications for a sleep disorder? no, she does not want to take medication for sleep. Do you have difficulty initiating sleep? yes Do you have difficulty maintaining sleep? yes Wakes up 3 per night. Do you wake up tired? yes Do you have daytime tiredness or fatigue? yes Do you easily fall asleep when inactive? yes Do you snore? yes Do you wake up gasping at night? yes Do you have episodes of apneas? unsure Do you have episodes of nocturnal chest pain or dyspnea? sometimes right chest discomfort in the day or night, SOB, wheezing- uses her asthma pump which helps Do you have bruxism? denies Do you have headaches upon awakening? most every day- pt reports h/o brain MRI w/ a little mass . headache is a pressure in bifrontal, eyes and top of head, intensity is not too strong , denies migraine s/s- denies associated photo/phonophobia, N/V. Do you wake up with dry mouth or throat? Denies Do you have GERD? Yes Do you have nocturia? Yes Do you have nocturnal leg cramps? At times Do you have symptoms of restless legs? Yes, and has BLE leg pain, from hips down through her toes. Has L > R swelling, heaviness, and toe redness. Do you act out your dreams? Denies Do you have sleep paralysis? Denies Do you have drop attacks? Unsure Do you ever have hypnogenic hallucinations? Denies Hypersomnolence questionnaire: Have you ever had episodes of sudden weakness? denies Have you ever had episodes of sudden weakness associated with strong emotions? denies Sleep hygiene questionnaire: What is your usual sleep routine? Usual bedtime is at 11pm; Usual wake-up time is at 2-3-4-5am. Do you take naps? denies Is your sleep environment cool, dark, and quiet? on the weekends, people outside of her apartment smoke marijuana which interferes w/ her sleep. Do you exercise? none now. Do you take caffeine or other stimulants? takes de-caf chocolate or hot chocolate. or javed-donna. Do you use electronics in bed? may watch TV, What is your work schedule? retired FOR[facility]LY [employer] Medical History Heart attack Abscess of chest wall Uncontrolled type 2 diabetes mellitus with hyperglycemia, with long-term current use of insulin Ganglion cyst Glaucoma Neuropathy Arthritis Intracranial mass Diabetes 1.5, managed as type 2 Hypertension Asthma Surgical History History of removal of cyst Stented coronary artery H/O tubal ligation Hx of tonsillectomy H/O right breast biopsy Social History Housing: Apartment Patient Tobacco Use Status: Former Tobacco user e-Cigarette/Vaping Use: Never Used service: No Current occupational status: disabled Current occupational exposures/hazards: No Cognitive needs: No Hearing needs: No Vision needs: No Physical Exam Vital Signs: Last Vital Signs Pulse 81 08/08/24 10:04 BP 120/72 08/08/24 10:04 Pulse Ox 97 08/08/24 10:04 Oxygen Delivery Method Room Air 08/08/24 10:04 BMI result Body Mass Index 36.4 Const General: no acute distress Resp Effort & Inspection: normal respiratory effort and able to speak in complete sentences Auscultation: clear to auscultation bilaterally Neuro Other: Alert and oriented x3. Her some mild short-term memory lapses. Steady gait with walker Psych Mental Status: mental status grossly normal Speech and movement: Clear speech present Attitude: cooperative Assessment & Plan Assessment & Plan (1) Cognitive changes: Code(s): R41.89 - Other symptoms and signs involving cognitive functions and awareness Category: Medical (2) Pituitary macroadenoma: Code(s): D35.2 - Benign neoplasm of pituitary gland Category: Medical (3) White matter abnormality on MRI of brain: Code(s): R90.82 - White matter disease, unspecified Category: Medical (4) Snoring: Code(s): R06.83 - Snoring Category: Medical (5) Hypersomnia: Code(s): G47.10 - Hypersomnia, unspecified Category: Medical Plan Reviewed in-lab PSG results, there is no current evidence of sleep disordered breathing or sleep apnea. There were some degree of periodic limb movements of sleep though minimal were associated with arousals, thus their clinical significance is uncertain. Patient does not need to resume CPAP therapy. Reviewed interval brain MRI and head CT which shows probable pituitary adenoma, however head CT raise possibility of soft tissue erosion along the posterior inferior aspect of the sella and into the sphenoid sinus-raising question for chronic infectious or neoplastic process. Patient is advised to follow-up with neurosurgery as scheduled- we will reach out to [facility]surgery to confirm appointment date and time. Patient advised to have fasting lab work as ordered by endocrinology. We will also check fasting labs for underlying etiologies of patient's reports of worsening cognition, daytime sleepiness, and indications of Periodic limb movement of sleep (PLMS) on sleep study. For reports of non migrainous right parietal frontal headache- may use Tylenol 650-a 1000 mg every 4-6 hours as needed in may try a headache cooling cap as needed. Will follow-up upon review of above and patient to follow-up in clinic in 6 months or sooner prn. Orders: Orders Vitamin B12 and Folate Today D35.2 - Benign neoplasm of pituitary gland, E11.9 - Type 2 diabetes mellitus without complications, R41.89 - Other symptoms and signs involving cognitive functions and awareness, R51.9 - Headache, unspecified, R53.83 - Other fatigue, Z86.73 - Personal history of transient ischemic attack (TIA), and cerebral infarction without residual deficits Vitamin D 25-OH (D2 and D3) Today D35.2 - Benign neoplasm of pituitary gland, E11.9 - Type 2 diabetes mellitus without complications, R41.89 - Other symptoms and signs involving cognitive functions and awareness, R51.9 - Headache, unspecified, R53.83 - Other fatigue, Z86.73 - Personal history of transient ischemic attack (TIA), and cerebral infarction without residual deficits Syphilis Screen Today D35.2 - Benign neoplasm of pituitary gland, E11.9 - Type 2 diabetes mellitus without complications, R41.89 - Other symptoms and signs involving cognitive functions and awareness, R51.9 - Headache, unspecified, R53.83 - Other fatigue, Z86.73 - Personal history of transient ischemic attack (TIA), and cerebral infarction without residual deficits Lyme IgG/IgM w/reflex to WB Today D35.2 - Benign neoplasm of pituitary gland, E11.9 - Type 2 diabetes mellitus without complications, R41.89 - Other symptoms and signs involving cognitive functions and awareness, R51.9 - Headache, unspecified, R53.83 - Other fatigue, Z86.73 - Personal history of transient ischemic attack (TIA), and cerebral infarction without residual deficits Complete Blood Count Auto Diff Today D35.2 - Benign neoplasm of pituitary gland, E11.9 - Type 2 diabetes mellitus without complications, R41.89 - Other symptoms and signs involving cognitive functions and awareness, R51.9 - Headache, unspecified, R53.83 - Other fatigue, Z86.73 - Personal history of transient ischemic attack (TIA), and cerebral infarction without residual deficits Comprehensive Met. Panel Today D35.2 - Benign neoplasm of pituitary gland, E11.9 - Type 2 diabetes mellitus without complications, R41.89 - Other symptoms and signs involving cognitive functions and awareness, R51.9 - Headache, unspecified, R53.83 - Other fatigue, Z86.73 - Personal history of transient ischemic attack (TIA), and cerebral infarction without residual deficits CRP High Sensitivity Today D35.2 - Benign neoplasm of pituitary gland, E11.9 - Type 2 diabetes mellitus without complications, R41.89 - Other symptoms and signs involving cognitive functions and awareness, R51.9 - Headache, unspecified, R53.83 - Other fatigue, Z86.73 - Personal history of transient ischemic attack (TIA), and cerebral infarction without residual deficits Rheumatoid Factor Today D35.2 - Benign neoplasm of pituitary gland, E11.9 - Type 2 diabetes mellitus without complications, R41.89 - Other symptoms and signs involving cognitive functions and awareness, R51.9 - Headache, unspecified, R53.83 - Other fatigue, Z86.73 - Personal history of transient ischemic attack (TIA), and cerebral infarction without residual deficits Ferritin Today D35.2 - Benign neoplasm of pituitary gland, E11.9 - Type 2 diabetes mellitus without complications, R41.89 - Other symptoms and signs involving cognitive functions and awareness, R51.9 - Headache, unspecified, R53.83 - Other fatigue, Z86.73 - Personal history of transient ischemic attack (TIA), and cerebral infarction without residual deficits Vitamin B6 Today D35.2 - Benign neoplasm of pituitary gland, E11.9 - Type 2 diabetes mellitus without complications, R41.89 - Other symptoms and signs involving cognitive functions and awareness, R51.9 - Headache, unspecified, R53.83 - Other fatigue, Z86.73 - Personal history of transient ischemic attack (TIA), and cerebral infarction without residual deficits Lipid Panel with Reflex Today E11.9 - Type 2 diabetes mellitus without complications, Z86.73 - Personal history of transient ischemic attack (TIA), and cerebral infarction without residual deficits EEG electroencephalogram Today D35.2 - Benign neoplasm of pituitary gland, R41.89 - Other symptoms and signs involving cognitive functions and awareness, R90.82 - White matter disease, unspecified HIV Ab/Ag Today D35.2 - Benign neoplasm of pituitary gland, E11.9 - Type 2 diabetes mellitus without complications, R41.89 - Other symptoms and signs involving cognitive functions and awareness, R51.9 - Headache, unspecified, R53.83 - Other fatigue, Z86.73 - Personal history of transient ischemic attack (TIA), and cerebral infarction without residual deficits Erythrocyte Sedimentation Rate Today D35.2 - Benign neoplasm of pituitary gland, E11.9 - Type 2 diabetes mellitus without complications, R41.89 - Other symptoms and signs involving cognitive functions and awareness, R51.9 - Headache, unspecified, R53.83 - Other fatigue, Z86.73 - Personal history of transient ischemic attack (TIA), and cerebral infarction without residual deficits CEDRICK Reflex Titer and Pattern Today D35.2 - Benign neoplasm of pituitary gland, E11.9 - Type 2 diabetes mellitus without complications, R41.89 - Other symptoms and signs involving cognitive functions and awareness, R51.9 - Headache, unspecified, R53.83 - Other fatigue, Z86.73 - Personal history of transient ischemic attack (TIA), and cerebral infarction without residual deficits IRON PROFILE Today D35.2 - Benign neoplasm of pituitary gland, E11.9 - Type 2 diabetes mellitus without complications, R41.89 - Other symptoms and signs involving cognitive functions and awareness, R51.9 - Headache, unspecified, R53.83 - Other fatigue, Z86.73 - Personal history of transient ischemic attack (TIA), and cerebral infarction without residual deficits Vitamin B1 Today D35.2 - Benign neoplasm of pituitary gland, E11.9 - Type 2 diabetes mellitus without complications, R41.89 - Other symptoms and signs involving cognitive functions and awareness, R51.9 - Headache, unspecified, R53.83 - Other fatigue, Z86.73 - Personal history of transient ischemic attack (TIA), and cerebral infarction without residual deficits Coding Level of Care Code Est Pt Level 4 (69143) Complex EM visit Add On G2211 Diagnoses Cognitive changes R41.89 Pituitary macroadenoma D35.2 White matter abnormality on MRI of brain R90.82 Snoring R06.83 Hypersomnia G47.10
--- OUTSIDE RECORDS SUMMARY | 2024-08-08 10:52 | XMS_ITS | Data Portability ---
Author Organization [address], [place] [employer] Address [address] [place] [address] Care Team Providers Care Iap Displays Analyst Name Role Phone HIM CCA OTHER BEN ELIZABETH Primary Care Provider Assessment Encounter Date Assessment Date Assessment LastModified by Organization Details LastModified Time 04/04/2023 04/04/2023 I provided real -time medical direction via phone for this encounter, and was available for additional phone based assistance as needed. I have reviewed and agree with the Assessment and Plan as documented by the Noise Tester. Patient given the opportunity to ask questions. as per above, patient was seen by us and started on Keflex for possible cellulitis and then 1 of going to [facility] last week and was put on Bactrim for expansion of cellulitis. Now calls after being on Bactrim 8 days with increasing pain and swelling. Per prepress manager on the scene continues to have swelling [...] Assessment and Plan as documented by the Noise Tester. Patient given the opportunity to ask questions. [...] on the right track and recovering. Per prepress manager on the scene, Nonproductive cough is present [...] in the field was performed by my prepress manager colleague, as noted above, I provided real-time [...] Assessment and Plan as documented by the Noise Tester. Patient given the opportunity to ask questions. Our service contacted for an assessment of: Follow-up As per above, patient recently diagnosed with COVID unable to take Paxlovid. We were asked to re-evaluate patient's symptoms. Upon today's visit patient is improving and is using [id number]-tur-[id number] medications. Vital signs are stable and patient is afebrile Impression: COVID-19 Plan: On a positive trajectory. Continue with osgh-cvp-opzrgcd medicines and supportive care. Allergies: Reviewed PCP [...] recorded. Lab rapid flu (A+B) [address], [address] [place] [address], [id number] 17:39:13 rapid SARS CoV 2 Ag, QL IA, respiratory specimen [address], [phone] 17:39:13 Referral None recorded. Procedures None recorded. Surgeries None recorded. Imaging None recorded. Medication Orders albuterol sulfate HFA 90 mcg/actuati on aerosol inhaler 2024 025 [facility] - [place], [place], [address] [place], [address], 09:43:56 Flonase Allergy Relief 50 mcg/actuati on nasal spray,suspe nsion 2024 025 [facility] - [place], [address] [place], [address], 09:43:53 Robitussin Cough-Chest Congestion DM 5 mg-100 mg/5 mL oral liquid 2023 024 [facility] - [place], [address] [facility], [place], [address], 4 11:01:21 Patient TargetsNo targets recorded. Patient [...] Ultra-Fine Mini Pen Needle 31 gauge x /16 USE 1 needle 4 TIMES DAILY directed [...] Available No t Available [employer] Alirio 2 [place] USE DIRECTED active Not Available Not Available [...] % 98 % 80 /min 152.4 cm 53904.4 g 98.4 [degF] 136 mm[Hg] 84 mm[Hg] Not Available [facility] - production 3 16:41:08 Date Recorded Oxygen saturation Oxygen saturation in Arterial blood by Pulse oximetry Respiratory rate Body temperature Heart rate Body weight Systolic blood pressure Diastolic blood pressure Provider Name and Address Organization Details Last Updated DateTime 4 98 % 98 % 18 /min 98.5 [degF] 80 /min 11850.7 84 g 144 mm[Hg] 72 mm[Hg] Not Available [facility] 4 17:55:01 Date Recorded Body temperature Body weight Heart rate Oxygen saturation Oxygen saturation in Arterial blood by Pulse oximetry Respiratory rate Systolic blood pressure Diastolic blood pressure Provider Name and Address Organization Details Last Updated DateTime 4 98.2 [degF] 48254.5 6 g 86 /min 98 % 98 % 16 /min 166 mm[Hg] 72 mm[Hg] Not Available [facility] 4 16:51:52 Date Recorded Body temperature Oxygen saturation Oxygen saturation in Arterial blood by Pulse oximetry Body height Heart rate Body weight Respiratory rate Systolic blood pressure Diastolic blood pressure Provider Name and Address Organization Details Last Updated DateTime 5 99.2 [degF] 100 % 100 % 149.86 cm 84 /min 90863.7 04 g 16 /min 142 mm[Hg] 80 mm[Hg] Not Available [employer] 5 17:33:21 Date Recorded Body temperature Respiratory rate Body weight Body height Heart rate Oxygen saturation Oxygen saturation in Arterial blood by Pulse oximetry Systolic blood pressure Diastolic blood pressure Provider Name and Address Organization Details Last Updated DateTime 5 97.4 [degF] 14 /min 32106.8 g 152.4 cm 78 /min 97 % 97 % 110 mm[Hg] 88 mm[Hg] Not Available [employer] 5 09:51:04 Social History None recorded. Functional Status None recorded. Mental Status None recorded. Family History Nothing Reported. Medical History No medical history recorded. Gynecological HistoryNo gynecological history recorded. Obstetrics History GPAL:G 0 P 0 0 0 0 Past Encounters Encounter ID Performer Location Encounter Start Date Encounter Closed Date Diagnosis/Indication Diagnosis SNOMED-CT Code Diagnosis ICD10 Code Diagnosis Note [id number] Elaine Draper MD [facility] - [facility] [address] [place] [address] [id number] 09/23/2022 16:16:58 09/27/2022 14:43:34 Cellulitis of left foot 7938244584 2213305 L03.116 [id number] Akila Samuel MD [facility] - [facility] [address] [place] [address] [id number] 04/04/2023 16:41:06 04/05/2023 13:23:43 Cellulitis of lower leg 975898191 L03.119 [id number] [facility] [address] [place] [id number] 08/08/2023 17:54:55 08/08/2023 22:15:05 Cough [id number] R05.9 [id number] [facility] [address] [place] [address] [id number] 12/20/2023 16:51:49 12/20/2023 22:32:10 Cramp in lower limb 798915984 R25.2 As noted, we were called to see this patient regarding concerns of pain. Evaluation in the field was performed by my prepress manager colleague, as noted above, I provided real-time [...] particular ly numbness, weakness, or severe pain. [id number] Francisco David MD [facility] - [facility] [address] [place] [address] [id number] 06/03/2024 17:33:17 06/03/2024 21:44:20 COVID-19 [id number] U07.1 [id number] Akila [facility] [address] [place] [address] [id number] 06/05/2024 09:35:28 06/05/2024 11:52:44 COVID-19 [id number] U07.1 Health Concerns Section Related Observation LastModified by Organization Detai ls LastModified Time None Recorded Concern Status LastModified by Organization Details LastModified Time None Recorded Advance Directives Directive None Recorded Payers Encounter Date Sequence Insurance Name Policy Number Policy Rowe Covered Member ID Rowe Member ID Guarantor Name 04/04/2023 1 [facility] - DOS ON OR AFTER 2022 - DUAL ELIGIBLE - SHELTER OPTIONS AND ONE CARE (MEDICARE REPLACEMENT/ADV ANTAGE - HMO) Jimena Watkins [id number] Jimena Watkins 08/08/2023 1 [facility] - DOS ON OR AFTER 2022 - DUAL ELIGIBLE - SHELTER OPTIONS AND ONE CARE (MEDICARE REPLACEMENT/ADV ANTAGE - HMO) Jimena Watkins [id number] Jimena Watkins 12/20/2023 1 [facility] - DOS ON OR AFTER 2022 - DUAL ELIGIBLE - SHELTER OPTIONS AND ONE CARE (MEDICARE REPLACEMENT/ADV ANTAGE - HMO) Jimena Watkins [id number] Jimena Watkins 06/03/2024 1 [facility] - DOS ON OR AFTER 2022 - DUAL ELIGIBLE - SHELTER OPTIONS AND ONE CARE (MEDICARE REPLACEMENT/ADV ANTAGE - HMO) Jimena Watkins [id number] Jimena Watkins 06/05/2024 1 [facility] - DOS ON OR AFTER 2022 - DUAL ELIGIBLE - SHELTER OPTIONS AND ONE CARE (MEDICARE REPLACEMENT/ADV ANTAGE - HMO) Jimena Watkins [id number] Jimena Watkins Notes Date Note Type Note Provider Name and Address Organization Details Recorded Time 04/04/2023 text/html HPI: 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 Member seen at [facility] last Monday, diagnosed with left cellulitis and started on Bactrim. Member states no improvement, and feels more painful. Per STAND UP FORKLIFT OPERATOR foot is still red, warm, swollen and [...] process this visit. Akila Samuel MD [address] [place] [address],[address], [place], [address], [address] 04/04/2023 16:44:11 08/08/2023 text/html HPI: Jimena was [...] .................... .................... .................... .................... .................... .................... . Noise Tester Note From Juvenal Silva: 67 yo F c/o cough which will not dissipate. She reports she is unable to sleep due to the cough. Pt does sleep with her elevated with three pillows. Pt was admitted to [facility] on 08/03 and stayed several night for [...] to complications of Diabetes [facility] in [place] on [address] . consult. Will Rx Robitussin. Discussed red flags with pt and when to seek/call 911/EMS/ER. Pt understood and had no questions. .................... .................... .................... .................... .................... .................... .................... . Disposition: Venkat Samuel MD [address] [facility],[address], [place], [address], [employer] 08/08/2023 17:57:46 12/20/2023 text/html HPI: Marcella, palliative [...] to the ED, but agreeable to an [facility] visit. .................... .................... .................... .................... .................... .................... .................... . CRC Nurse Triage Notes (Aixa Delgadillo): Chief Complaints: Pain PMH: COPD/Asthma, Diabetes, Hypertension, Heart Disease Other Allergies: lyrica, metformin, and 1 other Comments: CRC RN did not require any additional information to process this visit. .................... .................... .................... .................... .................... .................... .................... . Noise Tester Note From Emmanuel Brandt: Pt co cramping in feet off and on for 1 week. Pt sts no other complaints and pt sts she didn? t call for us her VN did. Pt allowed evaluation. Pt denies cp sob NVD headache dizziness or fever. Baseline vitals assessed. ..pt sts coloration is normal for her. [facility] contacted and advised to pt to follow up with pcp. Pt education on signs indicating the ER. .................... .................... .................... .................... .................... .................... .................... . Disposition: Fulfilled Tobin Floyd MD [address] [place] [address],[address], [place], [address], [address] 12/20/2023 17:53:19 06/03/2024 text/html HPI: Pt states [...] Allergies Reviewed at 06/03/2024:16 Comments: HPI reviewed Noise Tester Organization Information for Nadeem Mancia Legal Name: [facility] Address: [address] [place] [address], [place] [address], Receptionist Telephone Operator: Ashwin Gastelum MD [facility] No.: [id number] Noise Tester POC Test Results from Nadeem Mancia Rapid COVID antigen (17:31:17) COVID: + Rapid influenza antigen (17:31:18) Flu: - .................... .................... .................... .................... .................... .................... .................... . Noise Tester Note From BlancheNadeem: This 68-year-old female with a history including [...] .................... .................... .................... .................... .................... .................... . [facility] Consulted: Francisco David .................... .................... .................... .................... .................... .................... .................... . Disposition: Fulfilled Francisco David MD [address] [facility],[address], [place], [address], [employer], PASTOR 06/03/2024 18:08:20 06/05/2024 text/html CRC Nurse Triage Notes (Aixa Delgadillo - RN): Chief Complaints: Breathing problems, Common cold symptoms, Cough, Asthma PMH: COPD/Asthma, Hypertension, Coronary Artery Disease PMH Reviewed at 06/05/2024:39 Allergies Reviewed at 06/05/2024:39 Comments: 06/03- [facility] Remarks Patient is positive for COVID. Unable [...] .................... .................... .................... .................... .................... .................... . Noise Tester Note From Ja Bean: Patient alert and oriented seated in wheelchair in apartment. Patient complains of nasal congestion and frequent nonproductive cough. Patient reports she was diagnosed with Covid three days ago by Oriana. Patient reports she has been eating and [...] .................... .................... .................... .................... .................... .................... . [facility] Consulted: Akila Samuel .................... .................... .................... .................... .................... .................... .................... . Disposition: Venkat Samuel MD [address] [facility],[address], [place], [address], [address] 06/05/2024 11:32:10 OBGyn Episode No OBEpisode recorded.
== END 2024-08-08 10:52 | disposition home or self-care (01) ==
LOC: HO.HSMS 09:31
PROVIDERS: PCP Family Medicine; Visit Provider Nurse Practitioner Family
DX: R41.89 Other symptoms and signs involving cognitive functions and awareness (principal); D35.2 Benign neoplasm of pituitary gland; R90.82 White matter disease, unspecified; R06.83 Snoring; G47.10 Hypersomnia, unspecified
CPT/HCPCS: 99214; G2211

== ENCOUNTER → 2024-08-08 09:30 | Outpatient (BNVA) | payer OTHER, SELFPAY | PROVIDERS: PCP Family Medicine; Visit Provider Nurse Practitioner Family | DX: D35.2 Benign neoplasm of pituitary gland (principal); R41.89 Other symptoms and signs involving cognitive functions and awareness; R90.82 White matter disease, unspecified; R06.83 Snoring; G47.10 Hypersomnia, unspecified; E11.9 Type 2 diabetes mellitus without complications; R51.9 Headache, unspecified; Z86.73 Personal history of transient ischemic attack (TIA), and cerebral infarction without residual deficits | CPT/HCPCS: 99212 ==

== ENCOUNTER 2024-08-09 09:45 | Outpatient (REF) | payer OTHER, SELFPAY ==
[2024-08-09 10:29] LABS: MANUAL DIFF FLAG NO
[2024-08-09 10:56] LABS: Basophils Percent Auto 0.3 % (0-2); Eosinophils Absolute Auto 0.4 X10*3/uL (0.0-0.4); Eosinophils Percent Auto 3.9 % (0-4); Hematocrit 43.9 % (37.0-47.0); Hemoglobin 14.4 g/dl (12.0-16.0); Imm Gran Abs Auto 0.02 X10*3/uL (0.00-0.03); Imm Gran Pct Auto 0.2 % (0.0-0.4); Lymphocytes Absolute Auto 1.7 X10*3/uL (1.2-4.9); Lymphocytes Percent Auto 19.1 % (20-40); Mean Corpuscular HGB Conc 32.8 g/dl (31.0-35.0); Mean Corpuscular Hemoglobin 28.5 pg (27.0-33.0); Mean Corpuscular Volume 86.8 fL (80.0-98.0); Mean Platelet Volume 10.1 fL (9.4-12.3); Monocytes Absolute Auto 0.7 X10*3/uL (0.1-1.2); Monocytes Percent Auto 7.9 % (2-11); Neutrophils Absolute Auto 6.2 x10*3/uL (2.0-8.3); Neutrophils Percent Auto 68.6 % (45-73); Platelet Count 214 X10*3/uL (160-400); Red Blood Count 5.06 X10*6/uL (4.20-5.50); Red Cell Distribution Width 13.7 % (11.0-16.0); White Blood Count 9.1 X10*3/uL (4.8-10.8)
[2024-08-09 11:38] LABS: Erythrocyte Sedimentation Rate 23 MM/HR (0-20)
[2024-08-09 11:43] LABS: Alanine Aminotransferase 42 U/L (0-31); Albumin Level 3.9 g/dL (3.5-5.0); Anion Gap 11 (12-20); Aspartate Amino Transferase 39 U/L (5-31); Bilirubin Total 0.6 mg/dL (0.0-1.0); Blood Urea Nitrogen 27 mg/dL (9-16); Calcium 10.3 mg/dL (8.4-10.2); Carbon Dioxide 28 mmol/L (22-29); Chloride 104 mmol/L (96-108); Cholesterol 93 mg/dL (<200); Estimated Glomerular Filt Rate > 60; Ferritin 34 ng/mL (10-250); Glucose Random 79 mg/dL (60-115); HDL Cholesterol 28 mg/dL (>40); Iron 75 mcg/dL (30-160); LDL Cholesterol Calculated 50 mg/dL (<100); Percent Iron Saturation 24 % (15-50); Potassium 4.2 mmol/L (3.3-5.1); Rheumatoid Factor < 13.0 IU/mL (<15.0); Sodium 139 mmol/L (135-145); Total Iron Binding Capacity 307 mcg/dL (228-428); Triglycerides 76 mg/dL (<150); Unsaturated Iron Binding 232 ug/dL
[2024-08-09 11:58] LABS: Vitamin B12 642 pg/mL (200-900)
[2024-08-09 12:18] LABS: Reflex LDLD? No
[2024-08-09 19:40] LABS: Alkaline Phosphatase 153 U/L (39-117)
[2024-08-10 08:10] LABS: HIV AB/AG Nonreactive (Nonreactive); HIV Num 1 0.07 S/CO (0.00-0.99)
[2024-08-10 08:33] LABS: Syphilis Screen Nonreactive (Nonreactive)
[2024-08-12 19:07] LABS: Lyme Abs Screen <0.90 index
[2024-08-14 15:38] LABS: ANA Pattern 2 Nuclear, Speckled; Anti Nuclear Antibody Screen POSITIVE (NEGATIVE)
[2024-08-15 15:13] LABS: Vitamin D 25-OH, D2 <4 ng/mL; Vitamin D 25-OH, D3 29 ng/mL; Vitamin D 25-OH, Total 29 ng/mL (30-100)
[2024-08-15 15:19] LABS: Vitamin B6 16.5 ng/mL (2.1-21.7)
[2024-08-19 16:38] LABS: Vitamin B1 15 nmol/L (8-30)
== END 2024-08-09 09:46 | disposition home or self-care (01) ==
LOC: HO.LAB 09:45
PROVIDERS: PCP Family Medicine; Visit Provider Nurse Practitioner Family
DX: R41.89 Other symptoms and signs involving cognitive functions and awareness (principal); Z86.73 Personal history of transient ischemic attack (TIA), and cerebral infarction without residual deficits; R53.83 Other fatigue; E11.9 Type 2 diabetes mellitus without complications; D35.2 Benign neoplasm of pituitary gland; R51.9 Headache, unspecified
CPT/HCPCS: 36415; 80053; 80061; 82306; 82607; 82728; 82746; 83540; 84207; 84425; 85025; 85652; 86038; 86039; 86141; 86431; 86617; 86618; 86780; 87389

== ENCOUNTER 2024-08-22 10:49 | Outpatient (AMB) | payer OTHER, SELFPAY ==
--- NOTE | 2024-08-22 11:25 | A.OFFPC_ITS ---
Vital Signs 08/22/24 11:40 Height 4 ft 11 in Weight 178 lb 2 oz BMI 36.0 BP 124/62 Blood Pressure Location Lt brachial Position Sitting Respiration 14 Pulse 73 Pulse Source Pulse Oximeter Temp 97.6 F Temp Source Oral Pulse Oximetry (%) 99 Oxygen Delivery Method Room Air Intake Visit Reasons: f/u diabetes, HTN Intake Note: patient is scheduled for diabetes follow-up and patient to talk a glucose machine and want to change new glucose monitor Cutter Brake Lining Required: No Information Interpreted: clinical only [facility]: Offered and Declined Is last menstrual period known: No Post menopausal: No Patient : No Allergies aspirin [Aspirin] Allergy (Mild, Verified 08/22/24 11:33) RASH morphine [MORPHINE] Allergy (Unknown, Verified 08/22/24 11:33) ABD PAIN, RASH omeprazole [OMEPRAZOLE] Allergy (Unknown, Verified 08/22/24 11:33) SHORTNESS OF BREATH pregabalin [From LYRICA] Allergy (Unknown, Verified 08/22/24 11:33) SHORTNESS OF BREATH celecoxib Adverse Reaction (Mild, Verified 08/22/24 11:33) chest pain, jumping feeling in her heart. Tobacco use date assessed: 08/29/23 Dental Screening Dental Screen Date: 07/14/23 HPI f/u diabetes, HTN HPI Details 68 y/o female presents to f/u diabetes, HTN. Last A1c 05/23/24 8.4%. A1c today 08/22/24 is 6.5%. She continues using her medications as prescribed. Blood sugars at home in the morning have been in the 100s. Blood pressure today 124/62, 73p. She is on valsartan 80mg, carvedilol 3.125 mg b.i.d. Follows up with endocrinology for a pituitary adenoma. Pt reports she has been forgetting things. [facility] Medical History Heart attack Abscess of chest wall Uncontrolled type 2 diabetes mellitus with hyperglycemia, with long-term current use of insulin Ganglion cyst Glaucoma Neuropathy Arthritis Intracranial mass Diabetes 1.5, managed as type 2 Hypertension Asthma Surgical History History of removal of cyst Stented coronary artery H/O tubal ligation Hx of tonsillectomy H/O right breast biopsy Social History Housing: Apartment Patient Tobacco Use Status: Former Tobacco user e-Cigarette/Vaping Use: Never Used Patient : No service: No Current occupational status: disabled Current occupational exposures/hazards: No Cognitive needs: No Hearing needs: No Vision needs: No Questionnaire Thrive Questionnaire Date Thrive assessed: 02/29/24 I am a: Patient What is your living situation today?: I have a steady place to live Within the past 12 months, did the food you bought not last and you didn't have the money to get more?: I choose not to answer this question Within the past 12 months, did you worry whether your food would run out before you got money to buy more?: I choose not to answer this question Do you have trouble paying for medicines?: No Do you have trouble getting transportation to medical appointments?: No Do you have trouble paying your heating and electricity bill?: No Do you have trouble taking care of your child, family member or friend?: I choose not to answer this question Do you have trouble with day-to-day activities such as bathing, preparing meals, shopping, managing finances, etc.?: No Are you currently unemployed and looking for a job?: I choose not to answer this question Are you interested in more education?: I choose not to answer this question Please select the resources that you would like help with: None THRIVE Score: 0 URIEL-7 AMB Questionnaire URIEL-7 Date URIEL - 7 assessed: 03/30/23 Source: Developed by Drs. Jason Glover, Deanna Truong, Sylvester Braga and colleagues, with an educational lisa from [employer]. Review of Systems Const Denies chills, Denies fatigue, Denies fever(s), Denies headache(s) and Denies weakness ENT Denies dizziness and Denies headache(s) Card Denies dyspnea Resp Denies cough, Denies dyspnea, Denies wheezing and Denies other (shortness of br eath) Musc Denies numbness and Denies tingling Neuro Denies dizziness, Denies headache(s), Denies numbness, Denies tingling and Denies weakness Psych Denies anxiety and Denies depression Endo Denies fatigue Aller/Immun Denies wheezing Physical exam (Primary Care) Vital Signs: Last Vital Signs Temp 97.6 F 08/22/24 11:40 Pulse 73 08/22/24 11:40 Resp 14 08/22/24 11:40 BP 124/62 08/22/24 11:40 Pulse Ox 99 08/22/24 11:40 Oxygen Delivery Method Room Air 08/22/24 11:40 BMI result Body Mass Index 36.0 Tobacco/Smoking Status: Tobacco use Status Tobacco use date assessed 08/29/23 08/22/24 11:27 Patient Tobacco Use Status Former Tobacco user 08/22/24 11:27 e-Cigarette/Vaping Use Never Used 08/22/24 11:27 Thrive Assessment: Date of Thrive Assessment Date Thrive assessed 02/29/24 08/22/24 11:27 Const General: well developed; No acute distress Nutritional Appearance: well nourished Orientation/consciousness: patient oriented x3 HENMT Head: Yes normocephalic and Yes atraumatic Eyes General: appearance normal, both eyes and all related structures Pupils: Equal, round and reactive pupils present EOM: EOMs intact bilaterally Resp Effort & Inspection: normal respiratory effort Auscultation: clear to auscultation bilaterally Cardio Rate: regular rate Rhythm: regular rhythm Heart sounds: S1 normal heart sound present, S2 normal heart sound present, no gallops, no murmurs and no rubs Neuro General: patient oriented x3 and gait normal Cranial nerves: Yes Equal, round and reactive pupils present Psych Affect: normal affect Coding Level of Care Code Est Pt Level 4 (29439) Diagnoses Diabetes 1.5, managed as type 2 E13.9 Hypertension I10 History of CVA (cerebrovascular accident) Z86.73 Pituitary macroadenoma D35.2 Memory changes R41.3 Decreased pulses in feet R09.89 Assessment & Plan Assessment & Plan (1) Diabetes 1.5, managed as type 2: Code(s): E13.9 - Other specified diabetes mellitus without complications Category: Medical Plan: A1c?shows?good?control.??Goal?is?less?than?7.0% Continue?current?medication?regimen (2) Hypertension: Code(s): I10 - Essential (primary) hypertension Category: Medical Plan: Blood?pressure?is?controlled.??Goal?is?less?than?130/80 Continue?medications (3) History of CVA (cerebrovascular accident): Code(s): Z86.73 - Personal history of transient ischemic attack (TIA), and cerebral infarction without residual deficits Category: Medical Plan: Stable (4) Pituitary macroadenoma: Code(s): D35.2 - Benign neoplasm of pituitary gland Category: Medical Plan: Followed?by?. Patient?notes?that?an?imaging?study?is?scheduled?for?this?week (5) Memory changes: Code(s): R41.3 - Other amnesia Category: Medical Plan: Patient?has?complaints?of?memory?changes.??Forgetting?things?and?forgetting?to?d o?some?things. Mini?cog?score?is?4/5 - negative?for?cognitive?impairment/dementia. Will?continue?to?monitor Get?plenty?of?sleep Mental?exercise?and?socialization If?worsening?will?refer?for?neuropsychiatric?testing. (6) Decreased pulses in feet: Code(s): R09.89 - Other specified symptoms and signs involving the circulatory and respiratory systems Category: Medical Plan: Diminished?pulse?in?left?foot.??Distal?foot?is?cool?but?still?has?some?sensation & pain response. + Motor at toes. Ordered?MARK?and referred?to?vascular?urgently?for?assessment. Orders: Orders US MARK complete Today R09.89 - Other specified symptoms and signs involving the circulatory and respiratory systems Referrals Vascular Surgery Referral R09.89 - Other specified symptoms and signs involving the circulatory and respiratory systems
[2024-08-22 11:40] VITALS: BP 124/62; PULSE 73; RESP 14; TEMP 36.4; O2SAT 99; BMI 36.0
--- OUTSIDE RECORDS SUMMARY | 2024-08-22 12:27 | XMS_ITS | Data Portability ---
Author Organization [employer] [place] Address [address] [place] [address] Care Team Providers Care Compliance Tester Name Role Phone HIM CCA OTHER BEN ELIZABETH Primary Care Provider [phone] Assessment Encounter Date Assessment Date Assessment LastModified by Organization Details LastModified Time 04/04/2023 04/04/2023 I provided real -time medical direction via phone for this encounter, and was available for additional phone based assistance as needed. I have reviewed and agree with the Assessment and Plan as documented by the Kit Assembler. Patient given the opportunity to ask questions. as per above, patient was seen by us and started on Keflex for possible cellulitis and then 1 of going to [facility] last week and was put on Bactrim for expansion of cellulitis. Now calls after being on Bactrim 8 days with increasing pain and swelling. Per wood drilling machine operator on the scene continues to have swelling [...] Assessment and Plan as documented by the Kit Assembler. Patient given the opportunity to ask questions. [...] on the right track and recovering. Per wood drilling machine operator on the scene, Nonproductive cough is present [...] in the field was performed by my wood drilling machine operator colleague, as noted above, I provided [...] Assessment and Plan as documented by the Kit Assembler. Patient given the opportunity to ask questions. Our service contacted for an assessment of: Follow-up As per above, patient recently diagnosed with COVID unable to take Paxlovid. We were asked to re-evaluate patient's symptoms. Upon today's visit patient is improving and is using pkiz-ole-pcwcdne medications. Vital signs are stable and patient is afebrile Impression: COVID-19 Plan: On a positive trajectory. Continue with fouj-bmv-zjpuyys medicines and supportive care. Allergies: Reviewed PCP [...] recorded. Lab rapid flu (A+B) [address], [address] [place] [address], [id number] 17:39:13 rapid SARS CoV 2 Ag, QL IA, respiratory specimen [address], [id number] 17:39:13 Referral None recorded. Procedures None recorded. Surgeries None recorded. Imaging None recorded. Medication Orders albuterol sulfate HFA 90 mcg/actuati on aerosol inhaler 2024 025 [facility] # - [place], [place], [address] [place], [address], 09:43:56 Flonase Allergy Relief 50 mcg/actuati on nasal spray,suspe nsion 2024 025 [facility] - [place], [place], [address] [place], [address], 09:43:53 Robitussin Cough-Chest Congestion DM 5 mg-100 mg/5 mL oral liquid 2023 024 [facility] - [place], [place], [address] [facility], [place], [address], 4 11:01:21 Patient TargetsNo targets recorded. Patient [...] Available No t Available [employer] 2 [employer] USE DIRECTED active Not Available Not Available [...] % 98 % 80 /min 152.4 cm 61229.4 g 98.4 [degF] 136 mm[Hg] 84 mm[Hg] Not Available [employer] [facility] [employer] 3 16:41:08 Date Recorded Oxygen saturation Oxygen saturation in Arterial blood by Pulse oximetry Respiratory rate Body temperature Heart rate Body weight Systolic blood pressure Diastolic blood pressure Provider Name and Address Organization Details Last Updated DateTime 4 98 % 98 % 18 /min 98.5 [degF] 80 /min 08717.7 84 g 144 mm[Hg] 72 mm[Hg] Not Available [email or web address] 4 17:55:01 Date Recorded Body temperature Body weight Heart rate Oxygen saturation Oxygen saturation in Arterial blood by Pulse oximetry Respiratory rate Systolic blood pressure Diastolic blood pressure Provider Name and Address Organization Details Last Updated DateTime 4 98.2 [degF] 68089.5 6 g 86 /min 98 % 98 % 16 /min 166 mm[Hg] 72 mm[Hg] Not Available [email or web address] 4 16:51:52 Date Recorded Body temperature Oxygen saturation Oxygen saturation in Arterial blood by Pulse oximetry Body height Heart rate Body weight Respiratory rate Systolic blood pressure Diastolic blood pressure Provider Name and Address Organization Details Last Updated DateTime 5 99.2 [degF] 100 % 100 % 149.86 cm 84 /min 27889.7 04 g 16 /min 142 mm[Hg] 80 mm[Hg] Not Available [employer] 5 17:33:21 Date Recorded Body temperature Respiratory rate Body weight Body height Heart rate Oxygen saturation Oxygen saturation in Arterial blood by Pulse oximetry Systolic blood pressure Diastolic blood pressure Provider Name and Address Organization Details Last Updated DateTime 5 97.4 [degF] 14 /min 48543.8 g 152.4 cm 78 /min 97 % 97 % 110 mm[Hg] 88 mm[Hg] Not Available [employer] 5 09:51:04 Social History None recorded. Functional Status None recorded. Mental Status None recorded. Family History Nothing Reported. Medical History No medical history recorded. Gynecological HistoryNo gynecological history recorded. Obstetrics History GPAL:G 0 P 0 0 0 0 Past Encounters Encounter ID Performer Location Encounter Start Date Encounter Closed Date Diagnosis/Indication Diagnosis SNOMED-CT Code Diagnosis ICD10 Code Diagnosis Note [id number] Elaine Draper MD [facility] [address] [place] [id number] 09/23/2022 16:16:58 09/27/2022 14:43:34 Cellulitis of left foot 0759161145 9966613 L03.116 [id number] Akila Samuel MD [facility] - [facility] [address] [place] [phone] 04/04/2023 16:41:06 04/05/2023 13:23:43 Cellulitis of lower leg 640586499 L03.119 [id number] [facility]ila [facility] MD [facility] [address] [place] [id number] 08/08/2023 17:54:55 08/08/2023 22:15:05 Cough [id number] R05.9 [id number] [facility]in [facility] [address] [place] [id number] 12/20/2023 16:51:49 12/20/2023 22:32:10 Cramp in lower limb 154142449 R25.2 As noted, we were called to see this patient regarding concerns of pain. Evaluation in the field was performed by my wood drilling machine operator colleague, as noted above, I provided [...] particular ly numbness, weakness, or severe pain. [id number] Francisco David MD [facility] - [facility] [address] [place] [address] [phone] 06/03/2024 17:33:17 06/03/2024 21:44:20 COVID-19 [id number] U07.1 [id number] Akila Samuel MD [facility] [address] [place] [id number] 06/05/2024 09:35:28 06/05/2024 11:52:44 COVID-19 680687727 U07.1 Health Concerns Section Related Observation LastModified by Organization Detai ls LastModified Time None Recorded Concern Status LastModified by Organization Details LastModified Time None Recorded Advance Directives Directive None Recorded Payers Encounter Date Sequence Insurance Name Policy Number Policy Rowe Covered Member ID Rowe Member ID Guarantor Name 04/04/2023 1 [facility] [employer] - DOS ON OR AFTER 2022 - DUAL ELIGIBLE - LONG TERM OPTIONS AND ONE CARE (MEDICARE REPLACEMENT/ADV ANTAGE - HMO) Jimena Watkins [id number] Jimena Watkins 08/08/2023 1 [facility] - DOS ON OR AFTER 2022 - DUAL ELIGIBLE - LONG TERM OPTIONS AND ONE CARE (MEDICARE REPLACEMENT/ADV ANTAGE - HMO) Jimena Watkins [id number] Jimena Watkins 12/20/2023 1 [facility] [employer] - DOS ON OR AFTER 2022 - DUAL ELIGIBLE - LONG TERM OPTIONS AND ONE CARE (MEDICARE REPLACEMENT/ADV ANTAGE - HMO) Jimena Watkins [id number] Jimena Watkins 06/03/2024 1 [facility] - DOS ON OR AFTER 2022 - DUAL ELIGIBLE - LONG TERM OPTIONS AND ONE CARE (MEDICARE REPLACEMENT/ADV ANTAGE - HMO) Jimena Watkins [id number] Jimena Watkins 06/05/2024 1 [facility] [employer] - DOS ON OR AFTER 2022 - DUAL ELIGIBLE - LONG TERM OPTIONS AND ONE CARE (MEDICARE REPLACEMENT/ADV ANTAGE - HMO) Jimena Watkins [id number] Jimena Watkins Notes Date Note Type Note Provider Name and Address Organization Details Recorded Time 04/04/2023 text/html HPI: Members community [facility] RADIATION ONCOLOGY NURSE calling in a referral, member identified via /name. Member seen at [facility] last Monday, diagnosed with left cellulitis and started on Bactrim. Member states no improvement, and feels more painful. Per RADIATION ONCOLOGY NURSE foot is still red, warm, swollen and [...] process this visit. Akila Samuel MD [address] [place] [address],[address], [place], [address], [employer] 04/04/2023 16:44:11 08/08/2023 text/html HPI: Jimena was treated at [facility] 08/02-08/03 for the flu A and asthma. [...] .................... .................... .................... .................... .................... .................... . Kit Assembler Note From Juvenal Silva: 67 yo F c/o cough which will not dissipate. She reports she is unable to sleep due to the cough. Pt does sleep with her elevated with three pillows. Pt was admitted to [facility] on 08/03 and stayed several night [...] to complications of Diabetes [facility] in [place] on [address] . consult. Will Rx Robitussin. Discussed red flags with pt and when to seek/call 911/EMS/ER. Pt understood and had no questions. .................... .................... .................... .................... .................... .................... .................... . Disposition: Venkat Samuel MD [address] [facility],[address], [place], [address], [employer] 08/08/2023 17:57:46 12/20/2023 text/html HPI: Marcella, palliative [...] .................... .................... .................... .................... .................... .................... . Kit Assembler Note From Emmanuel Brandt: Pt co cramping in feet off and on for 1 week. Pt sts no other complaints and pt sts she didn? t call for us her VN did. Pt allowed evaluation. Pt denies cp sob NVD headache dizziness or fever. Baseline vitals assessed. ..pt sts coloration is normal for her. [facility] contacted and advised to pt to follow up with pcp. Pt education on signs indicating the ER. .................... .................... .................... .................... .................... .................... .................... . Disposition: Fulfilled Tobin Floyd MD [address] [place] [address],[address], [place], [address], [employer] 12/20/2023 17:53:19 06/03/2024 text/html HPI: Pt states [...] Allergies Reviewed at 06/03/2024:16 Comments: HPI reviewed Kit Assembler Organization Information for Nadeem Mancia Legal Name: [facility] Address: [address] [place] [address], [place] [address], [employer]: Ashwin Gastelum MD [facility] No.: [id number] Kit Assembler POC Test Results from Nadeem Mancia Rapid COVID antigen (17:31:17) COVID: + Rapid influenza antigen (17:31:18) Flu: - .................... .................... .................... .................... .................... .................... .................... . Kit Assembler Note From BlancheNadeem: This 68-year-old female with [...] .................... .................... .................... .................... .................... .................... . [facility] Consulted: Francisco David .................... .................... .................... .................... .................... .................... .................... . Disposition: Fulfilled Francisco David MD [address] [facility],[address], [place], [address], [employer], [employer] 06/03/2024 18:08:20 06/05/2024 text/html CRC Nurse Triage Notes (Aixa Delgadillo - RN): Chief Complaints: Breathing problems, Common cold symptoms, Cough, Asthma PMH: COPD/Asthma, Hypertension, Coronary Artery Disease PMH Reviewed at 06/05/2024:39 Allergies Reviewed at 06/05/2024:39 Comments: 06/03- [facility] Remarks Patient is positive for COVID. Unable [...] .................... .................... .................... .................... .................... .................... . Kit Assembler Note From Ja Bean: Patient alert and [...] .................... .................... .................... .................... .................... .................... . [facility] Consulted: Akila Samuel .................... .................... .................... .................... .................... .................... .................... . Disposition: Venkat Samuel MD [address] [facility],[address], [place], [address], [employer] 06/05/2024 11:32:10 OBGyn Episode No OBEpisode recorded.
== END 2024-08-22 13:00 | disposition home or self-care (01) ==
LOC: HO.HMCFM 10:50
PROVIDERS: PCP Family Medicine; Visit Provider Family Medicine
DX: E13.9 Other specified diabetes mellitus without complications (principal); I10 Essential (primary) hypertension; Z86.73 Personal history of transient ischemic attack (TIA), and cerebral infarction without residual deficits; D35.2 Benign neoplasm of pituitary gland; R41.3 Other amnesia; R09.89 Other specified symptoms and signs involving the circulatory and respiratory systems

== ENCOUNTER → 2024-08-22 10:49 | Outpatient (BNVA) | payer OTHER, SELFPAY | PROVIDERS: PCP Family Medicine; Visit Provider Family Medicine | DX: I10 Essential (primary) hypertension (principal); E13.9 Other specified diabetes mellitus without complications; D35.2 Benign neoplasm of pituitary gland; R41.3 Other amnesia; R09.89 Other specified symptoms and signs involving the circulatory and respiratory systems; Z86.73 Personal history of transient ischemic attack (TIA), and cerebral infarction without residual deficits | CPT/HCPCS: 83036; 99212 ==

== ENCOUNTER 2024-08-23 12:49 | Outpatient (REF) | payer OTHER, SELFPAY ==
--- NOTE | ~2024-08-23 | US_ITS ---
CLINICAL HISTORY: R10.2 - Pelvic and perineal pain US pelvis transabdominal and transvaginal Comparison: None Findings: Transabdominal scanning performed for overall anatomy. Transvaginal scanning performed for additional detail. Anteverted uterus is 7.5 cm length. Normal myometrium. Endometrium 3.0 mm thickness. No lesions. Right ovary 1.6 x 1.1 x 0.8 cm. Left ovary 2.4 x 1.4 x 1.2 cm. Normal color Doppler of both ovaries. No free fluid. IMPRESSION: 1. Normal pelvic ultrasound This document has been electronically signed by: Canelo Rodriguez MD on 08/24/2024 08:42:38
--- OUTSIDE RECORDS SUMMARY | 2024-08-23 13:14 | XMS_ITS | Data Portability ---
Author Organization [facility] Address [address] [place] [address] Care Team Providers Care Plastic Molding Operator Name Role Phone HIM CCA OTHER BEN ELIZABETH Primary Care Provider Assessment Encounter Date Assessment Date Assessment LastModified by Organization Details LastModified Time 04/04/2023 04/04/2023 I provided real -time medical direction via phone for this encounter, and was available for additional phone based assistance as needed. I have reviewed and agree with the Assessment and Plan as documented by the Remarketing Manager. Patient given the opportunity to ask questions. as per above, patient was seen by us and started on Keflex for possible cellulitis and then 1 of going to [facility] last week and was put on Bactrim for expansion of cellulitis. Now calls after being on Bactrim 8 days with increasing pain and swelling. Per monotypist on the scene continues to have swelling [...] Assessment and Plan as documented by the Remarketing Manager. Patient given the opportunity to ask [...] on the right track and recovering. Per monotypist on the scene, Nonproductive cough is present [...] in the field was performed by my monotypist colleague, as noted above, I provided real-time [...] Assessment and Plan as documented by the Remarketing Manager. Patient given the opportunity to ask questions. Our service contacted for an assessment of: Follow-up As per above, patient recently diagnosed with COVID unable to take Paxlovid. We were asked to re-evaluate patient's symptoms. Upon today's visit patient is improving and is using vzgw-sov-zmujmte medications. Vital signs are stable and patient is afebrile Impression: COVID-19 Plan: On a positive trajectory. Continue with orsq-oro-taaylrm medicines and supportive care. Allergies: Reviewed PCP [...] recorded. Lab rapid flu (A+B) [address], [address] [place] [address], [id number] 17:39:13 rapid SARS CoV 2 Ag, QL IA, respiratory specimen [address], [phone] 17:39:13 Referral None recorded. Procedures None recorded. Surgeries None recorded. Imaging None recorded. Medication Orders albuterol sulfate HFA 90 mcg/actuati on aerosol inhaler 2024 025 [facility] - [place], [place], [address] [place], [address], 09:43:56 Flonase Allergy Relief 50 mcg/actuati on nasal spray,suspe nsion 2024 025 [facility] - [place], [place], [address] [place], [address], 09:43:53 Robitussin Cough-Chest Congestion DM 5 mg-100 mg/5 mL oral liquid 2023 024 [facility] - [place], [place], [address] [facility], [place], [address], 4 11:01:21 Patient TargetsNo targets recorded. Patient [...] Available No t Available [facility] [address] [place] USE DIRECTED active Not Available Not Available [...] % 98 % 80 /min 152.4 cm 47206.4 g 98.4 [degF] 136 mm[Hg] 84 mm[Hg] Not Available [facility] - production 3 16:41:08 Date Recorded Oxygen saturation Oxygen saturation in Arterial blood by Pulse oximetry Respiratory rate Body temperature Heart rate Body weight Systolic blood pressure Diastolic blood pressure Provider Name and Address Organization Details Last Updated DateTime 4 98 % 98 % 18 /min 98.5 [degF] 80 /min 50275.7 84 g 144 mm[Hg] 72 mm[Hg] Not Available [facility] 4 17:55:01 Date Recorded Body temperature Body weight Heart rate Oxygen saturation Oxygen saturation in Arterial blood by Pulse oximetry Respiratory rate Systolic blood pressure Diastolic blood pressure Provider Name and Address Organization Details Last Updated DateTime 4 98.2 [degF] 01848.5 6 g 86 /min 98 % 98 % 16 /min 166 mm[Hg] 72 mm[Hg] Not Available [facility] 4 16:51:52 Date Recorded Body temperature Oxygen saturation Oxygen saturation in Arterial blood by Pulse oximetry Body height Heart rate Body weight Respiratory rate Systolic blood pressure Diastolic blood pressure Provider Name and Address Organization Details Last Updated DateTime 5 99.2 [degF] 100 % 100 % 149.86 cm 84 /min 30617.7 04 g 16 /min 142 mm[Hg] 80 mm[Hg] Not Available [facility] 5 17:33:21 Date Recorded Body temperature Respiratory rate Body weight Body height Heart rate Oxygen saturation Oxygen saturation in Arterial blood by Pulse oximetry Systolic blood pressure Diastolic blood pressure Provider Name and Address Organization Details Last Updated DateTime 5 97.4 [degF] 14 /min 21401.8 g 152.4 cm 78 /min 97 % 97 % 110 mm[Hg] 88 mm[Hg] Not Available [facility] 5 09:51:04 Social History None recorded. Functional Status None recorded. Mental Status None recorded. Family History Nothing Reported. Medical History No medical history recorded. Gynecological HistoryNo gynecological history recorded. Obstetrics History GPAL:G 0 P 0 0 0 0 Past Encounters Encounter ID Performer Location Encounter Start Date Encounter Closed Date Diagnosis/Indication Diagnosis SNOMED-CT Code Diagnosis ICD10 Code Diagnosis Note [id number] Elaine Draper MD [facility] [address] [place] [address] [phone] 09/23/2022 16:16:58 09/27/2022 14:43:34 Cellulitis of left foot 8135206182 7863303 L03.116 [id number] Akila Samuel MD [facility] [address] [place] [address] [id number] 04/04/2023 16:41:06 04/05/2023 13:23:43 Cellulitis of lower leg 064036486 L03.119 [id number] [facility] [address] [place] [address] [id number] 08/08/2023 17:54:55 08/08/2023 22:15:05 Cough 46525121 R05.9 [id number] [facility] [address] [place] [phone] 12/20/2023 16:51:49 12/20/2023 22:32:10 Cramp in lower limb 001296258 R25.2 As noted, we were called to see this patient regarding concerns of pain. Evaluation in the field was performed by my monotypist colleague, as noted above, I provided real-time [...] particular ly numbness, weakness, or severe pain. [id number] Francisco David MD [facility] [address] [place] [address] [phone] 06/03/2024 17:33:17 06/03/2024 21:44:20 COVID-19 [id number] U07.1 [id number] [facility]ila [facility] [address] [place] [address] [phone] 06/05/2024 09:35:28 06/05/2024 11:52:44 COVID-19 [id number] U07.1 Health Concerns Section Related Observation LastModified by Organization Detai ls LastModified Time None Recorded Concern Status LastModified by Organization Details LastModified Time None Recorded Advance Directives Directive None Recorded Payers Encounter Date Sequence Insurance Name Policy Number Policy Rowe Covered Member ID Rowe Member ID Guarantor Name 04/04/2023 1 [facility] - DOS ON OR AFTER 2022 - DUAL ELIGIBLE - HALF-WAY OPTIONS AND ONE CARE (MEDICARE REPLACEMENT/ADV ANTAGE - HMO) Jimena Watkins [id number] Jimena Watkins 08/08/2023 1 [facility] - DOS ON OR AFTER 2022 - DUAL ELIGIBLE - HALF-WAY OPTIONS AND ONE CARE (MEDICARE REPLACEMENT/ADV ANTAGE - HMO) Jimena Watkins [id number] Jimena Watkins 12/20/2023 1 [facility] - DOS ON OR AFTER 2022 - DUAL ELIGIBLE - HALF-WAY OPTIONS AND ONE CARE (MEDICARE REPLACEMENT/ADV ANTAGE - HMO) Jimena Watkins [id number] Jimena Watkins 06/03/2024 1 [facility] - DOS ON OR AFTER 2022 - DUAL ELIGIBLE - HALF-WAY OPTIONS AND ONE CARE (MEDICARE REPLACEMENT/ADV ANTAGE - HMO) Jimena Watkins [id number] Jimena Watkins 06/05/2024 1 [facility] - DOS ON OR AFTER 2022 - DUAL ELIGIBLE - HALF-WAY OPTIONS AND ONE CARE (MEDICARE REPLACEMENT/ADV ANTAGE - HMO) Jimena Watkins [id number] Jimena Watkins Notes Date Note Type Note Provider Name and Address Organization Details Recorded Time 04/04/2023 text/html HPI: Members community CCA ACADEMIC TUTOR calling in a referral, member identified via /name. Member seen at [facility] last Monday, diagnosed with left cellulitis and started on Bactrim. Member states no improvement, and feels more painful. Per ACADEMIC TUTOR foot is still red, warm, swollen and [...] to process this visit. Akila Samuel MD [address] [place] [address],[address], [place], [address], [facility] 04/04/2023 16:44:11 08/08/2023 text/html HPI: Jimena was treated at [facility] 08/02-08/03 for the flu [...] .................... .................... .................... .................... .................... .................... . Remarketing Manager Note From Juvenal Silva: 67 yo F c/o cough which will not dissipate. She reports she is unable to sleep due to the cough. Pt does sleep with her elevated with three pillows. Pt was admitted to [facility] on 08/03 and stayed several night [...] to complications of Diabetes [facility] in [place] on [address] . consult. Will Rx Robitussin. Discussed red flags with pt and when to seek/call 911/EMS/ER. Pt understood and had no questions. .................... .................... .................... .................... .................... .................... .................... . Disposition: Venkat Samuel MD [address] [facility],[address], [place], [address], [employer] [facility] [employer] 08/08/2023 17:57:46 12/20/2023 text/html HPI: Marcella, palliative [...] .................... .................... .................... .................... .................... .................... . Remarketing Manager Note From Emmanuel Brandt: Pt co cramping in feet off and on for 1 week. Pt sts no other complaints and pt sts she didn? t call for us her VN did. Pt allowed evaluation. Pt denies cp sob NVD headache dizziness or fever. Baseline vitals assessed. ..pt sts coloration is normal for her. [facility] contacted and advised to pt to follow up with pcp. Pt education on signs indicating the ER. .................... .................... .................... .................... .................... .................... .................... . Disposition: Fulfilled Tobin Floyd MD [address] [place] [address],[address], [place], [address], [facility] 12/20/2023 17:53:19 06/03/2024 text/html HPI: Pt states [...] Allergies Reviewed at 06/03/2024:16 Comments: HPI reviewed Remarketing Manager Organization Information for Nadeem Mancia Legal Name: [facility] Address: [address] [place] [address], [place] [address], Leisure Travel Agent: Ashwin Gastelum MD [facility] No.: [id number] Remarketing Manager POC Test Results from Nadeem Mancia Rapid COVID antigen (17:31:17) COVID: + Rapid influenza antigen (17:31:18) Flu: - .................... .................... .................... .................... .................... .................... .................... . Remarketing Manager Note From BlancheNadeem: This 68-year-old female with [...] .................... .................... .................... .................... .................... .................... . [facility] Consulted: Francisco David .................... .................... .................... .................... .................... .................... .................... . Disposition: Fulfilled Francisco David MD [address] [facility],[address], [place], [address], [employer] - Sw[employer], PASTOR 06/03/2024 18:08:20 06/05/2024 text/html CRC Nurse Triage Notes (Aixa Delgadillo - RN): Chief Complaints: Breathing problems, Common cold symptoms, Cough, Asthma PMH: COPD/Asthma, Hypertension, Coronary Artery Disease PMH Reviewed at 06/05/2024:39 Allergies Reviewed at 06/05/2024:39 Comments: 06/03- [facility] Remarks Patient is positive for COVID. Unable [...] .................... .................... .................... .................... .................... .................... . Remarketing Manager Note From Ja Bean: Patient alert [...] .................... .................... .................... .................... .................... .................... . [facility] Consulted: Akila Samuel .................... .................... .................... .................... .................... .................... .................... . Disposition: Venkat Samuel MD [address] [facility],[address], [place], [address], [facility] 06/05/2024 11:32:10 OBGyn Episode No OBEpisode recorded.
== END 2024-08-23 12:50 | disposition home or self-care (01) ==
LOC: HO.US 12:49
PROVIDERS: PCP Family Medicine; Visit Provider Obstetrics & Gynecology
DX: R10.2 Pelvic and perineal pain (principal)
CPT/HCPCS: 76830; 76856

== ENCOUNTER → 2024-08-23 12:51 | Outpatient (BNV) | payer OTHER, SELFPAY | PROVIDERS: PCP Family Medicine; Visit Provider Specialist | DX: R10.2 Pelvic and perineal pain (principal) | CPT/HCPCS: 76830; 76856 ==

== ENCOUNTER 2024-08-26 09:37 | Outpatient (RCR) | payer OTHER, SELFPAY ==
--- NOTE | 2024-07-18 11:37 | MHC.PT.EP ---
[facility] [place] Office [place] Office [place] Office [address] [phone] F: [phone] F: [phone] F: [phone] F: [phone] Physical Therapy Plan of Care Date of Evaluation: 07/18/24 Date of Surgery: n/a Diagnosis: low back pain, unspecified, pain in unspecified hip, low back pain *hip pain Assessment: Pt is a 68 yo F who is attending PT due to chronic LBP and R>L hip pain. Patient lives alone in a one story home, she ambulates with RW and has a manual wheelchair. Patient has a SKIP LOAD DRIVER that comes in daily for a few hours in the morning. Patient reports that her SKIP LOAD DRIVER does most ADLs for her. Patient presented with general deconditioning, mod/severe LBP and BLE pain, decreased functional mobility, and impaired gait. Patient will be a good candidate for skilled PT 2x a week for 4 weeks to work on above impairments and optimize functional mobility. Physical therapy may include MHP, LE strengthening/ stretching, gait training, and functional mobility activities. Frequency and Duration: The patient will be seen 2x a week/ 4 weeks Short Term Goals: Patient will be independent with HEP Patient will improve gross knee strength to at least 4-/5 B Senior Living Goals: Patient will have improved LE strength to be able to perform 5 sit to stands Independently with UE support PRN Patient will have statistically significant improvement in functional mobility evidenced by increase in Modified Oswestry outcome measure by 9 points Treatment Plan: Modalities to reduce pain, spasms and effusion. Manual therapy to restore motion and function. Therapeutic exercise to improve strength and flexibility. Neuromuscular re-education for posture and balance. Therapeutic activities to return to functional activities of daily living. Electronically signed by: Nancy Haque, PT, DPT Please sign and return to therapist. Thank you for your referral.
--- NOTE | 2025-02-24 09:24 | MHC.PT.DC ---
[facility] [place] Office [place] Office [place] Office [address] Abdiel Lopez [address] [phone] F: [phone] F: [phone] F: [phone] F: [phone] Physical Therapy Discharge Report Diagnosis: low back pain, unspecified, pain in unspecified hip, low back pain *hip pain Date of Surgery: n/a Date of Evaluation: 07/18/24 Date of Discharge: 02/24/25 Treatments to Date: 7 Cancellations to Date: 1 No Shows to Date: 1 Discharge Status: Patient Elected to Stop Discharge Summary: Pt was seen for skilled PT from 07/18/24-08/26/24. Her last attended appointment was 08/26/24. She had 1 cancellation and 1 no show for her last 2 scheduled appointments. She is being D/C from skilled PT as she has not attended or called to schedule to > 30 days. Pt current level of function unknown at this time Electronically signed by: Nancy Hughes, PT, DPT Please sign and return to therapist. Thank you for your referral.
== END 2025-02-24 09:26 | disposition home or self-care (01) ==
LOC: HO.PT 09:37
PROVIDERS: PCP Family Medicine; Visit Provider Physical Medicine & Rehabilitation
DX: M54.50 Low back pain, unspecified (principal); M25.551 Pain in right hip
CPT/HCPCS: 97110; 97162

== ENCOUNTER 2024-08-29 10:40 | Outpatient (REF) | payer OTHER, SELFPAY ==
--- NOTE | ~2024-08-29 | US_ITS ---
CLINICAL HISTORY: R09.89 - Other specified symptoms and signs involving the circulatory an... --- Add itional Notes or Special Instructions: Left worse than Right Bilateral ABIs Comparison: None available Findings: The explosives worker reports that the left posterior tibial and dorsalis pedis arteries were in audible. Vessels were noncompressible. ABIs not obtained secondary to noncompressible vessels. Impression: ABIs not obtained secondary to noncompressible vessels. Orchid Transplanter reports in audible posterior tibial and dorsalis pedis arteries on the left. This document has been electronically signed by: Natali Dang MD on 09/03/2024 09:10:07
== END 2024-08-29 10:41 | disposition home or self-care (01) ==
LOC: HO.US 10:40
PROVIDERS: PCP Family Medicine; Visit Provider Family Medicine
DX: R09.89 Other specified symptoms and signs involving the circulatory and respiratory systems (principal)
CPT/HCPCS: 93923

== ENCOUNTER → 2024-08-29 10:42 | Outpatient (BNV) | payer OTHER, SELFPAY | PROVIDERS: PCP Family Medicine; Visit Provider Radiology Diagnostic Radiology | DX: R09.89 Other specified symptoms and signs involving the circulatory and respiratory systems (principal) | CPT/HCPCS: 93923 ==

== ENCOUNTER 2024-09-23 10:37 | Outpatient (AMB) | payer OTHER, SELFPAY ==
--- NOTE | 2024-09-23 10:38 | MHC.OFFVIS ---
Vital Signs 09/23/24 10:40 Height 4 ft 11 in Weight 180 lb BMI 36.4 Intake Visit Reasons: U/S follow up Artificial Flower Maker Required: Yes Artificial Flower Maker Language: Home Service Director Services: Artificial Flower Maker Present (in person) Artificial Flower Maker Name: Melisa VIDAL Information Interpreted: non-clinical & clinical Accompanied by: Self / Same As Patient Allergies aspirin [Aspirin] Allergy (Mild, Verified 09/23/24 10:41) RASH morphine [MORPHINE] Allergy (Unknown, Verified 09/23/24 10:41) ABD PAIN, RASH omeprazole [OMEPRAZOLE] Allergy (Unknown, Verified 09/23/24 10:41) SHORTNESS OF BREATH pregabalin [From LYRICA] Allergy (Unknown, Verified 09/23/24 10:41) SHORTNESS OF BREATH celecoxib Adverse Reaction (Mild, Verified 09/23/24 10:41) chest pain, jumping feeling in her heart. Post menopausal: Yes HPI Comments Details: Presenting for follow-up regarding her pelvic pain. The patient is doing well. The following workup was done so far: Last visit urine dip was negative. Pelvic ultrasound showed the following: Anteverted uterus is 7.5 cm length. Normal myometrium. Endometrium 3.0 mm thickness. No lesions. Right ovary 1.6 x 1.1 x 0.8 cm. Left ovary 2.4 x 1.4 x 1.2 cm. Normal color Doppler of both ovaries. No free fluid. 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, managed as type 2 Hypertension Asthma Surgical History History of removal of cyst Stented coronary artery H/O tubal ligation Hx of tonsillectomy H/O right breast biopsy Social History Housing: Apartment Patient Tobacco Use Status: Former Tobacco user e-Cigarette/Vaping Use: Never Used service: No Current occupational status: disabled Current occupational exposures/hazards: No Cognitive needs: No Hearing needs: No Vision needs: No Review of Systems Const All systems reviewed & are unremarkable except as noted in HPI and below Reports as per HPI and Reports no additional complaints GI Reports no additional complaints Reports no additional complaints Physical Exam Vital Signs: BMI result Body Mass Index 36.4 Assessment & Plan Assessment & Plan (1) Pelvic pain: Code(s): R10.2 - Pelvic and perineal pain Category: Medical Plan: Discussed with the patient the results of the workup done including negative urine dip and pelvic ultrasound. Differential diagnosis of mud temperer causes that have not be ruled out yet include but not limited to endometriosis, pelvic adhesions , or others. Recommended for the patient to see her PCP for further workup for non mud temperer causes; if the all the results are negative and the patient's pelvic pain is persistent, instructions given to patient to call back for further testing. Meanwhile, instructions were given the patient to go to emergency room or call in case of fever above 100.4, heavy vaginal bleeding, persistence or worsening of her pelvic pain. All questions answered, the patient verbalized understanding. Coding Level of Care Code Est Pt Level 3 (29494) Diagnoses Pelvic pain R10.2
[2024-09-23 10:40] VITALS: BMI 36.4
--- OUTSIDE RECORDS SUMMARY | 2024-09-23 11:42 | XMS_ITS | Data Portability ---
Author Organization [employer], [place] Address [address] [place] [address] Care Team Providers Care Sealant Mixer Name Role Phone HIM CCA OTHER BEN ELIZABETH Primary Care Provider Assessment Encounter Date Assessment Date Assessment LastModified by Organization Details LastModified Time 04/04/2023 04/04/2023 I provided real -time medical direction via phone for this encounter, and was available for additional phone based assistance as needed. I have reviewed and agree with the Assessment and Plan as documented by the Automated Logistics Specialist. Patient given the opportunity to ask questions. as per above, patient was seen by us and started on Keflex for possible cellulitis and then 1 of going to [facility] last week and was put on Bactrim for expansion of cellulitis. Now calls after being on Bactrim 8 days with increasing pain and swelling. Per solder deposit operator on the scene continues to have [...] Assessment and Plan as documented by the Automated Logistics Specialist. Patient given the opportunity to ask questions. [...] on the right track and recovering. Per solder deposit operator on the scene, Nonproductive cough is [...] in the field was performed by my solder deposit operator colleague, as noted above, I provided [...] Assessment and Plan as documented by the Automated Logistics Specialist. Patient given the opportunity to ask questions. Our service contacted for an assessment of: Follow-up As per above, patient recently diagnosed with COVID unable to take Paxlovid. We were asked to re-evaluate patient's symptoms. Upon today's visit patient is improving and is using ccps-rev-dzvjdum medications. Vital signs are stable and patient is afebrile Impression: COVID-19 Plan: On a positive trajectory. Continue with aygv-prv-qvpfqjz medicines and supportive care. Allergies: Reviewed PCP [...] recorded. Lab rapid flu (A+B) [address], [address] [place] [address], [id number] 17:39:13 rapid SARS CoV 2 Ag, QL IA, respiratory specimen [address], [id number] 17:39:13 Referral None recorded. Procedures None recorded. Surgeries None recorded. Imaging None recorded. Medication Orders albuterol sulfate HFA 90 mcg/actuati on aerosol inhaler 2024 025 [facility] - [place], [place], [address] [place], [id number], 09:43:56 Flonase Allergy Relief 50 mcg/actuati on nasal spray,suspe nsion 2024 025 [facility] - [place], [address] [place], [address], 09:43:53 Robitussin Cough-Chest Congestion DM 5 mg-100 mg/5 mL oral liquid 2023 024 [facility] - [place], [address] [facility], [place], [address], 4 11:01:21 Patient TargetsNo targets recorded. Patient [...] Available No t Available [employer] [place] USE DIRECTED active Not Available Not Available [...] % 100 % 149.86 cm 84 /min 39852.7 04 g 16 /min 142 mm[Hg] 80 mm[Hg] Not Available [facility] - production 5 17:33:21 Date Recorded Body temperature Respiratory rate Body weight Body height Heart rate Oxygen saturation Oxygen saturation in Arterial blood by Pulse oximetry Systolic blood pressure Diastolic blood pressure Provider Name and Address Organization Details Last Updated DateTime 5 97.4 [degF] 14 /min 89491.8 g 152.4 cm 78 /min 97 % 97 % 110 mm[Hg] 88 mm[Hg] Not Available [facility] - production 5 09:51:04 Date Recorded Oxygen saturation Oxygen saturation in Arterial blood by Pulse oximetry Respiratory rate Body temperature Heart rate Body weight Systolic blood pressure Diastolic blood pressure Provider Name and Address Organization Details Last Updated DateTime 4 98 % 98 % 18 /min 98.5 [degF] 80 /min 36609.7 84 g 144 mm[Hg] 72 mm[Hg] Not Available [facility] - production 4 17:55:01 Date Recorded Body temperature Body weight Heart rate Oxygen saturation Oxygen saturation in Arterial blood by Pulse oximetry Respiratory rate Systolic blood pressure Diastolic blood pressure Provider Name and Address Organization Details Last Updated DateTime 4 98.2 [degF] 44115.5 6 g 86 /min 98 % 98 % 16 /min 166 mm[Hg] 72 mm[Hg] Not Available [facility] - [employer] 4 16:51:52 Date Recorded Respiratory rate Oxygen saturation Oxygen saturation in Arterial blood by Pulse oximetry Heart rate Body height Body weight Body temperature Systolic blood pressure Diastolic blood pressure Provider Name and Address Organization Details Last Updated DateTime 3 14 /min 98 % 98 % 80 /min 152.4 cm 14103.4 g 98.4 [degF] 136 mm[Hg] 84 mm[Hg] Not Available [employer] - [employer] 3 16:41:08 Social History None recorded. Functional Status None recorded. Mental Status None recorded. Family History Nothing Reported. Medical History No medical history recorded. Gynecological HistoryNo gynecological history recorded. Obstetrics History GPAL:G 0 P 0 0 0 0 Past Encounters Encounter ID Performer Location Encounter Start Date Encounter Closed Date Diagnosis/Indication Diagnosis SNOMED-CT Code Diagnosis ICD10 Code Diagnosis Note [id number] Elaine Draper MD [facility] - [facility] [address] [place] [id number] 09/23/2022 16:16:58 09/27/2022 14:43:34 Cellulitis of left foot [id number] L03.116 [id number] Akila Samuel MD Main - [facility] [address] [place] [address] [id number] 04/04/2023 16:41:06 04/05/2023 13:23:43 Cellulitis of lower leg 072046861 L03.119 [id number] Akila [facility] [address] [place] [id number] 08/08/2023 17:54:55 08/08/2023 22:15:05 Cough [id number] R05.9 [id number] [facility] [address] [place] [id number] 12/20/2023 16:51:49 12/20/2023 22:32:10 Cramp in lower limb 751375307 R25.2 As noted, we were called to see this patient regarding concerns of pain. Evaluation in the field was performed by my solder deposit operator colleague, as noted above, I provided [...] particular ly numbness, weakness, or severe pain. [id number] Francisco David MD Main - [facility] [address] [place] [address] [id number] 06/03/2024 17:33:17 06/03/2024 21:44:20 COVID-19 [id number] U07.1 [id number] Akila Samuel MD [facility] - [address] [id number] 06/05/2024 09:35:28 06/05/2024 11:52:44 COVID-19 927141953 U07.1 Health Concerns Section Related Observation LastModified by Organization Detai ls LastModified Time None Recorded Concern Status LastModified by Organization Details LastModified Time None Recorded Advance Directives Directive None Recorded Payers Insurance Date Sequence Insurance Name Policy Number Policy Rowe Covered Member ID Rowe Member ID Guarantor Name 06/03/2024 1 [facility] - DOS PRIOR TO 2022 - DUAL ELIGIBLE (MEDICARE REPLACEMENT/ADV ANTAGE - HMO) Jimena Watkins [id number] Jimena Watkins 06/03/2024 1 [facility] - DOS ON OR AFTER 2022 - DUAL ELIGIBLE - [employer] AND ONE CARE (MEDICARE REPLACEMENT/ADV ANTAGE - HMO) Jimena Watkins [id number] Jimena Watkins Notes Date Note Type Note Provider Name and Address Organization Details Recorded Time 04/04/2023 text/html HPI: Members community [facility] [employer] DBA calling in a referral, member identified via /name. Member seen at [facility] last Monday, diagnosed with left cellulitis and started on Bactrim. Member states no improvement, and feels more painful. Per [employer] foot is still red, warm, swollen and very tender, looks like it could be pitting but unsure as it is too painful for member to assess, no fever/chills, temp 97.2. Off note, member had a cyst drained under her right breast and was started in Cefadroxil. Member agreeable to an [facility] visit. .................... .................... .................... .................... .................... .................... .................... . CRC Nursing Assessment: Comments: CRC RN did not require any additional information to process this visit. Akila Samuel MD [address] [facility],[address], [place], [address], [email or web address] 04/04/2023 16:44:11 08/08/2023 text/html HPI: Jimena was treated at [facility] 08/02-08/03 for the flu A [...] .................... .................... .................... .................... .................... .................... . Automated Logistics Specialist Note From Juvenal Silva: 67 yo F c/o cough which will not dissipate. She reports she is unable to sleep due to the cough. Pt does sleep with her elevated with three pillows. Pt was admitted to [facility] on 08/03 and stayed several night for [...] to complications of Diabetes [facility] [place] [facility]. Will Rx Robitussin. Discussed red flags with pt and when to seek/call 911/EMS/ER. Pt understood and had no questions. .................... .................... .................... .................... .................... .................... .................... . Disposition: Fulfilled Akila Samuel MD [address] [place] [address],[address], [place], [address], [employer] 08/08/2023 17:57:46 12/20/2023 text/html HPI: Marcella, palliative [...] .................... .................... .................... .................... .................... .................... . Automated Logistics Specialist Note From Emmanuel Brandt: Pt co cramping in feet off and on for 1 week. Pt sts no other complaints and pt sts she didn? t call for us her VN did. Pt allowed evaluation. Pt denies cp sob NVD headache dizziness or fever. Baseline vitals assessed. ..pt sts coloration is normal for her. [facility] contacted and advised to pt to follow up with pcp. Pt education on signs indicating the ER. .................... .................... .................... .................... .................... .................... .................... . Disposition: Fulfilled Tobin Floyd MD [address] [place] [address],[address], [place], [phone], [email or web address] 12/20/2023 17:53:19 06/03/2024 text/html HPI: Pt states she has been up all night coughing, increased mucous and congestion, unsure if she has fever, increased fatigue, generalized malaise .................... .................... .................... .................... .................... .................... .................... . CRC Nurse Triage Notes (Liudmila Mancilla - RN): Chief Complaints: Common cold symptoms, Cough, Fatigue PMH: COPD/Asthma, Hypertension, Coronary Artery Disease PMH Reviewed at 06/03/2024 11:16 Allergies Reviewed at 06/03/2024 - 11:16 Comments: HPI reviewed Automated Logistics Specialist Organization Information for Nadeem Mancia Chidi Legal Name: [facility] Transportation Address: [address] [place] [address], [place], [place] [address], Tank Builder: Ashwin Gastelum MD CLIA No.: [id number] Automated Logistics Specialist POC Test Results from Nadeem Mancia Rapid COVID antigen (17:31:17) COVID: + Rapid influenza antigen (17:31:18) Flu: - .................... .................... .................... .................... .................... .................... .................... . Automated Logistics Specialist Note From Nadeem Mancia: This 68-year-old female [...] .................... .................... .................... .................... .................... .................... . [facility] Consulted: Francisco David .................... .................... .................... .................... .................... .................... .................... . Disposition: Fulfilled Francisco David MD [address] [place] [address],[address], [place], [address], [employer] 06/03/2024 18:08:20 06/05/2024 text/html CRC Nurse Triage Notes (Aixa Delgadillo - RN): Chief Complaints: Breathing problems, Common cold symptoms, Cough, Asthma PMH: COPD/Asthma, Hypertension, Coronary Artery Disease PMH Reviewed at 06/05/2024 - 08:39 Allergies Reviewed at 06/05/2024 - 08:39 Comments: 06/03- [facility] Remarks Patient is positive for COVID. Unable [...] .................... .................... .................... .................... .................... .................... . Automated Logistics Specialist Note From Ja Bean: Patient alert and oriented seated in wheelchair in apartment. Patient complains of nasal congestion and frequent nonproductive cough. Patient reports [facility] Patient reports she has been eating and [...] .................... .................... .................... .................... .................... .................... . [facility] Consulted: Akila Samuel .................... .................... .................... .................... .................... .................... .................... . Disposition: Fulfilled Akila Samuel MD [address] [facility],[address] [facility], [place], [address], [employer] 06/05/2024 11:32:10 OBGyn Episode No OBEpisode recorded.
== END 2024-09-23 10:56 | disposition home or self-care (01) ==
LOC: HO.HWS 10:37
PROVIDERS: PCP Family Medicine; Visit Provider Obstetrics & Gynecology
DX: R10.2 Pelvic and perineal pain (principal)
CPT/HCPCS: 99213

== ENCOUNTER → 2024-09-23 10:37 | Outpatient (BNVA) | payer OTHER, SELFPAY | PROVIDERS: PCP Family Medicine; Visit Provider Obstetrics & Gynecology | DX: R10.2 Pelvic and perineal pain (principal) | CPT/HCPCS: 99212 ==

== ENCOUNTER → 2024-11-08 23:59 | Outpatient (BNV) | payer OTHER, SELFPAY | PROVIDERS: PCP Family Medicine; Visit Provider Family Medicine | DX: I25.10 Atherosclerotic heart disease of native coronary artery without angina pectoris (principal); E11.40 Type 2 diabetes mellitus with diabetic neuropathy, unspecified; R27.9 Unspecified lack of coordination | CPT/HCPCS: G0179 ==

== ENCOUNTER → 2024-11-13 23:59 | Outpatient (BNV) | payer OTHER, SELFPAY | PROVIDERS: PCP Family Medicine; Visit Provider Family Medicine | DX: I10 Essential (primary) hypertension (principal); E11.40 Type 2 diabetes mellitus with diabetic neuropathy, unspecified; J45.909 Unspecified asthma, uncomplicated | CPT/HCPCS: G0179 ==

== ENCOUNTER 2024-12-02 12:23 | Outpatient (REF) | payer OTHER, SELFPAY ==
[2024-12-02 14:48] LABS: Free T4 (Free Thyroxine) 0.95 ng/dL (0.71-1.85); Thyroid Stimulating Hormone 0.43 uIU/mL (0.32-4.0)
[2024-12-07 14:58] LABS: IGF-1 (Somatomedin C) 215 ng/mL (34-245); IGF-1 Z Score (Female) 1.5 SD (-2.0 - +2.0)
== END 2024-12-02 12:24 | disposition home or self-care (01) ==
LOC: HO.LAB 12:23
PROVIDERS: Internal Medicine Endocrinology, Diabetes & Metabolism; PCP Family Medicine; Visit Provider Family Medicine
DX: D35.2 Benign neoplasm of pituitary gland (principal)
CPT/HCPCS: 36415; 82533; 84146; 84305; 84439; 84443

== ENCOUNTER 2024-12-05 11:44 | Outpatient (AMB) | payer OTHER, SELFPAY ==
[2024-12-05 12:03] VITALS: BP 110/70; PULSE 77; RESP 16; TEMP 36.5; O2SAT 100; BMI 35.2
--- NOTE | 2024-12-05 12:03 | MHC.PC.OV ---
Vital Signs 12/05/24 12:03 Height 4 ft 11 in Weight 174 lb 4 oz BMI 35.2 BP 110/70 Blood Pressure Location Rt brachial Position Sitting Respiration 16 Pulse 77 Pulse Source Pulse Oximeter Temp 97.7 F Temp Source Oral Pulse Oximetry (%) 100 Oxygen Delivery Method Room Air Intake Visit Reasons: Decreased pulses in feet / DC Allergies aspirin (Aspirin) Allergy (Mild, Verified 12/05/24 12:03) RASH morphine (MORPHINE) Allergy (Unknown, Verified 12/05/24 12:03) ABD PAIN, RASH omeprazole (OMEPRAZOLE) Allergy (Unknown, Verified 12/05/24 12:03) SHORTNESS OF BREATH pregabalin (From LYRICA) Allergy (Unknown, Verified 12/05/24 12:03) SHORTNESS OF BREATH celecoxib Adverse Reaction (Mild, Verified 12/05/24 12:03) chest pain, jumping feeling in her heart. Medication List - Last Reconciled 12/05/24 by Ross Gold MD acetaminophen 1,000 mg PO Q6H PRN alcohol swabs (Alcohol Prep Pads) 1 pad topical 3XD 90 days alendronate 70 mg PO QWEEK aspirin 81 mg PO DAILY atorvastatin 80 mg PO DAILY blood-glucose sensor (Marqetayle Alirio 3 Sensor device) Apply every 14 days As directed blood-glucose,senior manufacturing engineer,cont (FreeStyle Alirio 3 [place]) use daily As directed to check blood glucose budesonide-formoterol 160-4.5 mcg/actuation 2 inhalations inhalation BID calcium carbonate-vitamin D3 600 mg-10 mcg (400 unit) (Calcium 600 with Vitamin D3) 1 tab PO BID 90 days chair, wheel (Wheel chair) w/c with elevated leg rests as directed clotrimazole 1% 1 appl topical BID 2 weeks compression socks, large for edema of lower extremity as directed diclofenac sodium 1% 2 grams topical QID diclofenac sodium 1% (Voltaren Arthritis Pain) 4 grams topical QID 30 days empagliflozin (Jardiance) 25 mg PO DAILY flash glucose sensor (FreeStyle Alirio 2 Sensor kit) use daily As directed to monitor glucose gabapentin 600 mg (2 x 300 mg) PO Q12H 30 days Humalog KwikPen Insulin (insulin lispro) 4 units (0.04 mL) subcut BID NS miscellaneous medical supply reclining lift chair as directed pen needle, diabetic (BD Ultra-Fine Mini Pen Needle) 4 TIMES DAILY, As directed, 90 DAYS polyethylene glycol 3350 (Miralax) 17 grams PO DAILY 14 days rivaroxaban (Xarelto) 2.5 mg PO BID 90 days sacubitril-valsartan 24-26 mg (Entresto) 1 tab PO BID semaglutide (Ozempic) 2 mg (0.75 mL) subcut QWEEK sodium phosphates 19-7 gram/118 mL (Fleet Enema) 118 mL [place] DAILY PRN spironolactone 25 mg PO DAILY Tresiba FlexTouch U-100 (insulin degludec) 70 units (0.7 mL) subcut DAILY 30 days NS triamcinolone acetonide 0.5% 1 appl topical BID 14 days triamcinolone acetonide 0.1% 1 appl topical BID 14 days Tobacco use date assessed: 12/05/24 Fall risk assessment: 1 Fall in past year Last assessed Fall Risk: 12/05/24 Dental Screening Dental Screen Date: 12/05/24 Did you have a dental visit in the last 12 months?: Yes Did you have a dental problem in the last 6 months where you did not have access to dental care?: No Was dental information given to patient?: Patient has dentist HPI Decreased pulses in feet / DC HPI Details 69 y/o female presents to f/u decreased pulses in feet. Discharged from [facility] 11/18. Recent L popliteal bypass. Pt had a cellulitis on back side/feet. Wound is healing well. L foot is warm and well perfused. No cellulitis today. Has complaints of eczema of R arm and bilateral hands/thumbs. Complaints of R otitis media. Pt reports memory changes. [facility] Medical History Heart attack Abscess of chest wall Uncontrolled type 2 diabetes mellitus with hyperglycemia, with long-term current use of insulin Ganglion cyst Glaucoma Neuropathy Arthritis Intracranial mass Diabetes 1.5, managed as type 2 Hypertension Asthma Surgical History History of removal of cyst Stented coronary artery H/O tubal ligation Hx of tonsillectomy H/O right breast biopsy Social History Housing: Apartment Patient Tobacco Use Status: Former Tobacco user e-Cigarette/Vaping Use: Never Used service: No Current occupational status: disabled Current occupational exposures/hazards: No Cognitive needs: No Hearing needs: No Vision needs: No Questionnaire PHQ-9 Over the last 2 weeks, how often have you been bothered by any of the following problems? 1. Little interest or pleasure in doing things: not at all 2. Feeling down, depressed, or hopeless: not at all 3. Trouble falling or staying asleep, or sleeping too much: not at all 4. Feeling tired or having little energy: not at all 5. Poor appetite or overeating: not at all 6. Feeling bad about yourself - or that you are a failure or have let yourself or your family down: not at all 7. Trouble concentrating on things, such as reading the newspaper or watching television: not at all 8. Moving or speaking so slowly that other people could have noticed. Or the opposite - being so fidgety or restless that you have been moving around a lot more than usual: not at all 9. Thoughts that you would be better off or of hurting yourself in some way: not at all Total score: 0 Depression Screening Interpretation: Negative Depression Screening Done: Yes 80438 - PHQ-9 Billing: Yes Source: Developed by Drs. Jason Glover, Deanna Truong, Sylvester Braga and colleagues, with an educational lisa from [employer]. Thrive Questionnaire Date Thrive assessed: 12/05/24 I am a: Patient What is your living situation today?: I have a steady place to live Within the past 12 months, did the food you bought not last and you didn't have the money to get more?: I choose not to answer this question Within the past 12 months, did you worry whether your food would run out before you got money to buy more?: I choose not to answer this question Do you have trouble paying for medicines?: No Do you have trouble getting transportation to medical appointments?: No Do you have trouble paying your heating and electricity bill?: No Do you have trouble taking care of your child, family member or friend?: I choose not to answer this question Do you have trouble with day-to-day activities such as bathing, preparing meals, shopping, managing finances, etc.?: No Are you currently unemployed and looking for a job?: I choose not to answer this question Are you interested in more education?: I choose not to answer this question Please select the resources that you would like help with: None THRIVE Score: 0 AUDIT C Alcohol Use Questionnaire (AUDIT-C) 1. How often do you have a drink containing alcohol?: Never 3. How often do you have six or more drinks on one occasion?: Never Total Score: 0 URIEL-7 AMB Questionnaire URIEL-7 Date URIEL - 7 assessed: 12/05/24 Feeling nervous, anxious, or on edge: 0 = Not at all Not being able to stop or control worryin = Not at all Worrying too much about different things: 0 = Not at all Trouble relaxin = Not at all Being so restless that it is hard to sit still: 0 = Not at all Becoming easily annoyed or irritable: 0 = Not at all Feeling afraid as if something awful might happen: 0 = Not at all Total URIEL-7 score (0-4 normal; 5-9 mild; 10-14 moderate; 15-21 severe): 0 Source: Developed by Drs. Jason Glover, Deanna Truong, Sylvester Braga and colleagues, with an educational lisa from [employer]. URIEL-7 Assessment Billing URIEL-7 Assessment Tool: URIEL-7 Assessment 84084 Review of Systems Const Denies chills, Denies fatigue, Denies fever(s), Denies headache(s) and Denies weakness ENT Denies dizziness and Denies headache(s) Card Denies dyspnea Resp Denies cough, Denies dyspnea, Denies wheezing and Denies other (shortness of breath) Musc Denies numbness and Denies tingling Skin/Breast Reports rash Neuro Denies dizziness, Denies headache(s), Denies numbness, Denies tingling and Denies weakness Psych Denies anxiety and Denies depression Endo Denies fatigue Aller/Immun Denies wheezing Physical exam (Primary Care) Vital Signs: Last Vital Signs Temp 97.7 F 12/05/24 12:03 Pulse 77 12/05/24 12:03 Resp 16 12/05/24 12:03 BP 110/70 12/05/24 12:03 Pulse Ox 100 12/05/24 12:03 Oxygen Delivery Method Room Air 12/05/24 12:03 BMI result Body Mass Index 35.2 Tobacco/Smoking Status: Tobacco use Status Tobacco use date assessed 12/05/24 12/05/24 12:06 Patient Tobacco Use Status Former Tobacco user 12/05/24 12:06 e-Cigarette/Vaping Use Never Used 12/05/24 12:06 PHQ-9: PHQ-9 Score PHQ-9: Total score 0 12/05/24 13:20 Depression Screening Interpretation: Negative Thrive Assessment: Date of Thrive Assessment Date Thrive assessed 12/05/24 12/05/24 12:06 Const General: well developed; No acute distress Nutritional Appearance: well nourished Orientation/consciousness: patient oriented x3 HENMT Head: Yes normocephalic and Yes atraumatic Eyes General: appearance normal, both eyes and all related structures Pupils: Equal, round and reactive pupils present EOM: EOMs intact bilaterally Resp Effort & Inspection: normal respiratory effort Neuro General: patient oriented x3 and gait normal Cranial nerves: Yes Equal, round and reactive pupils present Psych Affect: normal affect Results AMB Hemoglobin A1c AMB Hemoglobin A1c 6.9 % Last Edit by Daniela Mcallister CMA on 12/05/24 12:40 Results Reviewed Results Reviewed: Laboratory Last Values Hgb A1c (Clinic) 6.9 % (4.0-6.0) H 12/05/24 12:19 Coding Level of Care Code Est Pt Level 5 (32975) Diagnoses Decreased pulses in feet R09.89 Peripheral vascular disease I73.9 Cellulitis L03.90 Right otitis media H66.91 Eczema L30.9 Memory changes R41.3 Additional Codes URIEL-7 Assessment Billing - URIEL-7 Assessment Tool: URIEL-7 Assessment 81236 ([id number]) PHQ-9 - 20936 - PHQ-9 Billing: Yes ([id number]) Assessment & Plan Assessment & Plan (1) Decreased pulses in feet: Code(s): R09.89 - Other specified symptoms and signs involving the circulatory and respiratory systems Category: Medical (2) Peripheral vascular disease: Code(s): I73.9 - Peripheral vascular disease, unspecified Category: Medical (3) Cellulitis: Code(s): L03.90 - Cellulitis, unspecified Category: Medical (4) Right otitis media: Code(s): H66.91 - Otitis media, unspecified, right ear Category: Medical (5) Eczema: Code(s): L30.9 - Dermatitis, unspecified Category: Medical (6) Memory changes: Code(s): R41.3 - Other amnesia Category: Medical Plan S/p [id number]-lith left popliteal bypass Wound is healing well. Left foot is warm and well perfused. No cellulitis Follow-up with vascular surgeon as recommended Currently has right otitis media Will send script for amoxicillin. Will also give her a nasal steroid Eczema right arm and bilateral hands/thumbs Will send a topical steroid Patient is noticing memory changes. Forgetting things frequently. Declines referral to [facility] - she would like to go to [facility]. Will refer to [facility] outpatient psychiatric consult team initial evaluation. She will return in 2 months to follow up chronic conditions Orders: Orders AMB Hemoglobin A1c Today Z13.9 - Encounter for screening, unspecified Referrals Psychiatry Outpatient Consultation Service R41.89 - Other symptoms and signs involving cognitive functions and awareness Medications: New amoxicillin 500 mg PO Q12H 20 tabs 0RF 10 days fluticasone propionate 50 mcg/actuation (Flonase Allergy Relief) administer into each nostril 1 spray intranasal Q12H 16 grams 2RF 30 days
--- OUTSIDE RECORDS SUMMARY | 2024-12-05 12:49 | XMS_ITS ---
Author Name [facility] Organization Unknown Assessment and Plan ID Update Date Source Alert Text MEDICAID-[id number] 03/15/2022 MEDICAID Based o n Medicaid claims, member is likely in cancer treatment [place] [employer]-[id number] 04/29/2021 [place] [employer] [facility] COVID Vaccination: This patient has received the MOD, COVID-19, mRNA, LNP-S, PF, 0.5mL vaccination on 04/29/2021 with lot number [id number] at Edi Jaime [facility]. Encounters Encounter Type Encounter Reason Primary Diagnosis Location Date Ambulatory [facility] 11/09/2021 Ambulatory 1 month follow up [facility] 11/09/2021 Ambulatory [facility] 09/07/2021 Ambulatory 1 month follow up [facility] 09/07/2021 Ambulatory [facility] 07/27/2021 Ambulatory DIABETES 2WK FU [facility] 07/27/2021 Ambulatory [facility] 06[facility]22/2021 Ambulatory DIABETES 2WK FU [facility] 06/22/2021 Ambulatory [facility] 06/08/2021 Ambulatory DIABETES 2WK FU [facility] 06/08/2021 Ambulatory [facility] 05/05/2021 Ambulatory DIABETES 2WK FU [facility] 05/05/2021 Ambulatory [facility] 04/21/2021 Ambulatory DIABETES 2WK FU [facility] 04/21/2021 Ambulatory [facility] 03/22/2021 Ambulatory DIABETES 2WK FU [facility] 03/22/2021 Ambulatory [facility] 03/08/2021 Ambulatory DIABETES [place] [id number] 05/08/2020 Care Team Organization Name Specialty Phone Email Start Date End Da roxana Jaime MD 04/06/2022 0 12/11/2023 [facility] Data Feeds LISA HERRERA Primary Care 02/27/20222023 [facility] Enrique HERRERA Primary Care 02/26/20222023 [facility] Physician [facility] 11/09/2021 [facility] 08/26/2021 12/11/2023 [facility] 03/22/2021 09/07/2021
== END 2024-12-05 13:17 | disposition home or self-care (01) ==
LOC: HO.HMCFM 11:44
PROVIDERS: PCP Family Medicine; Visit Provider Family Medicine
DX: Z13.9 Encounter for screening, unspecified (principal)

== ENCOUNTER → 2024-12-05 11:44 | Outpatient (BNVA) | payer OTHER, SELFPAY | PROVIDERS: PCP Family Medicine; Visit Provider Family Medicine | DX: E11.51 Type 2 diabetes mellitus with diabetic peripheral angiopathy without gangrene (principal); L30.9 Dermatitis, unspecified; R09.89 Other specified symptoms and signs involving the circulatory and respiratory systems; H66.91 Otitis media, unspecified, right ear; R41.3 Other amnesia | CPT/HCPCS: 83036; 96127; 99212 ==

== ENCOUNTER → 2024-12-06 23:59 | Outpatient (BNV) | payer OTHER, SELFPAY | PROVIDERS: PCP Family Medicine; Visit Provider Family Medicine | DX: I73.9 Peripheral vascular disease, unspecified (principal); E11.51 Type 2 diabetes mellitus with diabetic peripheral angiopathy without gangrene; I44.1 Atrioventricular block, second degree; M62.81 Muscle weakness (generalized) | CPT/HCPCS: G0180 ==

== ENCOUNTER 2024-12-10 09:51 | Outpatient (REF) | payer OTHER, SELFPAY ==
[2024-12-10 11:51] LABS: Creatinine, mg/dL 40.41
[2024-12-10 12:43] LABS: Total Volume 24 Hour Urine 1700 mL
[2024-12-17 18:18] LABS: Total Volume, 24 Hr Urine 1700 mL
== END 2024-12-10 09:52 | disposition home or self-care (01) ==
LOC: HO.LNP 09:51
PROVIDERS: PCP Family Medicine; Visit Provider Internal Medicine Endocrinology, Diabetes & Metabolism
DX: D35.2 Benign neoplasm of pituitary gland (principal); E11.9 Type 2 diabetes mellitus without complications; Z79.82 Long term (current) use of aspirin; Z79.4 Long term (current) use of insulin; Z79.84 Long term (current) use of oral hypoglycemic drugs; Z79.899 Other long term (current) drug therapy
CPT/HCPCS: 82530; 82570; 99212

== ENCOUNTER 2024-12-10 09:51 | Outpatient (AMB) | payer OTHER, SELFPAY ==
--- OUTSIDE RECORDS SUMMARY | 2021-12-14 09:38 | XMS_ITS | Continuity of Care Document ---
Author Organization [facility] Address [address] [address] [place] [address] Phone Care Team Providers Care Medication Technician Name Role Phone Toan Hill MD Unavailable [...] Diagnoses Date Provider Providers Copied on Encounter [facility], [address] [address], [place], [id number] , [place] tel:[phone] [place] No Information 2 Sergio Joya. [address] [facility] [place] , [id number], [place]. tel:[phone] Referring Provider: Rebeca Avila, [address] , [place], [address]. tel:[phone] [facility], [address] [address], [place], [id number] , [place] tel:[phone] Johny Benson Otgreg athscl [place] arteries of extremities, unsp extremityAthscl [place] arteries of extrm w intrmt lian, oth extrmOth symptoms and signs involving the circ and resp systems 2 Sergio Joya. [address] [facility] [place], [id number], [place]. tel:[phone] Referring Provider: Rebeca Avila, [address] [place], [address]. tel:[phone] Office/Oupt E&M New Pt 30 Mins [facility], [address] [address], [place], [id number] , [place] tel:[phone] Johny Benson Arterial (chief complaint) Type 2 diabetes mellitus with unspecified complicationsHypert ensionArteriosclero sis of [place] arteries of bilateral legs w/ intermittent claudicationUnspeci fied skin changesBody mass index (BMI) 39.0-39.9, adult 2 Sergio Fajardov. [address] [facility] [place], [id number], [place]. tel:[phone] Referring Provider: Rebeca Avila, [address] [place], [address]. tel:[phone] Family History Family Member Type Diagnosis Age At Onset No Information Payers Payer name Insurance type Covered alliance party ID Authoriza tilore(s) [facility] Dual Complete CI [id number] MEDICAID [address] [id number] Social History Type Description Quantity Date Captured [...] GERD, sleep apnea, and hypothyroidism. She is Beninese speaking and Delores has interpreted our visit. [...] vascular procedure on the right leg in [place] about 5 years ago, however unsure of [...]
--- NOTE | 2024-12-10 09:57 | MHC.OFFVIS ---
Vital Signs 12/10/24 10:00 Height 4 ft 11 in Weight 174 lb 2.643 oz BMI 35.2 BP 106/58 L Blood Pressure Location Rt brachial Position Sitting Pulse 78 Pulse Source Pulse Oximeter Pulse Oximetry (%) 97 Oxygen Delivery Method Room Air Intake Visit Reasons: Pituitary Adenoma Intake Note: Patient present today for Pituitary Adenoma follow up. Resident Hall Director Required: Yes Resident Hall Director Language: Dressmaker Garment Fitter Services: Resident Hall Director Present Resident Hall Director [place] [facility] [place] Information Interpreted: non-clinical & clinical Accompanied by: Self / Same As Patient Allergies aspirin (Aspirin) Allergy (Mild, Verified 12/10/24 10:02) RASH morphine (MORPHINE) Allergy (Unknown, Verified 12/10/24 10:02) ABD PAIN, RASH omeprazole (OMEPRAZOLE) Allergy (Unknown, Verified 12/10/24 10:02) SHORTNESS OF BREATH pregabalin (From LYRICA) Allergy (Unknown, Verified 12/10/24 10:02) SHORTNESS OF BREATH celecoxib Adverse Reaction (Mild, Verified 12/10/24 10:02) chest pain, jumping feeling in her heart. Medication List - Last Reconciled 12/10/24 by Jason Maxwell MD acetaminophen 1,000 mg PO Q6H PRN alcohol swabs (Alcohol Prep Pads) 1 pad topical 3XD 90 days alendronate 70 mg PO QWEEK amoxicillin 500 mg PO Q12H 10 days aspirin 81 mg PO DAILY atorvastatin 80 mg PO DAILY blood-glucose sensor (TOK.tvyle Alirio 3 Sensor device) Apply every 14 days As directed blood-glucose,hr operations advisor,cont (FreeStyle Alirio 3 [place]) use daily As directed to check blood glucose budesonide-formoterol 160-4.5 mcg/actuation 2 inhalations inhalation BID calcium carbonate-vitamin D3 600 mg-10 mcg (400 unit) (Calcium 600 with Vitamin D3) 1 tab PO BID 90 days chair, wheel (Wheel chair) w/c with elevated leg rests as directed clotrimazole 1% 1 appl topical BID 2 weeks compression socks, large for edema of lower extremity as directed diclofenac sodium 1% 2 grams topical QID diclofenac sodium 1% (Voltaren Arthritis Pain) 4 grams topical QID 30 days empagliflozin (Jardiance) 25 mg PO DAILY flash glucose sensor (FreeStyle Alirio 2 Sensor kit) use daily As directed to monitor glucose fluticasone propionate 50 mcg/actuation (Flonase Allergy Relief) 1 spray intranasal Q12H 30 days gabapentin 600 mg (2 x 300 mg) PO Q12H 30 days Humalog KwikPen Insulin (insulin lispro) 4 units (0.04 mL) subcut BID NS miscellaneous medical supply reclining lift chair as directed pen needle, diabetic (BD Ultra-Fine Mini Pen Needle) 4 TIMES DAILY, As directed, 90 DAYS polyethylene glycol 3350 (Miralax) 17 grams PO DAILY 14 days rivaroxaban (Xarelto) 2.5 mg PO BID 90 days sacubitril-valsartan 24-26 mg (Entresto) 1 tab PO BID semaglutide (Ozempic) 2 mg (0.75 mL) subcut QWEEK sodium phosphates 19-7 gram/118 mL (Fleet Enema) 118 mL [place] DAILY PRN spironolactone 25 mg PO DAILY Tresiba FlexTouch U-100 (insulin degludec) 70 units (0.7 mL) subcut DAILY 30 days NS triamcinolone acetonide 0.5% 1 appl topical BID 14 days triamcinolone acetonide 0.1% 1 appl topical BID 14 days HPI Comments Details: This is a 69-year-old female followed by endocrinology for management of diabetes. Patient recently had a head CT done which showed abnormal pituitary finding. However looking back in her record she had an abnormal MRI done in 2019 which showed pituitary abnormalities prompted a referral to neurosurgery. Patient did see neurosurgeon at [facility] who felt surgery was not necessary and ordered an MRI at [facility] and follow-up visit This sella turcica is moderately expanded with partial flattening of the pituitary gland. The sphenoid sinus extends posteriorly into the sphenoid base. There is a nodular structure within the posterior aspect of the sphenoid sinus is directly abuts the undersurface of the sella turcica, measuring approximately 1.2 x 0.8 x 0.5 cm. Normal morphology and signal intensity of the pituitary gland within the sella turcica on precontrast imaging. Normal posterior pituitary bright spot. No hyperenhancing or hypoenhancing lesions demonstrated within the sella turcica on post contrast imaging. The aforementioned structure within the sphenoid sinus is hypoenhancing relative to the pituitary parenchyma. The pituitary infundibulum is normal in morphology and minimally deviated to the left. The suprasellar cistern remains patent. No abnormal mass effect on the optic chiasm. Normal positioning of the cerebellar tonsils. Normal arterial and venous vascular flow voids are present. No abnormal contrast enhancement. Normal, homogeneous marrow signal. Mild mucosal thickening of the paranasal sinuses. No signal abnormalities within the mastoids. Bilateral lens extractions. MR/MR head/brain wo/w con IMPRESSION: 1. The sphenoid sinus extends posteriorly into the sphenoid base. A 1.2 cm nodular structure within the posterior aspect of the sphenoid sinus directly abuts the undersurface of the sella turcica. This may represent a mucous retention cyst; however, it remains difficult to fully separate this structure from the pituitary parenchyma by MRI. If clinical concern for pituitary adenoma remains high, CT a better evaluate for presence of an osseous plane this structure from the pituitary gland. Denies any symptoms of Arthur syndrome, acromegaly or breast discharge or symptoms of adrenal insufficiency. Repeat workup shows intact adrenal and thyroid axis and non secretion of prolactin and IGF-1. Has appt with neurosurgery on 12/18/24 [facility] Medical History (Updated 12/05/24 @ 13:19 by Job Pierson) Heart attack Abscess of chest wall Uncontrolled type 2 diabetes mellitus with hyperglycemia, with long-term current use of insulin Ganglion cyst Glaucoma Neuropathy Arthritis Intracranial mass Diabetes 1.5, managed as type 2 Hypertension Asthma Surgical History History of surgery History of removal of cyst Stented coronary artery H/O tubal ligation Hx of tonsillectomy H/O right breast biopsy Social History Housing: Apartment Patient Tobacco Use Status: Former Tobacco user e-Cigarette/Vaping Use: Never Used service: No Current occupational status: disabled Current occupational exposures/hazards: No Cognitive needs: No Hearing needs: No Vision needs: No Physical Exam Vital Signs: Last Vital Signs Pulse 78 12/10/24 10:00 BP 106/58 L 12/10/24 10:00 Pulse Ox 97 12/10/24 10:00 Oxygen Delivery Method Room Air 12/10/24 10:00 BMI result Body Mass Index 35.2 Assessment & Plan Assessment & Plan (1) Pituitary macroadenoma: Code(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 Endocrine testing shows intact axis of adrenal and thyroid and tumor to be non secretory Plan is to have patient follow up with Neurosurgery after MRI ordered by Neurosurgery. A copy of the MRI report from [facility] should be obtained. It is not clear that this is a pituitary adenoma and further endocrine testing and follow up may not be necessary Coding Level of Care Code Est Pt Level 3 (89977) Diagnoses Pituitary macroadenoma D35.2
[2024-12-10 10:00] VITALS: BP 106/58; PULSE 78; O2SAT 97; BMI 35.2
== END 2024-12-10 10:30 | disposition home or self-care (01) ==
LOC: HO.ENCR 09:51
PROVIDERS: PCP Family Medicine; Visit Provider Internal Medicine Endocrinology, Diabetes & Metabolism
DX: D35.2 Benign neoplasm of pituitary gland (principal)
CPT/HCPCS: 99213

== ENCOUNTER 2024-12-18 10:40 | Outpatient (AMB) | payer OTHER, SELFPAY ==
--- OUTSIDE RECORDS SUMMARY | 2021-11-02 03:30 | XMS_ITS | Continuity of Care Document ---
Author Organization [facility] Address [address] [place] [address] Dr Alonso [address] [place] [address] Phone Care Team Providers Care Nitroglycerin Distributor Name Role Phone YOANA Causey DO, Eulalio Unavailable Unavailab le Allergies, Adverse Reactions, Alerts Substance Reaction Status Criticality No Known Allergies Active No Inform ation Procedures Procedure Date Office/Oupt E&M New Pt 45 Mins Duplex Scan-extrem Veins; Comp Advance Directives Directive Yes / No Effective Date File Name No Information Encounters Encounter Description Practice Location Reason(s) For Visit Diagnoses Date Provider Providers Copied on Encounter Office/Oupt E&M New Pt 45 Mins [facility], [address] [place] [address] Dr Alonso [address], [id number], [place] tel:[phone] CVR - - Johny Benson Localized edemaChronic venous htn w oth comp of bilateral low extrmVenous insufficiency (chronic) (peripheral) 2 Marium JOSUE, RPVI Eulalio. [address] [facility], [address], [place], [place], [id number], [place]. tel:[phone] Referring Provider: Rebeca Ta, [address] , [place], [address] . tel:[phone] [facility], [address] [place] [address] Dr Alonso [address], [id number], [place] tel:[phone] CVR - - Johny Benson Chronic venous htn w oth comp of bilateral low extrm Jose Lopez. [address] [facility], [facility] [address], [place], [id number], [place]. tel:[phone] Referring Provider: Rebeca Ta, [address], [place], [address] . tel:[phone] Family History Family Member Type Diagnosis Age At Onset No Information Payers Payer name Insurance type Covered libertarian ID Authoriza tion(s) [facility] Dual Complete CI [id number] Social History Type Description Quantity Date Captured Comments Alcohol Use Details No Caffeine Use Details Unknown Tobacco Use Status Ex-cigarette smoker 022 Smoking Status Former smoker Smoking Tobacco Use Details Cigarette: Age Stopped: 39 Cigarette: No Details Available Sex Female Chief Complaint And Reason For Visit No Information Reason For Referral Reason For Referral No Information Plan Of Treatment Date Type Action Status Goal Tobacco cessation counseling completed History Of Present Illness Encounter Date Complaint History Of Prese nt Illness No Information Functional Status Date Functional Assessmen t No Information Instructions Date Instruction Additional Infor mation Patient education booklet given Related to Edema Assessments Type Assessment Date assessment Localized edema assessment Chronic venous htn w oth comp of bilateral low extrm assessment Venous insufficiency (chronic) ( peripheral) Patient Care Teams Name Effective Dates (start - stop) Status Members No Information
--- OUTSIDE RECORDS SUMMARY | 2021-12-14 09:38 | XMS_ITS | Continuity of Care Document ---
Author Organization [facility] Address [address] [address] [place] [address] Phone Care Team Providers Care Ux Interaction Designer Name Role Phone Toan Hill MD Unavailable Unavailable Allergies, Adverse Reactions, Alerts Substance Reaction Status Criticality ATORVASTATIN CALCIUM Pruritic rash Active No Inf ormation aspirin Pruritic rash Active No Information caffeine Pruritic rash Active No Information Medications Medication Instructions Dosage Effective Dates (start - stop) Status Comments No Drug Therapy Prescribed Procedures Procedure Date Duplex Scan Lowr Extrem Art; C 22 Noninvasv Stdy-up/lo Extm Art 2 Office/Oupt E&M New Pt 30 Mins 22 Advance Directives Directive Yes / No Effective Date File Name No Information Encounters Encounter Description Practice Location Reason(s) For Visit Diagnoses Date Provider Providers Copied on Encounter [facility], [address] [address], [place], [id number] , [place] tel:[phone] [place] No Information 2 Sergio Joya. [address] [facility] [place] , [id number], [place]. tel:[phone] Referring Provider: Rebeca Avila, [address] , [place], [address]. tel:[phone] [facility], [address] [address], [place], [id number] , [place] tel:[phone] Johny Benson Otgreg athscl [place] arteries of extremities, unsp extremityAthscl [place] arteries of extrm w intrmt lian, oth extrmOth symptoms and signs involving the circ and resp systems 2 Sergio Joya. [address] [facility] [place], [id number], [place]. tel:[phone] Referring Provider: Rebeca Avila, [address] [place], [address]. tel:[phone] Office/Oupt E&M New Pt 30 Mins [facility], [address] [address], [place], [id number] , [place] tel:[phone] Johny Benson Arterial (chief complaint) Type 2 diabetes mellitus with unspecified complicationsHypert ensionArteriosclero sis of [place] arteries of bilateral legs w/ intermittent claudicationUnspeci fied skin changesBody mass index (BMI) 39.0-39.9, adult 2 Sergio Fajardov. [facility] [place], [id number], [place]. tel:[phone] Referring Provider: Rebeca Avila, [address] [place], [address]. tel:[phone] Family History Family Member Type Diagnosis Age At Onset No Information Payers Payer name Insurance type Covered libertarian ID Authoriza tilore(s) [facility] Dual Complete CI [id number] MEDICAID [address] [id number] Social History Type Description Quantity Date Captured Comments Alcohol Use Details Unknown Caffeine Use Details Unknown Tobacco Use Status No Information Smoking Status No Information Sex Female Sexual Orientation Straight or heterosexual Gender Identity Female Chief Complaint And Reason For Visit No Information Reason For Referral Reason For Referral No Information Plan Of Treatment Date Type Action Status Nutrition Recommendation Dietary regime ( regime/therapy) completed History Of Present Illness Encounter Date Complaint History Of Prese nt Illness Arterial Ms. Jimena quinonez is a 66 y.o. female who presents to the office today for arterial evaluation and has been referred by CVR. She has a PMH of HTN, DM, stroke, arthritis, asthma, GERD, sleep apnea, and hypothyroidism. She is Nauruan speaking and Delores has interpreted our visit. Patient uses a walker for balance. Today, Ms. Watkins reports that she does not walk much. She states that her legs are stiff and uncomfortable when she wakes up in the morning. The patient complains of left lower extremity ischemic rest pain. The patient complains of right lower extremity claudication. Reports numbness to bilateral lower extremities which causes her to lose balance (L>R). Reports paresthesia of bilateral lower extremities. She reports that she previously underwent a vascular procedure on the right leg in [place] about 5 years ago, however unsure of what it was. Patient reports her symptoms onset 3-4 years ago. Denies coolness to extremities. Patient reports unknown A1C. Reports tobacco use for 15 years previously, however has practiced cessation for 30 years. No other complaints at this time. Functional Status Date Functional Assessmen t No Information Medications Administered Medication Instructions Dosage Effective Dates (start - stop) Status Comments No Drug Therapy Prescribed Instructions Date Instruction Additional Infor mation Giving encouragement to exercise Related to Body mass index (BMI) 39.0-39.9, adult Hypertension education Related t o Hypertension Assessments Type Assessment Date No Information Patient Care Teams Name Effective Dates (start - stop) Status Members No Information
[2024-12-18 10:41] VITALS: BP 138/72; PULSE 74; O2SAT 100; BMI 35.1
--- NOTE | 2024-12-18 10:41 | A.OFFVIS_ITS ---
Vital Signs 12/18/24 10:41 Height 4 ft 11 in Weight 174 lb BMI 35.1 BP 138/72 Blood Pressure Location Rt brachial Position Sitting Pulse 74 Pulse Source Pulse Oximeter Pulse Oximetry (%) 100 Oxygen Delivery Method Room Air Intake Visit Reasons: Colonoscopy screening Intake Note: New pt for recall colo. Last w/ Dr. Obrien in 2008. CC; Pt denies any GI sx or concerns at this time. Software Applications Architect Required: Yes Software Applications Architect Services: Software Applications Architect Offered & Declined Accompanied by: Self / Same As Patient Allergies aspirin (Aspirin) Allergy (Mild, Verified 12/18/24 10:42) RASH morphine (MORPHINE) Allergy (Unknown, Verified 12/18/24 10:42) ABD PAIN, RASH omeprazole (OMEPRAZOLE) Allergy (Unknown, Verified 12/18/24 10:42) SHORTNESS OF BREATH pregabalin (From LYRICA) Allergy (Unknown, Verified 12/18/24 10:42) SHORTNESS OF BREATH celecoxib Adverse Reaction (Mild, Verified 12/18/24 10:42) chest pain, jumping feeling in her heart. HPI HPI Colonoscopy screening: Details: 69 year old? female with past medical history of varicose veins, pituitary macroadenoma, hypersomnia, sleep apnea, diabetes, osteoarthritis, osteopenia, eczema, obesity, PVD, NSTEMI, constipation, polyarthralgia, diabetes, CVA, neuropathy, asthma, hypertension, allergic rhinitis is here today for pre colonoscopy screening.? Patient was sent to us by her PCP.? Last colonoscopy in [address] Obrien. Patient had normal colonoscopy then.? Patient denies any gastrointestinal symptoms in the past or at present.? Denies any personal or family history of gastrointestinal disease, colon polyps, or CRC.? Denies history of difficulty with sedation or anesthesia in the past.? Negative for history of sleep apnea, recent study done. However patient does have a history of sleep apnea in the past..? Patient is on Xarelto. Patient had vascular surgery in September. Patient did well with anesthesia?? No history of infectious? diseases like hepatitis A, B, C, HIV or tuberculosis.? [facility] Medical History Heart attack Abscess of chest wall Uncontrolled type 2 diabetes mellitus with hyperglycemia, with long-term current use of insulin Ganglion cyst Glaucoma Neuropathy Arthritis Intracranial mass Diabetes 1.5, managed as type 2 Hypertension Asthma Surgical History History of surgery History of removal of cyst Stented coronary artery H/O tubal ligation Hx of tonsillectomy H/O right breast biopsy Social History Housing: Apartment Patient Tobacco Use Status: Former Tobacco user e-Cigarette/Vaping Use: Never Used service: No Current occupational status: disabled Current occupational exposures/hazards: No Cognitive needs: No Hearing needs: No Vision needs: No Review of Systems Const Denies weight gain and Denies weight loss ENT Reports no additional complaints, Denies dysphagia and Denies odynophagia Card Reports no additional complaints Resp Reports no additional complaints GI Denies abdominal pain, Denies belching, Denies melena, Denies bloating, Denies change in bowel habits, Denies dysphagia, Denies excessive flatus, Denies dyspepsia, Denies heartburn, Denies diarrhea, Denies loose stools, Denies nausea, Denies odynophagia and Denies vomiting Musc Reports no additional complaints Neuro Reports no additional complaints Psych Reports no additional complaints Endo Reports no additional complaints Physical Exam Vital Signs: BMI result Body Mass Index 35.1 Const Other: Ambulating with a wheeled walker General: healthy appearing, no acute distress and well developed Nutritional Appearance: well nourished Orientation/consciousness: patient oriented x3 Resp Effort & Inspection: normal respiratory effort, able to speak in complete sentences, no tracheal deviation and symmetric chest movement Auscultation: clear to auscultation bilaterally Cardio Rate: regular rate GI Inspection: Yes normal to inspection and No distended Palpation (GI): Soft to palpation, not firm, nontender and No hepatosplenomegaly present Auscultation: normal bowel sounds General: Yes no CVA tenderness Back/Spine/Pelvis Back: no CVA tenderness Skin General skin exam: elasticity normal, turgor normal and dry skin Neuro General: patient oriented x3 Psych Appearance: grossly normal Mental Status: mental status grossly normal Assessment & Plan Assessment & Plan (1) Screen for colon cancer: Code(s): Z12.11 - Encounter for screening for malignant neoplasm of colon Plan Patient denies any GI, cardiac or respiratory symptoms.? Denies any issues with anesthesia in the past.? Recent study negative for sleep apnea.? No history infectious diseases in the past or present.? Patient is on Xarelto.? No family or personal history of colon cancer or polyps.? Patient denies melena, hematochezia, unintentional weight loss or ribbon like stools.? Discussed at length the pre-procedure,? prep, diet & medications as well as what to expect prior, during and after the procedure.?? Stressed the importance of good bowel prep.? Recommended the use of Vaseline or Calmoseptine OTC & baby wipes with bowel movements to promote comfort.? ?Patient verbalizes understanding and agrees to plan of care.? She was given the opportunity to ask questions and all questions answered.? We will see her after the procedure.? Medications: New polyethylene glycol 3350 (Miralax) As directed by gastroenterology department at [facility] 238 grams PO ONCE 238 grams 0RF Z12.11 - Encounter for screening for malignant neoplasm of colon bisacodyl (Dulcolax (bisacodyl)) take 4 tabs at noon the day before your colonoscopy 20 mg (4 x 5 mg) PO ONCE 4 tabs 0RF 1 day Z12.11 - Encounter for screening for malignant neoplasm of colon Coding Level of Care Code New Pt Level 3 (51765) Diagnoses Screen for colon cancer Z12.11 Time Spent (min) 40 Comment 30 minutes spent with patient and additional 10 minutes spent reviewing her records
--- OUTSIDE RECORDS SUMMARY | 2024-12-18 11:32 | XMS_ITS | Encounter Summary ---
Author Organization [facility] Address [address] [place] [address] Encounters * CPT with Venkata Mccoy at [employer] on 2024-10-01 Member 's VNA called into the [facility], reports member has cysts on her left lower back that are causingsevere pain. VNA was not able to describe cysts, since she did not examine the member. At time of this call member is not present. This bond writer informed caller, I will follow up with member to complete triage. VNA then requested to speak with CP, to discuss other things . Call transferredto Clinical Admin line. Call placed to member, she c/o left foot pain, d/t blister on the top of her foot. Member states her entire foot is red and she has severe pain. Member reports difficulty sleeping d/t pain. Member has hx of DM II, left foot ulcers, HTN, Acute superficial Vein Thrombosis of left lower extremity, CAD, Cellulitis of left foot, MDD, chronic pain { reasonForRequest : pain , patientReports : , denies& quot;:[], chiefComplaints : Extremity Pain , pmh : COPD/Asthma, Hypertension, Coronary Artery Disease, Diabetes Mellitus Type 2, Deep Vein Thrombosis, Depression, Chronic Pain , allergies : Lyrica, Metformin , otherAllergies :&quo t; , painAssessment : , visitOutcome : , additionalComments :null} Pt alert and oriented complains of left foot pain x 5 days. Patient reports she was seen at ED six days ago, x-rayed foot at time. Patient states pain and swelling has increased in the last several days, pain unbearable unable to sleep. Patient reports shooting pain up her leg. Patient denies nausea, vomiting, fever, chills, diarrhea, weakness, dizziness, or any other pain or complaints. Patient pink warm dry secondary exam unremarkable left lower foot in pictures, additional heat, swelling and redness noted. Pus between fourth and fifth toe on left foot, wound on both toes at pressure site. Negative increased work of breathing positive full sentences abdomen soft non tender. [facility] [place], 911 system activated, report to EMS on scene. Patient transported via [place] fire to [facility]. IV_(FLUIDS_AND/OR_MEDICATION), MEDICATION_IM, ORAL_MEDICATION, WOUND_CARE, ORTHOSTATIC_VITAL_SIGNS Written by Venkata Mccoy on 2024-10-01
--- OUTSIDE RECORDS SUMMARY | 2024-12-18 11:32 | XMS_ITS | Continuity of Care Document ---
Author Name Venkata Mccoy Address [address] [place] [id number] Organization Unknown Address [address] [place] [address] Medications No known medications Problems No known problems
== END 2024-12-18 11:10 | disposition home or self-care (01) ==
LOC: HO.HGI 10:41
PROVIDERS: PCP Family Medicine; Visit Provider Nurse Practitioner Family
DX: Z01.818 Encounter for other preprocedural examination (principal); Z12.11 Encounter for screening for malignant neoplasm of colon
CPT/HCPCS: 99024

== ENCOUNTER → 2024-12-18 10:40 | Outpatient (BNVA) | payer OTHER, SELFPAY | PROVIDERS: PCP Family Medicine; Visit Provider Nurse Practitioner Family | DX: Z01.818 Encounter for other preprocedural examination (principal); Z12.11 Encounter for screening for malignant neoplasm of colon | CPT/HCPCS: 99212 ==

== ENCOUNTER 2025-01-27 13:33 | Outpatient (AMB) | payer OTHER, SELFPAY ==
[2025-01-27 13:34] VITALS: BP 120/72; PULSE 75; O2SAT 97; BMI 35.4
--- NOTE | 2025-01-27 13:34 | A.OFFVIS_ITS ---
Vital Signs 01/27/25 13:34 Height 4 ft 11 in Weight 175 lb 4.28 oz BMI 35.4 BP 120/72 Blood Pressure Location Lt brachial Position Sitting Pulse 75 Pulse Source Pulse Oximeter Pulse Oximetry (%) 97 Oxygen Delivery Method Room Air Intake Visit Reasons: T2DM Intake Note: Patient present today for Type 2 Diabetes Mellitus Last Diabetic eye exam: Last exam was sometime in 2023 but patient is unsure. Last Podiatry Visit: Doesn't have one Random Glucose: 134 mg/dl HgA1C: 6.9% 12/05/24 Medical Or Surgical Instrument Maker Required: Yes Medical Or Surgical Instrument Maker Language: Lifestyle Consultant Services: Medical Or Surgical Instrument Maker Present Medical Or Surgical Instrument Maker Name: Merritt [id number] Information Interpreted: non-clinical & clinical Accompanied by: Self / Same As Patient Allergies aspirin (Aspirin) Allergy (Mild, Verified 01/27/25 13:41) RASH morphine (MORPHINE) Allergy (Unknown, Verified 01/27/25 13:41) ABD PAIN, RASH omeprazole (OMEPRAZOLE) Allergy (Unknown, Verified 01/27/25 13:41) SHORTNESS OF BREATH pregabalin (From LYRICA) Allergy (Unknown, Verified 01/27/25 13:41) SHORTNESS OF BREATH celecoxib Adverse Reaction (Mild, Verified 01/27/25 13:41) chest pain, jumping feeling in her heart. Medication List - Last Reconciled 01/27/25 by Ana Laura Carlson PA-C acetaminophen 1,000 mg PO Q6H PRN alcohol swabs (Alcohol Prep Pads) 1 pad topical 3XD 90 days alendronate 70 mg PO QWEEK aspirin 81 mg PO DAILY atorvastatin 80 mg PO DAILY bisacodyl (Dulcolax (bisacodyl)) 20 mg (4 x 5 mg) PO ONCE 1 day blood-glucose sensor (FreeStyle Alirio 3 Plus Sensor device) Use daily As directed to monitor glucose blood-glucose sensor (FreeStyle Alirio 3 Sensor device) Apply every 14 days As directed blood-glucose,broadcast operations technician,cont (FreeStyle Alirio 3 [place]) use daily As directed to check blood glucose budesonide-formoterol 160-4.5 mcg/actuation 2 inhalations inhalation BID calcium carbonate-vitamin D3 600 mg-10 mcg (400 unit) (Calcium 600 with Vitamin D3) 1 tab PO BID 90 days chair, wheel (Wheel chair) w/c with elevated leg rests as directed clotrimazole 1% 1 appl topical BID 2 weeks compression socks, large for edema of lower extremity as directed diclofenac sodium 1% (Voltaren Arthritis Pain) 4 grams topical QID 30 days empagliflozin (Jardiance) 25 mg PO DAILY flash glucose sensor (FreeStyle Alirio 2 Sensor kit) use daily As directed to monitor glucose fluticasone propionate 50 mcg/actuation (Flonase Allergy Relief) 1 spray intranasal Q12H 30 days gabapentin 600 mg (2 x 300 mg) PO Q12H 30 days Humalog KwikPen Insulin (insulin lispro) 4 units (0.04 mL) subcut BID NS miscellaneous medical supply reclining lift chair as directed pen needle, diabetic (BD Ultra-Fine Mini Pen Needle) 4 TIMES DAILY, As directed, 90 DAYS polyethylene glycol 3350 (Miralax) 17 grams PO DAILY 14 days polyethylene glycol 3350 (Miralax) 238 grams PO ONCE rivaroxaban (Xarelto) 2.5 mg PO BID 90 days sacubitril-valsartan 24-26 mg (Entresto) 1 tab PO BID 90 days semaglutide (Ozempic) 2 mg (0.75 mL) subcut QWEEK sodium phosphates 19-7 gram/118 mL (Fleet Enema) 118 mL [place] DAILY PRN spironolactone 25 mg PO DAILY 90 days Tresiba FlexTouch U-100 (insulin degludec) 70 units (0.7 mL) subcut DAILY 30 days NS triamcinolone acetonide 0.1% 1 appl topical BID 14 days HPI HPI T2DM: Details: Patient is a 69-year-old female with a significant past medical history of obesity, peripheral vascular disease, NSTEMI, uncontrolled type 2 diabetes, insulin dependent, history of a CVA, hypertension and hyperlipidemia presenting today for a follow-up regarding her diabetes. Medical Or Surgical Instrument Maker:Merritt Edmond phone setter juice packaging machines -She is here by herself today and normally with her burner hand. Endo: DM-her last A1c was 6.5. She is currently on Ozempic 2 mg weekly, Tresiba 60 units daily, Jardiance 25 mg daily. She was started on humalog 4 units BID with meals. -ozempic sometimes causes constipation and nausea. Wants more weight loss and appetite suppression She states that her blood sugars have been great for the last few months but has not been using any sensors. She states that she has not been picking them up from the pharmacy and does not know why. -She states that she has a nurse who comes to her house daily and monitors her blood sugars and blood pressures. She treats her hypoglycemic events with orange juice and candy. CV: Blood pressure today in the office as 120/72. She is on valsartan 80 mg, carvedilol 3.125 mg twice a day. She is atorvastatin 80 mg. [facility] Medical History Heart attack Abscess of chest wall Uncontrolled type 2 diabetes mellitus with hyperglycemia, with long-term current use of insulin Ganglion cyst Glaucoma Neuropathy Arthritis Intracranial mass Diabetes 1.5, managed as type 2 Hypertension Asthma Surgical History History of surgery History of removal of cyst Stented coronary artery H/O tubal ligation Hx of tonsillectomy H/O right breast biopsy Social History Housing: Apartment Patient Tobacco Use Status: Former Tobacco user e-Cigarette/Vaping Use: Never Used service: No Current occupational status: disabled Current occupational exposures/hazards: No Cognitive needs: No Hearing needs: No Vision needs: No Physical Exam Const Orientation/consciousness: patient oriented x3 HEENT Ears: hearing grossly normal bilaterally Neck Thyroid: Thyroid normal Lymphatic: no lymphadenopathy noted Resp Auscultation: clear to auscultation bilaterally Cardio Rate: regular rate Rhythm: regular rhythm Heart sounds: S1 normal heart sound present and S2 normal heart sound present Skin General skin exam: no rashes or lesions noted Neuro General: patient oriented x3, gait normal and no focal motor deficits Results Reviewed Results Reviewed: Laboratory Tests 08/09/24 12/05/24 10:17 12:19 Sodium 139 Potassium 4.2 Chloride 104 Carbon Dioxide 28 Anion Gap 11 L BUN 27 H Creatinine 0.80 Estimated GFR > 60 Random Glucose 79 Hgb A1c (Clinic) 6.9 H Assessment & Plan Assessment & Plan (1) Uncontrolled type 2 diabetes mellitus with hyperglycemia, with long-term current use of insulin: Code(s): E11.65 - Type 2 diabetes mellitus with hyperglycemia; Z79.4 - termite exterminator (current) use of insulin Category: Medical Plan: stop ozempic start mounjaro 2.5 mg weekly continue tresiba 60 units continue humalog 4 units with meals continue jardiance 25 mg daily recheck labs f/u in 2 months or sooner prn (2) Hypertension: Code(s): I10 - Essential (primary) hypertension Category: Medical Plan: bp wnl today continue current plan Medications: New tirzepatide (Mounjaro) 2.5 mg (0.5 mL) subcut QWEEK 2 mL 2RF Changed From Tresiba FlexTouch U-100 (insulin degludec) 70 units (0.7 mL) subcut DAILY 30 days 30 mL 4RF NS To Tresiba FlexTouch U-100 (insulin degludec) 60 units (0.6 mL) subcut DAILY 18 mL 4RF 30 days NS Refilled blood-glucose sensor (FreeStyle Alirio 3 Plus Sensor device) Use daily As directed to monitor glucose 2 ea 5RF E08.29 - Diabetes mellitus due to underlying condition with other diabetic kidney complication, R80.9 - Pr oteinuria, unspecified, Z79.4 - termite exterminator (current) use of insulin Discontinued semaglutide (Ozempic) Discontinued Reason: Doctor's Order 2 mg (0.75 mL) subcut QWEEK 3 mL 6RF blood-glucose sensor (FreeStyle Alirio 3 Sensor device) Discontinued Reason: Duplicate Apply every 14 days As directed 2 ea 11RF E11.9 - Type 2 diabetes mellitus without complications, Z79.4 - long-term (current) use of insulin Patient Instructions: Call Dr. Ordonez office for your MRI. [phone] sensors sent arrow start mounjaro and STOP ozempic short term follow up to titrate medication Coding Level of Care Code Est Pt Level 4 (20771) Complex EM visit Add On G2211 Diagnoses Uncontrolled type 2 diabetes mellitus with hyperglycemia, with long-term current use of insulin E11.65; Z79.4 Hypertension I10
[2025-01-27 13:47] LABS: Glucose, Whole Blood 134 mg/dL (60-115)
== END 2025-01-27 14:11 | disposition home or self-care (01) ==
LOC: HO.ENCR 13:33
PROVIDERS: PCP Family Medicine; Visit Provider Physician Assistant
DX: E11.65 Type 2 diabetes mellitus with hyperglycemia (principal); Z79.4 Long term (current) use of insulin; I10 Essential (primary) hypertension

== ENCOUNTER → 2025-01-27 13:33 | Outpatient (BNVA) | payer OTHER, SELFPAY | PROVIDERS: PCP Family Medicine; Visit Provider Physician Assistant | DX: E11.65 Type 2 diabetes mellitus with hyperglycemia (principal); E11.51 Type 2 diabetes mellitus with diabetic peripheral angiopathy without gangrene; E66.9 Obesity, unspecified; I10 Essential (primary) hypertension; E78.5 Hyperlipidemia, unspecified; Z79.4 Long term (current) use of insulin; Z68.35 Body mass index [BMI] 35.0-35.9, adult | CPT/HCPCS: 82947; 99212 ==

== ENCOUNTER 2025-02-06 11:08 | Outpatient (AMB) | payer OTHER, SELFPAY ==
--- NOTE | 2025-02-06 11:12 | MHC.PC.OV ---
Vital Signs 02/06/25 11:19 Height 4 ft 11 in Weight 175 lb 8 oz BMI 35.4 BP 102/58 L Blood Pressure Location Rt brachial Position Sitting Respiration 16 Pulse 79 Pulse Source Pulse Oximeter Temp 97.5 F Temp Source Temporal Artery Scan Pulse Oximetry (%) 98 Oxygen Delivery Method Room Air Intake Visit Reasons: f/u chronic conditions Intake Note: Jimena presents in the office today for multiple conditions. Allergies aspirin (Aspirin) Allergy (Mild, Verified 02/06/25 11:17) RASH morphine (MORPHINE) Allergy (Unknown, Verified 02/06/25 11:17) ABD PAIN, RASH omeprazole (OMEPRAZOLE) Allergy (Unknown, Verified 02/06/25 11:17) SHORTNESS OF BREATH pregabalin (From LYRICA) Allergy (Unknown, Verified 02/06/25 11:17) SHORTNESS OF BREATH celecoxib Adverse Reaction (Mild, Verified 02/06/25 11:17) chest pain, jumping feeling in her heart. Medication List - Last Reconciled 02/06/25 by Ross Gold MD acetaminophen 1,000 mg PO Q6H PRN alcohol swabs (Alcohol Prep Pads) 1 pad topical 3XD 90 days alendronate 70 mg PO QWEEK aspirin 81 mg PO DAILY atorvastatin 80 mg PO DAILY bisacodyl (Dulcolax (bisacodyl)) 20 mg (4 x 5 mg) PO ONCE 1 day blood-glucose sensor (Media Matchmakeryle Alirio 3 Plus Sensor device) Use daily As directed to monitor glucose blood-glucose,business services coordinator,cont (FreeStyle Alirio 3 [place]) use daily As directed to check blood glucose budesonide-formoterol 160-4.5 mcg/actuation 2 inhalations inhalation BID calcium carbonate-vitamin D3 600 mg-10 mcg (400 unit) (Calcium 600 with Vitamin D3) 1 tab PO BID 90 days chair, wheel (Wheel chair) w/c with elevated leg rests as directed clotrimazole 1% 1 appl topical BID 2 weeks compression socks, large for edema of lower extremity as directed diclofenac sodium 1% (Voltaren Arthritis Pain) 4 grams topical QID 30 days empagliflozin (Jardiance) 25 mg PO DAILY flash glucose sensor (Media Matchmakeryle Alirio 2 Sensor kit) use daily As directed to monitor glucose fluticasone propionate 50 mcg/actuation (Flonase Allergy Relief) 1 spray intranasal Q12H 30 days gabapentin 600 mg (2 x 300 mg) PO Q12H 30 days Humalog KwikPen Insulin (insulin lispro) 4 units (0.04 mL) subcut BID NS miscellaneous medical supply reclining lift chair as directed pen needle, diabetic (BD Ultra-Fine Mini Pen Needle) 4 TIMES DAILY, As directed, 90 DAYS polyethylene glycol 3350 (Miralax) 17 grams PO DAILY 14 days polyethylene glycol 3350 (Miralax) 238 grams PO ONCE rivaroxaban (Xarelto) 2.5 mg PO BID 90 days sacubitril-valsartan 24-26 mg (Entresto) 1 tab PO BID 90 days sodium phosphates 19-7 gram/118 mL (Fleet Enema) 118 mL ND DAILY PRN spironolactone 25 mg PO DAILY 90 days tirzepatide (Mounjaro) 2.5 mg (0.5 mL) subcut QWEEK Tresiba FlexTouch U-100 (insulin degludec) 60 units (0.6 mL) subcut DAILY 30 days NS triamcinolone acetonide 0.1% 1 appl topical BID 14 days Tobacco use date assessed: 02/06/25 Fall risk assessment: No Falls in past year Last assessed Fall Risk: 02/06/25 Dental Screening Dental Screen Date: 02/06/25 Did you have a dental visit in the last 12 months?: Yes Did you have a dental problem in the last 6 months where you did not have access to dental care?: No Was dental information given to patient?: Patient has dentist HPI f/u chronic conditions HPI Details 69 y/o female presents to f/u chronic conditions. Blood pressure today 102/58, 79p. Followed by endocrinology for her diabetes. Last saw them 01/27/25. Started her on mounjaro and stopped Ozempic.Pt notes she has been tolerating mounjaro. A1c today 6.8%.. Pt reports ongoing back pain that radiates downwards. Reports ongoing complaints of eczema. Has complaints of a foot drop, L. [facility] Medical History Heart attack Abscess of chest wall Uncontrolled type 2 diabetes mellitus with hyperglycemia, with long-term current use of insulin Ganglion cyst Glaucoma Neuropathy Arthritis Intracranial mass Diabetes 1.5, managed as type 2 Hypertension Asthma Surgical History History of surgery History of removal of cyst Stented coronary artery H/O tubal ligation Hx of tonsillectomy H/O right breast biopsy Social History (Updated 02/06/25 @ 11:19 by Adrienne Sanchez CMA) Housing: Apartment Alcohol intake: never Patient Tobacco Use Status: Former Tobacco user e-Cigarette/Vaping Use: Never Used Second Hand Smoke Exposure: No service: No Current occupational status: disabled Current occupational exposures/hazards: No Cognitive needs: No Hearing needs: No Vision needs: No Questionnaire Thrive Questionnaire Date Thrive assessed: 02/29/24 I am a: Patient What is your living situation today?: I have a steady place to live Within the past 12 months, did the food you bought not last and you didn't have the money to get more?: I choose not to answer this question Within the past 12 months, did you worry whether your food would run out before you got money to buy more?: I choose not to answer this question Do you have trouble paying for medicines?: No Do you have trouble getting transportation to medical appointments?: No Do you have trouble paying your heating and electricity bill?: No Do you have trouble taking care of your child, family member or friend?: I choose not to answer this question Do you have trouble with day-to-day activities such as bathing, preparing meals, shopping, managing finances, etc.?: No Are you currently unemployed and looking for a job?: I choose not to answer this question Are you interested in more education?: I choose not to answer this question Please select the resources that you would like help with: None THRIVE Score: 0 URIEL-7 AMB Questionnaire URIEL-7 Date URIEL - 7 assessed: 12/05/24 Source: Developed by Drs. Jason Glover, Deanna Truong, Sylvester Braga and colleagues, with an educational lisa from [employer]. Review of Systems Const Denies chills, Denies fatigue, Denies fever(s), Denies headache(s) and Denies weakness ENT Denies dizziness and Denies headache(s) Card Denies dyspnea Resp Denies cough, Denies dyspnea, Denies wheezing and Denies other (shortness of breath) Musc Denies numbness and Denies tingling Neuro Denies dizziness, Denies headache(s), Denies numbness, Denies tingling and Denies weakness Psych Denies anxiety and Denies depression Endo Denies fatigue Aller/Immun Denies wheezing Physical exam (Primary Care) Vital Signs: Last Vital Signs Temp 97.5 F 02/06/25 11:19 Pulse 79 02/06/25 11:19 Resp 16 02/06/25 11:19 BP 102/58 L 02/06/25 11:19 Pulse Ox 98 02/06/25 11:19 Oxygen Delivery Method Room Air 02/06/25 11:19 BMI result Body Mass Index 35.4 Tobacco/Smoking Status: Tobacco use Status Tobacco use date assessed 02/06/25 02/06/25 11:23 Patient Tobacco Use Status Former Tobacco user 02/06/25 11:19 e-Cigarette/Vaping Use Never Used 02/06/25 11:19 Thrive Assessment: Date of Thrive Assessment Date Thrive assessed 02/29/24 02/06/25 11:14 Const General: well developed; No acute distress Nutritional Appearance: well nourished Orientation/consciousness: patient oriented x3 HENMT Head: Yes normocephalic and Yes atraumatic Eyes General: appearance normal, both eyes and all related structures Pupils: Equal, round and reactive pupils present EOM: EOMs intact bilaterally Resp Effort & Inspection: normal respiratory effort Neuro General: patient oriented x3 and gait normal Cranial nerves: Yes Equal, round and reactive pupils present Psych Affect: normal affect Coding Level of Care Code Est Pt Level 4 (58199) Diagnoses Hypertension I10 Diabetes E11.9 Peripheral vascular disease I73.9 Chronic left-sided low back pain with left-sided sciatica M54.42; G89.29 Back pain laterality: left Chronicity: chronic Sciatica laterality: sciatica of left side Sciatica presence: with sciatica Eczema L30.9 Foot drop M21.379 Assessment & Plan Assessment & Plan (1) Hypertension: Code(s): I10 - Essential (primary) hypertension Category: Medical Plan: Blood pressure is controlled. Goal is less than 130/80 Continue current medication (2) Diabetes: Code(s): E11.9 - Type 2 diabetes mellitus without complications Category: Medical Plan: A1c 6.8% Good control. Goal is less than 7% Recently had Ozempic change To Mounjaro and tolerating well. Continue Mounjaro and no change to her other diabetes medications which she continues as well. Follow-up with endocrinology as recommended (3) Peripheral vascular disease: Code(s): I73.9 - Peripheral vascular disease, unspecified Category: Medical Plan: Recently seen by Cardiology They recommended repeat MARK which they have scheduled for March (4) Low back pain: Code(s): M54.50 - Low back pain, unspecified Category: Medical Qualifiers: Back pain laterality: left Chronicity: chronic Sciatica laterality: sciatica of left side Sciatica presence: with sciatica Qualified Code(s): M54.42 - Lumbago with sciatica, left side; G89.29 - Other chronic pain Plan: Trial diclofenac gel and heat (5) Eczema: Code(s): L30.9 - Dermatitis, unspecified Category: Medical Plan: Patient notes that triamcinolone is helping and she will continue this. BID in AM & PM Advised she use a moisturizing lotion with no dyes or perfumes during her day (6) Foot drop: Code(s): M21.379 - Foot drop, unspecified foot Category: Medical Plan: Patient notes worsening footdrop and does have some back pain Referred to neurology Orders: Orders AMB Hemoglobin A1c Today E13.9 - Other specified diabetes mellitus without complications Referrals Neurology Referral M21.379 - Foot drop, unspecified foot Medications: New diclofenac sodium 1% (Arthritis Pain (diclofenac)) apply to single knee, ankle, foot; for foot includes sole/toes/top of foot 4 grams topical BID 200 grams 2RF 30 days Refilled blood-glucose sensor (FreeStyle Alirio 3 Plus Sensor device) Use daily As directed to monitor glucose 2 ea 5RF E08.29 - Diabetes mellitus due to underlying condition with other diabetic kidney complication, R80.9 - Proteinuria, unspecified, 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
[2025-02-06 11:19] VITALS: BP 102/58; PULSE 79; RESP 16; TEMP 36.4; O2SAT 98; BMI 35.4
== END 2025-02-06 11:46 | disposition home or self-care (01) ==
LOC: HO.HMCFM 11:09
PROVIDERS: PCP Family Medicine; Visit Provider Family Medicine
DX: I10 Essential (primary) hypertension (principal); E11.51 Type 2 diabetes mellitus with diabetic peripheral angiopathy without gangrene; I73.9 Peripheral vascular disease, unspecified; M54.42 Lumbago with sciatica, left side; G89.29 Other chronic pain; L30.9 Dermatitis, unspecified; M21.372 Foot drop, left foot

== ENCOUNTER → 2025-02-06 11:08 | Outpatient (BNVA) | payer OTHER, SELFPAY | PROVIDERS: PCP Family Medicine; Visit Provider Family Medicine | DX: I10 Essential (primary) hypertension (principal); E13.9 Other specified diabetes mellitus without complications; I73.9 Peripheral vascular disease, unspecified; M54.42 Lumbago with sciatica, left side; G89.29 Other chronic pain; L30.9 Dermatitis, unspecified; M21.379 Foot drop, unspecified foot | CPT/HCPCS: 83036; 99212 ==

== ENCOUNTER 2025-02-12 10:23 | Outpatient (AMB) | payer OTHER, SELFPAY ==
--- NOTE | 2025-02-12 10:33 | A.OFFVIS_ITS ---
Vital Signs 02/12/25 10:33 Height 4 ft 11 in Intake Visit Reasons: Type 2 diabetes, Insulin Intake Note: Jimena is a 69 year old female who presents to the office today as a new patient referred by her PCP office for Type 2 diabetes, Insulin. Pt states her sugar is currently at 98 and her last reported A1c was 6.8. She reports feeling numbness and tingling only in her left foot. Patient denies any previous injury to her feet or amputation. she mentions she has back pain that comes and goes with no injuries and she is currenly taking gabapentin. Allergies aspirin (Aspirin) Allergy (Mild, Verified 02/12/25 10:34) RASH morphine (MORPHINE) Allergy (Unknown, Verified 02/12/25 10:34) ABD PAIN, RASH omeprazole (OMEPRAZOLE) Allergy (Unknown, Verified 02/12/25 10:34) SHORTNESS OF BREATH pregabalin (From LYRICA) Allergy (Unknown, Verified 02/12/25 10:34) SHORTNESS OF BREATH celecoxib Adverse Reaction (Mild, Verified 02/12/25 10:34) chest pain, jumping feeling in her heart. HPI HPI Type 2 diabetes, Insulin: Details: 69 y/o female past medical history of DM type 2 w/ peripheral neuropathy, NSTEMI s/p stent, HTN, CVA w/ left foot drop, gait abnormality, hip/lower back weakness, PAD s/p left lower extremity bypass, presents for diabetic foot evaluation. She ambulates using a rolling walker. She does not complain of left lower extremity weakness, however notes she has difficulty ambulating due to her lower back, hips, and quad/thigh weakness bilaterally. Patient does not have an AFO/brace for her left leg. She states she works with physical therapy twice a week at home for ambulation and states that she has been generally improving, expecting to complete her home therapist regimen soon. She denies active complains of burning numbness or tingling to her feet today. Patient complains of painful elongated toenails, stating that she has been unable to receive routine foot care ever since her last inspector and tester . Today, the patient Patient denies N/V/F/C/SOB/CP. [facility] Medical History Heart attack Abscess of chest wall Uncontrolled type 2 diabetes mellitus with hyperglycemia, with long-term current use of insulin Ganglion cyst Glaucoma Neuropathy Arthritis Intracranial mass Diabetes 1.5, managed as type 2 Hypertension Asthma Surgical History History of surgery History of removal of cyst Stented coronary artery H/O tubal ligation Hx of tonsillectomy H/O right breast biopsy Social History (Updated 02/06/25 @ 11:19 by Adrienne Sanchez CMA) Housing: Apartment Alcohol intake: never Patient Tobacco Use Status: Former Tobacco user e-Cigarette/Vaping Use: Never Used Second Hand Smoke Exposure: No service: No Current occupational status: disabled Current occupational exposures/hazards: No Cognitive needs: No Hearing needs: No Vision needs: No Review of Systems Const All systems reviewed & are unremarkable except as noted in HPI and below Physical Exam Extrem Other: *Bilateral Lower Extremity Focused Diabetic Foot Exam Vascular: DP/PT 1/4, CFT<3s to digits, TG warm to cool, no pedal edema, pedal hair absent Derm: Skin: No open lesions, ulcerations, or calluses. Interdigital spaces: Clear, no maceration or fungal infection. Nails: Elongated thickened severely dystrophic nails times 10 Neuro: Protective sensation grossly diminished to the bilateral lower extremities Msk: Deformities: No evidence of hammertoes, bunions, Charcot changes, or other structural abnormalities. Muscle strength: 4+/5 in all muscle groups bilaterally to the ankle except 4-/5 dorsiflexion left ankle. Gait: Slow, symmetric base and angle of gait with use of rolling walker. Equal dorsiflexion noted upon ambulation bilaterally. Footwear Assessment: Shoes inspected; appropriate fit, no excessive wear, or foreign objects noted. Office Procedures AMB Debridement/Avulsion Podia Details: Procedure: Nail debridement Location: 10 nails, bilateral feet Anesthesia: N/A Description: The affected toenails were cleansed with an antiseptic solution. Using sterile nail nippers and a rotary brody, dystrophic and mycotic nail material was carefully debrided and reduced in thickness. Care was taken to avoid trauma to the surrounding skin and nail bed. All debris was removed as tolerated. The area was inspected for signs of infection or ulceration. Patient tolerated the procedure well without complications. Tolerance: Patient tolerated procedure well, no immediate complications. Class B findings as per physical exam findings above. The patient has a diagnosis of diabetes mellitus and presents with elongated, thickened toenails. Due to underlying diabetic neuropathy and mild vascular disease findings, the patient is at increased risk for complications such as ulceration, infection, and difficulty with self-care. Debridement of elongated toenails is medically necessary to prevent development of pressure-related lesions, reduce risk of secondary infection, and maintain foot health in high- risk comorbidities. 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 Patient has loss of protective sensation with left lower extremity peripheral arterial disease now s/p bypass. Patient remains at moderate-high risk for diabetic foot complications at this time. Recommendations: Continue routine foot care and daily self-inspection. Recommend moisturizing daily. Reinforced diabetic foot education and risks from peripheral neuropathy. (2) Peripheral artery disease: Code(s): I73.9 - Peripheral vascular disease, unspecified Category: Medical Plan: * The patient has some worsening purple discoloration to her left forefoot as per her observations. She does have however warmth noted to her left foot/digits and CFT< 3 seconds, and no complaints of claudication at this time. She was recommended post follow up with her vascular surgeon. She states she has an appointment within the next few weeks. He has recommended calling the office if she is concerned to move up her appointment however she states that she we will wait for her next appointment. (3) Onychogryphosis: Comment: last nail debridement 02/12/2025. Code(s): L60.2 - Onychogryphosis Category: Medical Plan: * debrided elongated nails x10 using sterile nail nipper. The patient tolerated the procedure well with no bleeding and no complications. (4) Left foot drop: Code(s): M21.372 - Foot drop, left foot Category: Medical Plan: * She was recommended an AFO to her left lower extremity however the patient deferred the brace at this time, stating that she does not feel her left leg was weaker than her right and instead attributes her ambulation difficulties to her lower back and hips. She also states that she has been steadily improving with her gait with her nurse therapist. * Gait examination was performed today and she was noted to have symmetric equal stride. To avoid any further K modifications, she will be monitored closely and we will defer AFO at this time. Orders: Orders AMB Debridement/Avulsion Podiatry Today L60.2 - Onychogryphosis Coding Level of Care Code New Pt Level 4 (48175) Diagnoses Uncontrolled type 2 diabetes mellitus with hyperglycemia, with long-term current use of insulin E11.65; Z79.4 Peripheral artery disease I73.9 Onychogryphosis L60.2 Left foot drop M21.372 CPT Codes Skin Debridement - CPT: 76292-Ixmxlxctbfv of Nail 6+ ([id number]) Time Spent (min) 30
== END 2025-02-12 10:53 | disposition home or self-care (01) ==
LOC: HO.HPODS 10:24
PROVIDERS: PCP Family Medicine; Visit Provider Student in an Organized Health Care Education/Training Program
DX: E11.65 Type 2 diabetes mellitus with hyperglycemia (principal); Z79.4 Long term (current) use of insulin; I73.9 Peripheral vascular disease, unspecified; L60.2 Onychogryphosis; M21.372 Foot drop, left foot
CPT/HCPCS: 11721; 99203

== ENCOUNTER → 2025-02-12 10:23 | Outpatient (BNVA) | payer OTHER, SELFPAY | PROVIDERS: PCP Family Medicine; Visit Provider Student in an Organized Health Care Education/Training Program | DX: E11.51 Type 2 diabetes mellitus with diabetic peripheral angiopathy without gangrene (principal); E11.42 Type 2 diabetes mellitus with diabetic polyneuropathy; E11.65 Type 2 diabetes mellitus with hyperglycemia; L60.2 Onychogryphosis; I69.398 Other sequelae of cerebral infarction; M21.372 Foot drop, left foot; Z79.4 Long term (current) use of insulin | CPT/HCPCS: 11721; 99202 ==

== ENCOUNTER → 2025-02-13 23:59 | Outpatient (BNV) | payer OTHER, SELFPAY | PROVIDERS: PCP Family Medicine; Visit Provider Family Medicine | DX: I73.9 Peripheral vascular disease, unspecified (principal); E11.51 Type 2 diabetes mellitus with diabetic peripheral angiopathy without gangrene | CPT/HCPCS: G0179 ==